=== PATIENT | male | born 1945 | race Caucasian/White ===

== ENCOUNTER 2016-09-26 15:41 | Emergency (ER) | payer MEDICARE, OTHER ==
[~2016-09-26] VITALS: Ht 175.3 cm; Wt 81.5 kg
[~2016-09-26 15:41] MED LIST: AMBI5TAB PO; AMIO200 PO; CINNAMON BARK 500MG PO; CITA-48 PO; CLON-352 PO; GLUC1000 PO; LEVO.125 PO; LISI-587 PO; OMEP20TA PO; PANT40IN3 PO; SERO400T PO; TAMS.4 PO
[2016-09-26 15:43] VITALS: BP 163/84; PULSE 99; RESP 20; TEMP 97.8; O2SAT 98
== END 2016-09-26 18:54 | disposition left against medical advice (07) ==
LOC: NED 15:41
DX: M79.643 Pain in unspecified hand (principal); Z53.21 Procedure and treatment not carried out due to patient leaving prior to being seen by health care provider
CPT/HCPCS: 99281

== ENCOUNTER 2016-09-27 20:51 | Emergency (ER) | payer MEDICARE, OTHER ==
[2016-09-27 20:54] VITALS: BP 142/78; PULSE 86; RESP 16; TEMP 98.1; O2SAT 99
== END 2016-09-27 22:20 | disposition left against medical advice (07) ==
LOC: NED 20:51
DX: Z04.9 Encounter for examination and observation for unspecified reason (principal)
CPT/HCPCS: 99281

== ENCOUNTER 2017-03-12 20:52 | Emergency (ER) | payer MEDICARE, OTHER ==
[~2017-03-12] VITALS: Ht 182.9 cm; Wt 75.0 kg
[2017-03-12 20:56] VITALS: BP 204/102; PULSE 91; RESP 16; O2SAT 96
[2017-03-12] MEDS ORDERED: ASCO500T PO ×2 (21:01→21:05)
[2017-03-12] MEDS ORDERED: FUROSEMIDE 20 MG/2 ML VIAL IV PUSH ONE (21:15)
[2017-03-12] MEDS ORDERED: FERR325T72 PO (21:16)
[2017-03-12] MEDS ORDERED: CLON0.1T PO (21:16)
[2017-03-12] MEDS ORDERED: OMEP20TA93 PO (21:16)
[2017-03-12] MEDS ORDERED: CITA40TA4 PO (21:16)
[2017-03-12] MEDS ORDERED: LISI-515 PO (21:16)
[2017-03-12] MEDS ORDERED: HYDR25TA5 PO (21:16)
[2017-03-12] MEDS ORDERED: ASPI81CH6 CHEW (21:16)
[2017-03-12] MEDS ORDERED: GABA600T PO (21:16)
[2017-03-12] MEDS ORDERED: GLIP10TA6 PO (21:16)
[2017-03-12] MEDS ORDERED: VITA100018 PO (21:16)
[2017-03-12 21:29] LABS: AUTOMATED NEUTROPHIL # 12.1 TH/MM3 (1.8-7.7); BASOPHIL % 0.3 % (0.0-2.0); HEMATOCRIT 39.6 % (39.0-51.0); HEMOGLOBIN 13.3 GM/DL (13.0-17.0); LYMPH % 4.7 % (9.0-44.0); LYMPHOCYTE # 0.7 TH/MM3 (1.0-4.8); MEAN CELL VOLUME 82.8 FL (80.0-100.0); MEAN CORPUSCULAR HEMOGLOBIN 27.9 PG (27.0-34.0); MEAN CORPUSCULAR HGB CONC 33.7 % (32.0-36.0); MEAN PLATELET VOLUME 8.7 FL (7.0-11.0); MONO % 9.4 % (0.0-8.0); MONOCYTE # 1.3 TH/MM3 (0-0.9); NEUT % 85.6 % (16.0-70.0); PLATELET COUNT 426 TH/MM3 (150-450); RED BLOOD COUNT 4.78 MIL/MM3 (4.50-5.90); RED CELL DISTRIBUTION WIDTH 14.2 % (11.6-17.2); WHITE BLOOD COUNT 14.1 TH/MM3 (4.0-11.0)
--- NOTE | 2017-03-12 21:34 | PD ---
HPI Chief Complaint: General Weakness Time Seen by Provider: 20:54 Travel History International Travel<30 days: No Contact w/Intl Traveler<30days: No Traveled to known affect area: No History of Present Illness HPI This 71-year-old man who presents to the emergency department brought in by EMS. Patient's unable to provide much meaningful history. I spoke to his brother, Shawn Coffey, [id number] 4, who states that he spoke to the patient he sounded progressively confused, he states that he was not taking his medications. Patient is legally blind apparently due to complications from diabetes and has not been able to see the medicines. He's been regularly missing appointments with his primary doctor at the [place]. His brother, Shawn Coffey, called the police and asked for a wellness check. When he went to go check on him, they found the patient confused and a little bit disheveled. Patient's unable to provide much additional history. States he is blind and can 't see his medicines. He has no specific complaints at this time. History Past Medical History Narrative Medical CAD, history of CABG Legally blind Diabetes Influenza Vaccination: No Social History Alcohol Use: No Tobacco Use: No (never) Allergies-Medications (Allergen,Severity, Reaction): Coded Allergies: No Known Allergies (Verified Adverse Reaction, Unknown, 03/12/17) Reported Meds & Prescriptions Reported Meds & Active Scripts Active Reported Lisinopril 20 Mg Tab 20 Mg PO DAILY Omeprazole 20 Mg Tab 20 Mg PO DAILY Hydrochlorothiazide 25 Mg Tab 25 Mg PO DAILY Glipizide 10 Mg Tab 10 Mg PO DAILY Take 30 minutes before a meal Gabapentin 600 Mg Tab 600 Mg PO TID Ferrous Gluconate 324 Mg (37.5 Mg Iron) Tab 325 Mg PO DAILY Clonidine (Clonidine HCl) 0.1 Mg Tab 0.1 Mg PO BID Citalopram (Citalopram Hydrobromide) 40 Mg Tab 40 Mg PO DAILY Vitamin D3 (Cholecalciferol) 1,000 Unit Tab 1,000 Units PO DAILY Aspirin Low Dose (Aspirin) 81 Mg Chew 81 Mg CHEW DAILY Ascorbic Acid 500 Mg Tab 500 Mg PO BID Ascorbic Acid 500 Mg Tab 500 Mg PO BID [Cinnamon Bark 500MG] 500 Mg PO DAILY Review of Systems Except as stated in HPI: all other systems reviewed are Neg Physical Exam Narrative GENERAL: 71 year-old woman, little bit disheveled, nontoxic, no acute distress. SKIN: Focused skin assessment warm/dry. HEAD: Atraumatic. Normocephalic. EYES: Pupils equal and round. No scleral icterus. No injection or drainage. ENT: No nasal bleeding or discharge. Mucous membranes pink and moist. NECK: Trachea midline. No JVD. CARDIOVASCULAR: Regular rate and rhythm. No murmur appreciated. RESPIRATORY: No accessory muscle use. Clear to auscultation. Breath sounds equal bilaterally. GASTROINTESTINAL: Abdomen soft, non-tender, nondistended. Hepatic and splenic margins not palpable. MUSCULOSKELETAL: No obvious deformities. Some edema bilateral lower extremities. NEUROLOGICAL: Awake and alert. No obvious cranial nerve deficits. Motor grossly within normal limits. Normal speech. Data Data Last Documented VS Vital Signs Date Time Temp Pulse Resp B/P (MAP) Pulse Ox O2 Delivery O2 Flow Rate FiO2 03/12/17 20:56 91 16 204/102 (136) 96 Orders Orders Complete Blood Count With Diff (03/12/17 21:11) Comprehensive Metabolic Panel (03/12/17 21:11) Iv Access Insert/Monitor (03/12/17 21:11) Chest, Single Ap (03/12/17 ) Furosemide Inj (Lasix Inj) (03/12/17 21:15) Urinalysis - C+S If Indicated (03/12/17 21:13) ^ Home Health (03/13/17 02:57) Labs Laboratory Tests Test 03/12/17 02:00 03/12/17 21:10 03/13/17 01:08 Urine Color YELLOW Urine Turbidity CLEAR Urine pH 6.5 Urine Specific [place] 1.039 Urine Protein GREATER THAN 600 mg/dL Urine Glucose (UA) 300 mg/dL Urine Ketones 10 mg/dL Urine Occult Blood MOD Urine Nitrite NEG Urine Bilirubin NEG Urine Urobilinogen LESS THAN 2.0 MG/DL Urine Leukocyte Esterase NEG Urine RBC 3 /hpf Urine WBC 1 /hpf Urine Hyaline Casts 9 /lpf Urine Granular Casts 6 /lpf Urine Mucus FEW /lpf Microscopic Urinalysis Comment CULT NOT INDICATED White Blood Count 14.1 TH/MM3 Red Blood Count 4.78 MIL/MM3 Hemoglobin 13.3 GM/DL Hematocrit 39.6 % Mean Corpuscular Volume 82.8 FL Mean Corpuscular Hemoglobin 27.9 PG Mean Corpuscular Hemoglobin Concent 33.7 % Red Cell Distribution Width 14.2 % Platelet Count 426 TH/MM3 Mean Platelet Volume 8.7 FL Neutrophils (%) (Auto) 85.6 % Lymphocytes (%) (Auto) 4.7 % Monocytes (%) (Auto) 9.4 % Eosinophils (%) (Auto) 0.0 % Basophils (%) (Auto) 0.3 % Neutrophils # (Auto) 12.1 TH/MM3 Lymphocytes # (Auto) 0.7 TH/MM3 Monocytes # (Auto) 1.3 TH/MM3 Eosinophils # (Auto) 0.0 TH/MM3 Basophils # (Auto) 0.0 TH/MM3 CBC Comment DIFF FINAL Differential Comment Blood Urea Nitrogen 34 MG/DL Creatinine 1.24 MG/DL Random Glucose 199 MG/DL Total Protein 7.5 GM/DL Albumin 3.2 GM/DL Calcium Level 9.3 MG/DL Alkaline Phosphatase 92 U/L Aspartate Amino Transf (AST/SGOT) 8 U/L Alanine Aminotransferase (ALT/SGPT) 11 U/L Total Bilirubin 0.3 MG/DL Sodium Level 133 MEQ/L Potassium Level 3.7 MEQ/L Chloride Level 97 MEQ/L Carbon Dioxide Level 30.3 MEQ/L Anion Gap 6 MEQ/L Estimat Glomerular Filtration Rate 57 ML/MIN [facility] Medical Decision Making Medical Screen Exam Complete: Yes Emergency Medical Condition: Yes Interpretation(s) My review of EKG: Normal sinus rhythm at a rate of 93, normal axis, normal intervals, inferior Q waves suggestive of old ischemia, compared to previous EKG , inferior TX as involved in ST elevations were placed with Q waves. LABS: CBC remarkable for mild leukocytosis. CMP overall unremarkable. BUN to bit elevated. UA: Severe proteinuria Chest x-ray: Mild left basilar atelectasis and/or scarring. Differential Diagnosis Weakness, confusion, dehydration, hyperglycemia, infection, other Narrative Course Medical decision-making 71-year-old man, complaining of weakness, difficulty functioning due to blindness and trouble seeing his medications, [facility] Patient appeared more confused today than normal. Seems subacute in onset. We'll check labs urine chest x-ray. Patient also some edema in his lower extremity is. Probably nutritional. Patient does not want to be in an [facility] or [facility] facility. He is agreeable to home health. This may benefit him. Sounds like he mostly eats at the [employer]. Unclear if he prepares food at home or not. We'll discuss with case management. FINAL: Patient is not really interested in living somewhere else like an [facility] for long-term care. Therefore, best alternative for him would be home health care. We'll set this up through case management. Diagnosis Primary Impression: DM2 (diabetes mellitus, type 2) Patient Instructions: General Instructions Additional Instructions: Follow-up with home health as discussed. Take medications as prescribed. Follow-up with your primary doctor as needed. Return to the emergency department for any new or worsening symptoms. Med/Other Pt SpecificInfo: No Change to Meds Disposition: 01 DISCHARGE HOME Condition: Stable Ramon Grant MD Mar 12, 2017 21:34
--- NOTE | 2017-03-12 21:47 | RADRPT ---
EXAM DATE/TIME: 03/12/2017 21:38 [facility] COMPARISON: No previous studies available for comparison. INDICATIONS : Short of breath. MEDICAL HISTORY : Hypertension. Chronic obstructive pulmonary disease. Diabetes mellitus type 2. SURGICAL HISTORY : CABG. ENCOUNTER: Initial ACUITY: 1 day PAIN SCORE: 0/10 LOCATION: Bilateral chest FINDINGS: Mild atelectasis and/or scarring left base. Lungs otherwise clear. No large effusion. No pneumothorax . Heart size stable, within normal limits. Implanted loop recorder present. Patient has had previous me ana sternotomy. CONCLUSION: Mild left base atelectasis and/or scarring. Ankit Jay MD on March 12, 2017 at 21:45 Board Certified Radiologist. This report was verified electronically.
[2017-03-13 00:34] LABS: BILIRUBIN, URINE NEG (NEG); BLOOD, URINE MOD (NEG); GLUCOSE,URINE 300 mg/dL (NEG); HYALINE CAST, URINE 9 /lpf (RARE); KETONE, URINE 10 mg/dL (NEG); MUCUS URINE FEW /lpf (OCC); NITRITE,URINE NEG (NEG); PH, URINE 6.5 (5.0-8.5); URINE COLOR YELLOW (YELLW/STRAW); URINE LEUKOCYTE ESTERASE NEG (NEG)
[2017-03-13 02:07] LABS: ALBUMIN 3.2 GM/DL (3.4-5.0); ALT (GPT) 11 U/L (12-78); AST (GOT) 8 U/L (15-37); BICARBONATE 30.3 MEQ/L (21.0-32.0); BLOOD UREA NITROGEN 34 MG/DL (7-18); CALCIUM 9.3 MG/DL (8.5-10.1); CHLORIDE 97 MEQ/L (98-107); CREATININE 1.24 MG/DL (0.60-1.30); GLOMERULAR FILTRATION RATE 57 ML/MIN (>89); GLUCOSE,RANDOM 199 MG/DL (74-106); SODIUM (NA) 133 MEQ/L (136-145)
[2017-03-13 02:09] LABS: ALKALINE PHOSPHATASE 92 U/L (45-117); TOTAL BILIRUBIN ADULT 0.3 MG/DL (0.2-1.0); TOTAL PROTEIN 7.5 GM/DL (6.4-8.2)
--- NOTE | 2017-03-13 03:01 | HHI.FF ---
Face to Face Verification Diagnosis: (1) DM2 (diabetes mellitus, type 2) (2) Insomnia (3) Delirium due to another medical condition (4) Blindness Home Health Nursing Order: Medical education Diabetic education Medication education-adverse effect Nursing assessment with vital signs Instructions: Needs help with arranging medications due to blindness. We'll need help with assessments and monitoring. Meeting/Event Planner Order: To Evaluate: Living conditions/environment, Support services Order: To Provide: Long range planning I have seen patient Bharathi Coffey on 03/13/17. My clinical findings support the need for the requested home health care services because: Ltd mobility - disease progression Deconditioned w/ increased weakness Med compliance is questionable Limited ability to care for self Need for psychosocial assistance High risk of falls I certify that my clinical findings support that this patient is homebound because: Unsteady gait/balance Unsafe to leave home unassisted Unable to use public transportation Ramon Grant MD Mar 13, 2017 03:01
[2017-03-13 10:00] VITALS: BP 167/64; PULSE 81; RESP 16; O2SAT 96
--- NOTE | 2017-03-13 14:49 | EKG ---
Date Performed: 03/12/2017 Time Performed: 20:57:39 PTAGE: 71 years EKG: Sinus rhythm POSSIBLE LEFT ATRIAL ENLARGEMENT INFERIOR MYOCARDIAL INFARCTION ABNORMAL ECG NO PREVIOUS TRACING DOCTOR: Ramon Azar Interpretating Date/Time 03/13/2017 14:47:36
== END 2017-03-13 14:53 | disposition home or self-care (01) ==
LOC: NEPE 20:52
DX: E11.69 Type 2 diabetes mellitus with other specified complication (principal); H54.8 Legal blindness, as defined in USA; I25.10 Atherosclerotic heart disease of native coronary artery without angina pectoris; Z79.84 Long term (current) use of oral hypoglycemic drugs; Z95.1 Presence of aortocoronary bypass graft
CPT/HCPCS: 71010; 80053; 81001; 85025; 93005; 99284

== ENCOUNTER 2017-08-14 23:28 | Emergency (ER) | payer MEDICARE, OTHER ==
[~2017-08-14] VITALS: Ht 175.3 cm; Wt 75.0 kg
[~2017-08-14 23:28] MED LIST changes: -AMBI5TAB PO; -AMIO200 PO; +ASCO500T PO; +ASPI81CH6 CHEW; -CITA-48 PO; +CITA40TA4 PO; -CLON-352 PO; +CLON0.1T PO; +FERR325T72 PO; +GABA600T PO; +GLIP10TA6 PO; -GLUC1000 PO; +HYDR25TA5 PO; -LEVO.125 PO; +LISI-515 PO; -LISI-587 PO; -OMEP20TA PO; +OMEP20TA93 PO; -PANT40IN3 PO; -SERO400T PO; -TAMS.4 PO; +VITA100018 PO
[2017-08-14 23:31] VITALS: BP 118/76; PULSE 77; RESP 18; O2SAT 95
[2017-08-14] MEDS ORDERED: SODIUM CHLOR 0.9% 1000 ML INJ 1,000 ML IV ONE (23:34)
[2017-08-14 23:36] VITALS: O2SAT 98
--- NOTE | 2017-08-14 23:38 | PD ---
HPI Chief Complaint: General Weakness Time Seen by Provider: 23:32 Travel History International Travel<30 days: No Contact w/Intl Traveler<30days: No Traveled to known affect area: No History of Present Illness HPI 71-year-old male brought in by ambulance after being found minimally responsive at a [facility]. When [facility] arrived at the scene, they noted that the patient's blood pressure was 80s over 40s and administered 300 cc of normal saline prior to arrival. His blood pressure normalized upon arrival to the emergency department. Patient had a few episodes of vomiting in route. He states that he took a full Seroquel today which she does not usually do. Upon arrival to the emergency department he is awake and alert and denies any physical complaints. No chest pain or dyspnea. No cough. No abdominal pain. BGL obtained by [facility] was in the 200s. PFSH Past Medical History Hx Anticoagulant Therapy: Yes Depression: Yes Cardiovascular Problems: Yes High Cholesterol: Yes Chemotherapy: No Cerebrovascular Accident: No Coronary Artery Disease: Yes Diabetes: Yes Diminished Hearing: No Hypertension: Yes Psychiatric: Yes (PTSD) Respiratory: No Immunizations Current: Yes Past Surgical History Coronary Artery Bypass Graft: Yes Social History Alcohol Use: No Tobacco Use: No (never) Substance Use: No Allergies-Medications (Allergen,Severity, Reaction): Coded Allergies: No Known Allergies (Verified Adverse Reaction, Unknown, 03/12/17) Reported Meds & Prescriptions Reported Meds & Active Scripts Active Reported Metformin (Metformin HCl) 500 Mg Tab 500 Mg PO BIDPC Lisinopril 20 Mg Tab 20 Mg PO DAILY Omeprazole 20 Mg Tab 20 Mg PO DAILY Hydrochlorothiazide 25 Mg Tab 25 Mg PO DAILY Glipizide 10 Mg Tab 10 Mg PO DAILY Take 30 minutes before a meal Gabapentin 600 Mg Tab 600 Mg PO TID Ferrous Gluconate 324 Mg (37.5 Mg Iron) Tab 325 Mg PO DAILY Clonidine (Clonidine HCl) 0.1 Mg Tab 0.1 Mg PO BID Citalopram (Citalopram Hydrobromide) 40 Mg Tab 40 Mg PO DAILY Vitamin D3 (Cholecalciferol) 1,000 Unit Tab 1,000 Units PO DAILY Aspirin Low Dose (Aspirin) 81 Mg Chew 81 Mg CHEW DAILY [Cinnamon Bark 500MG] 500 Mg PO DAILY Review of Systems Except as stated in HPI: all other systems reviewed are Neg Physical Exam Narrative GENERAL: Well-developed, well-nourished, awake, alert, no apparent distress. SKIN: Focused skin assessment warm/dry. No rash. Median sternotomy scar that is well-healed. HEAD: Atraumatic. Normocephalic. EYES: Pupils equal and round. No scleral icterus. No injection or drainage. ENT: No nasal bleeding or discharge. Mucous membranes pink and dry. NECK: Trachea midline. No JVD. No nuchal rigidity. CARDIOVASCULAR: Regular rate and rhythm. RESPIRATORY: No accessory muscle use. Clear to auscultation. Breath sounds equal bilaterally. GASTROINTESTINAL: Abdomen soft, non-tender, nondistended. Hepatic and splenic margins not palpable. MUSCULOSKELETAL: No obvious deformities. No clubbing. No cyanosis. No edema. NEUROLOGICAL: Awake and alert. No obvious cranial nerve deficits. Motor grossly within normal limits. Normal speech. No focal deficits. PSYCHIATRIC: Appropriate mood and affect; insight and judgment normal. Data Data Last Documented VS Vital Signs Date Time Temp Pulse Resp B/P (MAP) Pulse Ox O2 Delivery O2 Flow Rate FiO2 08/15/17 04:29 66 16 138/82 (100) 95 Room Air 08/15/17 00:05 98.8 Orders Orders Sepsis Workup Initiated (08/14/17 ) Electrocardiogram (08/14/17 23:34) Complete Blood Count With Diff (08/14/17 23:34) Comprehensive Metabolic Panel (08/14/17 23:34) Prothrombin Time / Inr (Pt) (08/14/17 23:34) Act Partial Throm Time (Ptt) (08/14/17 23:34) Lactic Acid Sepsis Protocol (08/14/17 23:34) Ckmb (Isoenzyme) Profile (08/14/17 23:34) Troponin I (08/14/17 23:34) Urinalysis - C+S If Indicated (08/14/17 23:34) Influenzae A/B Antigen (08/14/17 23:34) Blood Culture (08/14/17 23:34) Chest, Single Ap (08/14/17 23:34) Ecg Monitoring (08/14/17 23:34) Iv Access Insert/Monitor (08/14/17 23:34) Oximetry (08/14/17 23:34) Sodium Chlor 0.9% 1000 Ml Inj (Ns 1000 M (08/14/17 23:34) Ammonia (08/14/17 23:37) Cath For Specimen (08/15/17 02:20) Labs Laboratory Tests Test 08/14/17 23:40 08/15/17 02:26 White Blood Count 5.8 TH/MM3 Red Blood Count 4.07 MIL/MM3 Hemoglobin 11.6 GM/DL Hematocrit 34.4 % Mean Corpuscular Volume 84.6 FL Mean Corpuscular Hemoglobin 28.5 PG Mean Corpuscular Hemoglobin Concent 33.7 % Red Cell Distribution Width 17.0 % Platelet Count 227 TH/MM3 Mean Platelet Volume 9.4 FL Neutrophils (%) (Auto) 73.5 % Lymphocytes (%) (Auto) 13.0 % Monocytes (%) (Auto) 11.4 % Eosinophils (%) (Auto) 1.5 % Basophils (%) (Auto) 0.6 % Neutrophils # (Auto) 4.3 TH/MM3 Lymphocytes # (Auto) 0.8 TH/MM3 Monocytes # (Auto) 0.7 TH/MM3 Eosinophils # (Auto) 0.1 TH/MM3 Basophils # (Auto) 0.0 TH/MM3 CBC Comment DIFF FINAL Differential Comment Prothrombin Time 11.2 SEC Prothromb Time International Ratio 1.1 RATIO Activated Partial Thromboplast Time 24.3 SEC Blood Urea Nitrogen 19 MG/DL Creatinine 1.57 MG/DL Random Glucose 216 MG/DL Total Protein 6.1 GM/DL Albumin 2.8 GM/DL Calcium Level 8.2 MG/DL Alkaline Phosphatase 59 U/L Aspartate Amino Transf (AST/SGOT) 13 U/L Alanine Aminotransferase (ALT/SGPT) 10 U/L Total Bilirubin 0.2 MG/DL Sodium Level 141 MEQ/L Potassium Level 3.5 MEQ/L Chloride Level 106 MEQ/L Carbon Dioxide Level 22.9 MEQ/L Anion Gap 12 MEQ/L Estimat Glomerular Filtration Rate 44 ML/MIN Lactic Acid Level 1.8 mmol/L Ammonia 33 MCMOL/L Total Creatine Kinase 63 U/L Troponin I LESS THAN 0.02 NG/ML Urine Color YELLOW Urine Turbidity CLEAR Urine pH 6.5 Urine Specific [place] 1.021 Urine Protein GREATER THAN 600 mg/dL Urine Glucose (UA) NEG mg/dL Urine Ketones NEG mg/dL Urine Occult Blood NEG Urine Nitrite NEG Urine Bilirubin NEG Urine Urobilinogen 2.0 MG/DL Urine Leukocyte Esterase NEG Urine RBC 3 /hpf Urine WBC 4 /hpf Urine Squamous Epithelial Cells <1 /hpf Urine Hyaline Casts 18 /lpf Urine Mucus FEW /lpf Microscopic Urinalysis Comment CATH-CULT NOT IND MDM Medical Decision Making Medical Screen Exam Complete: Yes Emergency Medical Condition: Yes Interpretation(s) EKG: Sinus, rate 72, normal axis, normal intervals, Q waves in inferior leads/ septal leads/anterior leads, unchanged from prior, no acute ischemic abnormality. Differential Diagnosis Sepsis, pneumonia, UTI, medication side effect, metabolic encephalopathy Narrative Course Initial vital signs show heart rate 77, blood pressure 118/76, pulse ox 98% on room air, rectal temp of 98.8F. CBC: WBC 5.8, hemoglobin 11.6, hematocrit 34.4, platelets 227, neutrophils 73.5% . CMP is remarkable for BUN 19, creatinine 1.57, GFR 44 which is slightly worse than his baseline, random glucose 216. Ammonia level is 33. Lactic acid is 1.8. Cardiac enzymes are negative. UA is not suggestive of UTI. Shows greater than 600 protein which the patient has had in the past on previous ER visits. Patient was given a liter normal saline IV and has been normotensive while in the emergency department. On reassessment he states he feels well. He is sleeping comfortably and is easily arousable. He was hypotensive on scene according to EMS. The patient reports taking more than his usual dose of Seroquel this evening. I believe that this is likely the cause for the patient' s hypotensive/drowsiness. I will observe him in the emergency department until the morning and allow him to sleep off the effects of the medication and if on reassessment he is awake and alert, will be discharged back to his home. 6:25 AM: The patient was allowed to sleep in the emergency department and on reassessment he states he feels significantly improved. He was able to dress himself and states he would like to go home. I believe that the patient's presentation was likely secondary to side effect from taking too much Seroquel. He is stable for discharge home and a taxi will be called to take him home. PMD follow-up this week. He was advised on when to return to the emergency department. He verbalizes understanding and agreement with plan. Diagnosis Primary Impression: Medication side effect Referrals: Primary Care Physician 3 days Additional Instructions: Follow-up with your primary care physician this week. Return to the emergency department for worsening symptoms or any other concerns. Disposition: 01 DISCHARGE HOME Condition: Stable Denys Bolivar MD August 14, 2017 23:38
[2017-08-14] MEDS ORDERED: METF500T PO (23:41)
--- NOTE | 2017-08-15 00:04 | RADRPT ---
EXAM DATE: 08/14/2017 11:52 PM EDT AGE/SEX: 71 years / Male INDICATIONS: Syncopal episode. CLINICAL DATA: This is the patient's initial encounter. Patient reports that signs and symptoms have been present for 1 day and indicates a pain score of 0/10. MEDICAL/SURGICAL HISTORY: Hypertension. Diabetes mellitus type II. Chronic obstructive pulmon niall disease. CABG. COMPARISON: [facility] [place], CHEST SINGLE AP, 03/12/2017. . FINDINGS: The lungs are clear without infiltrate, nodule, or mass. There is no appreciable pleural effusion for technique. Heart and mediastinum are unremarkable. There is evidence for prior median sternotomy. Probable skinfold overlapping the lung apices bilaterally. CONCLUSION: No acute cardiopulmonary disease. Electronically signed by: Heaven Machado MD 08/15/2017 12:03 AM EDT
[2017-08-15 00:05] VITALS: BP 122/70; PULSE 72; RESP 18; TEMP 98.8; O2SAT 96
[2017-08-15 00:15] LABS: AUTOMATED NEUTROPHIL # 4.3 TH/MM3 (1.8-7.7); BASOPHIL % 0.6 % (0.0-2.0); EOSINOPHIL # 0.1 TH/MM3 (0-0.4); EOSINOPHIL % 1.5 % (0.0-4.0); HEMATOCRIT 34.4 % (39.0-51.0); HEMOGLOBIN 11.6 GM/DL (13.0-17.0); LYMPHOCYTE # 0.8 TH/MM3 (1.0-4.8); MEAN CELL VOLUME 84.6 FL (80.0-100.0); MEAN CORPUSCULAR HEMOGLOBIN 28.5 PG (27.0-34.0); MEAN CORPUSCULAR HGB CONC 33.7 % (32.0-36.0); MEAN PLATELET VOLUME 9.4 FL (7.0-11.0); MONO % 11.4 % (0.0-8.0); MONOCYTE # 0.7 TH/MM3 (0-0.9); NEUT % 73.5 % (16.0-70.0); PLATELET COUNT 227 TH/MM3 (150-450); RED BLOOD COUNT 4.07 MIL/MM3 (4.50-5.90); WHITE BLOOD COUNT 5.8 TH/MM3 (4.0-11.0)
[2017-08-15 00:24] LABS: INTERNATIONAL NORMALIZED RATIO 1.1 RATIO; PROTHROMBIN TIME - PATIENT 11.2 SEC (9.8-11.6)
[2017-08-15 00:31] LABS: ALBUMIN 2.8 GM/DL (3.4-5.0); ALT (GPT) 10 U/L (12-78); AST (GOT) 13 U/L (15-37); BICARBONATE 22.9 MEQ/L (21.0-32.0); BLOOD UREA NITROGEN 19 MG/DL (7-18); CALCIUM 8.2 MG/DL (8.5-10.1); CHLORIDE 106 MEQ/L (98-107); CREATININE 1.57 MG/DL (0.60-1.30); GLOMERULAR FILTRATION RATE 44 ML/MIN (>89); GLUCOSE,RANDOM 216 MG/DL (74-106); SODIUM (NA) 141 MEQ/L (136-145)
[2017-08-15 00:35] LABS: ALKALINE PHOSPHATASE 59 U/L (45-117); TOTAL BILIRUBIN ADULT 0.2 MG/DL (0.2-1.0); TOTAL PROTEIN 6.1 GM/DL (6.4-8.2); TROPONIN I LESS THAN 0.02 NG/ML (0.02-0.05)
[2017-08-15 02:32] VITALS: BP 120/72; PULSE 64; RESP 18; O2SAT 96
[2017-08-15 02:39] LABS: BILIRUBIN, URINE NEG (NEG); BLOOD, URINE NEG (NEG); GLUCOSE,URINE NEG (NEG); HYALINE CAST, URINE 18 /lpf (RARE); KETONE, URINE NEG (NEG); MUCUS URINE FEW /lpf (OCC); NITRITE,URINE NEG (NEG); PH, URINE 6.5 (5.0-8.5); SQUAMOUS EPITHELIAL CELL URINE <1 /hpf (0-5); URINE COLOR YELLOW (YELLW/STRAW); URINE LEUKOCYTE ESTERASE NEG (NEG)
[2017-08-15 04:29] VITALS: BP 138/82; PULSE 66; RESP 16; O2SAT 95
--- NOTE | 2017-08-16 08:37 | EKG ---
Date Performed: 08/15/2017 Time Performed: 00:09:47 PTAGE: 71 years EKG: Sinus rhythm WITH FIRST DEGREE AV BLOCK CONSIDER INFERIOR MYOCARDIAL INFARCTION, AGE INDETERMINATE CONSIDER ANTER OSEPTAL MYOCARDIAL INFARCTION, AGE INDETERMINATE ABNORMAL ECG PREVIOUS TRACING : 03/12/2017 20.57 DOCTOR: Meir Gao Interpretating Date/Time 08/16/2017 08:37:32
== END 2017-08-15 06:42 | disposition home or self-care (01) ==
LOC: NEPE 23:28
DX: I95.2 Hypotension due to drugs (principal); T43.595A Adverse effect of other antipsychotics and neuroleptics, initial encounter; R94.31 Abnormal electrocardiogram [ECG] [EKG]; E11.9 Type 2 diabetes mellitus without complications; Z79.84 Long term (current) use of oral hypoglycemic drugs
CPT/HCPCS: 71045; 80053; 81001; 82140; 82550; 83605; 84484; 85025; 85610; 85730; 87040; 87804; 93005; 96360; 96361; 99285; J7030; P9612

== ENCOUNTER 2017-11-29 18:41 | Inpatient (IN) ==
[2017-11-29] MEDS ORDERED: Sod Chloride 0.9% Inj 1,000 ML IV.SIG SCH ×2 (19:00→20:15)
[2017-11-29] MEDS ORDERED: Labetalol HCl Inj 100 MG/20 ML Vial IV.PUSH ONE ×2 (19:08→21:27)
--- NOTE | 2017-11-29 19:13 | ED ---
HPI General Chief complaint: Altered Mental Status Stated complaint: Altered mental Time Seen by Provider: 11/29/17 18:56 History of Present Illness HPI narrative: This is a 72-year-old male with history of diabetes, coronary artery disease, CVA, presents via EMS for evaluation of altered mental status. History is obtained from paramedics. They report that the patient lives alone in a house. A manager production comes by approximately every other day to do work around the house. he was last seen normal by the development chemist 2 days ago. Today when he went to check on them he found the patient sitting in his recliner chair altered, covered in stool and urine. Patient is currently GCS of 10. Paramedics note that his blood sugars in the 400s. His blood pressure is elevated to 200/100. Symptom duration unknown, no obvious aggravating or relieving factors. Related Data Home Medications Medication Instructions Recorded Confirmed C,E,zinc,copper [id number] 1 cap PO DAILY 11/29/17 11/29/17 [Ocuvite Adult 50 Plus] ascorbic acid (vitamin C) [Vitamin 1,000 mg PO DAILY 11/29/17 11/29/17 C] aspirin 81 mg PO DAILY 11/29/17 11/29/17 bilberry fruit extract 30 mg PO DAILY 11/29/17 11/29/17 cholecalciferol (vitamin D3) 1,000 unit PO DAILY 11/29/17 11/29/17 [Vitamin D3] citalopram 20 mg PO DAILY 11/29/17 11/29/17 clonidine HCl 0.1 mg PO Q8HR 11/29/17 11/29/17 cyanocobalamin (vitamin B-12) 1,000 mcg PO DAILY 11/29/17 11/29/17 [Vitamin B-12] docusate sodium [Colace] 100 mg PO BID PRN 11/29/17 11/29/17 ferrous gluconate 324 mg PO DAILY 11/29/17 11/29/17 folic acid 0.5 mg PO DAILY 11/29/17 11/29/17 gabapentin 600 mg PO TID 11/29/17 11/29/17 glipizide 10 mg PO BID 11/29/17 11/29/17 lisinopril-hydrochlorothiazide 1 tab PO DAILY 11/29/17 11/29/17 magnesium oxide 420 mg PO DAILY 11/29/17 11/29/17 metformin 1,000 mg PO BID 11/29/17 11/29/17 omeprazole 20 mg PO DAILY 11/29/17 11/29/17 quetiapine [Seroquel] 25 mg PO QAM 11/29/17 11/29/17 quetiapine [Seroquel] 200 mg PO HS 11/29/17 11/29/17 Allergies Allergy/AdvReac Type Severity Reaction Status Date / Time No Known Allergies Unknown Uncoded 03/12/17 20:56 Review of Systems ROS Unobtainable ROS Unobtainable: unobtainable due to mental status [facility] Medical History Medical History Diabetes (Acute) Social History Social History Substance History: Unable to Obtain Smoking Status: Unknown if ever smoked How Often Do You Have a Drink Containing Alcohol: Unable to Obtain Recent Travel in [facility] within the Last 8 Weeks: No Recent Out of Country Travel within the Last 8 Weeks: No Immunization History Tetanus Immunization: Unsure Hx Influenza Vaccine This Season: Unable to Assess Exam Narrative Exam Narrative: GENERAL: This is a disheveled male who is in no acute distress, GCS 10. Afebrile. SKIN: Warm and dry. HEAD: Atraumatic. Normocephalic. EYES: Pupils equal and round. No scleral icterus. No injection or drainage. ENT: No nasal bleeding or discharge. Mucous membranes pink and moist. NECK: Trachea midline. No JVD. CARDIOVASCULAR: Regular rate and rhythm. No murmur appreciated. RESPIRATORY: No accessory muscle use. Clear to auscultation. Breath sounds equal bilaterally. GASTROINTESTINAL: Abdomen soft, patient winces to palpation in lower quadrants. MUSCULOSKELETAL: No obvious deformities. No clubbing. No cyanosis. No edema. NEUROLOGICAL: Drowsy but responds to painful stimuli. No obvious cranial nerve deficits. Moves the arms and legs spontaneously but unable to fully assess motor strength. Course Initial Documented Vital Signs Pulse Rate 100 H 11/29/17 18:50 Respiratory Rate 20 11/29/17 18:50 Blood Pressure 200/122 H 11/29/17 18:50 Pulse Oximetry 92 L 11/29/17 18:50 Last Documented Vital Signs Temperature 99.3 F 11/29/17 18:56 Pulse Rate 77 11/29/17 19:53 Respiratory Rate 16 11/29/17 19:53 Blood Pressure 177/92 H 11/29/17 19:53 Pulse Oximetry 99 11/29/17 19:53 Medical Decision Making JAYMIE Attestation JAYMIE supervised visit: Yes Attestation: I, Dr. John, have reviewed the advance practice practitioner's documentation and am in agreement, met with the patient face to face, made the diagnosis, and the medical decision making was done by me. *My assessment and Findings: 72-year-old male presents to the emergency department altered mental status after being found with decreased level of consciousness by acquaintance disheveled with urinary and fecal incontinence. Patient with GCS of 10 unable to relay history superficial ecchymosis changes to upper back and tenderness to palpation of lower abdomen no guarding or rebound soft no other focality on exam. Patient with multiple medical problems. Prior admissions for electrolyte disturbance altered mentation and diabetic management. Concur with initiated workup for altered mentation with imaging CT brain CT cervical spine and CT abdomen/pelvis with IV access obtained administration of IV fluids patient on continuous cardiac monitoring with pulse oximetry's specimens collected and sent for resulting. Evaluation for altered mental status, ICH, uncontrolled hypertension, electrolyte disturbance, sepsis, arrhythmia, UT, uncontrolled diabetes, diverticulitis abscess ischemic bowel. Patient will require admission management. MDM Narrative Medical decision making narrative: The patient was placed on ECG monitoring pulse oximetry. A 12-lead EKG was obtained revealing sinus rhythm with a rate of 76, Q waves noted in inferior leads and V1 and V2.. Lab work, chest x-ray, urinalysis, CT abdomen and pelvis, CT brain been ordered. The patient was given normal saline, 20 mg labetalol. Lab work is been reviewed. WBC count of 17.2. Blood sugars 357. Lab work demonstrates acute kidney injury. Troponin is 0.13. Additional liter of normal saline has been ordered. Chest x-ray reveals left lower lobe consolidation. Lactic acid is 2.4. CT of the brain, cervical spine and abdomen and pelvis reveal no acute normalities. Azithromycin and Rocephin initiated for pneumonia. The patient will be admitted. Medical Screen Exam Complete: Yes Emergency Medical Condition: Yes Differential Diagnosis Differential Diagnosis: CVA, delirium, sepsis, electrolyte abnormality, dehydration, medication side effect Lab Data Result diagrams: 11/29/17 19:00 11/29/17 19:00 Lab Results 09/14/18 09/14/18 09/14/18 Range/Units 19:00 19:00 19:00 WBC 17.2 H (4.0-11.0) th/mm3 RBC 5.83 (4.50-5.90) mil/mm3 Hgb 17.4 H (13.0-17.0) gm/dL Hct 51.7 H (39.0-51.0) % MCV 88.6 (80.0-100.0) fL MCH 29.9 (27.0-34.0) pg MCHC 33.7 (32.0-36.0) % RDW 14.7 (11.6-17.2) % Plt Count 375 (150-450) th/mm3 MPV 9.1 (7.0-11.0) fL Neut % (Auto) 86.3 H (16.0-70.0) % Lymph % (Auto) 3.9 L (9.0-44.0) % Miller % (Auto) 9.7 H (0.0-8.0) % Eos % (Auto) 0.0 (0.0-4.0) % Baso % (Auto) 0.1 (0.0-2.0) % Neut # (Auto) 14.8 H (1.8-7.7) th/mm3 Lymph # (Auto) 0.7 L (1.0-4.8) th/mm3 Miller # (Auto) 1.7 H (0.0-0.9) th/mm3 Eos # (Auto) 0.0 (0.0-0.4) th/mm3 Baso # (Auto) 0.0 (0.0-0.2) th/mm3 WBC Differential . Differential Comment Auto diff final PT (9.8-11.6) sec INR Ratio APTT (24.3-30.1) sec Sodium 143 (136-145) meq/L Potassium 3.6 (3.5-5.1) meq/L Chloride 105 (98-107) meq/L Carbon Dioxide 27.4 (21.0-32.0) meq/L Anion Gap 11 (5-15) meq/L BUN 56 H (7-18) mg/dL Creatinine 2.29 H (0.60-1.30) mg/dL Estimated GFR 28 L (>89) mL/min Random Glucose 357 H (74-106) mg/dL Lactic Acid 2.4 H (0.4-2.0) mmol/L Calcium 9.6 (8.5-10.1) mg/dL Magnesium (1.5-2.5) mg/dL Total Bilirubin 0.5 (0.2-1.0) mg/dL AST 23 (15-37) U/L ALT 15 (12-78) U/L Alkaline Phosphatase 108 (45-117) U/L Ammonia (11-32) mcmol/L Total Creatine Kinase 399 H (39-308) U/L CK-MB (CK-2) 3.2 (0.5-3.6) ng/mL CK-MB (CK-2) % 0.8 (0.0-4.0) % Troponin I 0.13 H (0.02-0.05) ng/mL Total Protein 8.3 H (6.4-8.2) g/dL Albumin 3.6 (3.4-5.0) g/dL Beta-Hydroxybutyric Acd 0.63 H (0.00-0.39) mmol/L TSH 1.450 (0.358-3.740) uIU/mL Urine Color (Yellw/Straw) Urine Clarity (Clear) Urine pH (5.0-8.5) Ur Specific Jet (1.002-1.035) Urine Protein (Neg-Trace) mg/dL Urine Glucose (UA) (Negative) mg/dL Urine Ketones (Negative) mg/dL Urine Occult Blood (Negative) Urine Nitrate (Negative) Urine Bilirubin (Negative) Urine Urobilinogen (Less than 2) mg/dL Ur Leukocyte Esterase (Negative) Urine RBC (0-3) /hpf Urine WBC (0-5) /hpf Hyaline Casts (0-3) /lpf Micro UA Comment Ur Microscopic Review Urine Culture Comments Urine Opiates Screen (Neg) Ur Barbiturates Screen (Neg) Ur Amphetamines Screen (Neg) U Benzodiazepines Scrn (Neg) Urine Cocaine Screen (Neg) U Cannabinoids Screen (Neg) Serum Alcohol Less than 3 (0-5) mg/dL 11/29/17 11/29/17 11/29/17 Range/Units 19:00 19:00 19:10 WBC (4.0-11.0) th/mm3 RBC (4.50-5.90) mil/mm3 Hgb (13.0-17.0) gm/dL Hct (39.0-51.0) % MCV (80.0-100.0) fL MCH (27.0-34.0) pg MCHC (32.0-36.0) % RDW (11.6-17.2) % Plt Count (150-450) th/mm3 MPV (7.0-11.0) fL Neut % (Auto) (16.0-70.0) % Lymph % (Auto) (9.0-44.0) % Miller % (Auto) (0.0-8.0) % Eos % (Auto) (0.0-4.0) % Baso % (Auto) (0.0-2.0) % Neut # (Auto) (1.8-7.7) th/mm3 Lymph # (Auto) (1.0-4.8) th/mm3 Miller # (Auto) (0.0-0.9) th/mm3 Eos # (Auto) (0.0-0.4) th/mm3 Baso # (Auto) (0.0-0.2) th/mm3 WBC Differential Differential Comment PT (9.8-11.6) sec INR Ratio APTT (24.3-30.1) sec Sodium (136-145) meq/L Potassium (3.5-5.1) meq/L Chloride (98-107) meq/L Carbon Dioxide (21.0-32.0) meq/L Anion Gap (5-15) meq/L BUN (7-18) mg/dL Creatinine (0.60-1.30) mg/dL Estimated GFR (>89) mL/min Random Glucose (74-106) mg/dL Lactic Acid (0.4-2.0) mmol/L Calcium (8.5-10.1) mg/dL Magnesium 3.0 H (1.5-2.5) mg/dL Total Bilirubin (0.2-1.0) mg/dL AST (15-37) U/L ALT (12-78) U/L Alkaline Phosphatase (45-117) U/L Ammonia 20 (11-32) mcmol/L Total Creatine Kinase (39-308) U/L CK-MB (CK-2) (0.5-3.6) ng/mL CK-MB (CK-2) % (0.0-4.0) % Troponin I (0.02-0.05) ng/mL Total Protein (6.4-8.2) g/dL Albumin (3.4-5.0) g/dL Beta-Hydroxybutyric Acd (0.00-0.39) mmol/L TSH (0.358-3.740) uIU/mL Urine Color (Yellw/Straw) Urine Clarity (Clear) Urine pH (5.0-8.5) Ur Specific Jet (1.002-1.035) Urine Protein (Neg-Trace) mg/dL Urine Glucose (UA) (Negative) mg/dL Urine Ketones (Negative) mg/dL Urine Occult Blood (Negative) Urine Nitrate (Negative) Urine Bilirubin (Negative) Urine Urobilinogen (Less than 2) mg/dL Ur Leukocyte Esterase (Negative) Urine RBC (0-3) /hpf Urine WBC (0-5) /hpf Hyaline Casts (0-3) /lpf Micro UA Comment Ur Microscopic Review Urine Culture Comments Urine Opiates Screen Neg (Neg) Ur Barbiturates Screen Neg (Neg) Ur Amphetamines Screen Neg (Neg) U Benzodiazepines Scrn Neg (Neg) Urine Cocaine Screen Neg (Neg) U Cannabinoids Screen Neg (Neg) Serum Alcohol (0-5) mg/dL 11/29/17 11/29/17 Range/Units 19:10 19:50 WBC (4.0-11.0) th/mm3 RBC (4.50-5.90) mil/mm3 Hgb (13.0-17.0) gm/dL Hct (39.0-51.0) % MCV (80.0-100.0) fL MCH (27.0-34.0) pg MCHC (32.0-36.0) % RDW (11.6-17.2) % Plt Count (150-450) th/mm3 MPV (7.0-11.0) fL Neut % (Auto) (16.0-70.0) % Lymph % (Auto) (9.0-44.0) % Miller % (Auto) (0.0-8.0) % Eos % (Auto) (0.0-4.0) % Baso % (Auto) (0.0-2.0) % Neut # (Auto) (1.8-7.7) th/mm3 Lymph # (Auto) (1.0-4.8) th/mm3 Miller # (Auto) (0.0-0.9) th/mm3 Eos # (Auto) (0.0-0.4) th/mm3 Baso # (Auto) (0.0-0.2) th/mm3 WBC Differential Differential Comment PT 11.0 (9.8-11.6) sec INR 1.1 Ratio APTT 22.2 L (24.3-30.1) sec Sodium (136-145) meq/L Potassium (3.5-5.1) meq/L Chloride (98-107) meq/L Carbon Dioxide (21.0-32.0) meq/L Anion Gap (5-15) meq/L BUN (7-18) mg/dL Creatinine (0.60-1.30) mg/dL Estimated GFR (>89) mL/min Random Glucose (74-106) mg/dL Lactic Acid (0.4-2.0) mmol/L Calcium (8.5-10.1) mg/dL Magnesium (1.5-2.5) mg/dL Total Bilirubin (0.2-1.0) mg/dL AST (15-37) U/L ALT (12-78) U/L Alkaline Phosphatase (45-117) U/L Ammonia (11-32) mcmol/L Total Creatine Kinase (39-308) U/L CK-MB (CK-2) (0.5-3.6) ng/mL CK-MB (CK-2) % (0.0-4.0) % Troponin I (0.02-0.05) ng/mL Total Protein (6.4-8.2) g/dL Albumin (3.4-5.0) g/dL Beta-Hydroxybutyric Acd (0.00-0.39) mmol/L TSH (0.358-3.740) uIU/mL Urine Color Yellow (Yellw/Straw) Urine Clarity Hazy H (Clear) Urine pH 6.0 (5.0-8.5) Ur Specific Jet 1.040 H (1.002-1.035) Urine Protein 500 or greater (Neg-Trace) mg/dL Urine Glucose (UA) 500 or greater (Negative) mg/dL Urine Ketones Trace H (Negative) mg/dL Urine Occult Blood Moderate H (Negative) Urine Nitrate Negative (Negative) Urine Bilirubin Negative (Negative) Urine Urobilinogen Less than 2 (Less than 2) mg/dL Ur Leukocyte Esterase Negative (Negative) Urine RBC 6 H (0-3) /hpf Urine WBC 4 (0-5) /hpf Hyaline Casts 3 (0-3) /lpf Micro UA Comment Cath-culture not ind Ur Microscopic Review Not Reportable Urine Culture Comments Cath-cult not ind Urine Opiates Screen (Neg) Ur Barbiturates Screen (Neg) Ur Amphetamines Screen (Neg) U Benzodiazepines Scrn (Neg) Urine Cocaine Screen (Neg) U Cannabinoids Screen (Neg) Serum Alcohol (0-5) mg/dL Imaging Data Radiologist's impression: Abdomen/Pelvis CT 11/29/17 18:57 CONCLUSION: No acute findings. Chest X-Ray 11/29/17 18:57 CONCLUSION: Left base consolidation and very small bilateral pleural effusions. Head CT 11/29/17 18:57 CONCLUSION: No acute intracranial abnormality. . Cervical Spine CT 11/29/17 19:15 CONCLUSION: 1. Intact cervical spine. 2. Degenerative changes as above. ECG Data EKG Prior to Arrival: No Attestation: I personally reviewed and interpreted this ECG as follows: Prior ECG tracings: not available for review Interpretation: EKG: Normal sinus rhythm rate [address] elevation age- indeterminate septal QS V1 V2 and Q waves noted inferiorly and 2 3 aVF nonspecific flattening laterally Discharge Plan Discharge Disposition Patient Disposition: 30 Still Patient Discharge Condition Condition: Stable Discharge Details Diagnosis: Altered mental status, ROLAND (acute kidney injury), Elevated troponin, Pneumonia Physicians Team ED Provider: [place] John ED Midlevel Provider: Steve Wood Primary Care Provider: [facility] Attending Provider: Vesna King Status ED Status: Admitted Patient
[2017-11-29 19:19] LABS: Baso % (Auto) 0.1 % (0.0-2.0); Hematocrit 51.7 % (39.0-51.0); Hemoglobin 17.4 gm/dL (13.0-17.0); Lymph # (Auto) 0.7 th/mm3 (1.0-4.8); Lymph % (Auto) 3.9 % (9.0-44.0); Mean Corpuscular HGB Conc 33.7 % (32.0-36.0); Mean Corpuscular Hemoglobin 29.9 pg (27.0-34.0); Mean Corpuscular Volume 88.6 fL (80.0-100.0); Mean Platelet Volume 9.1 fL (7.0-11.0); Mono # (Auto) 1.7 th/mm3 (0.0-0.9); Mono % (Auto) 9.7 % (0.0-8.0); Neut # (Auto) 14.8 th/mm3 (1.8-7.7); Neut % (Auto) 86.3 % (16.0-70.0); Platelet Count 375 th/mm3 (150-450); Red Blood Count 5.83 mil/mm3 (4.50-5.90); Red Cell Distribution Width 14.7 % (11.6-17.2); White Blood Count 17.2 th/mm3 (4.0-11.0)
[2017-11-29 19:32] LABS: Bilirubin,Urine Negative (Negative); Clarity,Urine Hazy (Clear); Color,Urine Yellow (Yellw/Straw); Glucose,Urine (UA) 500 or Greater mg/dL (Negative); Hyaline Casts,Urine 3 /lpf (0-3); Leukocyte Esterase,Urine Negative (Negative); Nitrite,Urine Negative (Negative)
[2017-11-29 19:35] LABS: Amphetamine Screen,Urine Neg (Neg); Barbiturate Screen,Urine Neg (Neg); Cannabinoid Screen,Urine Neg (Neg); Cocaine Screen,Urine Neg (Neg)
[2017-11-29 19:42] LABS: Opiate Screen,Urine Neg (Neg)
[2017-11-29 19:51] LABS: Albumin 3.6 g/dL (3.4-5.0); Anion Gap 11 meq/L (5-15); Aspartate Aminotransferase 23 U/L (15-37); Blood Urea Nitrogen 56 mg/dL (7-18); Calcium 9.6 mg/dL (8.5-10.1); Carbon Dioxide 27.4 meq/L (21.0-32.0); Chloride 105 meq/L (98-107); Glomerular Filtration Rate 28 mL/min (>89); Glucose,Random 357 mg/dL (74-106); Potassium 3.6 meq/L (3.5-5.1); Sodium 143 meq/L (136-145)
[2017-11-29 20:00] LABS: Alanine Aminotransferase 15 U/L (12-78); Alkaline Phosphatase 108 U/L (45-117); Beta Hydroxybutyric Acid 0.63 mmol/L (0.00-0.39); Creatine Kinase 399 U/L (39-308); Total Protein 8.3 g/dL (6.4-8.2); Troponin I 0.13 ng/mL (0.02-0.05)
--- NOTE | 2017-11-29 20:00 | XR ---
EXAM DATE: 11/29/2017 7:41 PM EDT AGE/SEX: 72 years / Male INDICATIONS: Shortness of breath. CLINICAL DATA: This is the patient's initial encounter. Patient reports that signs and symptoms have been present for 1 day and indicates a pain score of Nonresponsive. MEDICAL/SURGICAL HISTORY: Non-responsive. Non-responsive. COMPARISON: 08/14/2017. FINDINGS: Tiny effusions are seen at both lung bases. There is parenchymal consolidation at the left base. No p neumothorax. Heart size stable, within normal limits. CONCLUSION: Left base consolidation and very small bilateral pleural effusions. Electronically signed by: Ankit Jay MD 11/29/2017 7:59 PM EDT
[2017-11-29 20:16] LABS: CKMB Percent 0.8 % (0.0-4.0); Creatine Kinase MB 3.2 ng/mL (0.5-3.6)
[2017-11-29 20:23] LABS: Activated Partial Thrombo Time 22.2 sec (24.3-30.1); INR 1.1 Ratio
--- NOTE | 2017-11-29 20:32 | CT ---
EXAM DATE: 11/29/2017 8:28 PM EDT AGE/SEX: 72 years / Male INDICATIONS: Altered mental status. CLINICAL DATA: This is the patient's initial encounter. Patient reports that signs and symptoms have been present for 1 day and indicates a pain score of Nonresponsive. MEDICAL/SURGICAL HISTORY: Non-responsive. Non-responsive. RADIATION DOSE: 34.87 CTDI (mGy) COMPARISON: 12/19/[address] TECHNIQUE: CT of the head without contrast. Using automated exposure control and adjustment of the mA and/or kV according to patient size, radiation dose was kept as low as reasonably achievable to ob tain optimal diagnostic quality images. DICOM format image data is available electronically for revi ew and comparison. FINDINGS: Cerebrum: The ventricles are normal for age. No evidence of midline shift, mass lesion, hemorrhage or acute infarction. No extraaxial fluid collections are seen. Posterior Fossa: The cerebellum and brainstem are intact. The 4th ventricle is midline. The cerebe llopontine angle is unremarkable. Extracranial: The visualized portion of the orbits is intact. Skull: The calvaria is intact. No evidence of skull fracture. CONCLUSION: No acute intracranial abnormality. . Electronically signed by: Ankit Jay MD 11/29/2017 8:30 PM EDT
--- NOTE | 2017-11-29 20:44 | CT ---
EXAM DATE: 11/29/2017 8:32 PM EDT AGE/SEX: 72 years / Male INDICATIONS: Trauma, possible fall. CLINICAL DATA: This is the patient's initial encounter. Patient reports that signs and symptoms have been present for 1 day and indicates a pain score of Nonresponsive. MEDICAL/SURGICAL HISTORY: Non-responsive. Non-responsive. RADIATION DOSE: 19.66 CTDI (mGy) COMPARISON: 03/31/2011. TECHNIQUE: Contiguous axial images were obtained using helical multirow detector technique. The vol umetric data was post-processed with multiplanar reconstruction in oblique axial, sagittal, and coron al planes. Using automated exposure control and adjustment of the mA and/or kV according to patient s ize, radiation dose was kept as low as reasonably achievable to obtain optimal diagnostic quality giovanni ges. DICOM format image data is available electronically for review and comparison. FINDINGS: Cervical spine alignment is normal. Vertebral bodies have normal height. No cortical break or trabecu lar disruption. Moderate to severe disc space narrowing with a small, broad disc osteophyte complex and mild to moder ate bilateral uncovertebral and facet osteoarthritis seen at C6/C7. Similar but milder findings are s een at C5/C6. These findings are slightly worse since 2011. There is mild bilateral foraminal stenosi s at C6/C7. Prevertebral soft tissues are within normal limits. CONCLUSION: 1. Intact cervical spine. 2. Degenerative changes as above. Electronically signed by: Ankit Jay MD 11/29/2017 8:43 PM EDT
[2017-11-29] MEDS ORDERED: Azithromycin Inj 500 MG in Sodium Chlor 0.9% Inj 250 ML IV.SIG ONE (20:49)
--- NOTE | 2017-11-29 20:49 | CT ---
EXAM DATE: 11/29/2017 8:39 PM EDT AGE/SEX: 72 years / Male INDICATIONS: Abdominal pain. CLINICAL DATA: This is the patient's initial encounter. Patient reports that signs and symptoms have been present for 1 day and indicates a pain score of 0/10. MEDICAL/SURGICAL HISTORY: Non-responsive. CABG. RADIATION DOSE: 14.63 CTDI (mGy) COMPARISON: CT of the abdomen and pelvis with contrast 10/26/2015. TECHNIQUE: Multiple contiguous axial images were obtained through the abdomen. Images were obtained using multiple row detector helical technique. Using automated exposure control and adjustment of the mA and/or kV according to patient size, radiation dose was kept as low as reasonably achievable to o btain optimal diagnostic quality images. DICOM format image data is available electronically for rev iew and comparison. FINDINGS: The noncontrast appearance of the liver, spleen, pancreas, adrenal glands and kidneys is within bev l limits. No obstruction or inflammatory changes are seen of the gastrointestinal tract. Considerable stool seen in the colon, mostly the rectum. Small to moderate hiatal hernia. Urinary bladder is decompressed with a Larios. Small stones are seen in the gallbladder. No wall thickening or inflammatory changes are demonstrated . No duct stone or ductal dilatation. Mild atelectasis of the lung bases. Fat-containing Bochdalek hernia again seen on the left. Cardiac e nlargement and coronary artery calcification noted. Patient appears of had previous median sternotomy . No acute bony abnormalities are demonstrated. CONCLUSION: No acute findings. Electronically signed by: Ankit Jay MD 11/29/2017 8:48 PM EDT
[2017-11-29] MEDS ORDERED: hydrALAZINE HCl Inj 20 MG/ML Vial IV.PUSH ONE (20:53)
[2017-11-29] MEDS ORDERED: Vancomycin Consult Pharmacy OTHER PRN (21:09)
[2017-11-29] MEDS ORDERED: Bisacodyl 10 MG Supp RECTAL PRN (21:10)
[2017-11-29] MEDS ORDERED: Dextrose 50% in Water 50 ML Vial IV.PUSH PRN (21:10)
[2017-11-29] MEDS ORDERED: Acetaminophen 325 MG Tablet PO PRN (21:10)
--- NOTE | 2017-11-29 21:13 | P.HPIM ---
History of Present Illness Primary Care Physician: Physician [facility] History of Present Illness: This is a 72-year-old male with a PMH of DM who was brought to the ER by EMS due to AMS. Pt unable to provide any history at this time, only repeats "yes" to questions. Per report, pt last seen normal 2 days ago, reportedly independent at baseline, found by Knockout Worker today to be slumped in recliner covered in urine and feces, not following commands or answering questions appropriately. On arrival, BP 200/122, HR 100, O2 sat 92% on RA, Temp 99.3. WBC 17.2. Hemoconcentrated with Hgb 17.4. INR 1.1. Creatinine 2.29, previously 1.57 on 08/14/2017. BS 357. Lactic Acid 2.4. CPK 399. Troponin 0.13. Ammonia 20. UA negative for UTI. Urine Drug Screen negative. Alcohol negative. CT Head with no acute findings. CXR with left base consolidation, small bilateral pleural effusions. CT Abdomen/Pelvis no acute findings. CT Cervical spine negative. S/p Rocephin/Zithro in ER. - Diagnosis (1) Encephalopathy (2) Sepsis (3) PNA (pneumonia) (4) HTN (hypertension) (5) ROLAND (acute kidney injury) (6) Rhabdomyolysis (7) Elevated troponin (8) DM (diabetes mellitus) Review of Systems PAST FAMILY HISTORY: Unable to obtain due to mental status unobtainable due to mental status PMFSH - History History Provided By: Dental Hygienist / EMT - Medical History Medical History: Medical History (Last Updated 11/29/17 @ 18:58 by Garett Cruz) Diabetes - Tobacco History Smoking Status: Unknown if ever smoked - Alcohol History How Often Do You Have a Drink Containing Alcohol: Unable to Obtain - Substance Use History Substance History: Unable to Obtain - Travel History Recent Travel in the [place] Within the Last 8 Weeks: No Recent Travel Out of the Country Within the Last 8 Weeks: No - Immunization History Tetanus Immunization: Unsure Hx Influenza Vaccine This Season: Unable to Assess Medications and Allergies Active Medications: Active Medications Sodium Chloride (Ns Inj) 1,000 mls @ 0 mls/hr IV.SIG BOLUS DEBBIE Last Infusion: 11/29/17 20:49 Dose: Infused Sodium Chloride (Ns Inj) 1,000 mls @ 0 mls/hr IV.SIG BOLUS DEBBIE Last Admin: 11/29/17 20:50 Dose: 1,000 mls/hr Ceftriaxone Sodium 2,000 mg/ (Sodium Chloride) 100 mls @ 200 mls/hr IV.SIG ONCE ONE Stop: 11/29/17 21:18 Azithromycin 500 mg/ Sodium (Chloride) 250 mls @ 250 mls/hr IV.SIG ONCE ONE Stop: 11/29/17 21:48 Sodium Chloride (Ns Flush) 2 ml IV.FLUSH PRN PRN PRN Reason: FLUSH AFTER USING IV ACCESS Allergies Allergy/AdvReac Type Severity Reaction Status Date / Time No Known Allergies Unknown Uncoded 03/12/17 20:56 Home Medications Medication Instructions Recorded Confirmed Type C,E,zinc,copper [id number] 1 cap PO DAILY 11/29/17 11/29/17 History [Ocuvite Adult 50 Plus] ascorbic acid (vitamin C) [Vitamin 1,000 mg PO DAILY 11/29/17 11/29/17 History C] aspirin 81 mg PO DAILY 11/29/17 11/29/17 History bilberry fruit extract 30 mg PO DAILY 11/29/17 11/29/17 History cholecalciferol (vitamin D3) 1,000 unit PO DAILY 11/29/17 11/29/17 History [Vitamin D3] citalopram 20 mg PO DAILY 11/29/17 11/29/17 History clonidine HCl 0.1 mg PO Q8HR 11/29/17 11/29/17 History cyanocobalamin (vitamin B-12) 1,000 mcg PO DAILY 11/29/17 11/29/17 History [Vitamin B-12] docusate sodium [Colace] 100 mg PO BID PRN 11/29/17 11/29/17 History ferrous gluconate 324 mg PO DAILY 11/29/17 11/29/17 History folic acid 0.5 mg PO DAILY 11/29/17 11/29/17 History gabapentin 600 mg PO TID 11/29/17 11/29/17 History glipizide 10 mg PO BID 11/29/17 11/29/17 History lisinopril-hydrochlorothiazide 1 tab PO DAILY 11/29/17 11/29/17 History magnesium oxide 420 mg PO DAILY 11/29/17 11/29/17 History metformin 1,000 mg PO BID 11/29/17 11/29/17 History omeprazole 20 mg PO DAILY 11/29/17 11/29/17 History quetiapine [Seroquel] 25 mg PO QAM 11/29/17 11/29/17 History quetiapine [Seroquel] 200 mg PO HS 11/29/17 11/29/17 History Exam Vital signs: Vital Signs 11/29/17 18:50 11/29/17 18:56 11/29/17 19:05 Temperature 99.3 F Pulse Rate 100 H Respiratory Rate 20 Blood Pressure 200/122 H Pulse Oximetry 92 L 95 11/29/17 19:44 11/29/17 19:53 Temperature Pulse Rate 94 H 77 Respiratory Rate 16 16 Blood Pressure 238/137 H 177/92 H Pulse Oximetry 100 99 Intake & Output 11/29/17 11/29/17 11/30/17 06:59 18:59 06:59 Intake Total 1000 / 1000 Balance 1000 / 1000 Weight 65.771 kg Intake: IV 1000 / 1000 NS Inj 1,000 ML @ Wide Open IV. 1000 / 1000 SIG BOLUS DEBBIE Rx#:[id number] Narrative: PE: GENERAL: Elderly white male in no acute distress. Appears confused, repeats "yes " to every question SKIN: Focused skin assessment warm and dry. HEENT: PERRLA, EOMI. No scleral icterus or conjunctival pallor. No lid lag or facial droop. CARDIOVASCULAR: Regular rate and rhythm. No obvious murmurs to auscultation. No chest tenderness to palpation. RESPIRATORY: No obvious rhonchi or wheezing. Clear to auscultation. Breath sounds equal bilaterally. GASTROINTESTINAL: Abdomen soft, non-tender, nondistended. BS normal. MUSCULOSKELETAL: Extremities without clubbing, cyanosis, or edema. No obvious deformities. NEUROLOGICAL: Awake, alert, confused, not answering questions appropriately. No focal neurologic deficits. Moving both upper and lower extremities spontaneously. PSYCHIATRIC: Appropriate mood and affect. Insight and judgment normal. Results - Labs CBC & Chem 7: 11/29/17 19:00 11/29/17 19:00 Labs: Short CBC 11/29/17 Range/Units 19:00 WBC 17.2 H (4.0-11.0) th/mm3 Hgb 17.4 H (13.0-17.0) gm/dL Hct 51.7 H (39.0-51.0) % Plt Count 375 (150-450) th/mm3 BMP 11/29/17 19:00 Sodium 143 Potassium 3.6 Chloride 105 Carbon Dioxide 27.4 BUN 56 H Creatinine 2.29 H Calcium 9.6 Cardiac Enzymes 11/29/17 Range/Units 19:00 Total Creatine Kinase 399 H (39-308) U/L CK-MB (CK-2) 3.2 (0.5-3.6) ng/mL Troponin I 0.13 H (0.02-0.05) ng/mL Liver Function 11/29/17 Range/Units 19:00 Total Bilirubin 0.5 (0.2-1.0) mg/dL AST 23 (15-37) U/L ALT 15 (12-78) U/L Alkaline Phosphatase 108 (45-117) U/L Albumin 3.6 (3.4-5.0) g/dL Urine 11/29/17 Range/Units 19:10 Urine Color Yellow (Yellw/Straw) Urine Clarity Hazy H (Clear) Urine pH 6.0 (5.0-8.5) Ur Specific Weir 1.040 H (1.002-1.035) Urine Protein 500 or greater (Neg-Trace) mg/dL Urine Glucose (UA) 500 or greater (Negative) mg/dL - Imaging Impressions Abdomen/Pelvis CT 11/29/17 18:57 CONCLUSION: No acute findings. Chest X-Ray 11/29/17 18:57 CONCLUSION: Left base consolidation and very small bilateral pleural effusions. Head CT 11/29/17 18:57 CONCLUSION: No acute intracranial abnormality. . Cervical Spine CT 11/29/17 19:15 CONCLUSION: 1. Intact cervical spine. 2. Degenerative changes as above. Caprini VTE Risk Assessment Caprini VTE Risk Assessment: No/Low Risk (score <= 1) Caprini Risk Assessment Model: Point Value = 1 Point Value = 2 Point Value = 3 Point Value = 5 Age 41-60 Minor surgery BMI > 25 kg/m2 Swollen legs Varicose veins or History of unexplained or recurrent spontaneous Oral contraceptives or hormone replacement Sepsis (< 1 month) Serious lung disease, including pneumonia (< 1 month) Abnormal pulmonary function Acute myocardial infarction Congestive heart failure (< 1 month) History of inflammatory bowel disease Medical patient at bed rest Age 61-74 Arthroscopic surgery Major open surgery (> 45 min) Laparoscopic surgery (> 45 min) Malignancy Confined to bed (> 72 hours) Immobilizing plaster cast Central venous access Age >= 75 History of VTE Family history of VTE Factor V Leiden Prothrombin [id number] Lupus anticoagulant Anticardiolipin antibodies Elevated serum homocysteine Heparin-induced thrombocytopenia Other congenital or acquired thrombophilia Stroke (< 1 month) Elective arthroplasty Hip, pelvis, or leg fracture Acute spinal cord injury (< 1 month) Prophylaxis Regimen: Total Risk Factor Score Risk Level Prophylaxis Regimen 0-1 Low Early ambulation 2 Moderate Order ONE of the following: *Sequential Compression Device (SCD) *Heparin 5000 units SQ BID 3-4 Higher Order ONE of the following medications: *Heparin 5000 units SQ TID *Enoxaparin/Lovenox 40 mg SQ daily (WT < 150 kg, CrCl > 30 mL/min) *Enoxaparin/Lovenox 30 mg SQ daily (WT < 150 kg, CrCl > 10-29 mL/min) *Enoxaparin/Lovenox 30 mg SQ BID (WT < 150 kg, CrCl > 30 mL/min) AND/OR *Sequential Compression Device (SCD) 5 or more Highest Order ONE of the following medications: *Heparin 5000 units SQ TID (Preferred with Epidurals) *Enoxaparin/Lovenox 40 mg SQ daily (WT < 150 kg, CrCl > 30 mL/min) *Enoxaparin/Lovenox 30 mg SQ daily (WT < 150 kg, CrCl > 10-29 mL/min) *Enoxaparin/Lovenox 30 mg SQ BID (WT < 150 kg, CrCl > 30 mL/min) AND *Sequential Compression Device (SCD) Assessment and Plan - Assessment (1) Encephalopathy Code(s): G93.40 - Encephalopathy, unspecified Status: Acute (2) Sepsis Code(s): A41.9 - Sepsis, unspecified organism Status: Acute (3) PNA (pneumonia) Code(s): J18.9 - Pneumonia, unspecified organism Status: Acute (4) HTN (hypertension) Code(s): I10 - Essential (primary) hypertension Status: Acute (5) ROLAND (acute kidney injury) Code(s): N17.9 - Acute kidney failure, unspecified Status: Acute (6) Rhabdomyolysis Code(s): M62.82 - Rhabdomyolysis Status: Acute (7) Elevated troponin Code(s): R74.8 - Abnormal levels of other serum enzymes Status: Acute (8) DM (diabetes mellitus) Code(s): E11.9 - Type 2 diabetes mellitus without complications Status: Acute - Plan A/P: 1. Encephalopathy: unclear etiology, possibly due to Sepsis/PNA and cardiac ischemia, CT Head/C-Spine w/ no acute findings, images reviewed. Neuro Checks. Consult Neurology as needed if no improvement for further eval w/ MRI/MRA. Ammonia 20. 2. Sepsis: Temp 99.3, HR 100, WBC 17, Lactic Acid 2.4, Source-PNA. S/p Rocephin/Zithro in ER, will continue w/ broad spectrum antibiotics, Vanc/ Cefepime, IVF for hydration, follow up cultures. 3. PNA: CXR w/ left base consolidation, continue w/ IV Abx as above, DuoNeb prn if needed. 4. HTN: Uncontrolled. BP 200's on arrival, s/p Labetalol/Hydralazine in ER w / some improvement, will continue w/ antihypertensives as needed for BP >180. 5. Elevated Trop: Trop 0.13, unclear if secondary to sepsis/demand ischemia vs true cardiac ischemia, EKG w/ no acute ischemia, check serial cardiac enzymes , Consult Cardiology as needed. 6. ROLAND: Creatinine 2.29, previously 1.57 on 08/14/17, U/a negative for UTI, IVF for hydration, monitor I/O, repeat labs in am. 7. Rhabdomyolysis: CPK 399, IVF for hydration, repeat CPK for trend 8. DM: Sliding scale w/ Accu-Cheks 9. DVT Prophylaxis: SCD/Teds 10. Social work for d/c planning as needed 11. Case discussed w/ ER physician at length, labs/records/imaging reviewed by me.
[2017-11-29] MEDS ORDERED: Vancomycin Inj 1,000 MG in Sodium Chlor 0.9% Inj 250 ML IV.SIG ONE (22:00)
[2017-11-29] MEDS ORDERED: Metoprolol Inj 5 MG/5 ML Vial IV.PUSH ONE (22:47)
[2017-11-29] MEDS: Sod Chloride 0.9% Inj 1,000 ML IV.CONT SCH (23:55)
[2017-11-30] MEDS ORDERED: hydrALAZINE HCl Inj 20 MG/ML Vial IV.PUSH ONE (00:55)
[2017-11-30] MEDS ORDERED: Labetalol HCl Inj 100 MG/20 ML Vial IV.PUSH ONE ×2 (03:04→04:08)
[2017-11-30 03:25] LABS: Troponin I 0.12 ng/mL (0.02-0.05)
[2017-11-30 03:37] LABS: Creatine Kinase MB 5.9 ng/mL (0.5-3.6)
[2017-11-30 04:33] LABS: Baso % (Auto) 0.1 % (0.0-2.0); Eos % (Auto) 0.1 % (0.0-4.0); Hematocrit 45.7 % (39.0-51.0); Hemoglobin 15.2 gm/dL (13.0-17.0); Lymph # (Auto) 0.9 th/mm3 (1.0-4.8); Lymph % (Auto) 4.5 % (9.0-44.0); Mean Corpuscular HGB Conc 33.2 % (32.0-36.0); Mean Corpuscular Hemoglobin 29.6 pg (27.0-34.0); Mean Corpuscular Volume 89.4 fL (80.0-100.0); Mean Platelet Volume 8.8 fL (7.0-11.0); Mono # (Auto) 1.9 th/mm3 (0.0-0.9); Mono % (Auto) 10.1 % (0.0-8.0); Neut # (Auto) 16.2 th/mm3 (1.8-7.7); Neut % (Auto) 85.2 % (16.0-70.0); Platelet Count 299 th/mm3 (150-450); Red Blood Count 5.12 mil/mm3 (4.50-5.90); Red Cell Distribution Width 14.7 % (11.6-17.2)
[2017-11-30 04:51] LABS: Troponin I 0.13 ng/mL (0.02-0.05)
[2017-11-30 04:57] LABS: Alanine Aminotransferase 12 U/L (12-78); Albumin 2.8 g/dL (3.4-5.0); Alkaline Phosphatase 89 U/L (45-117); Anion Gap 10 meq/L (5-15); Aspartate Aminotransferase 28 U/L (15-37); Blood Urea Nitrogen 49 mg/dL (7-18); Calcium 8.4 mg/dL (8.5-10.1); Carbon Dioxide 26.6 meq/L (21.0-32.0); Chloride 113 meq/L (98-107); Glomerular Filtration Rate 41 mL/min (>89); Glucose,Random 304 mg/dL (74-106); Potassium 3.1 meq/L (3.5-5.1); Sodium 150 meq/L (136-145); Total Protein 6.7 g/dL (6.4-8.2)
--- NOTE | 2017-11-30 08:10 | P.PN ---
Subjective Interval history: Pt seen and examined. Oriented only to self. States he is in the hospital but cannot tell me location or name. Does not respond when I ask him the year. Answers questions with yes or no response. Denies CP, SOB, cough, pain. D/W RNs at the bedside. Physical Exam Vital signs: Vital Signs 11/29/17 18:50 11/29/17 18:56 11/29/17 19:05 Temperature 99.3 F Pulse Rate 100 H Respiratory Rate 20 Blood Pressure 200/122 H Pulse Oximetry 92 L 95 11/29/17 19:44 11/29/17 19:53 11/29/17 20:00 Temperature Pulse Rate 94 H 77 77 Respiratory Rate 16 16 16 Blood Pressure 238/137 H 177/92 H 176/111 H Pulse Oximetry 100 99 11/29/17 21:30 11/29/17 22:12 11/29/17 22:51 Temperature Pulse Rate 78 78 70 Respiratory Rate 16 Blood Pressure 225/128 H 187/100 H 237/113 H Pulse Oximetry 11/29/17 23:19 11/30/17 00:04 11/30/17 00:18 Temperature 97.6 F Pulse Rate 66 67 63 Respiratory Rate 18 Blood Pressure 199/106 H 221/122 H Pulse Oximetry 97 11/30/17 01:00 11/30/17 01:24 11/30/17 02:00 Temperature Pulse Rate 76 76 Respiratory Rate 16 Blood Pressure Pulse Oximetry 96 11/30/17 03:00 11/30/17 04:00 11/30/17 05:00 Temperature 97.8 F Pulse Rate 76 65 65 Respiratory Rate 18 Blood Pressure 189/99 H Pulse Oximetry 98 11/30/17 06:00 11/30/17 07:00 Temperature Pulse Rate 74 70 Respiratory Rate Blood Pressure Pulse Oximetry Intake & Output 11/29/17 11/30/17 11/30/17 18:59 06:59 18:59 Intake Total 2600 / 2600 Output Total 1999 Balance 600 / 600 Weight 65.771 kg 69 kg Intake: IV 2600 / 2600 Azithromycin Inj 500 MG In NS 250 / 250 Inj 250 ML @ 250 mls/hr IV.SIG ONCE ONE Rx#:[id number] NS Inj 1,000 ML @ Wide Open IV. 1999 SIG BOLUS DEBBIE Rx#:[id number] Vancomycin Inj 1,000 MG In NS 250 / 250 Inj 250 ML @ 250 mls/hr IV.SIG ONCE ONE Rx#:[id number] Rocephin Inj 2,000 MG In NS Inj 100 / 100 100 ML @ 200 mls/hr IV.SIG ONCE ONE Rx#:[id number] Output: Urine 1200 / 1200 Urine Amount (Catheter) 800 / 800 Indwelling Urethral Catheter 800 / 800 Narrative: GENERAL: WN, WD male resting in bed in NAD. Only oriented to self. SKIN: Warm and dry. HEENT: AT/NC. Pupils equal and round. MMM. HEART: RRR no m/r/g. LUNGS: Diminished in the L base otherwise clear without wheezing or crackles. ABDOMEN: +BS, soft, NT, ND. EXTREMITIES: No LE edema. NEURO: Awake and alert. - Urinary Catheter Management Indwelling Urethral Catheter Cath placed during this visit: yes Reason for continuing: Acute urinary retention Insertion date: 11/29/17 Insertion time: 19:44 Results - Labs CBC & Chem 7: 11/30/17 04:08 11/30/17 04:08 Laboratory Results - last 24 hr 11/29/17 11/29/17 11/29/17 19:00 19:00 19:00 WBC 17.2 H RBC 5.83 Hgb 17.4 H Hct 51.7 H MCV 88.6 MCH 29.9 MCHC 33.7 RDW 14.7 Plt Count 375 MPV 9.1 Neut % (Auto) 86.3 H Lymph % (Auto) 3.9 L [place] % (Auto) 9.7 H Eos % (Auto) 0.0 Baso % (Auto) 0.1 Neut # (Auto) 14.8 H Lymph # (Auto) 0.7 L [place] # (Auto) 1.7 H Eos # (Auto) 0.0 Baso # (Auto) 0.0 WBC Differential . Differential Comment Auto diff final PT INR APTT Sodium 143 Potassium 3.6 Chloride 105 Carbon Dioxide 27.4 Anion Gap 11 BUN 56 H Creatinine 2.29 H Estimated GFR 28 L Random Glucose 357 H Lactic Acid 2.4 H Calcium 9.6 Magnesium Total Bilirubin 0.5 AST 23 ALT 15 Alkaline Phosphatase 108 Ammonia Total Creatine Kinase 399 H CK-MB (CK-2) 3.2 CK-MB (CK-2) % 0.8 Troponin I 0.13 H Total Protein 8.3 H Albumin 3.6 Beta-Hydroxybutyric Acd 0.63 H TSH 1.450 Urine Color Urine Clarity Urine pH Ur Specific [place] Urine Protein Urine Glucose (UA) Urine Ketones Urine Occult Blood Urine Nitrate Urine Bilirubin Urine Urobilinogen Ur Leukocyte Esterase Urine RBC Urine WBC Hyaline Casts Micro UA Comment Ur Microscopic Review Urine Culture Comments Urine Opiates Screen Ur Barbiturates Screen Ur Amphetamines Screen U Benzodiazepines Scrn Urine Cocaine Screen U Cannabinoids Screen Serum Alcohol Less than 3 11/29/17 11/29/17 11/29/17 19:00 19:00 19:10 WBC RBC Hgb Hct MCV MCH MCHC RDW Plt Count MPV Neut % (Auto) Lymph % (Auto) [place] % (Auto) Eos % (Auto) Baso % (Auto) Neut # (Auto) Lymph # (Auto) [place] # (Auto) Eos # (Auto) Baso # (Auto) WBC Differential Differential Comment PT INR APTT Sodium Potassium Chloride Carbon Dioxide Anion Gap BUN Creatinine Estimated GFR Random Glucose Lactic Acid Calcium Magnesium 3.0 H Total Bilirubin AST ALT Alkaline Phosphatase Ammonia 20 Total Creatine Kinase CK-MB (CK-2) CK-MB (CK-2) % Troponin I Total Protein Albumin Beta-Hydroxybutyric Acd TSH Urine Color Urine Clarity Urine pH Ur Specific [place] Urine Protein Urine Glucose (UA) Urine Ketones Urine Occult Blood Urine Nitrate Urine Bilirubin Urine Urobilinogen Ur Leukocyte Esterase Urine RBC Urine WBC Hyaline Casts Micro UA Comment Ur Microscopic Review Urine Culture Comments Urine Opiates Screen Neg Ur Barbiturates Screen Neg Ur Amphetamines Screen Neg U Benzodiazepines Scrn Neg Urine Cocaine Screen Neg U Cannabinoids Screen Neg Serum Alcohol 11/29/17 11/29/17 11/29/17 19:10 19:50 21:35 WBC RBC Hgb Hct MCV MCH MCHC RDW Plt Count MPV Neut % (Auto) Lymph % (Auto) [place] % (Auto) Eos % (Auto) Baso % (Auto) Neut # (Auto) Lymph # (Auto) [place] # (Auto) Eos # (Auto) Baso # (Auto) WBC Differential Differential Comment PT 11.0 INR 1.1 APTT 22.2 L Sodium Potassium Chloride Carbon Dioxide Anion Gap BUN Creatinine Estimated GFR Random Glucose Lactic Acid 3.4 H Calcium Magnesium Total Bilirubin AST ALT Alkaline Phosphatase Ammonia Total Creatine Kinase CK-MB (CK-2) CK-MB (CK-2) % Troponin I Total Protein Albumin Beta-Hydroxybutyric Acd TSH Urine Color Yellow Urine Clarity Hazy H Urine pH 6.0 Ur Specific [place] 1.040 H Urine Protein 500 or greater Urine Glucose (UA) 500 or greater Urine Ketones Trace H Urine Occult Blood Moderate H Urine Nitrate Negative Urine Bilirubin Negative Urine Urobilinogen Less than 2 Ur Leukocyte Esterase Negative Urine RBC 6 H Urine WBC 4 Hyaline Casts 3 Micro UA Comment Cath-culture not ind Ur Microscopic Review Not Reportable Urine Culture Comments Cath-cult not ind Urine Opiates Screen Ur Barbiturates Screen Ur Amphetamines Screen U Benzodiazepines Scrn Urine Cocaine Screen U Cannabinoids Screen Serum Alcohol 11/30/17 11/30/17 11/30/17 02:52 04:08 04:08 WBC 19.0 H RBC 5.12 Hgb 15.2 D Hct 45.7 MCV 89.4 MCH 29.6 MCHC 33.2 RDW 14.7 Plt Count 299 MPV 8.8 Neut % (Auto) 85.2 H Lymph % (Auto) 4.5 L [place] % (Auto) 10.1 H Eos % (Auto) 0.1 Baso % (Auto) 0.1 Neut # (Auto) 16.2 H Lymph # (Auto) 0.9 L [place] # (Auto) 1.9 H Eos # (Auto) 0.0 Baso # (Auto) 0.0 WBC Differential . Differential Comment Auto diff final PT INR APTT Sodium 150 H Potassium 3.1 L Chloride 113 H D Carbon Dioxide 26.6 Anion Gap 10 BUN 49 H Creatinine 1.67 H Estimated GFR 41 L Random Glucose 304 H Lactic Acid Calcium 8.4 L D Magnesium Total Bilirubin 0.4 AST 28 ALT 12 Alkaline Phosphatase 89 Ammonia Total Creatine Kinase 616 H CK-MB (CK-2) 5.9 H CK-MB (CK-2) % 1.0 Troponin I 0.12 H Total Protein 6.7 D Albumin 2.8 L D Beta-Hydroxybutyric Acd TSH Urine Color Urine Clarity Urine pH Ur Specific [place] Urine Protein Urine Glucose (UA) Urine Ketones Urine Occult Blood Urine Nitrate Urine Bilirubin Urine Urobilinogen Ur Leukocyte Esterase Urine RBC Urine WBC Hyaline Casts Micro UA Comment Ur Microscopic Review Urine Culture Comments Urine Opiates Screen Ur Barbiturates Screen Ur Amphetamines Screen U Benzodiazepines Scrn Urine Cocaine Screen U Cannabinoids Screen Serum Alcohol 11/30/17 04:08 WBC RBC Hgb Hct MCV MCH MCHC RDW Plt Count MPV Neut % (Auto) Lymph % (Auto) [place] % (Auto) Eos % (Auto) Baso % (Auto) Neut # (Auto) Lymph # (Auto) [place] # (Auto) Eos # (Auto) Baso # (Auto) WBC Differential Differential Comment PT INR APTT Sodium Potassium Chloride Carbon Dioxide Anion Gap BUN Creatinine Estimated GFR Random Glucose Lactic Acid Calcium Magnesium Total Bilirubin AST ALT Alkaline Phosphatase Ammonia Total Creatine Kinase 594 H CK-MB (CK-2) CK-MB (CK-2) % Troponin I 0.13 H Total Protein Albumin Beta-Hydroxybutyric Acd TSH Urine Color Urine Clarity Urine pH Ur Specific [place] Urine Protein Urine Glucose (UA) Urine Ketones Urine Occult Blood Urine Nitrate Urine Bilirubin Urine Urobilinogen Ur Leukocyte Esterase Urine RBC Urine WBC Hyaline Casts Micro UA Comment Ur Microscopic Review Urine Culture Comments Urine Opiates Screen Ur Barbiturates Screen Ur Amphetamines Screen U Benzodiazepines Scrn Urine Cocaine Screen U Cannabinoids Screen Serum Alcohol - Imaging Impressions Abdomen/Pelvis CT 11/29/17 18:57 CONCLUSION: No acute findings. Chest X-Ray 11/29/17 18:57 CONCLUSION: Left base consolidation and very small bilateral pleural effusions. Head CT 11/29/17 18:57 CONCLUSION: No acute intracranial abnormality. . Cervical Spine CT 11/29/17 19:15 CONCLUSION: 1. Intact cervical spine. 2. Degenerative changes as above. Assessment and Plan - Assessment (1) Encephalopathy Code(s): G93.40 - Encephalopathy, unspecified Status: Acute (2) Sepsis Code(s): A41.9 - Sepsis, unspecified organism Status: Acute (3) PNA (pneumonia) Code(s): J18.9 - Pneumonia, unspecified organism Status: Acute (4) ROLAND (acute kidney injury) Code(s): N17.9 - Acute kidney failure, unspecified Status: Acute (5) Rhabdomyolysis Code(s): M62.82 - Rhabdomyolysis Status: Acute (6) HTN (hypertension) Code(s): I10 - Essential (primary) hypertension Status: Chronic (7) Elevated troponin Code(s): R74.8 - Abnormal levels of other serum enzymes Status: Acute (8) DM (diabetes mellitus) Code(s): E11.9 - Type 2 diabetes mellitus without complications Status: Chronic - Plan 72 year old male with DM, HTN, CKD, CAD s/p CABG presenting with AMS yesterday evening. On initial evaluation, found to be significantly hypertensive with labs remarkable for leukocytosis, ROLAND, lactic acidosis, mildly elevated troponin , and hyperglycemia. CXR revealed a left basilar consolidation with small bilateral pleural effusions. 1. Encephalopathy - CT head/C-spine negative - CT A/P negative - UDS negative - Ammonia and TSH WNL - TSH WNL - Troponins mildly elevated at 0.13, 0.12, 0.13, likely secondary to ROLAND - Total CK mildly elevated up to 616, likely from being down - Unclear etiology though possibly due to infection/sepsis/PNA - Continue neurochecks - Check EEG - PT to eval and treat - ST for speech and cognitive eval - Will treat for underlying infection at this time and continue to monitor closely - If no improvement or epileptic activity on EEG will consider neuro consult 2. Sepsis - Met criteria based on leukocytosis, tachycardia, and elevated lactic acid - Source: PNA - U/A negative for UTI - Blood cultures pending - S/P Rocephin and Azithromycin in the ED and vancomycin overnight - Continue vancomycin, add cefepime for broad coverage - Continue Azithromycin since evidence of PNA - Lactic acid went from 2.4 to 3.4 overnight, stat repeat this AM down to 2.5 - Will continue to follow closely on antibiotics and if no improvement or blood cultures are positive will consult ID 3. PNA - CXR with left basilar consolidation - Continue vanco, cefepime, and azithromycin given sepsis with worsening lactic acid and leukocytosis - Check urine legionella and pneumococcal - Sputum cultures - Supplemental O2 PRN - DuoNeb PRN 4. Hypertensive urgency - BPs remain elevated with systolic in the 200s despite multiple IV and PO PRNs including labetalol, metoprolol, and Cardene - Transfer to CVICU and place on Cardene drip - Start Carvedilol 6.25 mg PO BID - Start amlodipine 10 mg daily - Resume home clonidine TID - Holding home TAMIR-I and HCTZ in light of ROLAND 5. ROLAND - Creatinine 2.29 on admission, previously 1.57 on 08/14 - Improving, down to 1.67 today - Holding home TAMIR and thiazide - Stop home metformin - U/A negative for UTI - IV fluids - I/Os - Continue to monitor - Avoid nephrotoxic agents, caution with vanco 6. Hypernatremia - Sodium up to 150 this AM from 143 after NS has been running throughout the night - D/C normal saline - Change IVF to 03/21 NS-KCl 20 at 100 ml/hr - Patient continues to need fluids given elevated lactic acid and NPO status - Hesitant to give D5W given hyperglycemia - Monitor closely, recheck BMP in 2 hours 7. Elevated magnesium - Stop home magnesium supplements - Monitor 8. Hypokalemia - Potassium 3.1 this AM - Add KCl to fluids - Continue to monitor 9. DM with hyperglycemia - Blood sugar elevated to the 300s - Beta-hydroxybutyric just mildly elevated - Trace ketones in the urine - Normal anion gap - SSI, given 7 units this AM - NPO since altered - Continue monitoring Accuchecks - Check A1c - Hold home metformin and glipizide 10. Elevated troponins - Troponins mildly elevated at 0.13, 0.12, 0.13 - Likely secondary to ROLAND - Troponin was negative several months ago but went as high as 23 back in 2015 when he had an NSTEMI - He is not complaining of chest pain - EKG with NSR. Q-waves in III and AVF otherwise not acute ST-T wave changes when compared to prior EKG - Given his acute sepsis and infection will hold off on cardiology consult as the patient is too unstable at this time to undergo any cardiac intervention anyway 11. CAD - S/P CABG x 19 October 2015 - Troponins mildly elevated, more likely from renal insufficiency - Start carvedilol 6.25 mg PO BID - Holding home Lisinopril given ROLAND Condition remains critical. Will continue to monitor closely and if any decompensation will consult the mechanical spreader operator. DVT prophylaxis: Heparin Code Status: Full Discussed Condition With: RN (8) DM (diabetes mellitus) Qualifiers: Diabetes mellitus type: type 2 Diabetes mellitus retirement insulin use: without intermodal dispatcher use
[2017-11-30] MEDS: Insulin NovoLOG Aspart Correctional Sugar Inj SQ SCH ×5 (08:11→22:13)
[2017-11-30] MEDS ORDERED: Potassium Chloride Inj 10 MEQ, Sodium Chloride 23.4% Inj 38.5 MEQ in Water for Inj, Ste... IV.CONT SCH (09:00)
[2017-11-30] MEDS: Senna/Docusate Sodium 8.6/50 MG Tablet PO SCH ×2 (09:52→21:16)
[2017-11-30 10:52] LABS: Calcium 8.7 mg/dL (8.5-10.1); Carbon Dioxide 26.2 meq/L (21.0-32.0)
[2017-11-30] MEDS: Potassium Chloride Inj 20 MEQ, Sodium Chloride 23.4% Inj 38.5 MEQ in Water for Inj, Ste... IV.CONT SCH ×2 (10:58→21:16)
[2017-11-30 11:00] LABS: Potassium 2.9 meq/L (3.5-5.1)
[2017-11-30] MEDS: Heparin - SQ 10,000 UNITS/ML Vial SQ SCH ×2 (11:01→21:19)
[2017-11-30] MEDS: amLODIPine 10 MG Tablet PO SCH (11:02)
[2017-11-30] MEDS ORDERED: Potassium Chlor 20 mEq Premix 20 MEQ/100 ML PIGGYBACK IV.SIG SCH (12:56)
[2017-11-30] MEDS: Sod Chloride 0.9% Inj 1,000 ML IV.CONT SCH (13:02)
[2017-11-30] MEDS: Potassium Chlor 10 mEq Premix 10 MEQ/100 ML PIGGYBACK IV.SIG SCH ×4 (13:15→17:42)
[2017-11-30] MEDS ORDERED: cloNIDine Susp (NICU) 20 MCG/ML 30 ML Bottle PO SCH (14:00)
[2017-11-30 15:57] LABS: Calcium 8.4 mg/dL (8.5-10.1); Carbon Dioxide 23.2 meq/L (21.0-32.0); Potassium 3.6 meq/L (3.5-5.1)
[2017-11-30] MEDS ORDERED: Morphine Sulfate Inj 2 MG/ML Vial IV.PUSH PRN (17:25)
[2017-11-30] MEDS: niCARdipine Inj 25 MG in Sodium Chlor 0.9% Inj 240 ML IV.CONT PRN (18:18)
[2017-11-30] MEDS: Azithromycin Inj 500 MG in Sodium Chlor 0.9% Inj 250 ML IV.SIG SCH (21:16)
[2017-11-30] MEDS: Carvedilol 6.25 MG Tablet PO SCH (21:16)
[2017-11-30] MEDS ORDERED: Vancomycin Inj 1,000 MG in Sodium Chlor 0.9% Inj 250 ML IV.SIG SCH (22:00)
--- NOTE | 2017-11-30 22:10 | ECG ---
Date Performed: 11/29/2017 Time Performed: 19:48:59 PTAGE: 72 years EKG: Sinus rhythm POSSIBLE LEFT ATRIAL ENLARGEMENT SEPTAL MYOCARDIAL INFARCTION PROBABLE INFERIOR MYOCARDIAL INFARCTIO N ABNORMAL ECG NO PREVIOUS TRACING DOCTOR: Félix Mendoza Interpretating Date/Time 11/30/2017 22:08:14
[2017-12-01 04:29] LABS: Baso % (Auto) 0.2 % (0.0-2.0); Eos % (Auto) 0.1 % (0.0-4.0); Hematocrit 46.4 % (39.0-51.0); Hemoglobin 15.6 gm/dL (13.0-17.0); Lymph % (Auto) 6.7 % (9.0-44.0); Mean Corpuscular HGB Conc 33.7 % (32.0-36.0); Mean Corpuscular Hemoglobin 29.9 pg (27.0-34.0); Mean Corpuscular Volume 88.5 fL (80.0-100.0); Mean Platelet Volume 8.9 fL (7.0-11.0); Mono # (Auto) 1.2 th/mm3 (0.0-0.9); Mono % (Auto) 8.1 % (0.0-8.0); Neut # (Auto) 13.1 th/mm3 (1.8-7.7); Neut % (Auto) 84.9 % (16.0-70.0); Platelet Count 269 th/mm3 (150-450); Red Blood Count 5.24 mil/mm3 (4.50-5.90); Red Cell Distribution Width 14.3 % (11.6-17.2); White Blood Count 15.4 th/mm3 (4.0-11.0)
[2017-12-01 04:51] LABS: Albumin 2.6 g/dL (3.4-5.0); Anion Gap 12 meq/L (5-15); Aspartate Aminotransferase 30 U/L (15-37); Blood Urea Nitrogen 41 mg/dL (7-18); Carbon Dioxide 22.4 meq/L (21.0-32.0); Chloride 108 meq/L (98-107); Glomerular Filtration Rate 51 mL/min (>89); Glucose,Random 171 mg/dL (74-106); Magnesium 2.2 mg/dL (1.5-2.5); Potassium 3.3 meq/L (3.5-5.1); Sodium 142 meq/L (136-145)
[2017-12-01 04:54] LABS: Alanine Aminotransferase 17 U/L (12-78); Alkaline Phosphatase 80 U/L (45-117); Total Protein 6.5 g/dL (6.4-8.2); Vancomycin,Random 18.7 Comment
[2017-12-01] MEDS: niCARdipine Inj 25 MG in Sodium Chlor 0.9% Inj 240 ML IV.CONT PRN (05:23)
[2017-12-01] MEDS ORDERED: Potassium Chloride 10 MEQ ER Capsule PO ONE (06:28)
--- NOTE | 2017-12-01 07:41 | P.PNIM ---
Subjective Interval history: Pt seen and examined. RNs at the bedside. Was off Cardene drip for several hours yesterday but per RN SBP went back up to 160s and the patient was restarted. His BP has come down since restarting home meds. Pt alert to person and knows he is in the hospital. Cannot tell me city, year, or why he is here. He denies CP, SOB, cough, abdominal pain, N/V. He has been mostly in UE restraints as he was pulling out his IV yesterday evening. He is tolerating PO and his appetite has been good. He is drinking a lot of fluids. RN made me aware of bag full of prescriptions that EMS found on patient's table. There are at least 30 OTC and prescribed pill bottles. Most of the prescriptions are duplicated of metformin, gabapentin, Lisinopril/HCTZ, and Seroquel, some still full from 2017. Physical Exam Vital signs: Vital Signs 11/30/17 08:00 11/30/17 08:48 11/30/17 09:00 Temperature 98.0 F Pulse Rate 70 81 Respiratory Rate 18 Blood Pressure 212/117 H Pulse Oximetry 95 96 11/30/17 11:00 11/30/17 15:00 11/30/17 19:00 Temperature 98.3 F 97.8 F 98.5 F Pulse Rate 86 73 76 Respiratory Rate 16 16 16 Blood Pressure 138/81 148/85 H 143/86 H Pulse Oximetry 99 95 11/30/17 22:25 11/30/17 23:00 12/01/17 00:00 Temperature 98.5 F Pulse Rate 71 Respiratory Rate 14 16 Blood Pressure 112/68 Pulse Oximetry 94 L 95 12/01/17 03:00 12/01/17 04:00 12/01/17 07:00 Temperature 98.2 F 97.9 F Pulse Rate 71 73 Respiratory Rate 16 16 16 Blood Pressure 146/82 H 127/76 Pulse Oximetry 97 95 Intake & Output 11/30/17 12/01/17 12/01/17 18:59 06:59 18:59 Intake Total 2740 / 2740 2229.625 / 2229.625 Output Total 950 / 950 400 / 400 Balance 1790 / 1790 1829.625 / 1829.625 Weight 72 kg Intake: IV 1300 / 1300 1869.625 / 186.625 KCl Inj 20 MEQ Sodium Chloride 1019.625 / 1019.625 23.4% Inj 38.5 MEQ In Sterile Water for Inj 1,000 ML @ 75 mls /hr IV.CONT .[id number] [facility] Rx#: [id number] NS Inj 1,000 ML @ 100 mls/hr IV 900 / 900 .CONT .Q10H [facility] Rx#:[id number] Cardene Inj 25 MG In NS Inj 240 250 / 250 ML @ 5 MG/HR 50 mls/hr IV.CONT TITRATE PRN Rx#:[id number] Azithromycin Inj 500 MG In NS 250 / 250 Inj 250 ML @ 250 mls/hr IV.SIG Q24H [facility] Rx#:[id number] Maxipime Inj 1,000 MG In NS Inj 100 / 100 100 / 100 100 ML @ 200 mls/hr IV.SIG Q12H [facility] Rx#:[id number] KCl 10 mEq Premix Inj 10 meq In 300 / 300 100 ml @ 100 mls/hr IV.SIG Q1H [facility] Rx#:[id number] Vancomycin Inj 1,000 MG In NS 250 / 250 Inj 250 ML @ 250 mls/hr IV.SIG Q24H [facility] Rx#:[id number] Oral 1440 / 1440 360 / 360 Output: Urine 400 / 400 Urine Amount (Catheter) 950 / 950 Indwelling Urethral Catheter 950 / 950 Narrative: GENERAL: WN, WD male resting in bed in [facility]. Oriented to self. Knows he 's in the hospital. SKIN: Warm and dry. HEENT: AT/NC. PERRLA. EOMI. No nystagmus. MMM. HEART: RRR no m/r/g. LUNGS: Diminished at the bases otherwise clear without wheezing or crackles. ABDOMEN: +BS, soft, NT, ND. EXTREMITIES: No LE edema. NEURO: Awake and alert. Follows commands but attention limited. No lateralizing symptoms. Sensation intact. - Urinary Catheter Management Indwelling Urethral Catheter Cath placed during this visit: yes Reason for continuing: Acute urinary retention Insertion date: 11/29/17 Insertion time: 19:44 Results - Labs CBC & Chem 7: 12/01/17 04:10 12/01/17 04:10 Laboratory Results - last 24 hr 11/30/17 11/30/17 11/30/17 04:08 09:38 10:28 WBC RBC Hgb Hct MCV MCH MCHC RDW Plt Count MPV Neut % (Auto) Lymph % (Auto) [place] % (Auto) Eos % (Auto) Baso % (Auto) Neut # (Auto) Lymph # (Auto) [place] # (Auto) Eos # (Auto) Baso # (Auto) WBC Differential Differential Comment Sodium 149 H Potassium 2.9 L* Chloride 113 H Carbon Dioxide 26.2 Anion Gap 10 BUN 44 H Creatinine 1.62 H Estimated GFR 42 L POC Glucose Random Glucose 244 H Hemoglobin A1c 7.0 H Lactic Acid 2.5 H Calcium 8.7 Magnesium Total Bilirubin AST ALT Alkaline Phosphatase Total Protein Albumin Random Vancomycin 11/30/17 11/30/17 11/30/17 12:40 14:47 16:17 WBC RBC Hgb Hct MCV MCH MCHC RDW Plt Count MPV Neut % (Auto) Lymph % (Auto) [place] % (Auto) Eos % (Auto) Baso % (Auto) Neut # (Auto) Lymph # (Auto) [place] # (Auto) Eos # (Auto) Baso # (Auto) WBC Differential Differential Comment Sodium 145 Potassium 3.6 Chloride 112 H Carbon Dioxide 23.2 Anion Gap 10 BUN 33 H Creatinine 1.49 H Estimated GFR 46 L POC Glucose 197 H 194 H Random Glucose 201 H Hemoglobin A1c Lactic Acid Calcium 8.4 L Magnesium Total Bilirubin AST ALT Alkaline Phosphatase Total Protein Albumin Random Vancomycin 11/30/17 11/30/17 12/01/17 18:35 19:52 04:10 WBC RBC Hgb Hct MCV MCH MCHC RDW Plt Count MPV Neut % (Auto) Lymph % (Auto) [place] % (Auto) Eos % (Auto) Baso % (Auto) Neut # (Auto) Lymph # (Auto) [place] # (Auto) Eos # (Auto) Baso # (Auto) WBC Differential Differential Comment Sodium 142 Potassium 3.6 3.3 L Chloride 108 H Carbon Dioxide 22.4 Anion Gap 12 BUN 41 H Creatinine 1.37 H Estimated GFR 51 L POC Glucose 210 H Random Glucose 171 H Hemoglobin A1c Lactic Acid Calcium 8.0 L Magnesium 2.2 D Total Bilirubin 0.6 AST 30 ALT 17 Alkaline Phosphatase 80 Total Protein 6.5 Albumin 2.6 L Random Vancomycin 18.7 12/01/17 12/01/17 04:10 04:10 WBC 15.4 H RBC 5.24 Hgb 15.6 Hct 46.4 MCV 88.5 MCH 29.9 MCHC 33.7 RDW 14.3 Plt Count 269 MPV 8.9 Neut % (Auto) 84.9 H Lymph % (Auto) 6.7 L [place] % (Auto) 8.1 H Eos % (Auto) 0.1 Baso % (Auto) 0.2 Neut # (Auto) 13.1 H Lymph # (Auto) 1.0 [place] # (Auto) 1.2 H Eos # (Auto) 0.0 Baso # (Auto) 0.0 WBC Differential . Differential Comment Auto diff final Sodium Potassium Chloride Carbon Dioxide Anion Gap BUN Creatinine Estimated GFR POC Glucose Random Glucose Hemoglobin A1c Lactic Acid 2.3 H Calcium Magnesium Total Bilirubin AST ALT Alkaline Phosphatase Total Protein Albumin Random Vancomycin Microbiology 11/29/17 19:00 Blood - Peripheral Aerobic Blood Culture - Preliminary No growth in 1 day 11/29/17 19:00 Blood - Peripheral Anaerobic Blood Culture - Preliminary No growth in 1 day 11/29/17 19:05 Blood - Peripheral Aerobic Blood Culture - Preliminary No growth in 1 day 11/29/17 19:05 Blood - Peripheral Anaerobic Blood Culture - Preliminary No growth in 1 day Assessment and Plan - Assessment (1) Encephalopathy Code(s): G93.40 - Encephalopathy, unspecified Status: Acute (2) Sepsis Code(s): A41.9 - Sepsis, unspecified organism Status: Acute (3) PNA (pneumonia) Code(s): J18.9 - Pneumonia, unspecified organism Status: Acute (4) ROLAND (acute kidney injury) Code(s): N17.9 - Acute kidney failure, unspecified Status: Acute (5) Rhabdomyolysis Code(s): M62.82 - Rhabdomyolysis Status: Acute (6) HTN (hypertension) Code(s): I10 - Essential (primary) hypertension Status: Chronic (7) Elevated troponin Code(s): R74.8 - Abnormal levels of other serum enzymes Status: Acute (8) DM (diabetes mellitus) Code(s): E11.9 - Type 2 diabetes mellitus without complications Status: Chronic - Plan 72 year old male with DM, HTN, CKD, CAD s/p CABG presenting with AMS yesterday evening. On initial evaluation, found to be significantly hypertensive with labs remarkable for leukocytosis, ROLAND, lactic acidosis, mildly elevated troponin , and hyperglycemia. CXR revealed a left basilar consolidation with small bilateral pleural effusions. 12/01: Patient more awake today though still encephalopathic. EEG pending. Check MRI and additional labs as described below. His BP has stabilized, discontinue Cardene. Continue treatment for PNA/sepsis. 03/21 blood culture growing pleomorphic GP rods, ?skin contaminant. He remains afebrile and WBC and lactic acid trending down. Will continue current antibiotics and follow final culture. Starting Levemir for hyperglycemia. 1. Encephalopathy - CT head/C-spine negative - CT A/P negative - UDS negative - Ammonia and TSH WNL - Troponins mildly elevated at 0.13, 0.12, 0.13, likely secondary to ROLAND - Total CK mildly elevated up to 616, likely from being down - Unclear etiology though possibly due to infection/sepsis/PNA vs. polypharmacy given bag full of different medications - Continue neuro checks - EEG done yesterday, read pending - Check MRI - Check RPR, B12, thiamin - PT to eval and treat - ST for speech and cognitive eval --> recommending mechanical soft - Will treat for underlying infection at this time and continue to monitor closely - If no improvement or epileptic activity on EEG will consider neuro consult 2. Sepsis - Met criteria based on leukocytosis, tachycardia, and elevated lactic acid - Source: PNA - U/A negative for UTI - Blood cultures with 1 out of four tubes growing pleomorphic gram positive rods , ?skin contaminant. Will await final result - White count and lactic acid trending down - Continue cefepime and Azithro for tx of PNA - Will continue to follow closely on antibiotics and watch the final blood culture 3. PNA - CXR with left basilar consolidation - Continue cefepime and azithromycin - Check urine legionella and pneumococcal (ordered 11/30) - Sputum cultures (ordered 11/30) - Supplemental O2 PRN - currently on room air - DuoNeb PRN 4. Lactic acidosis - Lactic acid continues to be elevated at 2.3 though trending down from 3.4 - Patient has been well-perfused since admission - Anion gap normal - Possibly secondary to metformin use and ROLAND? - Continue monitor - Continue IV fluids 5. Hypertensive urgency - resolved - D/C Cardene drip - Continue Carvedilol 6.25 mg PO BID - Continue amlodipine 10 mg daily - Continue home clonidine TID - Holding home TAMIR-I and HCTZ in light of ROLAND - Labetalol and hydralazine PRN 6. ROLAND on CKD - Creatinine 2.29 on admission, previously 1.57 on 08/14 - Improving, down to 1.37 today which is likely around his baseline though BUN remains 41 - Holding home TAMIR and thiazide - Stop home metformin - U/A with elevated specific gravity and some blood from catheterization otherwise negative for proteinuria or infection - Continue IV fluids - I/Os - Continue to monitor - Avoid nephrotoxic agents 7. Hypernatremia - resolved - Sodium up to 150 yesterday AM from 143 on admission (normal saline had been running throughout the night) - Yesterday IVF was changed to 1/4 NS-KCl 20 and monitored BMP closely as the sodium trended down with rate adjustments throughout the day - Sodium down to 142 this AM - Change fluids to 1/2 NS-KCl 20 at 84 ml/hr - Recheck BMP this afternoon to ensure sodium remains normal - If sodium continues to be normal will D/C IV fluids since patient eating and drinking 8. Hypermagnesemia - resolved - Stop home magnesium supplements - Monitor 9. Hypokalemia - Potassium 3.3 this AM - Continue KCl with fluids - Add KCl 20 meq PO daily - Continue to monitor 10. DM with hyperglycemia - Blood sugars improved though continues to be elevated around 200 - Beta-hydroxybutyric just mildly elevated on admission with trace ketones and normal AG, not in DKA - Continue SSI with Accu-Cheks - Start Levemir 5 units BID - A1c 7.0 - Holding home metformin and glipizide 11. Elevated troponins - Troponins mildly elevated at 0.13, 0.12, 0.13 - Likely secondary to ROLAND - Troponin was negative several months ago but went as high as 23 back in 2016 when he had an NSTEMI - He is not complaining of chest pain - EKG with NSR. Q-waves in III and AVF otherwise not acute ST-T wave changes when compared to prior EKG - Given his acute sepsis and infection will hold off on cardiology consult as the patient is too unstable at this time to undergo any cardiac intervention anyway 12. CAD - S/P CABG x 19 October 2015 - Troponins mildly elevated, more likely from renal insufficiency - Started carvedilol 6.25 mg PO BID - Holding home Lisinopril given ROLAND DVT prophylaxis: Heparin Code Status: Full Discussed Condition With: RNs (8) DM (diabetes mellitus) Qualifiers: Diabetes mellitus type: type 2 Diabetes mellitus halfway insulin use: without intermediate accountant use
[2017-12-01] MEDS: KCL 20 mEq/NACL 0.45% Inj 1,000 ML IV.CONT SCH ×2 (08:25→19:57)
[2017-12-01] MEDS: amLODIPine 10 MG Tablet PO SCH (08:25)
[2017-12-01] MEDS: Folic Acid 1 MG Tablet PO SCH (08:25)
[2017-12-01] MEDS: Insulin NovoLOG Aspart Correctional Sugar Inj SQ SCH ×4 (08:26→20:05)
[2017-12-01] MEDS: Citalopram 20 MG Tablet PO SCH (08:26)
[2017-12-01] MEDS: Heparin - SQ 10,000 UNITS/ML Vial SQ SCH ×2 (08:26→20:05)
[2017-12-01] MEDS: Carvedilol 6.25 MG Tablet PO SCH ×2 (08:26→20:05)
[2017-12-01] MEDS: Insulin Detemir Inj 1,000 UNIT/10 ML Vial SQ SCH ×2 (08:27→20:05)
[2017-12-01] MEDS: Senna/Docusate Sodium 8.6/50 MG Tablet PO SCH ×2 (09:00→20:05)
[2017-12-01] MEDS ORDERED: hydrALAZINE HCl Inj 20 MG/ML Vial IV.PUSH PRN (09:08)
[2017-12-01] MEDS ORDERED: Labetalol HCl Inj 100 MG/20 ML Vial IV.PUSH PRN (09:08)
[2017-12-01 13:32] LABS: Calcium 7.8 mg/dL (8.5-10.1); Carbon Dioxide 23.4 meq/L (21.0-32.0); Potassium 3.7 meq/L (3.5-5.1)
[2017-12-01] MEDS: Azithromycin Inj 500 MG in Sodium Chlor 0.9% Inj 250 ML IV.SIG SCH (19:56)
[2017-12-02 04:23] LABS: Baso % (Auto) 0.3 % (0.0-2.0); Eos # (Auto) 0.1 th/mm3 (0.0-0.4); Eos % (Auto) 0.8 % (0.0-4.0); Hematocrit 41.7 % (39.0-51.0); Hemoglobin 14.2 gm/dL (13.0-17.0); Lymph # (Auto) 1.1 th/mm3 (1.0-4.8); Lymph % (Auto) 8.9 % (9.0-44.0); Mean Corpuscular HGB Conc 34.1 % (32.0-36.0); Mean Corpuscular Hemoglobin 29.9 pg (27.0-34.0); Mean Corpuscular Volume 87.7 fL (80.0-100.0); Mean Platelet Volume 8.8 fL (7.0-11.0); Mono # (Auto) 1.1 th/mm3 (0.0-0.9); Mono % (Auto) 8.9 % (0.0-8.0); Neut # (Auto) 9.8 th/mm3 (1.8-7.7); Neut % (Auto) 81.1 % (16.0-70.0); Platelet Count 245 th/mm3 (150-450); Red Blood Count 4.75 mil/mm3 (4.50-5.90); Red Cell Distribution Width 14.1 % (11.6-17.2); White Blood Count 12.1 th/mm3 (4.0-11.0)
[2017-12-02 04:50] LABS: Calcium 8.1 mg/dL (8.5-10.1); Potassium 3.5 meq/L (3.5-5.1)
--- NOTE | 2017-12-02 07:49 | P.PNIM ---
Subjective Interval history: Pt seen and examined. Much more awake and alert today but still with some slowing and slurring of his speech. He is oriented x 3. He knows he is in [facility] for being confused and altered. He denies any cough, fever, chest pain, dizziness, or palpitations leading up to his admission. D/w RN; patient had an episode of chest pain this morning that was relieved with [place]. He hasn't had it since. He has difficulty describing the pain but points to the center of his chest. Denies heavy sensation or pressure. An EKG was done at the time which was negative for any acute ST-T wave changes and looked fairly similar to the prior EKG. He denies cough, SOB, abdominal pain, N/V. He is eating and drinking well. ST has him on a mechanical soft diet but he states at home he had no issues eating anything he wanted. He admits that he is not the most compliant with his medications. He denies EtOH or substance use. Per RN, MRI hasn't been done yet because the patient was oriented enough yesterday to complete pre-MRI questionnaire. Physical Exam Vital signs: Vital Signs 12/01/17 08:00 12/01/17 11:00 12/01/17 12:00 Temperature 98.2 F Pulse Rate 62 Respiratory Rate 16 16 Blood Pressure 137/92 H Pulse Oximetry 96 12/01/17 15:00 12/01/17 16:00 12/01/17 19:00 Temperature 98.4 F 98.8 F Pulse Rate 65 71 Respiratory Rate 16 16 16 Blood Pressure 112/68 158/99 H Pulse Oximetry 97 12/01/17 20:00 12/01/17 21:21 12/01/17 23:00 Temperature 98.1 F Pulse Rate 67 Respiratory Rate 16 14 Blood Pressure 151/90 H Pulse Oximetry 97 94 L 97 12/02/17 00:00 12/02/17 03:00 12/02/17 04:00 Temperature 98.5 F Pulse Rate 66 Respiratory Rate 16 16 16 Blood Pressure 164/94 H Pulse Oximetry 97 12/02/17 06:20 Temperature Pulse Rate Respiratory Rate 16 Blood Pressure Pulse Oximetry Intake & Output 12/01/17 12/02/17 12/02/17 18:59 06:59 18:59 Intake Total 5.625 / 2079.625 1590 / 1590 Output Total 800 / 800 950 / 950 Balance 1279.625 / 1279.625 640 / 640 Weight 71 kg Intake: IV 1119.625 / 3480.188 4877 / 1350 Potassium Chlor 20 mEq/NACL 0. 1000 / 1000 45% Inj 1,000 ML @ 84 mls/hr IV .CONT .[id number] [facility] Rx#:[id number] KCl Inj 20 MEQ Sodium Chloride 1019.625 / 1019.625 23.4% Inj 38.5 MEQ In Sterile Water for Inj 1,000 ML @ 75 mls /hr IV.CONT .[id number] [facility] Rx#: [id number] Cardene Inj 25 MG In NS Inj 240 0 / 0 ML @ 5 MG/HR 50 mls/hr IV.CONT TITRATE PRN Rx#:[id number] Azithromycin Inj 500 MG In NS 250 / 250 Inj 250 ML @ 250 mls/hr IV.SIG Q24H [facility] Rx#:[id number] Maxipime Inj 1,000 MG In NS Inj 100 / 100 100 / 100 100 ML @ 200 mls/hr IV.SIG Q12H [facility] Rx#:[id number] Oral 960 / 960 240 / 240 Output: Urine 950 / 950 Urine Amount (Catheter) 800 / 800 Indwelling Urethral Catheter 800 / 800 Other: Date of Last Bowel Movement 12/02/17 # Bowel Movements 1 Narrative: GENERAL: WN, WD male resting in bed in [facility]. SKIN: Warm and dry. HEENT: AT/NC. PERRLA. EOMI. No nystagmus. MMM. HEART: RRR no m/r/g. LUNGS: CTAB without wheezing or crackles. ABDOMEN: +BS, soft, NT, ND. EXTREMITIES: No LE edema. NEURO: Awake and alert. Oriented x 3. Follows commands. Falls asleep several times during encounter. No lateralizing symptoms. Sensation intact. - Urinary Catheter Management Indwelling Urethral Catheter Cath placed during this visit: yes Reason for continuing: Acute urinary retention Insertion date: 11/29/17 Insertion time: 19:44 Results - Labs CBC & Chem 7: 12/02/17 04:13 12/02/17 04:13 Laboratory Results - last 24 hr 11/29/17 12/01/17 12/01/17 19:50 08:04 11:14 WBC RBC Hgb Hct MCV MCH MCHC RDW Plt Count MPV Neut % (Auto) Lymph % (Auto) [place] % (Auto) Eos % (Auto) Baso % (Auto) Neut # (Auto) Lymph # (Auto) [place] # (Auto) Eos # (Auto) Baso # (Auto) WBC Differential Differential Comment PT 11.0 INR 1.1 APTT 22.2 L Sodium Potassium Chloride Carbon Dioxide Anion Gap BUN Creatinine Estimated GFR POC Glucose 217 H 181 H Random Glucose Lactic Acid Calcium Vitamin B12 12/01/17 12/01/17 12/01/17 12:49 16:14 19:07 WBC RBC Hgb Hct MCV MCH MCHC RDW Plt Count MPV Neut % (Auto) Lymph % (Auto) [place] % (Auto) Eos % (Auto) Baso % (Auto) Neut # (Auto) Lymph # (Auto) [place] # (Auto) Eos # (Auto) Baso # (Auto) WBC Differential Differential Comment PT INR APTT Sodium 142 Potassium 3.7 Chloride 108 H Carbon Dioxide 23.4 Anion Gap 11 BUN 42 H Creatinine 1.25 Estimated GFR 57 L POC Glucose 141 H 189 H Random Glucose 187 H Lactic Acid Calcium 7.8 L Vitamin B12 427 12/02/17 12/02/17 12/02/17 04:13 04:13 04:13 WBC 12.1 H RBC 4.75 Hgb 14.2 Hct 41.7 MCV 87.7 MCH 29.9 MCHC 34.1 RDW 14.1 Plt Count 245 MPV 8.8 Neut % (Auto) 81.1 H Lymph % (Auto) 8.9 L [place] % (Auto) 8.9 H Eos % (Auto) 0.8 Baso % (Auto) 0.3 Neut # (Auto) 9.8 H Lymph # (Auto) 1.1 [place] # (Auto) 1.1 H Eos # (Auto) 0.1 Baso # (Auto) 0.0 WBC Differential . Differential Comment Auto diff final PT INR APTT Sodium 141 Potassium 3.5 Chloride 109 H Carbon Dioxide 24.0 Anion Gap 8 BUN 33 H Creatinine 1.10 Estimated GFR 66 L POC Glucose Random Glucose 89 Lactic Acid 0.9 Calcium 8.1 L Vitamin B12 Microbiology 11/29/17 19:00 Blood - Peripheral Aerobic Blood Culture - Preliminary pleomorphic gram positive rods 11/29/17 19:00 Blood - Peripheral Anaerobic Blood Culture - Preliminary No growth in 2 days 11/29/17 19:05 Blood - Peripheral Aerobic Blood Culture - Preliminary No growth in 2 days 11/29/17 19:05 Blood - Peripheral Anaerobic Blood Culture - Preliminary No growth in 2 days Assessment and Plan - Assessment (1) Encephalopathy Code(s): G93.40 - Encephalopathy, unspecified Status: Acute (2) Sepsis Code(s): A41.9 - Sepsis, unspecified organism Status: Resolved (3) PNA (pneumonia) Code(s): J18.9 - Pneumonia, unspecified organism Status: Acute (4) ROLAND (acute kidney injury) Code(s): N17.9 - Acute kidney failure, unspecified Status: Resolved (5) HTN (hypertension) Code(s): I10 - Essential (primary) hypertension Status: Chronic (6) Elevated troponin Code(s): R74.8 - Abnormal levels of other serum enzymes Status: Acute (7) DM (diabetes mellitus) Code(s): E11.9 - Type 2 diabetes mellitus without complications Status: Chronic - Plan 72 year old male with DM, HTN, CKD, CAD s/p CABG presenting with AMS yesterday evening. On initial evaluation, found to be significantly hypertensive with labs remarkable for leukocytosis, ROLAND, lactic acidosis, mildly elevated troponin , and hyperglycemia. CXR revealed a left basilar consolidation with small bilateral pleural effusions. 12/02: MRI ordered yesterday, hopefully can be done today now that patient is oriented enough. Still awaiting EEG results. Labs are normalizing, WBC continues to trend down. Hypernatremia and hypokalemia resolved. Will D/C fluids. Continue PO KCl. Repeated blood cultures yesterday with 1/4 growing pleomorphic GP rods, ?skin contaminant. He remains afebrile. Will continue current antibiotics. Hyperglycemia improving after starting Levemir. BP still elevated but improved from prior. Off of Cardene drip. Increase Carvedilol, start hydralazine. Wean from clonidine given rebound HTN and patient compliance questionable. Transfer to floor. 1. Encephalopathy - CT head/C-spine negative - CT A/P negative - UDS negative - Ammonia and TSH WNL - Troponins mildly elevated at 0.13, 0.12, 0.13, likely secondary to ROLAND - Total CK mildly elevated up to 616, likely from being down - Unclear etiology though possibly due to infection/sepsis/PNA vs. polypharmacy given bag full of different medications - Continue neuro checks - Still waiting for EEG to result and MRI to be done - Check RPR and thiamine pending - PT following - ST following --> recommending mechanical soft an thin liquids. Recommend ST on d/c - Will treat for underlying infection at this time and continue to monitor closely - If no improvement or epileptic activity on EEG will consider neuro consult 2. Sepsis - resolved - Met criteria based on leukocytosis, tachycardia, and elevated lactic acid - Source: PNA - U/A negative for UTI - Blood cultures with 1 out of four tubes growing pleomorphic gram positive rods , ?skin contaminant. Will await final result and repeat in the meantime - White count trending down - Lactic acid normalized - Continue cefepime and Azithro for tx of PNA - Will continue to follow closely on antibiotics and watch the final blood culture 3. PNA - CXR with left basilar consolidation - Continue cefepime and azithromycin - Check urine legionella and pneumococcal (ordered 11/30) - Sputum cultures (ordered 11/30) - Supplemental O2 PRN - currently maintaining sats on room air - DuoNeb PRN 4. Lactic acidosis - resolved - Down to 0.9 this AM - Patient has been well-perfused since admission - Anion gap normal - Likely from sepsis/PNA but also metformin use and ROLAND could have contributed 5. Hypertensive urgency - resolved but BP still above goal - Cardene gtt discontinued yesterday - Increase Carvedilol t0 12.5 mg PO BID - Continue amlodipine 10 mg daily - I am going to start weaning him from clonidine after seeing that he is likely not compliant with his medications and discontinuing the clonidine or missing doses can cause rebound HTN therefore I do not think he is a good candidate for this antihypertensive. Will start hydralazine 25 mg PO BID to replace and reduce clonidine to 0.1 BID from TID - Holding home TAMIR-I and HCTZ in light of ROLAND - Labetalol and hydralazine PRN 6. ROLAND on CKD - resolved - Creatinine 2.29 on admission, previously 1.57 on 08/14 - Improving, down to 1.10 and BUN down to 33 from 42 - We are likely at his baseline - Continue holding home TAMIR and thiazide - Stop home metformin - U/A with elevated specific gravity and some blood from catheterization otherwise negative for proteinuria or infection - Encourage PO fluids - I/Os - Continue to monitor - Avoid nephrotoxic agents 7. Hypernatremia - resolved - Sodium up to 150 from 143 after receiving normal saline - IV fluid adjusted from NS to 1/4 NS-KCl 20 and then to 1/2 NS-KCl 20 as the BMP was closely monitored - He remained normonatremic and IV fluids will be discontinued since he is tolerating PO 8. Hypermagnesemia - resolved - Stop home magnesium supplements - Monitor 9. Hypokalemia - resolved - Potassium 3.5 this AM - Continue KCl 20 meq PO daily - Continue to monitor 10. DM with hyperglycemia - Blood sugars improved - Beta-hydroxybutyric just mildly elevated on admission with trace ketones and normal AG, not in DKA - Continue SSI with Accu-Cheks - Continue Levemir 5 units BID - A1c 7.0 - Holding home metformin and glipizide 11. Elevated troponins - Troponins mildly elevated at 0.13, 0.12, 0.13 - Likely secondary to ROLAND and sepsis - Troponin was negative several months ago but went as high as 23 back in 2016 when he had an NSTEMI - Repeat EKG this AM with no acute ST-T wave changes, unchanged from prior 12. 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 Awaiting MRI and EEG results. Will likely be medically stable for D/C in next 1-2 days. Possible need for rehab but PT to re-evaluate. Case management consulted for D/C needs. (7) DM (diabetes mellitus) Qualifiers: Diabetes mellitus type: type 2 Diabetes mellitus terminal operations manager insulin use: without senior care use
[2017-12-02] MEDS ORDERED: Carvedilol 12.5 MG Tablet PO SCH (09:00)
[2017-12-02] MEDS: KCL 20 mEq/NACL 0.45% Inj 1,000 ML IV.CONT SCH (09:36)
[2017-12-02] MEDS: Senna/Docusate Sodium 8.6/50 MG Tablet PO SCH ×2 (09:37→21:24)
[2017-12-02] MEDS: Heparin - SQ 10,000 UNITS/ML Vial SQ SCH ×2 (09:38→21:23)
[2017-12-02] MEDS: Folic Acid 1 MG Tablet PO SCH (09:38)
[2017-12-02] MEDS: Citalopram 20 MG Tablet PO SCH (09:38)
[2017-12-02] MEDS: Insulin Detemir Inj 1,000 UNIT/10 ML Vial SQ SCH ×2 (09:39→21:24)
[2017-12-02] MEDS: amLODIPine 10 MG Tablet PO SCH (09:39)
[2017-12-02] MEDS: hydrALAZINE 25 MG Tablet PO SCH ×2 (09:42→21:22)
[2017-12-02] MEDS: Insulin NovoLOG Aspart Correctional Sugar Inj SQ SCH ×3 (09:46→21:21)
[2017-12-02] MEDS ORDERED: Atropine Inj 1 MG/10 ML Syringe ONE (10:27)
[2017-12-02] MEDS ORDERED: Gadobutrol PF 7.5 MMOL/7.5 ML Vial (for RAD) IV.SIG ONE (11:51)
[2017-12-02] MEDS ORDERED: Gadobutrol PF 2 MMOL/2 ML Vial (for RAD) IV.SIG ONE (11:52)
[2017-12-02] MEDS: Carvedilol 6.25 MG Tablet PO SCH ×2 (13:37→21:23)
--- NOTE | 2017-12-02 17:29 | MR ---
EXAM DATE: 12/02/2017 11:24 AM EDT AGE/SEX: 72 years / Male INDICATIONS: Altered mental status. CLINICAL DATA: This is the patient's initial encounter. Patient reports that signs and symptoms have been present for 3 days and indicates a pain score of 0/10. MEDICAL/SURGICAL HISTORY: None. UNKNOWN. . UNKNOWN. COMPARISON: [facility], CT HEAD W/O CONTRAST, 11/29/2017. [facility], MRI BRAIN W/O CONTRAST, 11/08/2015. . TECHNIQUE: Multiplanar, multisequence examination of the brain was performed without and with 7 ml Ga davist (gadobutrol) contrast as a single exam dose. FINDINGS: Cerebrum: The ventricles, sulci, and cisterns are prominent, characteristic of moderate severity hamzah tral and cortical atrophy. There is encephalomalacia in the paramedian high parietal region which ext ends across the mid body of the corpus callosum. White Matter: Scattered areas of T2 prolongation, partially confluent, in the periventricular white matter extending into the high convexity periventricular region adjacent to the corpus callosum. Posterior Fossa: The cerebellum and brainstem are intact. The 4th ventricle is midline. The cerebel lopontine angle is unremarkable. The cerebellar tonsils are normal in position. Diffusion Imaging: No focal areas of restricted diffusion are seen. No evidence of acute infarction . Extracranial: The visualized portions of the orbits and paranasal sinuses are unremarkable. Post Contrast: No abnormal areas of parenchymal or dural enhancement. No evidence of blood-brain ba rrier breakdown. CONCLUSION: 1. No acute findings in the brain. 2. Stable diffuse ischemic white matter change including encephalomalacia which extends across the c orpus callosum, unchanged in appearance from prior MR in 2016. Electronically signed by: Adrash Ortega MD 12/02/2017 5:27 PM EDT
--- NOTE | 2017-12-02 18:11 | MG ---
cc: Aaron Davalos MD ELECTROENCEPHALOGRAM RECORD NUMBER: [id number] DESCRIPTION: A 2-4 Hz posterior frequency, 20-50 microvolts at times occurring in a generalized fashion. There is a sharp transient occasionally. Bisynchrony that is post rhythm formation of 5-7 Hz occurring intermittently. Sharp wave occurring in the posterior region, epoch 53. Good EEG variability and reactivity. Another sharp transient in the right posterior region, epoch 105. Limited driving with photic stimulation. Single-lead EKG showing sinus rhythm. INTERPRETATION: Mild to moderate encephalopathy. Clinical correlation. MD LUKAS Irizarry/eliana , 05:09 PM , 05:13 PM
--- NOTE | 2017-12-02 19:27 | ECG ---
Date Performed: 12/02/2017 Time Performed: 06:30:50 PTAGE: 72 years EKG: Possible ectopic atrial rhythm Inferior infarct - age undetermined Possible anteroseptal in farct - age undetermined Lateral T wave changes are nonspecific Abnormal ECG PREVIOUS TRACING : 11/29/2017 19.48 Since the previous tracing, no significant change noted DOCTOR: Mary Bass Interpretating Date/Time 12/02/2017 19:25:44
[2017-12-02] MEDS: Azithromycin Inj 500 MG in Sodium Chlor 0.9% Inj 250 ML IV.SIG SCH (21:22)
[2017-12-03 04:47] LABS: Hematocrit 43.8 % (39.0-51.0); Hemoglobin 14.9 gm/dL (13.0-17.0); Mean Corpuscular HGB Conc 33.9 % (32.0-36.0); Mean Corpuscular Volume 88.4 fL (80.0-100.0); Mean Platelet Volume 9.6 fL (7.0-11.0); Platelet Count 279 th/mm3 (150-450); Red Blood Count 4.96 mil/mm3 (4.50-5.90); Red Cell Distribution Width 14.4 % (11.6-17.2)
[2017-12-03 05:10] LABS: Calcium 8.2 mg/dL (8.5-10.1); Carbon Dioxide 23.3 meq/L (21.0-32.0); Potassium 3.5 meq/L (3.5-5.1)
--- NOTE | 2017-12-03 07:45 | P.PNIM ---
Subjective Interval history: Pt seen and examined. Getting better every day and today he states he is feeling at his baseline. Denies further episodes of chest pain since yesterday morning. Denies cough, SOB, wheezing, abdominal pain, N/V. Tolerating a PO. Able to urinate since Larios removed yesterday. Wants to get up and move around more. Anxious to return home but also aware that PT is recommending rehab and he is agreeable. We discussed how his medications have been changed around a little and he needs to pay close attention to his discharge instructions and med rec when he is released. Physical Exam Vital signs: Vital Signs 12/02/17 08:00 12/02/17 09:18 12/02/17 11:00 Temperature 97.0 F L Pulse Rate 61 Respiratory Rate 16 Blood Pressure 144/83 H Pulse Oximetry 98 97 97 12/02/17 14:28 12/02/17 15:00 12/02/17 16:49 Temperature 97.4 F L Pulse Rate 56 L 59 L Respiratory Rate 16 16 Blood Pressure 105/68 144/92 H Pulse Oximetry 96 12/02/17 20:00 12/02/17 23:00 12/03/17 00:00 Temperature 97.7 F 97.8 F Pulse Rate 60 63 63 Respiratory Rate 18 18 Blood Pressure 114/74 151/89 H Pulse Oximetry 98 97 12/03/17 04:00 Temperature 98.0 F Pulse Rate 66 Respiratory Rate 18 Blood Pressure 160/98 H Pulse Oximetry 97 Intake & Output 12/02/17 12/03/17 12/03/17 18:59 06:59 18:59 Intake Total 1580 / 1580 240 / 240 Output Total 300 / 300 400 / 400 Balance 1280 / 1280 -160 / -160 Weight 73 kg Intake: IV 1100 / 1100 Maxipime Inj 1,000 MG In NS Inj 100 / 100 100 ML @ 200 mls/hr IV.SIG Q12H DEBBIE Rx#:[id number] Oral 480 / 480 240 / 240 Output: Urine 0 / 0 Urine Amount (Catheter) 300 / 300 400 / 400 Indwelling Urethral Catheter 300 / 300 Straight 400 / 400 Other: Date of Last Bowel Movement 12/02/17 # Bowel Movements 1 0 Narrative: GENERAL: WN, WD male sitting up in bed in NAD. SKIN: Warm and dry. HEENT: AT/NC. PERRLA. EOMI. No nystagmus. MMM. HEART: RRR no m/r/g. LUNGS: CTAB without wheezing or crackles. ABDOMEN: +BS, soft, NT, ND. EXTREMITIES: No LE edema. NEURO: Awake and alert. Oriented x 3. Follows commands. Speech slurred a little but otherwise fluent, likely his baseline. - Urinary Catheter Management Indwelling Urethral Catheter Cath placed during this visit: yes, but has since been removed by the nurse Reason for continuing: Not indwelling catheter Insertion date: 11/29/17 Insertion time: 19:44 Removal date: 12/02/17 Removal time: 12:00 Straight Cath placed during this visit: yes, but has since been removed by the nurse Reason for continuing: Not indwelling catheter Insertion date: 12/03/17 Insertion time: 00:30 Removal date: 12/03/17 Removal time: 01:00 Results - Labs CBC & Chem 7: 12/03/17 03:57 12/03/17 03:57 Laboratory Results - last 24 hr 12/01/17 12/02/17 12/02/17 12:49 08:17 11:57 WBC RBC Hgb Hct MCV MCH MCHC RDW Plt Count MPV Sodium Potassium Chloride Carbon Dioxide Anion Gap BUN Creatinine Estimated GFR POC Glucose 82 169 H Random Glucose Calcium RPR Nonreactive 12/02/17 12/02/17 12/03/17 17:44 21:02 03:57 WBC 9.0 RBC 4.96 Hgb 14.9 Hct 43.8 MCV 88.4 MCH 30.0 MCHC 33.9 RDW 14.4 Plt Count 279 MPV 9.6 Sodium Potassium Chloride Carbon Dioxide Anion Gap BUN Creatinine Estimated GFR POC Glucose 153 H 157 H Random Glucose Calcium RPR 12/03/17 03:57 WBC RBC Hgb Hct MCV MCH MCHC RDW Plt Count MPV Sodium 139 Potassium 3.5 Chloride 106 Carbon Dioxide 23.3 Anion Gap 10 BUN 27 H Creatinine 1.06 Estimated GFR 68 L POC Glucose Random Glucose 74 Calcium 8.2 L RPR Microbiology 11/29/17 19:00 Blood - Peripheral Aerobic Blood Culture - Final Corynebacterium not JK 11/29/17 19:00 Blood - Peripheral Anaerobic Blood Culture - Preliminary No growth in 3 days 12/01/17 15:41 Blood - Peripheral Aerobic Blood Culture - Preliminary No growth in 1 day 12/01/17 15:41 Blood - Peripheral Anaerobic Blood Culture - Preliminary No growth in 1 day 11/29/17 19:05 Blood - Peripheral Aerobic Blood Culture - Preliminary No growth in 3 days 11/29/17 19:05 Blood - Peripheral Anaerobic Blood Culture - Preliminary No growth in 3 days - Imaging Impressions Head MRI 12/02/17 07:03 CONCLUSION: 1. No acute findings in the brain. 2. Stable diffuse ischemic white matter change including encephalomalacia which extends across the corpus callosum, unchanged in appearance from prior MR in 2016. Assessment and Plan - Assessment (1) Encephalopathy Code(s): G93.40 - Encephalopathy, unspecified Status: Resolved (2) Sepsis Code(s): A41.9 - Sepsis, unspecified organism Status: Resolved (3) PNA (pneumonia) Code(s): J18.9 - Pneumonia, unspecified organism Status: Resolved (4) ROLAND (acute kidney injury) Code(s): N17.9 - Acute kidney failure, unspecified Status: Resolved (5) HTN (hypertension) Code(s): I10 - Essential (primary) hypertension Status: Chronic (6) Elevated troponin Code(s): R74.8 - Abnormal levels of other serum enzymes Status: Acute (7) DM (diabetes mellitus) Code(s): E11.9 - Type 2 diabetes mellitus without complications Status: Chronic - Plan 72 year old male with DM, HTN, CKD, CAD s/p CABG presenting with AMS yesterday evening. On initial evaluation, found to be significantly hypertensive with labs remarkable for leukocytosis, ROLAND, lactic acidosis, mildly elevated troponin , and hyperglycemia. CXR revealed a left basilar consolidation with small bilateral pleural effusions. 12/04: Patient continues to improve. Transition to PO antibiotics with Amoxicillin 500 mg TID. MRI showed chronic encephalomalacia otherwise no new findings. EEG with mild to moderate encephalopathy. Labs have all completely normalized and patient remains afebrile. Repeat blood cultures negative. BPs improved yesterday though still elevated. Increase hydralazine. Continue to taper clonidine to avoid abrupt withdrawal. Patient appears to be at baseline and is medically stable. Case management consulted to assist with SNF placement. 1. Encephalopathy - improved - Likely multifactorial from acute infection/sepsis, polypharmacy - CT head/C-spine negative - CT A/P negative - MRI head with no acute findings. There is stable diffuse ischemic white matter change including encephalomalacia, unchanged from 2016 - EEG with mild to moderate encephalopathy - UDS negative - Ammonia, TSH, B12 WNL. RPR nonreactive - Troponins mildly elevated at 0.13, 0.12, 0.13, likely secondary to ROLAND - Total CK mildly elevated up to 616, likely from being down - PT following --> recommending rehab - ST following --> recommending mechanical soft an thin liquids. Recommend ST on d/c 2. Sepsis - resolved - Met criteria based on leukocytosis, tachycardia, and elevated lactic acid - Source: PNA - U/A negative for UTI - 1 out of 4 tubes growing Corynebacterium, likely contaminant. Repeat blood cultures from 12/01 negative - White count and lactic acid normalized - See plans for PNA treatment below 3. PNA - CXR with left basilar consolidation - Cefepime and azithromycin discontinued today. Transition to PO and start Amoxicillin 500 mg TID to total 7 days of antibiotic treatment. Will not continue Azithro PO as patient has already received >1.5 g - Supplemental O2 PRN - currently maintaining sats on room air - DuoNeb PRN 4. Hypertensive urgency - resolved but BP still above goal - Was briefly on a Cardene gtt to stabilize - Continue Carvedilol 6.25 mg BID, hesitant to increase given borderline mercedes - Continue amlodipine 10 mg daily - Continue weaning him from clonidine; after seeing that he is likely not compliant with his medications clonidine is not an ideal agent for this patient given abrupt discontinuation can cause rebound HTN. Will wean over the next day , decreased from TID to BID and tomorrow can give just one dose before stopping - Increase hydralazine to 25 mg TID - Restart Lisinopril since ROLAND resolved but at a lower dose, more so for renal protection with his diabetes - Labetalol and hydralazine PRN 6. ROLAND on CKD - resolved - Creatinine 2.29 on admission, previously 1.57 on 08/14 - Improving, down to 1.06 and BUN down to 27. Now he is better than his baseline - eGFR up to 68 from 28 on admission - Restart Lisinopril at a lower dose, 5 mg - Holding home thiazide and metformin - U/A with elevated specific gravity and some blood from catheterization otherwise negative for proteinuria or infection - Encourage PO fluids - I/Os - Continue to monitor 7. Hypernatremia - resolved - Remains normonatremic - Monitor periodically 8. Hypermagnesemia - resolved - Stopped home magnesium supplements 9. Hypokalemia - resolved - Potassium 3.5 this AM - Continue KCl 20 meq PO daily - Continue to monitor 10. DM with hyperglycemia - Blood sugars improving - Beta-hydroxybutyric just mildly elevated on admission with trace ketones and normal AG, not in DKA - Continue SSI with Accu-Cheks - Continue Levemir 5 units BID - A1c 7.0 which is appropriate in a patient this age as too aggressive treatment can lead to adverse hypoglycemia - Held home metformin and glipizide 11. Elevated troponins - Troponins mildly elevated at 0.13, 0.12, 0.13 - Likely secondary to ROLAND and sepsis - Troponin was negative several months ago but went as high as 23 back in 2015 when he had an NSTEMI - Repeat EKG yesterday with no acute ST-T wave changes, unchanged from prior 12. CAD - S/P CABG x 19 October 2015 - Troponins mildly elevated, more likely from renal insufficiency and sepsis - Continue carvedilol - Restart Lisinopril but at a lower dose - Continue ASA DVT prophylaxis: Heparin Discharge Planning: Patient likely at his baseline and medically stable. Review of prior visits in the EMR, patient has had multiple admissions and ER visits for AMS, medication misuse, inability to care for himself, etc. He is not safe to return home to live independently. Case management assisting with placement. 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
[2017-12-03] MEDS: Folic Acid 1 MG Tablet PO SCH (09:05)
[2017-12-03] MEDS: Lisinopril 5 MG Tablet PO SCH (09:05)
[2017-12-03] MEDS: Senna/Docusate Sodium 8.6/50 MG Tablet PO SCH ×2 (09:06→20:58)
[2017-12-03] MEDS: Insulin NovoLOG Aspart Correctional Sugar Inj SQ SCH ×4 (09:06→20:58)
[2017-12-03] MEDS: amLODIPine 10 MG Tablet PO SCH (09:06)
[2017-12-03] MEDS: Citalopram 20 MG Tablet PO SCH (09:06)
[2017-12-03] MEDS: Carvedilol 6.25 MG Tablet PO SCH ×2 (09:06→20:57)
[2017-12-03] MEDS: Heparin - SQ 10,000 UNITS/ML Vial SQ SCH ×2 (09:07→20:56)
[2017-12-03] MEDS: Insulin Detemir Inj 1,000 UNIT/10 ML Vial SQ SCH ×2 (09:07→20:58)
[2017-12-03] MEDS: hydrALAZINE 25 MG Tablet PO SCH ×3 (09:11→17:27)
[2017-12-03] MEDS ORDERED: Melatonin 5 MG Tablet PO ONE (22:19)
[2017-12-04] MEDS: Insulin NovoLOG Aspart Correctional Sugar Inj SQ SCH ×4 (10:09→21:09)
[2017-12-04] MEDS: Heparin - SQ 10,000 UNITS/ML Vial SQ SCH ×2 (10:10→21:07)
[2017-12-04] MEDS: hydrALAZINE 25 MG Tablet PO SCH ×3 (10:10→17:39)
[2017-12-04] MEDS: Lisinopril 5 MG Tablet PO SCH (10:11)
[2017-12-04] MEDS: Citalopram 20 MG Tablet PO SCH (10:11)
[2017-12-04] MEDS: Carvedilol 6.25 MG Tablet PO SCH ×2 (10:11→21:07)
[2017-12-04] MEDS: Senna/Docusate Sodium 8.6/50 MG Tablet PO SCH ×2 (10:12→22:25)
[2017-12-04] MEDS: Folic Acid 1 MG Tablet PO SCH (10:12)
[2017-12-04] MEDS: amLODIPine 10 MG Tablet PO SCH (10:12)
[2017-12-04] MEDS: Insulin Detemir Inj 1,000 UNIT/10 ML Vial SQ SCH ×2 (12:03→21:10)
--- NOTE | 2017-12-04 12:55 | P.PN ---
Subjective Interval history: Follow up for encephalopathy, pneumonia, hypertensive urgency. Patient is currently doing well. He is resting in bed on room air and pleasant. He remains alert and oriented 3. He would like to go home eventually. However he is not opposed to the idea of going to a rehab especially inpatient rehab. Patient lives alone. Physical Exam Vital signs: Vital Signs 12/03/17 15:00 12/03/17 19:00 12/03/17 20:00 Temperature 97.5 F L 97.3 F L Pulse Rate 65 73 Respiratory Rate 16 16 Blood Pressure 146/85 H 156/98 H Pulse Oximetry 97 97 97 12/03/17 23:00 12/04/17 03:00 12/04/17 04:00 Temperature 97.6 F 97.0 F L Pulse Rate 69 61 Respiratory Rate 16 16 16 Blood Pressure 129/81 154/88 H Pulse Oximetry 95 95 12/04/17 07:00 12/04/17 08:00 12/04/17 10:14 Temperature 98.6 F Pulse Rate 60 Respiratory Rate 18 Blood Pressure 155/94 H 171/104 H Pulse Oximetry 95 95 12/04/17 11:00 Temperature 97.4 F L Pulse Rate 72 Respiratory Rate 20 Blood Pressure 119/81 Pulse Oximetry 98 Intake & Output 12/03/17 12/04/17 12/04/17 18:59 06:59 18:59 Intake Total 1367 / 1367 480 / 480 Output Total 3170 / 3170 1000 / 1000 Balance -1803 / -1803 -520 / -520 Weight 73.8 kg Intake: IV 348 / 348 Azithromycin Inj 500 MG In NS 248 / 248 Inj 250 ML @ 250 mls/hr IV.SIG Q24H DEBBIE Rx#:[id number] Maxipime Inj 1,000 MG In NS Inj 100 / 100 100 ML @ 200 mls/hr IV.SIG Q12H DEBBIE Rx#:[id number] Oral 1019 / 1019 480 / 480 Output: Urine 3170 / 3170 400 / 400 Urine Amount (Catheter) 600 / 600 Straight 600 / 600 Other: Date of Last Bowel Movement 12/03/17 12/03/17 12/03/17 # Incontinent Bowel Movements 1 Narrative: GENERAL: Alert, oriented 3, NAD. SKIN: Warm and dry. HEAD: Normocephalic. EYES: No scleral icterus. No injection or drainage. NECK: Supple, trachea midline. No JVD or lymphadenopathy. CARDIOVASCULAR: Regular rate and rhythm without murmurs, gallops, or rubs. RESPIRATORY: Breath sounds equal bilaterally. No accessory muscle use. GASTROINTESTINAL: Abdomen soft, non-tender, nondistended. MUSCULOSKELETAL: No cyanosis, or edema. BACK: Nontender without obvious deformity. No CVA tenderness. - Urinary Catheter Management Indwelling Urethral Catheter Cath placed during this visit: yes, but has since been removed by the nurse Reason for continuing: Not indwelling catheter Insertion date: 11/29/17 Insertion time: 19:44 Removal date: 12/02/17 Removal time: 12:00 Straight Cath placed during this visit: yes, but has since been removed by the nurse Reason for continuing: Decision to DC catheter Insertion date: 12/04/17 Insertion time: 00:00 Removal date: 12/04/17 Removal time: 00:10 Results - Labs CBC & Chem 7: 12/03/17 03:57 12/03/17 03:57 Laboratory Results - last 24 hr 12/01/17 12/03/17 12/03/17 12:44 17:20 20:55 POC Glucose 132 H 132 H Thiamine 150 12/04/17 12/04/17 07:27 11:21 POC Glucose 82 202 H Thiamine Microbiology 12/01/17 15:41 Blood - Peripheral Aerobic Blood Culture - Preliminary No growth in 3 days 12/01/17 15:41 Blood - Peripheral Anaerobic Blood Culture - Preliminary No growth in 3 days 11/29/17 19:00 Blood - Peripheral Aerobic Blood Culture - Final Corynebacterium not JK 11/29/17 19:00 Blood - Peripheral Anaerobic Blood Culture - Final No growth in 5 days 11/29/17 19:05 Blood - Peripheral Aerobic Blood Culture - Final No growth in 5 days 11/29/17 19:05 Blood - Peripheral Anaerobic Blood Culture - Final No growth in 5 days Assessment and Plan - Assessment (1) Encephalopathy Code(s): G93.40 - Encephalopathy, unspecified Status: Resolved (2) Sepsis Code(s): A41.9 - Sepsis, unspecified organism Status: Resolved (3) PNA (pneumonia) Code(s): J18.9 - Pneumonia, unspecified organism Status: Resolved (4) ROLAND (acute kidney injury) Code(s): N17.9 - Acute kidney failure, unspecified Status: Resolved (5) HTN (hypertension) Code(s): I10 - Essential (primary) hypertension Status: Chronic (6) Elevated troponin Code(s): R74.8 - Abnormal levels of other serum enzymes Status: Acute (7) DM (diabetes mellitus) Code(s): E11.9 - Type 2 diabetes mellitus without complications Status: Chronic - Plan 72 year old male with DM, HTN, CKD, CAD s/p CABG presenting with AMS yesterday evening. On initial evaluation, found to be significantly hypertensive with labs remarkable for leukocytosis, ROLAND, lactic acidosis, mildly elevated troponin , and hyperglycemia. CXR revealed a left basilar consolidation with small bilateral pleural effusions. 12/04/2017: Patient is doing well. He is alert, oriented x 3, coherent and pleasant. He wants to go home. However, we feel that he would benefit from a short term rehab, especially in-patient rehab ([facility]). Patient agrees with short term rehab. Encephalopathy - improved - Likely multifactorial from acute infection/sepsis, polypharmacy - CT head/C-spine negative - CT A/P negative - MRI head with no acute findings. There is stable diffuse ischemic white matter change including encephalomalacia, unchanged from 2016 - EEG with mild to moderate encephalopathy - UDS negative - Ammonia, TSH, B12 WNL. RPR nonreactive - Troponins mildly elevated at 0.13, 0.12, 0.13, likely secondary to ROLAND - Total CK mildly elevated up to 616, likely from being down - PT following --> recommending rehab - ST following --> recommending mechanical soft an thin liquids. Recommend ST on d/c - Overall encephalopathy resolved (12/04/2017). Sepsis - resolved - Met criteria based on leukocytosis, tachycardia, and elevated lactic acid - Source: PNA - U/A negative for UTI - 1 out of 4 tubes growing Corynebacterium, likely contaminant. Repeat blood cultures from 12/01 negative - White count and lactic acid normalized PNA - CXR with left basilar consolidation - Cefepime and azithromycin discontinued on 12/03/2017. Patient is currently on Amoxicillin 500 mg TID to total 7 days of antibiotic treatment. Will not continue Azithro PO as patient has already received >1.5 g - DuoNeb PRN Hypertension -Continue amlodipine 10 mg, hydralazine 25 mg TID, lisinopril 5 mg daily. ROLAND on CKD - resolved - Creatinine 2.29 on admission, previously 1.57 on 08/14 - Improving, down to 1.06 and BUN down to 27. Now he is better than his baseline - eGFR up to 68 from 28 on admission Diabetes mellitus -Currently on Levemir 5 units BID. Will switch to Levemir 7 units QHS. -Continue sliding scale insulin. Elevated troponins - Troponins mildly elevated at 0.13, 0.12, 0.13 - Likely secondary to ROLAND and sepsis CAD - S/P CABG x 19 October 2015 - Troponins mildly elevated, more likely from renal insufficiency and sepsis - Continue carvedilol - Lisinopril but at a lower dose - Continue ASA DVT prophylaxis: Heparin (7) DM (diabetes mellitus) Qualifiers: Diabetes mellitus type: type 2 Diabetes mellitus half-way insulin use: without intermediate teacher use
[2017-12-05] MEDS: Citalopram 20 MG Tablet PO SCH (09:06)
[2017-12-05] MEDS: hydrALAZINE 25 MG Tablet PO SCH ×3 (09:06→18:22)
[2017-12-05] MEDS: Folic Acid 1 MG Tablet PO SCH (09:07)
[2017-12-05] MEDS: Senna/Docusate Sodium 8.6/50 MG Tablet PO SCH ×2 (09:08→21:30)
[2017-12-05] MEDS: Carvedilol 6.25 MG Tablet PO SCH ×2 (09:08→21:28)
[2017-12-05] MEDS: amLODIPine 10 MG Tablet PO SCH (09:09)
[2017-12-05] MEDS: Heparin - SQ 10,000 UNITS/ML Vial SQ SCH ×2 (09:10→21:28)
[2017-12-05] MEDS: Lisinopril 5 MG Tablet PO SCH (09:10)
[2017-12-05] MEDS ORDERED: Aluminum/Magnesium/Simethacone Susp 30 ML UDC PO ONE (10:09)
--- NOTE | 2017-12-05 10:09 | P.PN ---
Subjective Interval history: Follow up for encephalopathy, pneumonia, hypertensive urgency. Patient is currently doing well. However, he complains of some indigestion. No fever, chills. Physical Exam Vital signs: Vital Signs 12/04/17 10:14 12/04/17 11:00 12/04/17 15:00 Temperature 97.4 F L 97.9 F Pulse Rate 72 78 Respiratory Rate 20 18 Blood Pressure 171/104 H 119/81 122/77 Pulse Oximetry 98 97 12/04/17 18:01 12/04/17 19:00 12/04/17 20:00 Temperature 98.3 F Pulse Rate 73 Respiratory Rate 16 Blood Pressure 144/86 H Pulse Oximetry 97 96 96 12/04/17 23:00 12/05/17 03:00 12/05/17 07:00 Temperature 97.1 F L 97.7 F Pulse Rate 66 69 72 Respiratory Rate 16 16 Blood Pressure 146/91 H 144/88 H Pulse Oximetry 95 96 12/05/17 08:20 Temperature Pulse Rate Respiratory Rate Blood Pressure Pulse Oximetry 96 Intake & Output 12/04/17 12/05/17 12/05/17 18:59 06:59 18:59 Intake Total 900 / 900 480 / 480 Output Total 300 / 300 250 / 250 Balance 600 / 600 230 / 230 Weight 170 kg Intake: Oral 900 / 900 480 / 480 Output: Urine 250 / 250 Urine Amount (Catheter) 300 / 300 Straight 300 / 300 Other: Date of Last Bowel Movement 12/03/17 12/03/17 Narrative: GENERAL: Alert, oriented 3, NAD. SKIN: Warm and dry. HEAD: Normocephalic. EYES: No scleral icterus. No injection or drainage. NECK: Supple, trachea midline. No JVD or lymphadenopathy. CARDIOVASCULAR: Regular rate and rhythm without murmurs, gallops, or rubs. RESPIRATORY: Breath sounds equal bilaterally. No accessory muscle use. GASTROINTESTINAL: Abdomen soft, non-tender, nondistended. MUSCULOSKELETAL: No cyanosis, or edema. BACK: Nontender without obvious deformity. No CVA tenderness. - Urinary Catheter Management Indwelling Urethral Catheter Cath placed during this visit: yes, but has since been removed by the nurse Reason for continuing: Not indwelling catheter Insertion date: 11/29/17 Insertion time: 19:44 Removal date: 12/02/17 Removal time: 12:00 Straight Cath placed during this visit: yes, but has since been removed by the nurse Reason for continuing: Not indwelling catheter Insertion date: 12/04/17 Insertion time: 15:00 Removal date: 12/04/17 Removal time: 00:10 Results - Labs CBC & Chem 7: 12/03/17 03:57 12/03/17 03:57 Laboratory Results - last 24 hr 12/01/17 12/04/17 12/04/17 12:44 11:21 16:43 POC Glucose 202 H 137 H Thiamine 150 12/04/17 12/05/17 19:46 08:16 POC Glucose 182 H 105 Thiamine Microbiology 12/01/17 15:41 Blood - Peripheral Aerobic Blood Culture - Preliminary No growth in 3 days 12/01/17 15:41 Blood - Peripheral Anaerobic Blood Culture - Preliminary No growth in 3 days 11/29/17 19:00 Blood - Peripheral Aerobic Blood Culture - Final Corynebacterium not JK 11/29/17 19:00 Blood - Peripheral Anaerobic Blood Culture - Final No growth in 5 days 11/29/17 19:05 Blood - Peripheral Aerobic Blood Culture - Final No growth in 5 days 11/29/17 19:05 Blood - Peripheral Anaerobic Blood Culture - Final No growth in 5 days Assessment and Plan - Assessment (1) Encephalopathy Code(s): G93.40 - Encephalopathy, unspecified Status: Resolved (2) Sepsis Code(s): A41.9 - Sepsis, unspecified organism Status: Resolved (3) PNA (pneumonia) Code(s): J18.9 - Pneumonia, unspecified organism Status: Resolved (4) ROLAND (acute kidney injury) Code(s): N17.9 - Acute kidney failure, unspecified Status: Resolved (5) HTN (hypertension) Code(s): I10 - Essential (primary) hypertension Status: Chronic (6) Elevated troponin Code(s): R74.8 - Abnormal levels of other serum enzymes Status: Acute (7) DM (diabetes mellitus) Code(s): E11.9 - Type 2 diabetes mellitus without complications Status: Chronic - Plan 72 year old male with DM, HTN, CKD, CAD s/p CABG presenting with AMS yesterday evening. On initial evaluation, found to be significantly hypertensive with labs remarkable for leukocytosis, ROLAND, lactic acidosis, mildly elevated troponin , and hyperglycemia. CXR revealed a left basilar consolidation with small bilateral pleural effusions. 12/05/2017: Patient is doing well. He is alert, oriented x 3, coherent and pleasant. We discussed about [facility] vs. [facility]. Patient agrees to go to rehab. Indigestion/GERD - will give Maalox and Protonix. Encephalopathy - improved - Likely multifactorial from acute infection/sepsis, polypharmacy - CT head/C-spine negative - CT A/P negative - MRI head with no acute findings. There is stable diffuse ischemic white matter change including encephalomalacia, unchanged from 2016 - EEG with mild to moderate encephalopathy - UDS negative - Ammonia, TSH, B12 WNL. RPR nonreactive - Troponins mildly elevated at 0.13, 0.12, 0.13, likely secondary to ROLAND - Total CK mildly elevated up to 616, likely from being down - PT following --> recommending rehab - ST following --> recommending mechanical soft an thin liquids. Recommend ST on d/c - Overall encephalopathy resolved (12/04/2017). Sepsis - resolved - Met criteria based on leukocytosis, tachycardia, and elevated lactic acid - Source: PNA - U/A negative for UTI - 1 out of 4 tubes growing Corynebacterium, likely contaminant. Repeat blood cultures from 12/01 negative - White count and lactic acid normalized PNA - CXR with left basilar consolidation - Cefepime and azithromycin discontinued on 12/03/2017. Patient is currently on Amoxicillin 500 mg TID to total 7 days of antibiotic treatment. Will not continue Azithro PO as patient has already received >1.5 g - DuoNeb PRN Hypertension -Continue amlodipine 10 mg, hydralazine 25 mg TID, lisinopril 5 mg daily. ROLAND on CKD - resolved - Creatinine 2.29 on admission, previously 1.57 on 08/14 - Improving, down to 1.06 and BUN down to 27. Now he is better than his baseline - eGFR up to 68 from 28 on admission Diabetes mellitus -Currently on Levemir 5 units BID. Will switch to Levemir 7 units QHS. -Continue sliding scale insulin. Elevated troponins - Troponins mildly elevated at 0.13, 0.12, 0.13 - Likely secondary to ROLAND and sepsis CAD - S/P CABG x 19 October 2015 - Troponins mildly elevated, more likely from renal insufficiency and sepsis - Continue carvedilol - Lisinopril but at a lower dose - Continue ASA DVT prophylaxis: Heparin (7) DM (diabetes mellitus) Qualifiers: Diabetes mellitus type: type 2 Diabetes mellitus retirement insulin use: without meterman use
[2017-12-05] MEDS: Insulin NovoLOG Aspart Correctional Sugar Inj SQ SCH ×4 (11:01→21:29)
--- NOTE | 2017-12-05 14:30 | P.DCO ---
- Physical Therapy Order: Evaluate and treat, Improve ambulation, Strength and gait training - Home Health Nursing Order: Medical education, Signs/symptoms of disease process, Medication education-adverse effect, Nursing assessment with vital signs - Case Management Consult No - Certification I have seen patient Bharathi Coffey on 12/05/17. My clinical findings support the need for the requested home health care services because: Limited mobility due to disease progression, Patient has SOB, Deconditioned with increased weakness, Limited ability to care for self, Need for psychosocial assistance, Impaired cognition/judgement, High risk of falls, Infection with risk of complications I certify that my clinical findings support that this patient is homebound because: Unsteady gait/balance, Unsafe to leave home unassisted, Need for psychosocial assistance, Non-ambulatory: confined to bed or chair, Unable to use public transportation
[2017-12-05] MEDS: Insulin Detemir Inj 1,000 UNIT/10 ML Vial SQ SCH (21:29)
[2017-12-06] MEDS: Insulin NovoLOG Aspart Correctional Sugar Inj SQ SCH ×2 (08:22→12:54)
[2017-12-06] MEDS: Folic Acid 1 MG Tablet PO SCH (08:25)
[2017-12-06] MEDS: Carvedilol 6.25 MG Tablet PO SCH (08:25)
[2017-12-06] MEDS: Lisinopril 5 MG Tablet PO SCH (08:26)
[2017-12-06] MEDS: amLODIPine 10 MG Tablet PO SCH (08:26)
[2017-12-06] MEDS: Citalopram 20 MG Tablet PO SCH (08:27)
[2017-12-06] MEDS: hydrALAZINE 25 MG Tablet PO SCH ×2 (08:27→12:53)
[2017-12-06] MEDS: Heparin - SQ 10,000 UNITS/ML Vial SQ SCH (08:30)
[2017-12-06] MEDS: Senna/Docusate Sodium 8.6/50 MG Tablet PO SCH (08:31)
[2017-12-06 14:22] VITALS: RESP 20
[2017-12-06 14:33] VITALS: BP 118/62; PULSE 63; TEMP 97.9; O2SAT 96
--- NOTE | 2017-12-06 16:26 | P.DS ---
Date of admission: 11/29/17 21:09 Primary care physician: Physician 's [facility] Brief History from admission: This is a 72-year-old male with a PMH of DM who was brought to the ER by EMS due to AMS. Pt unable to provide any history at this time, only repeats "yes" to questions. Per report, pt last seen normal 2 days ago, reportedly independent at baseline, found by Senior Landscape Architect today to be slumped in recliner covered in urine and feces, not following commands or answering questions appropriately. On arrival, BP 200/122, HR 100, O2 sat 92% on RA, Temp 99.3. WBC 17.2. Hemoconcentrated with Hgb 17.4. INR 1.1. Creatinine 2.29, previously 1.57 on 08/14/2017. BS 357. Lactic Acid 2.4. CPK 399. Troponin 0.13. Ammonia 20. UA negative for UTI. Urine Drug Screen negative. Alcohol negative. CT Head with no acute findings. CXR with left base consolidation, small bilateral pleural effusions. CT Abdomen/Pelvis no acute findings. CT Cervical spine negative. S/p Rocephin/Zithro in ER. Patient update on day of discharge: Patient is currently doing well. Alert, NAD. Pleasant. No acute concerns. No fever, chills. Wants to go to rehab. DS: Diagnosis - Discharge Diagnosis (1) Encephalopathy Status: Resolved (2) Sepsis Status: Resolved (3) PNA (pneumonia) Status: Resolved (4) ROLAND (acute kidney injury) Status: Resolved (5) HTN (hypertension) Status: Chronic (6) Elevated troponin Status: Acute (7) DM (diabetes mellitus) Status: Chronic DS: Medications - Discharge Medications Prescriptions: amlodipine [Norvasc] 10 mg PO DAILY #30 tab carvedilol [Coreg] 6.25 mg PO BID #60 tab clonidine HCl [Catapres] 0.1 mg PO Q12HR #60 tab glimepiride [Amaryl] 2 mg PO QAM #30 tab hydralazine 25 mg PO TID #90 tab lisinopril 5 mg PO DAILY #30 tab tamsulosin 0.4 mg PO DAILY #30 cap DS: Summary Hospital Course: 72 year old male with DM, HTN, CKD, CAD s/p CABG presenting with AMS yesterday evening. On initial evaluation, found to be significantly hypertensive with labs remarkable for leukocytosis, ROLAND, lactic acidosis, mildly elevated troponin , and hyperglycemia. CXR revealed a left basilar consolidation with small bilateral pleural effusions. 12/05/2017: Patient is doing well. He is alert, oriented x 3, coherent and pleasant. We discussed about [facility] vs. SNF. Patient agrees to go to rehab. Indigestion/GERD - will give Maalox and Protonix. Encephalopathy - improved - Likely multifactorial from acute infection/sepsis, polypharmacy - CT head/C-spine negative - CT A/P negative - MRI head with no acute findings. There is stable diffuse ischemic white matter change including encephalomalacia, unchanged from 2016 - EEG with mild to moderate encephalopathy - UDS negative - Ammonia, TSH, B12 WNL. RPR nonreactive - Troponins mildly elevated at 0.13, 0.12, 0.13, likely secondary to ROLAND - Total CK mildly elevated up to 616, likely from being down - PT following --> recommending rehab - ST following --> recommending mechanical soft an thin liquids. Recommend ST on d/c - Overall encephalopathy resolved (12/04/2017). Sepsis - resolved - Met criteria based on leukocytosis, tachycardia, and elevated lactic acid - Source: PNA - U/A negative for UTI - 1 out of 4 tubes growing Corynebacterium, likely contaminant. Repeat blood cultures from 12/01 negative - White count and lactic acid normalized PNA - CXR with left basilar consolidation - Cefepime and azithromycin discontinued on 12/03/2017. Patient is currently on Amoxicillin 500 mg TID to total 7 days of antibiotic treatment. Will not continue Azithro PO as patient has already received >1.5 g - DuoNeb PRN Hypertension -Continue amlodipine 10 mg, hydralazine 25 mg TID, lisinopril 5 mg daily. ROLAND on CKD - resolved - Creatinine 2.29 on admission, previously 1.57 on 08/14 - Improving, down to 1.06 and BUN down to 27. Now he is better than his baseline - eGFR up to 68 from 28 on admission Diabetes mellitus -Currently on Levemir 5 units BID. Will switch to Levemir 7 units QHS. -Continue sliding scale insulin. Elevated troponins - Troponins mildly elevated at 0.13, 0.12, 0.13 - Likely secondary to ROLAND and sepsis CAD - S/P CABG x 19 October 2015 - Troponins mildly elevated, more likely from renal insufficiency and sepsis - Continue carvedilol - Lisinopril but at a lower dose - Continue ASA DVT prophylaxis: Heparin Patient agrees to go to rehab. We will discharge him this afternoon. - Time Spent with Patient Total time spent providing and/or coordinating discharge services: Greater than 30 minutes Exam Vital signs: Vital Signs 12/05/17 19:00 12/05/17 20:00 12/05/17 23:00 Temperature 98.8 F 98.2 F Pulse Rate 69 62 Respiratory Rate 16 16 Blood Pressure 129/75 110/65 Pulse Oximetry 96 96 95 12/06/17 03:00 12/06/17 07:00 12/06/17 08:00 Temperature 98.3 F 97.5 F L Pulse Rate 62 67 Respiratory Rate 16 20 Blood Pressure 111/59 L 147/78 H Pulse Oximetry 97 97 97 12/06/17 11:00 Temperature 97.9 F Pulse Rate 63 Respiratory Rate 20 Blood Pressure 118/62 Pulse Oximetry 96 Intake & Output 12/05/17 12/06/17 12/06/17 18:59 06:59 18:59 Intake Total 720 / 720 240 / 240 Output Total 400 / 400 550 / 550 Balance 320 / 320 -310 / -310 Weight 75.2 kg Intake: Oral 720 / 720 240 / 240 Output: Urine 400 / 400 550 / 550 Other: Date of Last Bowel Movement 12/03/17 12/03/17 12/03/17 Narrative: GENERAL: Alert, NAD. SKIN: Warm and dry. HEAD: Normocephalic. EYES: No scleral icterus. No injection or drainage. NECK: Supple, trachea midline. No JVD or lymphadenopathy. CARDIOVASCULAR: Regular rate and rhythm without murmurs, gallops, or rubs. RESPIRATORY: Breath sounds equal bilaterally. No accessory muscle use. GASTROINTESTINAL: Abdomen soft, non-tender, nondistended. MUSCULOSKELETAL: No cyanosis, or edema. BACK: Nontender without obvious deformity. No CVA tenderness. Results Procedures completed during hospitalization: None. Labs on day of discharge: Labs from last 24 hours 12/06/17 12/05/17 12/05/17 11:48 19:54 17:21 POC Glucose 212 H 178 H 155 H - Impressions ITS Impressions Abdomen/Pelvis CT 11/29/17 18:57 CONCLUSION: No acute findings. Chest X-Ray 11/29/17 18:57 CONCLUSION: Left base consolidation and very small bilateral pleural effusions. Head CT 11/29/17 18:57 CONCLUSION: No acute intracranial abnormality. . Cervical Spine CT 11/29/17 19:15 CONCLUSION: 1. Intact cervical spine. 2. Degenerative changes as above. Head MRI 12/02/17 07:03 CONCLUSION: 1. No acute findings in the brain. 2. Stable diffuse ischemic white matter change including encephalomalacia which extends across the corpus callosum, unchanged in appearance from prior MR in 2016. Discharge Plan - Discharge Disposition Patient Disposition: Discharge to SNF - Discharge Condition Condition: Stable - Discharge Order Discharge Orders: Discharge Order (Routine); Ordered 12/05/17 Ordered By: Luis Barney - Discharge Details Anticipated Discharge Date: 12/06/17 - Physicians Team Primary Care Provider: [facility],Physician 's Attending Provider: Luis Barney Other Providers: Gabriela Tavares,Agency
== END 2017-12-06 15:38 ==
LOC: NEPC 18:41 → NEDA 21:09 → HCPC 23:34 → HCVI 11-30 08:30 → HCIS 12-03 10:30
PROVIDERS: ADMIT Hospitalist; ATTEND Hospitalist

== ENCOUNTER 2017-12-22 19:39 | Observation (INO) ==
--- NOTE | 2017-12-22 19:59 | ED ---
HPI General Chief complaint: Abdominal Pain Stated complaint: abd pain/evac Time Seen by Provider: 12/22/17 19:49 Source: patient Mode of arrival: EMS Limitations: no limitations History of Present Illness HPI narrative: The patient is a 72 year old male who presents to the [facility] emergency department with a history of abdominal pain that he reports began a few days ago. The patient reports that the pain is in the midepigastric area. The patient is unable to describe the character of the pain. He reports that it is severe. He attributes it to not eating over the last couple of days. He reports that he was not able to get to the bank to get money. The patient additionally reports that he has generalized weakness and has mainly been in bed for the last few days. He reports that he has not been taking any of his usual medications. The patient has a history of diabetes, hypertension, and a prior history of myocardial infarction. The patient arrives by ambulance. Ambulance services report that there was a strong odor of stale urine in his home. The patient has been incontinent of urine. The patient's blood sugar prior to arrival was 368. The patient was given normal saline at 500 mL bolus in route to this facility. On review of systems otherwise, the patient denies having any chest pain, chest pressure, or shortness of breath. He denies having any dysuria, urinary urgency, however he does report having urinary frequency. He denies having any known recent fevers , cough, congestion, neck pain, vomiting, diarrhea, or forcal neurologic symptoms. Related Data Home Medications Medication Instructions Recorded Confirmed ascorbic acid (vitamin C) [Vitamin 1,000 mg PO DAILY 11/29/17 12/22/17 C] aspirin 81 mg PO DAILY 11/29/17 12/22/17 cholecalciferol (vitamin D3) 1,000 unit PO DAILY 11/29/17 12/22/17 [Vitamin D3] citalopram 20 mg PO DAILY 11/29/17 12/22/17 cyanocobalamin (vitamin B-12) 1,000 mcg PO DAILY 11/29/17 12/22/17 [Vitamin B-12] docusate sodium [Colace] 100 mg PO BID PRN 11/29/17 12/22/17 ferrous gluconate 324 mg PO DAILY 11/29/17 12/22/17 folic acid 0.5 mg PO DAILY 11/29/17 12/22/17 gabapentin 600 mg PO TID 11/29/17 12/22/17 metformin 1,000 mg PO BID 11/29/17 12/22/17 omeprazole 20 mg PO DAILY 11/29/17 12/22/17 Previous Rx's Medication Instructions Recorded amlodipine [Norvasc] 10 mg PO DAILY #30 tab 12/05/17 carvedilol [Coreg] 6.25 mg PO BID #60 tab 12/05/17 clonidine HCl [Catapres] 0.1 mg PO Q12HR #60 tab 12/05/17 glimepiride [Amaryl] 2 mg PO QAM #30 tab 12/05/17 hydralazine 25 mg PO TID #90 tab 12/05/17 lisinopril 5 mg PO DAILY #30 tab 12/05/17 tamsulosin 0.4 mg PO DAILY #30 cap 12/05/17 Allergies Allergy/AdvReac Type Severity Reaction Status Date / Time No Known Allergies Allergy Verified 12/22/17 22:28 Review of Systems ROS: all other systems reviewed are negative [facility] Medical History Medical History [place] (myocardial infarction) (Acute) Diabetes (Acute) Hypertension (Acute) Surgical History Surgical History H/O heart bypass surgery (Acute) Social History Social History Substance History: No History of Abuse Second Hand Smoke Exposure: No Smoking Status: Never smoker How Often Do You Have a Drink Containing Alcohol: Never Recent Travel in [facility] within the Last 8 Weeks: No Recent Out of Country Travel within the Last 8 Weeks: No Immunization History Tetanus Immunization: Unsure Exam Const General: cooperative, no acute distress and well developed Nutritional Appearance: well nourished Orientation: alert, awake and oriented x3 HENMT Head: normocephalic and atraumatic Nose: no nasal discharge and no epistaxis Mouth: moist mucous membranes Throat: posterior oropharynx normal and uvula midline Eyes Sclera: normal sclerae Pupils: PERRL EOM: EOM intact bilaterally Neck Neck: no meningeal signs, trachea midline and no JVD Resp Effort & Inspection: no use of accessory muscles Auscultation: clear to auscultation bilaterally Cardio Rate: regular rate Rhythm: regular rhythm Heart Sounds: no murmurs GI Inspection: non-distended Palpation: soft, no hepatosplenomegaly, no guarding, not rigid and tender in the epigastrum and periumbilically (Just above the umbilicus in the midline.); not in the LLQ, not in the RLQ, not in the LUQ, not in the RUQ, not at McBurney' s point, not suprapubicly, Duvall's sign negative and with no rebound tenderness Auscultation: normal bowel sounds Rectal Exam: visual inspection normal, abnormal stool black, heme positive stool , No mass and No tenderness Back/Spine/Pelvis Back: no CVA tenderness Skin General: dry skin (warm) Neuro General: alert, awake, oriented x3 and CN's II-XI intact bilaterally Speech: speech normal Motor: strength not 5/5 throughout (Patient has generalized weakness with 4/5 strength in all 4 extremities.) and no movement abnormalities noted Sensory Exam: no sensory deficits noted Extrem General: normal to inspection (2+ pulses in all 4 extremities.), no calf tenderness, no clubbing, no cyanosis and no edema Psych Mood: congruent mood Affect: normal affect Judgment: judgment good Course Consultations Consultation #1: The patient's case including history, pertinent physical examination findings, and laboratory studies were discussed with Dr. King. It was agreed that the patient would be admitted to the hospitalist service. Initial Documented Vital Signs Temperature 98.4 F 12/22/17 19:44 Pulse Rate 88 12/22/17 19:44 Respiratory Rate 17 12/22/17 19:44 Blood Pressure 200/104 H 12/22/17 19:44 Pulse Oximetry 99 12/22/17 19:44 Last Documented Vital Signs Temperature 96.3 F L 12/25/17 04:00 Pulse Rate 62 12/25/17 04:00 Respiratory Rate 18 12/25/17 04:00 Blood Pressure 129/71 12/25/17 04:00 Pulse Oximetry 97 12/25/17 04:00 Medical Decision Making MDM Narrative Medical decision making narrative: During the course of the patient's emergency department visit, the patient's history, examination, and differential diagnosis were reviewed with the patient. The patient was placed on a personnel monitor with oximetry and frequent blood pressure monitoring. The patient had IV access obtained and blood work sent for analysis. Diagnostic evaluation was started regarding the patient's abdominal pain and generalized weakness. Due to medication noncompliance and a history of diabetes, VBG was ordered to rule out acidosis and DKA, VBG reveals a normal pH of 7.4, PCO2 41.4, bicarb 25.1. The patient was initially provided normal saline IV fluids, morphine for pain, Zofran for nausea. Diagnostic studies are remarkable for a chest x-ray that shows persistent but decreasing infiltrates in the medial left lower lung a white count of 7, hemoglobin 9.8 which is decreased from 14.9 previously, platelets 355, neutrophils 77.2, PT 12, PTT 19.7, chemistries remarkable for a sodium of 133, potassium 3.0, BUN 26, GFR 59, glucose 268, lactic acid within normal limits at 7.1.6, calcium 7.8, AST 12, CPK 29, troponin I is 0.08, total protein is 6.1, albumin 2.1, lipase is elevated at 1091, beta hydroxybutyrate is 0.40. Rectal examination was done due to the drop in the patient's hemoglobin since last month. The patient has black stool that is Hemoccult positive. The patient was typed and screened in case blood administration is necessary. The patient will be started on Protonix as a bolus and a drip. The patient will be admitted to the hospital for a GI bleed. The patient's results were discussed with the patient, including the plan of care. I explained that further testing and/ or monitoring is indicated based on the patient's history, examination, and/ or laboratory findings. Therefore, I recommended admission for additional evaluation. The patient expressed understanding and was agreeable with this plan. The patient was admitted to the hospital in guarded condition and sent to a bed under the care of the [facility] service. Medical Screen Exam Complete: Yes Emergency Medical Condition: Yes Differential Diagnosis Differential Diagnosis: Pancreatitis, versus gastritis, versus peptic ulcer disease, versus perforated bowel, versus acute cholecystitis Lab Data Result diagrams: 12/25/17 05:40 12/25/17 05:40 Lab Results 12/22/17 12/22/17 12/22/17 Range/Units 19:55 19:55 19:55 CBC w Diff WBC 7.0 (4.0-11.0) th/mm3 RBC 3.26 L (4.50-5.90) mil/mm3 Hgb 9.8 L (13.0-17.0) gm/dL Hct 29.0 L (39.0-51.0) % MCV 88.8 (80.0-100.0) fL MCH 30.2 (27.0-34.0) pg MCHC 34.0 (32.0-36.0) % RDW 13.6 (11.6-17.2) % Plt Count 355 (150-450) th/mm3 MPV 9.2 (7.0-11.0) fL Neut % (Auto) 77.2 H (16.0-70.0) % Lymph % (Auto) 11.7 (9.0-44.0) % [place] % (Auto) 10.2 H (0.0-8.0) % Eos % (Auto) 0.7 (0.0-4.0) % Baso % (Auto) 0.2 (0.0-2.0) % Neut # (Auto) 5.4 (1.8-7.7) th/mm3 Lymph # (Auto) 0.8 L (1.0-4.8) th/mm3 [place] # (Auto) 0.7 (0.0-0.9) th/mm3 Eos # (Auto) 0.0 (0.0-0.4) th/mm3 Baso # (Auto) 0.0 (0.0-0.2) th/mm3 WBC Differential . Differential Comment Auto diff final PT 12.0 H (9.8-11.6) sec INR 1.2 Ratio APTT 19.7 L (24.3-30.1) sec Puncture Site Patient Temperature VBG pH (7.360-7.400) VBG pCO2 (44-48) mmHG VBG pO2 (35-40) mmHG VBG HCO3 (22-26) mmol/L VBG O2 Saturation (70-76) % VBG O2 Content (9.0-17.0) Vol % VBG Base Excess (-2-2) mmol/L VBG Carboxyhemoglobin (0-4) % VBG Methemoglobin (0-2) % Hemoglobin (12.0-16.0) G/DL Inspired O2 % Critical Value Sodium 133 L (136-145) meq/L Potassium 3.0 L (3.5-5.1) meq/L Chloride 99 (98-107) meq/L Carbon Dioxide 23.5 (21.0-32.0) meq/L Anion Gap 11 (5-15) meq/L BUN 26 H (7-18) mg/dL Creatinine 1.20 (0.60-1.30) mg/dL Estimated GFR 59 L (>89) mL/min POC Glucose (68-110) mg/dl Random Glucose 268 H (74-106) mg/dL Lactic Acid (0.4-2.0) mmol/L Calcium 7.8 L (8.5-10.1) mg/dL Total Bilirubin 0.2 (0.2-1.0) mg/dL AST 12 L (15-37) U/L ALT 12 (12-78) U/L Alkaline Phosphatase 72 (45-117) U/L Total Creatine Kinase 29 L (39-308) U/L Troponin I 0.08 H (0.02-0.05) ng/mL Total Protein 6.1 L (6.4-8.2) g/dL Albumin 2.1 L (3.4-5.0) g/dL Lipase 1091 H (73-393) U/L Beta-Hydroxybutyric Acd 0.40 H (0.00-0.39) mmol/L Urine Color (Yellw/Straw) Urine Clarity (Clear) Urine pH (5.0-8.5) Ur Specific [place] (1.002-1.035) Urine Protein (Neg-Trace) mg/dL Urine Glucose (UA) (Negative) mg/dL Urine Ketones (Negative) mg/dL Urine Occult Blood (Negative) Urine Nitrate (Negative) Urine Bilirubin (Negative) Urine Urobilinogen (Less than 2) mg/dL Ur Leukocyte Esterase (Negative) Urine RBC (0-3) /hpf Urine WBC (0-5) /hpf Urine Bacteria (None) /hpf Hyaline Casts (0-3) /lpf Urine Mucus (Occasional) /lpf Micro UA Comment Ur Microscopic Review Urine Culture Comments Blood Type Blood Type Recheck Antibody Screen 12/22/17 12/22/17 12/22/17 Range/Units 19:55 20:01 20:55 CBC w Diff WBC (4.0-11.0) th/mm3 RBC (4.50-5.90) mil/mm3 Hgb (13.0-17.0) gm/dL Hct (39.0-51.0) % MCV (80.0-100.0) fL MCH (27.0-34.0) pg MCHC (32.0-36.0) % RDW (11.6-17.2) % Plt Count (150-450) th/mm3 MPV (7.0-11.0) fL Neut % (Auto) (16.0-70.0) % Lymph % (Auto) (9.0-44.0) % [place] % (Auto) (0.0-8.0) % Eos % (Auto) (0.0-4.0) % Baso % (Auto) (0.0-2.0) % Neut # (Auto) (1.8-7.7) th/mm3 Lymph # (Auto) (1.0-4.8) th/mm3 [place] # (Auto) (0.0-0.9) th/mm3 Eos # (Auto) (0.0-0.4) th/mm3 Baso # (Auto) (0.0-0.2) th/mm3 WBC Differential Differential Comment PT (9.8-11.6) sec INR Ratio APTT (24.3-30.1) sec Puncture Site Iv Patient Temperature 98.6 VBG pH 7.40 (7.360-7.400) VBG pCO2 41 L (44-48) mmHG VBG pO2 20 L* (35-40) mmHG VBG HCO3 25 (22-26) mmol/L VBG O2 Saturation 25 L (70-76) % VBG O2 Content 3.4 L (9.0-17.0) Vol % VBG Base Excess 0.8 (-2-2) mmol/L VBG Carboxyhemoglobin 0.9 (0-4) % VBG Methemoglobin 0.7 (0-2) % Hemoglobin 9.8 L (12.0-16.0) G/DL Inspired O2 21 % Critical Value Yes Sodium (136-145) meq/L Potassium (3.5-5.1) meq/L Chloride (98-107) meq/L Carbon Dioxide (21.0-32.0) meq/L Anion Gap (5-15) meq/L BUN (7-18) mg/dL Creatinine (0.60-1.30) mg/dL Estimated GFR (>89) mL/min POC Glucose (68-110) mg/dl Random Glucose (74-106) mg/dL Lactic Acid 1.6 (0.4-2.0) mmol/L Calcium (8.5-10.1) mg/dL Total Bilirubin (0.2-1.0) mg/dL AST (15-37) U/L ALT (12-78) U/L Alkaline Phosphatase (45-117) U/L Total Creatine Kinase (39-308) U/L Troponin I (0.02-0.05) ng/mL Total Protein (6.4-8.2) g/dL Albumin (3.4-5.0) g/dL Lipase (73-393) U/L Beta-Hydroxybutyric Acd (0.00-0.39) mmol/L Urine Color (Yellw/Straw) Urine Clarity (Clear) Urine pH (5.0-8.5) Ur Specific [place] (1.002-1.035) Urine Protein (Neg-Trace) mg/dL Urine Glucose (UA) (Negative) mg/dL Urine Ketones (Negative) mg/dL Urine Occult Blood (Negative) Urine Nitrate (Negative) Urine Bilirubin (Negative) Urine Urobilinogen (Less than 2) mg/dL Ur Leukocyte Esterase (Negative) Urine RBC (0-3) /hpf Urine WBC (0-5) /hpf Urine Bacteria (None) /hpf Hyaline Casts (0-3) /lpf Urine Mucus (Occasional) /lpf Micro UA Comment Ur Microscopic Review Urine Culture Comments Blood Type B Positive Blood Type Recheck Not needed Antibody Screen Negative 12/23/17 12/23/17 12/23/17 Range/Units 03:13 03:39 03:39 CBC w Diff WBC 7.2 (4.0-11.0) th/mm3 RBC 3.31 L (4.50-5.90) mil/mm3 Hgb 10.0 L (13.0-17.0) gm/dL Hct 29.7 L (39.0-51.0) % MCV 89.7 (80.0-100.0) fL MCH 30.2 (27.0-34.0) pg MCHC 33.7 (32.0-36.0) % RDW 13.6 (11.6-17.2) % Plt Count 355 (150-450) th/mm3 MPV 8.9 (7.0-11.0) fL Neut % (Auto) 73.3 H (16.0-70.0) % Lymph % (Auto) 12.6 (9.0-44.0) % [place] % (Auto) 13.0 H (0.0-8.0) % Eos % (Auto) 0.8 (0.0-4.0) % Baso % (Auto) 0.3 (0.0-2.0) % Neut # (Auto) 5.3 (1.8-7.7) th/mm3 Lymph # (Auto) 0.9 L (1.0-4.8) th/mm3 [place] # (Auto) 0.9 (0.0-0.9) th/mm3 Eos # (Auto) 0.1 (0.0-0.4) th/mm3 Baso # (Auto) 0.0 (0.0-0.2) th/mm3 WBC Differential . Differential Comment Auto diff final PT (9.8-11.6) sec INR Ratio APTT (24.3-30.1) sec Puncture Site Patient Temperature VBG pH (7.360-7.400) VBG pCO2 (44-48) mmHG VBG pO2 (35-40) mmHG VBG HCO3 (22-26) mmol/L VBG O2 Saturation (70-76) % VBG O2 Content (9.0-17.0) Vol % VBG Base Excess (-2-2) mmol/L VBG Carboxyhemoglobin (0-4) % VBG Methemoglobin (0-2) % Hemoglobin (12.0-16.0) G/DL Inspired O2 % Critical Value Sodium (136-145) meq/L Potassium (3.5-5.1) meq/L Chloride (98-107) meq/L Carbon Dioxide (21.0-32.0) meq/L Anion Gap (5-15) meq/L BUN (7-18) mg/dL Creatinine (0.60-1.30) mg/dL Estimated GFR (>89) mL/min POC Glucose (68-110) mg/dl Random Glucose (74-106) mg/dL Lactic Acid (0.4-2.0) mmol/L Calcium (8.5-10.1) mg/dL Total Bilirubin (0.2-1.0) mg/dL AST (15-37) U/L ALT (12-78) U/L Alkaline Phosphatase (45-117) U/L Total Creatine Kinase (39-308) U/L Troponin I 0.08 H (0.02-0.05) ng/mL Total Protein (6.4-8.2) g/dL Albumin (3.4-5.0) g/dL Lipase (73-393) U/L Beta-Hydroxybutyric Acd (0.00-0.39) mmol/L Urine Color Yellow (Yellw/Straw) Urine Clarity Clear (Clear) Urine pH 6.0 (5.0-8.5) Ur Specific [place] 1.022 (1.002-1.035) Urine Protein 500 or greater (Neg-Trace) mg/dL Urine Glucose (UA) 500 or greater (Negative) mg/dL Urine Ketones Trace H (Negative) mg/dL Urine Occult Blood Negative (Negative) Urine Nitrate Negative (Negative) Urine Bilirubin Negative (Negative) Urine Urobilinogen Less than 2 (Less than 2) mg/dL Ur Leukocyte Esterase Negative (Negative) Urine RBC 2 (0-3) /hpf Urine WBC 2 (0-5) /hpf Urine Bacteria Rare H (None) /hpf Hyaline Casts 4 (0-3) /lpf Urine Mucus Few H (Occasional) /lpf Micro UA Comment Culture not ind Ur Microscopic Review Not Reportable Urine Culture Comments Culture not ind Blood Type Blood Type Recheck Antibody Screen 12/23/17 12/23/17 12/23/17 Range/Units 09:57 10:40 12:32 CBC w Diff WBC (4.0-11.0) th/mm3 RBC (4.50-5.90) mil/mm3 Hgb (13.0-17.0) gm/dL Hct (39.0-51.0) % MCV (80.0-100.0) fL MCH (27.0-34.0) pg MCHC (32.0-36.0) % RDW (11.6-17.2) % Plt Count (150-450) th/mm3 MPV (7.0-11.0) fL Neut % (Auto) (16.0-70.0) % Lymph % (Auto) (9.0-44.0) % [place] % (Auto) (0.0-8.0) % Eos % (Auto) (0.0-4.0) % Baso % (Auto) (0.0-2.0) % Neut # (Auto) (1.8-7.7) th/mm3 Lymph # (Auto) (1.0-4.8) th/mm3 [place] # (Auto) (0.0-0.9) th/mm3 Eos # (Auto) (0.0-0.4) th/mm3 Baso # (Auto) (0.0-0.2) th/mm3 WBC Differential Differential Comment PT (9.8-11.6) sec INR Ratio APTT (24.3-30.1) sec Puncture Site Patient Temperature VBG pH (7.360-7.400) VBG pCO2 (44-48) mmHG VBG pO2 (35-40) mmHG VBG HCO3 (22-26) mmol/L VBG O2 Saturation (70-76) % VBG O2 Content (9.0-17.0) Vol % VBG Base Excess (-2-2) mmol/L VBG Carboxyhemoglobin (0-4) % VBG Methemoglobin (0-2) % Hemoglobin (12.0-16.0) G/DL Inspired O2 % Critical Value Sodium 137 (136-145) meq/L Potassium 3.6 (3.5-5.1) meq/L Chloride 104 (98-107) meq/L Carbon Dioxide 23.5 (21.0-32.0) meq/L Anion Gap 10 (5-15) meq/L BUN 18 (7-18) mg/dL Creatinine 1.09 (0.60-1.30) mg/dL Estimated GFR 66 L (>89) mL/min POC Glucose 230 H 251 H (68-110) mg/dl Random Glucose 203 H (74-106) mg/dL Lactic Acid (0.4-2.0) mmol/L Calcium 7.8 L (8.5-10.1) mg/dL Total Bilirubin 0.2 (0.2-1.0) mg/dL AST 9 L (15-37) U/L ALT 9 L (12-78) U/L Alkaline Phosphatase 68 (45-117) U/L Total Creatine Kinase (39-308) U/L Troponin I 0.06 H (0.02-0.05) ng/mL Total Protein 5.5 L D (6.4-8.2) g/dL Albumin 1.9 L (3.4-5.0) g/dL Lipase (73-393) U/L Beta-Hydroxybutyric Acd (0.00-0.39) mmol/L Urine Color (Yellw/Straw) Urine Clarity (Clear) Urine pH (5.0-8.5) Ur Specific [place] (1.002-1.035) Urine Protein (Neg-Trace) mg/dL Urine Glucose (UA) (Negative) mg/dL Urine Ketones (Negative) mg/dL Urine Occult Blood (Negative) Urine Nitrate (Negative) Urine Bilirubin (Negative) Urine Urobilinogen (Less than 2) mg/dL Ur Leukocyte Esterase (Negative) Urine RBC (0-3) /hpf Urine WBC (0-5) /hpf Urine Bacteria (None) /hpf Hyaline Casts (0-3) /lpf Urine Mucus (Occasional) /lpf Micro UA Comment Ur Microscopic Review Urine Culture Comments Blood Type Blood Type Recheck Antibody Screen 12/23/17 12/23/17 12/24/17 Range/Units 17:12 22:34 07:50 CBC w Diff Auto diff final WBC 4.6 (4.0-11.0) th/mm3 RBC 2.59 L (4.50-5.90) mil/mm3 Hgb 7.9 L D (13.0-17.0) gm/dL Hct 23.1 L (39.0-51.0) % MCV 89.3 (80.0-100.0) fL MCH 30.6 (27.0-34.0) pg MCHC 34.2 (32.0-36.0) % RDW 13.0 (11.6-17.2) % Plt Count 384 (150-450) th/mm3 MPV 9.2 (7.0-11.0) fL Neut % (Auto) 62.9 (16.0-70.0) % Lymph % (Auto) 15.8 (9.0-44.0) % [place] % (Auto) 15.2 H (0.0-8.0) % Eos % (Auto) 5.7 H (0.0-4.0) % Baso % (Auto) 0.4 (0.0-2.0) % Neut # (Auto) 2.9 (1.8-7.7) th/mm3 Lymph # (Auto) 0.7 L (1.0-4.8) th/mm3 [place] # (Auto) 0.7 (0.0-0.9) th/mm3 Eos # (Auto) 0.3 (0.0-0.4) th/mm3 Baso # (Auto) 0.0 (0.0-0.2) th/mm3 WBC Differential . Differential Comment . PT (9.8-11.6) sec INR Ratio APTT (24.3-30.1) sec Puncture Site Patient Temperature VBG pH (7.360-7.400) VBG pCO2 (44-48) mmHG VBG pO2 (35-40) mmHG VBG HCO3 (22-26) mmol/L VBG O2 Saturation (70-76) % VBG O2 Content (9.0-17.0) Vol % VBG Base Excess (-2-2) mmol/L VBG Carboxyhemoglobin (0-4) % VBG Methemoglobin (0-2) % Hemoglobin (12.0-16.0) G/DL Inspired O2 % Critical Value Sodium (136-145) meq/L Potassium (3.5-5.1) meq/L Chloride (98-107) meq/L Carbon Dioxide (21.0-32.0) meq/L Anion Gap (5-15) meq/L BUN (7-18) mg/dL Creatinine (0.60-1.30) mg/dL Estimated GFR (>89) mL/min POC Glucose 182 H 95 (68-110) mg/dl Random Glucose (74-106) mg/dL Lactic Acid (0.4-2.0) mmol/L Calcium (8.5-10.1) mg/dL Total Bilirubin (0.2-1.0) mg/dL AST (15-37) U/L ALT (12-78) U/L Alkaline Phosphatase (45-117) U/L Total Creatine Kinase (39-308) U/L Troponin I (0.02-0.05) ng/mL Total Protein (6.4-8.2) g/dL Albumin (3.4-5.0) g/dL Lipase (73-393) U/L Beta-Hydroxybutyric Acd (0.00-0.39) mmol/L Urine Color (Yellw/Straw) Urine Clarity (Clear) Urine pH (5.0-8.5) Ur Specific [place] (1.002-1.035) Urine Protein (Neg-Trace) mg/dL Urine Glucose (UA) (Negative) mg/dL Urine Ketones (Negative) mg/dL Urine Occult Blood (Negative) Urine Nitrate (Negative) Urine Bilirubin (Negative) Urine Urobilinogen (Less than 2) mg/dL Ur Leukocyte Esterase (Negative) Urine RBC (0-3) /hpf Urine WBC (0-5) /hpf Urine Bacteria (None) /hpf Hyaline Casts (0-3) /lpf Urine Mucus (Occasional) /lpf Micro UA Comment Ur Microscopic Review Urine Culture Comments Blood Type Blood Type Recheck Antibody Screen 12/24/17 12/24/17 12/24/17 Range/Units 07:50 08:13 11:23 CBC w Diff WBC (4.0-11.0) th/mm3 RBC (4.50-5.90) mil/mm3 Hgb (13.0-17.0) gm/dL Hct (39.0-51.0) % MCV (80.0-100.0) fL MCH (27.0-34.0) pg MCHC (32.0-36.0) % RDW (11.6-17.2) % Plt Count (150-450) th/mm3 MPV (7.0-11.0) fL Neut % (Auto) (16.0-70.0) % Lymph % (Auto) (9.0-44.0) % [place] % (Auto) (0.0-8.0) % Eos % (Auto) (0.0-4.0) % Baso % (Auto) (0.0-2.0) % Neut # (Auto) (1.8-7.7) th/mm3 Lymph # (Auto) (1.0-4.8) th/mm3 [place] # (Auto) (0.0-0.9) th/mm3 Eos # (Auto) (0.0-0.4) th/mm3 Baso # (Auto) (0.0-0.2) th/mm3 WBC Differential Differential Comment PT (9.8-11.6) sec INR Ratio APTT (24.3-30.1) sec Puncture Site Patient Temperature VBG pH (7.360-7.400) VBG pCO2 (44-48) mmHG VBG pO2 (35-40) mmHG VBG HCO3 (22-26) mmol/L VBG O2 Saturation (70-76) % VBG O2 Content (9.0-17.0) Vol % VBG Base Excess (-2-2) mmol/L VBG Carboxyhemoglobin (0-4) % VBG Methemoglobin (0-2) % Hemoglobin (12.0-16.0) G/DL Inspired O2 % Critical Value Sodium 138 (136-145) meq/L Potassium 3.3 L (3.5-5.1) meq/L Chloride 106 (98-107) meq/L Carbon Dioxide 20.1 L (21.0-32.0) meq/L Anion Gap 12 (5-15) meq/L BUN 19 H (7-18) mg/dL Creatinine 1.00 (0.60-1.30) mg/dL Estimated GFR 73 L (>89) mL/min POC Glucose 135 H 125 H (68-110) mg/dl Random Glucose 109 H (74-106) mg/dL Lactic Acid (0.4-2.0) mmol/L Calcium 7.8 L (8.5-10.1) mg/dL Total Bilirubin (0.2-1.0) mg/dL AST (15-37) U/L ALT (12-78) U/L Alkaline Phosphatase (45-117) U/L Total Creatine Kinase (39-308) U/L Troponin I (0.02-0.05) ng/mL Total Protein (6.4-8.2) g/dL Albumin (3.4-5.0) g/dL Lipase 464 H (73-393) U/L Beta-Hydroxybutyric Acd (0.00-0.39) mmol/L Urine Color (Yellw/Straw) Urine Clarity (Clear) Urine pH (5.0-8.5) Ur Specific [place] (1.002-1.035) Urine Protein (Neg-Trace) mg/dL Urine Glucose (UA) (Negative) mg/dL Urine Ketones (Negative) mg/dL Urine Occult Blood (Negative) Urine Nitrate (Negative) Urine Bilirubin (Negative) Urine Urobilinogen (Less than 2) mg/dL Ur Leukocyte Esterase (Negative) Urine RBC (0-3) /hpf Urine WBC (0-5) /hpf Urine Bacteria (None) /hpf Hyaline Casts (0-3) /lpf Urine Mucus (Occasional) /lpf Micro UA Comment Ur Microscopic Review Urine Culture Comments Blood Type Blood Type Recheck Antibody Screen 12/24/17 12/24/17 12/24/17 Range/Units 13:27 16:39 20:45 CBC w Diff WBC (4.0-11.0) th/mm3 RBC (4.50-5.90) mil/mm3 Hgb (13.0-17.0) gm/dL Hct (39.0-51.0) % MCV (80.0-100.0) fL MCH (27.0-34.0) pg MCHC (32.0-36.0) % RDW (11.6-17.2) % Plt Count (150-450) th/mm3 MPV (7.0-11.0) fL Neut % (Auto) (16.0-70.0) % Lymph % (Auto) (9.0-44.0) % [place] % (Auto) (0.0-8.0) % Eos % (Auto) (0.0-4.0) % Baso % (Auto) (0.0-2.0) % Neut # (Auto) (1.8-7.7) th/mm3 Lymph # (Auto) (1.0-4.8) th/mm3 [place] # (Auto) (0.0-0.9) th/mm3 Eos # (Auto) (0.0-0.4) th/mm3 Baso # (Auto) (0.0-0.2) th/mm3 WBC Differential Differential Comment PT (9.8-11.6) sec INR Ratio APTT (24.3-30.1) sec Puncture Site Patient Temperature VBG pH (7.360-7.400) VBG pCO2 (44-48) mmHG VBG pO2 (35-40) mmHG VBG HCO3 (22-26) mmol/L VBG O2 Saturation (70-76) % VBG O2 Content (9.0-17.0) Vol % VBG Base Excess (-2-2) mmol/L VBG Carboxyhemoglobin (0-4) % VBG Methemoglobin (0-2) % Hemoglobin (12.0-16.0) G/DL Inspired O2 % Critical Value Sodium (136-145) meq/L Potassium (3.5-5.1) meq/L Chloride (98-107) meq/L Carbon Dioxide (21.0-32.0) meq/L Anion Gap (5-15) meq/L BUN (7-18) mg/dL Creatinine (0.60-1.30) mg/dL Estimated GFR (>89) mL/min POC Glucose 120 H 141 H 237 H (68-110) mg/dl Random Glucose (74-106) mg/dL Lactic Acid (0.4-2.0) mmol/L Calcium (8.5-10.1) mg/dL Total Bilirubin (0.2-1.0) mg/dL AST (15-37) U/L ALT (12-78) U/L Alkaline Phosphatase (45-117) U/L Total Creatine Kinase (39-308) U/L Troponin I (0.02-0.05) ng/mL Total Protein (6.4-8.2) g/dL Albumin (3.4-5.0) g/dL Lipase (73-393) U/L Beta-Hydroxybutyric Acd (0.00-0.39) mmol/L Urine Color (Yellw/Straw) Urine Clarity (Clear) Urine pH (5.0-8.5) Ur Specific [place] (1.002-1.035) Urine Protein (Neg-Trace) mg/dL Urine Glucose (UA) (Negative) mg/dL Urine Ketones (Negative) mg/dL Urine Occult Blood (Negative) Urine Nitrate (Negative) Urine Bilirubin (Negative) Urine Urobilinogen (Less than 2) mg/dL Ur Leukocyte Esterase (Negative) Urine RBC (0-3) /hpf Urine WBC (0-5) /hpf Urine Bacteria (None) /hpf Hyaline Casts (0-3) /lpf Urine Mucus (Occasional) /lpf Micro UA Comment Ur Microscopic Review Urine Culture Comments Blood Type Blood Type Recheck Antibody Screen 12/25/17 12/25/17 Range/Units 05:40 05:40 CBC w Diff Auto diff final WBC 3.9 L (4.0-11.0) th/mm3 RBC 2.78 L (4.50-5.90) mil/mm3 Hgb 8.4 L (13.0-17.0) gm/dL Hct 25.1 L (39.0-51.0) % MCV 90.4 (80.0-100.0) fL MCH 30.0 (27.0-34.0) pg MCHC 33.3 (32.0-36.0) % RDW 13.1 (11.6-17.2) % Plt Count 385 (150-450) th/mm3 MPV 9.3 (7.0-11.0) fL Neut % (Auto) 52.6 (16.0-70.0) % Lymph % (Auto) 22.0 (9.0-44.0) % [place] % (Auto) 17.0 H (0.0-8.0) % Eos % (Auto) 7.2 H (0.0-4.0) % Baso % (Auto) 1.2 (0.0-2.0) % Neut # (Auto) 2.0 (1.8-7.7) th/mm3 Lymph # (Auto) 0.9 L (1.0-4.8) th/mm3 [place] # (Auto) 0.7 (0.0-0.9) th/mm3 Eos # (Auto) 0.3 (0.0-0.4) th/mm3 Baso # (Auto) 0.0 (0.0-0.2) th/mm3 WBC Differential . Differential Comment . PT (9.8-11.6) sec INR Ratio APTT (24.3-30.1) sec Puncture Site Patient Temperature VBG pH (7.360-7.400) VBG pCO2 (44-48) mmHG VBG pO2 (35-40) mmHG VBG HCO3 (22-26) mmol/L VBG O2 Saturation (70-76) % VBG O2 Content (9.0-17.0) Vol % VBG Base Excess (-2-2) mmol/L VBG Carboxyhemoglobin (0-4) % VBG Methemoglobin (0-2) % Hemoglobin (12.0-16.0) G/DL Inspired O2 % Critical Value Sodium 139 (136-145) meq/L Potassium 4.2 D (3.5-5.1) meq/L Chloride 108 H (98-107) meq/L Carbon Dioxide 20.3 L (21.0-32.0) meq/L Anion Gap 11 (5-15) meq/L BUN 19 H (7-18) mg/dL Creatinine 1.10 (0.60-1.30) mg/dL Estimated GFR 66 L (>89) mL/min POC Glucose (68-110) mg/dl Random Glucose 145 H (74-106) mg/dL Lactic Acid (0.4-2.0) mmol/L Calcium 8.1 L (8.5-10.1) mg/dL Total Bilirubin 0.2 (0.2-1.0) mg/dL AST 10 L (15-37) U/L ALT 8 L (12-78) U/L Alkaline Phosphatase 56 (45-117) U/L Total Creatine Kinase (39-308) U/L Troponin I (0.02-0.05) ng/mL Total Protein 5.3 L (6.4-8.2) g/dL Albumin 1.8 L (3.4-5.0) g/dL Lipase 413 H (73-393) U/L Beta-Hydroxybutyric Acd (0.00-0.39) mmol/L Urine Color (Yellw/Straw) Urine Clarity (Clear) Urine pH (5.0-8.5) Ur Specific [place] (1.002-1.035) Urine Protein (Neg-Trace) mg/dL Urine Glucose (UA) (Negative) mg/dL Urine Ketones (Negative) mg/dL Urine Occult Blood (Negative) Urine Nitrate (Negative) Urine Bilirubin (Negative) Urine Urobilinogen (Less than 2) mg/dL Ur Leukocyte Esterase (Negative) Urine RBC (0-3) /hpf Urine WBC (0-5) /hpf Urine Bacteria (None) /hpf Hyaline Casts (0-3) /lpf Urine Mucus (Occasional) /lpf Micro UA Comment Ur Microscopic Review Urine Culture Comments Blood Type Blood Type Recheck Antibody Screen Imaging Data Radiologist's impression: Chest X-Ray 12/22/17 19:52 CONCLUSION: Persistent but decreasing infiltrates in the medial left lower lung. Abdomen/Pelvis CT 12/22/17 19:59 CONCLUSION: 1. No acute findings. 2. Stable hiatus hernia. Interval resolution of bilateral pleural effusions. ECG Data Attestation: I personally reviewed and interpreted this ECG as follows: Prior ECG tracings: available for review Interpretation: The patient had a EKG done on arrival. The patient's EKG reveals a heart rate of 87, QRS duration is 95 ms, QTC 430 ms. The patient is noted to have Q waves in leads III, no acute ST segment elevation is noted. This is compared to a prior EKG done at this facility, last done on November and no acute changes are noted in comparison. Discharge Plan Discharge Disposition Patient Disposition: 30 Still Patient Discharge Details Diagnosis: GI bleed Physicians Team ED Provider: Bianka Schultz Primary Care Provider: [facility] Attending Provider: Genaro Lawson Other Providers: Nargis Shipley ; Meir Gao Discharge Interventions Interventions: ED Discharge Assessment Last Done: 12/22/17 23:28 Status ED Status: Left Department Discharge Information Discharge Date/Time: 12/22/17 23:28
[2017-12-22] MEDS ORDERED: Sod Chloride 0.9% Inj 1,000 ML IV.CONT SCH (20:00)
--- NOTE | 2017-12-22 20:10 | XR ---
EXAM DATE: 12/22/2017 7:52 PM EDT AGE/SEX: 72 years / Male INDICATIONS: Shortness of breath. CLINICAL DATA: This is the patient's initial encounter. Patient reports that signs and symptoms have been present for 1 day and indicates a pain score of Nonresponsive. MEDICAL/SURGICAL HISTORY: Non-responsive. Non-responsive. COMPARISON: C, CHEST 1V SINGLE AP, 11/29/2017. . FINDINGS: Decrease in the size of infiltrate seen at the left lung base with some residual infiltrate and air b ronchograms medially in the left lower lung causing loss of delineation of a portion of the medial le ft hemidiaphragm. The remainder of the lungs are clear. The heart is normal in size. Prior median riana rnotomy. Loop recorder device in place. Hemoclips in the low left neck. CONCLUSION: Persistent but decreasing infiltrates in the medial left lower lung. Electronically signed by: Adarsh Ortega MD 12/22/2017 8:09 PM EDT
[2017-12-22 20:11] LABS: Baso % (Auto) 0.2 % (0.0-2.0); Eos % (Auto) 0.7 % (0.0-4.0); Hemoglobin 9.8 gm/dL (13.0-17.0); Lymph # (Auto) 0.8 th/mm3 (1.0-4.8); Lymph % (Auto) 11.7 % (9.0-44.0); Mean Corpuscular Hemoglobin 30.2 pg (27.0-34.0); Mean Corpuscular Volume 88.8 fL (80.0-100.0); Mean Platelet Volume 9.2 fL (7.0-11.0); Mono # (Auto) 0.7 th/mm3 (0.0-0.9); Mono % (Auto) 10.2 % (0.0-8.0); Neut # (Auto) 5.4 th/mm3 (1.8-7.7); Neut % (Auto) 77.2 % (16.0-70.0); Platelet Count 355 th/mm3 (150-450); Red Blood Count 3.26 mil/mm3 (4.50-5.90); Red Cell Distribution Width 13.6 % (11.6-17.2)
[2017-12-22] MEDS ORDERED: Morphine Inj 4 MG/ML Vial IV.PUSH ONE (20:23)
[2017-12-22 20:26] LABS: Albumin 2.1 g/dL (3.4-5.0); Anion Gap 11 meq/L (5-15); Aspartate Aminotransferase 12 U/L (15-37); Blood Urea Nitrogen 26 mg/dL (7-18); Calcium 7.8 mg/dL (8.5-10.1); Carbon Dioxide 23.5 meq/L (21.0-32.0); Chloride 99 meq/L (98-107); Glomerular Filtration Rate 59 mL/min (>89); Glucose,Random 268 mg/dL (74-106); Lipase 1091 U/L (73-393); Sodium 133 meq/L (136-145)
[2017-12-22 20:27] LABS: Alanine Aminotransferase 12 U/L (12-78)
[2017-12-22 20:30] LABS: INR 1.2 Ratio
[2017-12-22 20:31] LABS: Alkaline Phosphatase 72 U/L (45-117); Total Protein 6.1 g/dL (6.4-8.2); Troponin I 0.08 ng/mL (0.02-0.05)
[2017-12-22 20:32] LABS: Activated Partial Thrombo Time 19.7 sec (24.3-30.1)
[2017-12-22 20:35] LABS: Creatine Kinase 29 U/L (39-308)
[2017-12-22] MEDS ORDERED: Pantoprazole Inj 80 MG in Sodium Chlor 0.9% Inj 35 ML IV.SIG ONE (20:51)
[2017-12-22 21:56] LABS: VBG Base Excess 0.8 mmol/L (-2-2); VBG Blood Gas Oxygen Content 3.4 Vol % (9.0-17.0); VBG PCO2 41 mmHG (44-48); VBG PO2 20 mmHG (35-40)
--- NOTE | 2017-12-22 21:57 | CT ---
EXAM DATE: 12/22/2017 8:43 PM EDT AGE/SEX: 72 years / Male INDICATIONS: Abdomen pain past few days. CLINICAL DATA: This is the patient's initial encounter. Patient reports that signs and symptoms have been present for 3 days and indicates a pain score of 5/10. MEDICAL/SURGICAL HISTORY: Cardiovascular disease. Hypertension. Diabetes mellitus type II. CA BG. ORAL CONTRAST: No oral contrast ingested. RADIATION DOSE: 8.52 CTDI (mGy) COMPARISON: [facility] – [place], CT ABDOMEN & PELVIS W CONTRAST, 10/26/2015. [facility] [place], CT ABDOMEN & PELVIS W/O CONTRA ST, 11/29/2017. . TECHNIQUE: Multiple contiguous axial images were obtained through the abdomen and pelvis following b olus infusion of 95 ml Omnipaque 350 (iohexol) nonionic water-soluble contrast as a single exam dos e. No oral contrast ingested. Using automated exposure control and adjustment of the mA and/or kV ac cording to patient size, radiation dose was kept as low as reasonably achievable to obtain optimal di agnostic quality images. DICOM format image data is available electronically for review and comparis on. FINDINGS: Lower Lungs: The visualized lower lungs are clear. Stable appearance to hiatus hernia. Interval resol ution of bilateral pleural effusions. Stable left Bochdalek hernia. Liver: The liver has a homogeneous density without space-occupying lesion. There is no dilation of th e biliary tree. Spleen: Homogeneous density without enlargement. Pancreas: Unremarkable without mass or calcification. Kidneys: Normal in size and shape. No evidence of mass or hydronephrosis. Adrenal Glands: Unremarkable. Aorta: The aorta and proximal iliac vessels are grossly unremarkable without aneurysmal dilation. Bowel/Mesentery: No dilated loops of small or large bowel. Abdominal Wall: Intact. Retroperitoneum: No evidence of adenopathy in the retrocrural, para-aortic, or deep pelvic regions. Bladder: Contours are smooth. Reproductive Organs: No abnormal masses or calcifications seen. Inguinal: The inguinal region is unremarkable without evidence of adenopathy. Bony Structures: Unremarkable. CONCLUSION: 1. No acute findings. 2. Stable hiatus hernia. Interval resolution of bilateral pleural effusions. Electronically signed by: Adarsh Ortega MD 12/22/2017 9:56 PM EDT
[2017-12-22] MEDS ORDERED: Dextrose 50% in Water 50 ML Vial IV.PUSH PRN (22:20)
[2017-12-22] MEDS ORDERED: Acetaminophen 325 MG Tablet PO PRN (22:20)
[2017-12-22] MEDS ORDERED: Bisacodyl 10 MG Supp RECTAL PRN (22:20)
--- NOTE | 2017-12-22 22:23 | P.HPIM ---
History of Present Illness Primary Care Physician: [facility] History of Present Illness: This is a 72-year-old male with a PMH of HTN, DM and CAD who was brought to the ER by EMS for c/o abdominal pain. Pt is poor historian, but states he's had abdominal pain for several days. Pain is severe, 10/10, constant, non- radiating. Reports he's had decreased PO intake for 2 days because he was unable to get to the bank to get money for food. Denies fever, chills, nausea, vomiting or diarrhea. Recent admit 11/29-12/06/17 for AMS/Sepsis/PNA. On arrival , BP 181/84, HR 88, O2 sat 99% on RA, Afebrile. Hemoglobin 9.8, previous E 14.9. INR 1.2. Chemistry essentially unremarkable except for K+ 3.0. Troponin 0.08. Lipase 1091. CT Abdomen/Pelvis stable hiatal hernia, resolution of bilateral pleural effusions. Hemoccult + on exam, currently on Protonix gtt. - Diagnosis (1) GI bleed (2) Anemia (3) Elevated troponin (4) Pancreatitis Review of Systems PAST FAMILY HISTORY: Reviewed. No h/o DM or CAD All other systems reviewed negative except as stated in HPI PMFSH - History History Provided By: Patient - Medical History Medical History: Medical History (Last Updated 12/22/17 @ 19:56 by Bianka Schultz MD) VT (myocardial infarction) Diabetes Hypertension - Surgical History Surgical History: Surgical History (Last Updated 12/22/17 @ 19:48 by Karolina Strickland) H/O heart bypass surgery - Tobacco History Second Hand Smoke Exposure: No Smoking Status: Never smoker - Alcohol History How Often Do You Have a Drink Containing Alcohol: Never - Substance Use History Substance History: No History of Abuse - Travel History Recent Travel in the [place] Within the Last 8 Weeks: No Recent Travel Out of the Country Within the Last 8 Weeks: No - Immunization History Tetanus Immunization: Unsure Medications and Allergies Active Medications: Active Medications Sodium Chloride (Ns Inj) 1,000 mls @ 125 mls/hr IV.CONT .Q8H DEBBIE Stop: 12/23/17 03:59 Last Admin: 12/22/17 20:31 Dose: 125 mls/hr Pantoprazole Sodium 80 mg/ (Sodium Chloride) 100 mls @ 10 mls/hr IV.CONT CONT DEBBIE Sodium Chloride (Ns Flush) 2 ml IV.FLUSH PRN PRN PRN Reason: FLUSH AFTER USING IV ACCESS Allergies Allergy/AdvReac Type Severity Reaction Status Date / Time No Known Allergies Allergy Verified 12/22/17 22:28 Home Medications Medication Instructions Recorded Confirmed Type ascorbic acid (vitamin C) [Vitamin 1,000 mg PO DAILY 11/29/17 12/22/17 History C] aspirin 81 mg PO DAILY 11/29/17 12/22/17 History cholecalciferol (vitamin D3) 1,000 unit PO DAILY 11/29/17 12/22/17 History [Vitamin D3] citalopram 20 mg PO DAILY 11/29/17 12/22/17 History cyanocobalamin (vitamin B-12) 1,000 mcg PO DAILY 11/29/17 12/22/17 History [Vitamin B-12] docusate sodium [Colace] 100 mg PO BID PRN 11/29/17 12/22/17 History ferrous gluconate 324 mg PO DAILY 11/29/17 12/22/17 History folic acid 0.5 mg PO DAILY 11/29/17 12/22/17 History gabapentin 600 mg PO TID 11/29/17 12/22/17 History metformin 1,000 mg PO BID 11/29/17 12/22/17 History omeprazole 20 mg PO DAILY 11/29/17 12/22/17 History Exam Vital signs: Vital Signs 12/22/17 19:44 12/22/17 20:05 12/22/17 20:06 Temperature 98.4 F Pulse Rate 88 87 88 Respiratory Rate 17 17 Blood Pressure 200/104 H 181/84 H Pulse Oximetry 99 99 Intake & Output 12/22/17 12/22/17 12/23/17 06:59 18:59 06:59 Intake Total 35 / 35 Balance 35 / 35 Weight 68.039 kg Intake: IV 35 / 35 Protonix Inj 80 MG In NS Inj 35 35 / 35 ML @ 420 mls/hr IV.SIG BOLUS ONE Rx#:[id number] Narrative: PE: GENERAL: Pleasant elderly white male in no acute distress. SKIN: Focused skin assessment warm and dry. HEENT: PERRLA, EOMI. No scleral icterus or conjunctival pallor. No lid lag or facial droop. CARDIOVASCULAR: Regular rate and rhythm. No obvious murmurs to auscultation. No chest tenderness to palpation. RESPIRATORY: No obvious rhonchi or wheezing. Clear to auscultation. Breath sounds equal bilaterally. GASTROINTESTINAL: Abdomen soft, mild epigastric tenderness to palpation, nondistended. BS normal. MUSCULOSKELETAL: Extremities without clubbing, cyanosis, or edema. No obvious deformities. NEUROLOGICAL: Awake, alert and oriented x4. No focal neurologic deficits. Moving both upper and lower extremities spontaneously. PSYCHIATRIC: Appropriate mood and affect. Insight and judgment normal. Results - Labs CBC & Chem 7: 12/22/17 19:55 12/22/17 19:55 Labs: Short CBC 12/22/17 Range/Units 19:55 WBC 7.0 (4.0-11.0) th/mm3 Hgb 9.8 L (13.0-17.0) gm/dL Hct 29.0 L (39.0-51.0) % Plt Count 355 (150-450) th/mm3 BMP 12/22/17 19:55 Sodium 133 L Potassium 3.0 L Chloride 99 Carbon Dioxide 23.5 BUN 26 H Creatinine 1.20 Calcium 7.8 L Cardiac Enzymes 12/22/17 Range/Units 19:55 Total Creatine Kinase 29 L (39-308) U/L Troponin I 0.08 H (0.02-0.05) ng/mL Liver Function 12/22/17 Range/Units 19:55 Total Bilirubin 0.2 (0.2-1.0) mg/dL AST 12 L (15-37) U/L ALT 12 (12-78) U/L Alkaline Phosphatase 72 (45-117) U/L Albumin 2.1 L (3.4-5.0) g/dL - Imaging Impressions Chest X-Ray 12/22/17 19:52 CONCLUSION: Persistent but decreasing infiltrates in the medial left lower lung. Abdomen/Pelvis CT 12/22/17 19:59 CONCLUSION: 1. No acute findings. 2. Stable hiatus hernia. Interval resolution of bilateral pleural effusions. Caprini VTE Risk Assessment Caprini VTE Risk Assessment: No/Low Risk (score <= 1) VTE Pharmacological Exception Reason: Active bleeding Caprini Risk Assessment Model: Point Value = 1 Point Value = 2 Point Value = 3 Point Value = 5 Age 41-60 Minor surgery BMI > 25 kg/m2 Swollen legs Varicose veins or History of unexplained or recurrent spontaneous Oral contraceptives or hormone replacement Sepsis (< 1 month) Serious lung disease, including pneumonia (< 1 month) Abnormal pulmonary function Acute myocardial infarction Congestive heart failure (< 1 month) History of inflammatory bowel disease Medical patient at bed rest Age 61-74 Arthroscopic surgery Major open surgery (> 45 min) Laparoscopic surgery (> 45 min) Malignancy Confined to bed (> 72 hours) Immobilizing plaster cast Central venous access Age >= 75 History of VTE Family history of VTE Factor V Leiden Prothrombin [id number] Lupus anticoagulant Anticardiolipin antibodies Elevated serum homocysteine Heparin-induced thrombocytopenia Other congenital or acquired thrombophilia Stroke (< 1 month) Elective arthroplasty Hip, pelvis, or leg fracture Acute spinal cord injury (< 1 month) Prophylaxis Regimen: Total Risk Factor Score Risk Level Prophylaxis Regimen 0-1 Low Early ambulation 2 Moderate Order ONE of the following: *Sequential Compression Device (SCD) *Heparin 5000 units SQ BID 3-4 Higher Order ONE of the following medications: *Heparin 5000 units SQ TID *Enoxaparin/Lovenox 40 mg SQ daily (WT < 150 kg, CrCl > 30 mL/min) *Enoxaparin/Lovenox 30 mg SQ daily (WT < 150 kg, CrCl > 10-29 mL/min) *Enoxaparin/Lovenox 30 mg SQ BID (WT < 150 kg, CrCl > 30 mL/min) AND/OR *Sequential Compression Device (SCD) 5 or more Highest Order ONE of the following medications: *Heparin 5000 units SQ TID (Preferred with Epidurals) *Enoxaparin/Lovenox 40 mg SQ daily (WT < 150 kg, CrCl > 30 mL/min) *Enoxaparin/Lovenox 30 mg SQ daily (WT < 150 kg, CrCl > 10-29 mL/min) *Enoxaparin/Lovenox 30 mg SQ BID (WT < 150 kg, CrCl > 30 mL/min) AND *Sequential Compression Device (SCD) Assessment and Plan - Assessment (1) GI bleed Code(s): K92.2 - Gastrointestinal hemorrhage, unspecified Status: Acute (2) Anemia Code(s): D64.9 - Anemia, unspecified Status: Acute (3) Elevated troponin Code(s): R74.8 - Abnormal levels of other serum enzymes Status: Acute (4) Pancreatitis Code(s): K85.90 - Acute pancreatitis without necrosis or infection, unspecified Status: Acute - Plan A/P: 1. GI Bleed: c/o abdominal pain, Hemoccult + on exam, on ASA per review of medications, will hold for now. Continue Protonix gtt, Consult GI for further eval/intervention. Monitor Hgb/Hct. 2. Anemia: secondary to above, Hgb 9.8, previously 14.9 on 12/03/17, Type & Screen, repeat Hgb/Hct, transfuse as needed. 3. Elevated Trop: Trop 0.08, no c/o chest pain, no acute changes on EKG, hold ASA in light of acute GI bleed w/ anemia, check serial cardiac enzymes for trend. Consult Cardiology as needed. 4. Pancreatitis: Lipase 1009, continue Protonix, NPO, IVF, repeat labs in am. 5. DVT Prophylaxis: Pharmacologic contraindication due to acute GI bleed 6. Social work for d/c planning as needed 7. Case discussed w/ ER physician at length, labs/records/imaging reviewed by me.
[2017-12-22] MEDS: Pantoprazole Inj 80 MG in Sodium Chlor 0.9% Inj 100 ML IV.CONT SCH (22:27)
[2017-12-23] MEDS ORDERED: Labetalol HCl Inj 100 MG/20 ML Vial IV.PUSH ONE (00:05)
[2017-12-23] MEDS ORDERED: Potassium Chlor 10 mEq Premix 10 MEQ/100 ML PIGGYBACK IV.SIG SCH (00:15)
[2017-12-23] MEDS ORDERED: Potassium Chlor 20 mEq Premix 20 MEQ/100 ML PIGGYBACK IV.SIG ONE (00:30)
[2017-12-23] MEDS: Sod Chloride 0.9% Inj 1,000 ML IV.CONT SCH ×3 (00:46→19:40)
[2017-12-23] MEDS: Morphine Sulfate Inj 2 MG/ML Vial IV.PUSH PRN ×2 (01:03→04:54)
[2017-12-23] MEDS ORDERED: hydrALAZINE HCl Inj 20 MG/ML Vial IV.PUSH ONE (02:07)
[2017-12-23] MEDS: Potassium Chlor 10 mEq Premix 10 MEQ/100 ML PIGGYBACK IV.SIG SCH ×3 (02:50→04:52)
[2017-12-23 03:32] LABS: Bacteria,Urine Rare /hpf; Bilirubin,Urine Negative (Negative); Clarity,Urine Clear (Clear); Color,Urine Yellow (Yellw/Straw); Glucose,Urine (UA) 500 or Greater mg/dL (Negative); Hyaline Casts,Urine 4 /lpf (0-3); Leukocyte Esterase,Urine Negative (Negative); Mucus,Urine Few /lpf (Occasional); Nitrite,Urine Negative (Negative); Specific Gravity,Urine 1.022 (1.002-1.035)
[2017-12-23 03:53] LABS: Baso % (Auto) 0.3 % (0.0-2.0); Eos # (Auto) 0.1 th/mm3 (0.0-0.4); Eos % (Auto) 0.8 % (0.0-4.0); Hematocrit 29.7 % (39.0-51.0); Lymph # (Auto) 0.9 th/mm3 (1.0-4.8); Lymph % (Auto) 12.6 % (9.0-44.0); Mean Corpuscular HGB Conc 33.7 % (32.0-36.0); Mean Corpuscular Hemoglobin 30.2 pg (27.0-34.0); Mean Corpuscular Volume 89.7 fL (80.0-100.0); Mean Platelet Volume 8.9 fL (7.0-11.0); Mono # (Auto) 0.9 th/mm3 (0.0-0.9); Neut # (Auto) 5.3 th/mm3 (1.8-7.7); Neut % (Auto) 73.3 % (16.0-70.0); Platelet Count 355 th/mm3 (150-450); Red Blood Count 3.31 mil/mm3 (4.50-5.90); Red Cell Distribution Width 13.6 % (11.6-17.2); White Blood Count 7.2 th/mm3 (4.0-11.0)
--- NOTE | 2017-12-23 09:46 | P.PNIM ---
Subjective Interval history: f/u; GI bleed in no acute distress. has some periumbilical abdominal pain. no emesis. afebrile. denies chest pain or sob. Physical Exam Vital signs: Vital Signs 12/22/17 19:44 12/22/17 20:05 12/22/17 20:06 Temperature 98.4 F Pulse Rate 88 87 88 Respiratory Rate 17 17 Blood Pressure 200/104 H 181/84 H Pulse Oximetry 99 99 12/22/17 22:45 12/22/17 23:37 12/23/17 00:30 Temperature 97.4 F L Pulse Rate 76 77 75 Respiratory Rate 17 16 16 Blood Pressure 188/88 H 200/98 H 184/92 H Pulse Oximetry 98 99 97 12/23/17 00:36 12/23/17 00:59 12/23/17 01:16 Temperature Pulse Rate 62 67 67 Respiratory Rate 16 16 16 Blood Pressure 139/75 157/82 H 184/99 H Pulse Oximetry 97 97 97 12/23/17 01:51 12/23/17 02:52 12/23/17 03:15 Temperature Pulse Rate 70 75 79 Respiratory Rate 16 16 18 Blood Pressure 183/90 H 175/92 H 126/56 L Pulse Oximetry 98 98 97 12/23/17 03:56 12/23/17 08:41 Temperature 98.3 F 98.1 F Pulse Rate 81 78 Respiratory Rate 18 18 Blood Pressure 114/55 L 125/67 Pulse Oximetry 97 97 Intake & Output 12/22/17 12/23/17 12/23/17 18:59 06:59 18:59 Intake Total 435 / 435 Output Total 1100 / 1100 Balance -665 / -665 Weight 64.4 kg Intake: IV 435 / 435 Protonix Inj 80 MG In NS Inj 35 35 / 35 ML @ 420 mls/hr IV.SIG BOLUS ONE Rx#:[id number] KCl 10 mEq Premix Inj 10 meq In 300 / 300 100 ml @ 100 mls/hr IV.SIG Q1H DEBBIE Rx#:[id number] KCl 20 mEq Premix Inj 20 meq In 100 / 100 100 ml @ 50 mls/hr IV.SIG ONCE ONE Rx#:[id number] Output: Urine Amount (Catheter) 1100 / 1100 Straight 1100 / 1100 Other: Weight On Admission 64.4 kg - Constitutional no acute distress - Routine Respiratory Exam Present: CTA bilaterally - Routine Cardiovascular Exam Present: RRR - Routine Abdominal Exam Present: soft, tenderness (periumbilical tenderness.) - Routine Extremities Exam Comments: no pedal edema. - Routine Neurological Exam Present: alert, oriented X3 - Urinary Catheter Management Straight Cath placed during this visit: yes, but has since been removed by the nurse Reason for continuing: Not indwelling catheter Insertion date: 12/23/17 Insertion time: 03:10 Removal date: 12/23/17 Removal time: 03:22 Results - Labs CBC & Chem 7: 12/23/17 03:39 12/22/17 19:55 Laboratory Results - last 24 hr 12/22/17 12/22/17 12/22/17 19:55 19:55 19:55 WBC 7.0 RBC 3.26 L Hgb 9.8 L Hct 29.0 L MCV 88.8 MCH 30.2 MCHC 34.0 RDW 13.6 Plt Count 355 MPV 9.2 Neut % (Auto) 77.2 H Lymph % (Auto) 11.7 [place] % (Auto) 10.2 H Eos % (Auto) 0.7 Baso % (Auto) 0.2 Neut # (Auto) 5.4 Lymph # (Auto) 0.8 L [place] # (Auto) 0.7 Eos # (Auto) 0.0 Baso # (Auto) 0.0 WBC Differential . Differential Comment Auto diff final PT 12.0 H INR 1.2 APTT 19.7 L Puncture Site Patient Temperature VBG pH VBG pCO2 VBG pO2 VBG HCO3 VBG O2 Saturation VBG O2 Content VBG Base Excess VBG Carboxyhemoglobin VBG Methemoglobin Hemoglobin Inspired O2 Critical Value Sodium 133 L Potassium 3.0 L Chloride 99 Carbon Dioxide 23.5 Anion Gap 11 BUN 26 H Creatinine 1.20 Estimated GFR 59 L Random Glucose 268 H Lactic Acid Calcium 7.8 L Total Bilirubin 0.2 AST 12 L ALT 12 Alkaline Phosphatase 72 Total Creatine Kinase 29 L Troponin I 0.08 H Total Protein 6.1 L Albumin 2.1 L Lipase 1091 H Beta-Hydroxybutyric Acd 0.40 H Urine Color Urine Clarity Urine pH Ur Specific [place] Urine Protein Urine Glucose (UA) Urine Ketones Urine Occult Blood Urine Nitrate Urine Bilirubin Urine Urobilinogen Ur Leukocyte Esterase Urine RBC Urine WBC Urine Bacteria Hyaline Casts Urine Mucus Micro UA Comment Ur Microscopic Review Urine Culture Comments Blood Type Blood Type Recheck Antibody Screen 12/22/17 12/22/17 12/22/17 19:55 20:01 20:55 WBC RBC Hgb Hct MCV MCH MCHC RDW Plt Count MPV Neut % (Auto) Lymph % (Auto) [place] % (Auto) Eos % (Auto) Baso % (Auto) Neut # (Auto) Lymph # (Auto) [place] # (Auto) Eos # (Auto) Baso # (Auto) WBC Differential Differential Comment PT INR APTT Puncture Site Iv Patient Temperature 98.6 VBG pH 7.40 VBG pCO2 41 L VBG pO2 20 L* VBG HCO3 25 VBG O2 Saturation 25 L VBG O2 Content 3.4 L VBG Base Excess 0.8 VBG Carboxyhemoglobin 0.9 VBG Methemoglobin 0.7 Hemoglobin 9.8 L Inspired O2 21 Critical Value Yes Sodium Potassium Chloride Carbon Dioxide Anion Gap BUN Creatinine Estimated GFR Random Glucose Lactic Acid 1.6 Calcium Total Bilirubin AST ALT Alkaline Phosphatase Total Creatine Kinase Troponin I Total Protein Albumin Lipase Beta-Hydroxybutyric Acd Urine Color Urine Clarity Urine pH Ur Specific [place] Urine Protein Urine Glucose (UA) Urine Ketones Urine Occult Blood Urine Nitrate Urine Bilirubin Urine Urobilinogen Ur Leukocyte Esterase Urine RBC Urine WBC Urine Bacteria Hyaline Casts Urine Mucus Micro UA Comment Ur Microscopic Review Urine Culture Comments Blood Type B Positive Blood Type Recheck Not needed Antibody Screen Negative 12/23/17 12/23/17 12/23/17 03:13 03:39 03:39 WBC 7.2 RBC 3.31 L Hgb 10.0 L Hct 29.7 L MCV 89.7 MCH 30.2 MCHC 33.7 RDW 13.6 Plt Count 355 MPV 8.9 Neut % (Auto) 73.3 H Lymph % (Auto) 12.6 [place] % (Auto) 13.0 H Eos % (Auto) 0.8 Baso % (Auto) 0.3 Neut # (Auto) 5.3 Lymph # (Auto) 0.9 L [place] # (Auto) 0.9 Eos # (Auto) 0.1 Baso # (Auto) 0.0 WBC Differential . Differential Comment Auto diff final PT INR APTT Puncture Site Patient Temperature VBG pH VBG pCO2 VBG pO2 VBG HCO3 VBG O2 Saturation VBG O2 Content VBG Base Excess VBG Carboxyhemoglobin VBG Methemoglobin Hemoglobin Inspired O2 Critical Value Sodium Potassium Chloride Carbon Dioxide Anion Gap BUN Creatinine Estimated GFR Random Glucose Lactic Acid Calcium Total Bilirubin AST ALT Alkaline Phosphatase Total Creatine Kinase Troponin I 0.08 H Total Protein Albumin Lipase Beta-Hydroxybutyric Acd Urine Color Yellow Urine Clarity Clear Urine pH 6.0 Ur Specific [place] 1.022 Urine Protein 500 or greater Urine Glucose (UA) 500 or greater Urine Ketones Trace H Urine Occult Blood Negative Urine Nitrate Negative Urine Bilirubin Negative Urine Urobilinogen Less than 2 Ur Leukocyte Esterase Negative Urine RBC 2 Urine WBC 2 Urine Bacteria Rare H Hyaline Casts 4 Urine Mucus Few H Micro UA Comment Culture not ind Ur Microscopic Review Not Reportable Urine Culture Comments Culture not ind Blood Type Blood Type Recheck Antibody Screen - Imaging Impressions Chest X-Ray 12/22/17 19:52 CONCLUSION: Persistent but decreasing infiltrates in the medial left lower lung. Abdomen/Pelvis CT 12/22/17 19:59 CONCLUSION: 1. No acute findings. 2. Stable hiatus hernia. Interval resolution of bilateral pleural effusions. Assessment and Plan - Assessment (1) GI bleed Code(s): K92.2 - Gastrointestinal hemorrhage, unspecified Status: Acute (2) Anemia Code(s): D64.9 - Anemia, unspecified Status: Acute (3) Elevated troponin Code(s): R74.8 - Abnormal levels of other serum enzymes Status: Acute (4) Pancreatitis Code(s): K85.90 - Acute pancreatitis without necrosis or infection, unspecified Status: Acute - Plan 1. GI Bleed: c/o abdominal pain, Hemoccult + on exam, on ASA per review of medications, will hold for now. Continue Protonix gtt, Consulted GI for further eval/intervention. Monitor Hgb/Hct. 2. Anemia: secondary to above, Hgb 9.8, previously 14.9 on 12/03/17, Type & Screen, repeat Hgb/Hct, transfuse as needed. 3. Elevated Trop: Trop 0.08, no c/o chest pain, no acute changes on EKG, hold ASA in light of acute GI bleed w/ anemia. 4. Pancreatitis: Lipase 1009, continue Protonix, NPO, IVF, repeat labs in am. 5. DVT Prophylaxis: Pharmacologic contraindication due to acute GI bleed
--- NOTE | 2017-12-23 09:52 | P.CONGI ---
History of Present Illness Consult date: 12/23/17 Consult reason: GI bleed with heme positive stools Chief complaint: GI Bleed History of Present Illness: Mr. Coffey is a 72-year-old male with past medical history of hypertension, diabetes mellitus, and coronary artery disease. This patient presented to the emergency room at [facility] for complaint of abdominal pain which he states began 2 weeks ago. Patient reports on consultation that this pain was in his left lower quadrant of his abdomen he describes it as sharp and intermittent with no alleviating or aggravating factors. He states his appetite has been poor and has had some weight loss but unable to determine how much and over what time span. Patient states that he has had an EGD and colonoscopy in the past but he is unable to recall the date or the findings. He does state that he remembers being told he had a "stomach ulcer". He is currently on no medications for ulcers. He does endorse taking aspirin 81 mg p.o. daily and denies the use of NSAIDs. He denies any known family history for gastrointestinal disorders/ diseases. Patient denies any use of EtOH or tobacco. Patient is presently n.p.o. and states that he has "not eaten for days". Patient endorses normally bowel movements are hard and that he suffers from constipation and has a bowel movement about every 4 days. Patient denies any obvious bleeding in his stool. Patient does endorse having heartburn intermittently for which he uses Mylanta with good effect. Patient denies nausea vomiting and denies any difficulty or painful swallowing. CT abdomen and pelvis done on admission reveals stable hiatal hernia, resolution of bilateral pleural effusions. Stool Hemoccult positive, patient currently on Protonix drip. This service has been consulted to evaluate finding of heme positive stool. Troponin 0 0.08 hemoglobin 10.0 hematocrit 29.7 platelet 355 total bilirubin 0.2 AST 12 ALT 12 alk phos 72 lipase elevated 1091. Patient denies chest pain but does have significant cardiac history and will require cardiac clearance in order to proceed with endoscopy procedure. <Michelle Nagel - Last Filed: 12/23/17 09:57> Review of Systems All other systems reviewed negative except as stated in HPI <Michelle Nagel - Last Filed: 12/23/17 09:57> PMFSH - History History Provided By: Patient - Medical History Medical History: Medical History (Last Updated 12/22/17 @ 19:56 by Bianka Schultz MD) [place] (myocardial infarction) Diabetes Hypertension - Surgical History Surgical History: Surgical History (Last Updated 12/22/17 @ 19:48 by Karolina Strickland) H/O heart bypass surgery - Tobacco History Second Hand Smoke Exposure: No Smoking Status: Never smoker - Alcohol History How Often Do You Have a Drink Containing Alcohol: Never - Substance Use History Substance History: No History of Abuse - Travel History Recent Travel in the [place] Within the Last 8 Weeks: No Recent Travel Out of the Country Within the Last 8 Weeks: No - Immunization History Tetanus Immunization: Unsure <Michelle Nagel - Last Filed: 12/23/17 09:57> - Medical History Medical History: Medical History (Last Updated 12/22/17 @ 19:56 by Bianka Schultz MD) [place] (myocardial infarction) Diabetes Hypertension - Surgical History Surgical History: Surgical History (Last Updated 12/22/17 @ 19:48 by Karolina Strickland) H/O heart bypass surgery <Nargis Shipley - Last Filed: 12/23/17 15:01> Medications and Allergies Active Medications: Active Medications Acetaminophen (Tylenol) 650 mg PO Q4H PRN PRN Reason: Temp > 100.4 Al Hydroxide/Mg Hydroxide (Milk Of Ajay Liameya) 30 ml PO Q12H PRN PRN Reason: Mild Constipation Bisacodyl (Dulcolax Supp) 10 mg RECTAL DAILY PRN PRN Reason: SEVERE CONSITIPATION Carvedilol (Coreg) 6.25 mg PO BID [facility] Citalopram Hydrobromide (Celexa) 20 mg PO DAILY [facility] Dextrose (D50w Vial) 50 ml IV.PUSH UNSCH PRN PRN Reason: PER HYPOGLYCEMIA PROTOCOL Folic Acid (Folic Acid) 0.5 mg PO DAILY [facility] Gabapentin (Neurontin) 600 mg PO TID [facility] Glucagon (Glucagon Inj) 1 mg OTHER PRN PRN PRN Reason: for Hypoglycemia Protocol Pantoprazole Sodium 80 mg/ (Sodium Chloride) 100 mls @ 10 mls/hr IV.CONT CONT DEBBIE Last Admin: 12/22/17 22:27 Dose: 10 mls/hr Sodium Chloride (Ns Inj) 1,000 mls @ 100 mls/hr IV.CONT .Q10H DEBBIE Last Admin: 12/23/17 00:46 Dose: 100 mls/hr Insulin Aspart (Novolog Insulin Correctional Sugar Inj) 0 unit SQ ACHS [facility]; Protocol Lactulose (Lactulose Liq) 30 ml PO DAILY PRN PRN Reason: SEVERE CONSITIPATION Morphine Sulfate (Morphine Inj) 2 mg IV.PUSH Q4H PRN PRN Reason: PAIN 6-10 Last Admin: 12/23/17 04:54 Dose: 2 mg Ondansetron HCl (Zofran Inj) 4 mg IV.PUSH Q6H PRN PRN Reason: NAUSEA OR VOMITING Senna/Docusate Sodium (Naila-Colace) 1 tab PO BID [facility] Sennosides (Senokot) 17.2 mg PO Q12H PRN PRN Reason: Moderate Constipation Sodium Chloride (Ns Flush) 2 ml IV.FLUSH PRN PRN PRN Reason: FLUSH AFTER USING IV ACCESS Tamsulosin HCl (Flomax) 0.4 mg PO DAILY [facility] <Michelle Nagel - Last Filed: 12/23/17 09:57> Active Medications: Active Medications Acetaminophen (Tylenol) 650 mg PO Q4H PRN PRN Reason: Temp > 100.4 Al Hydroxide/Mg Hydroxide (Milk Of Magnesia Liq) 30 ml PO Q12H PRN PRN Reason: Mild Constipation Bisacodyl (Dulcolax Supp) 10 mg RECTAL DAILY PRN PRN Reason: SEVERE CONSITIPATION Carvedilol (Coreg) 6.25 mg PO BID [facility] Last Admin: 12/23/17 10:58 Dose: 6.25 mg Citalopram Hydrobromide (Celexa) 20 mg PO DAILY [facility] Last Admin: 12/23/17 10:57 Dose: 20 mg Dextrose (D50w Vial) 50 ml IV.PUSH UNSCH PRN PRN Reason: PER HYPOGLYCEMIA PROTOCOL Folic Acid (Folic Acid) 0.5 mg PO DAILY [facility] Last Admin: 12/23/17 10:57 Dose: 0.5 mg Gabapentin (Neurontin) 600 mg PO TID [facility] Last Admin: 12/23/17 14:22 Dose: 600 mg Glucagon (Glucagon Inj) 1 mg OTHER PRN PRN PRN Reason: for Hypoglycemia Protocol Pantoprazole Sodium 80 mg/ (Sodium Chloride) 100 mls @ 10 mls/hr IV.CONT CONT [facility] Last Admin: 10/08/18 12:26 Dose: 10 mls/hr Sodium Chloride (Ns Inj) 1,000 mls @ 100 mls/hr IV.CONT .Q10H [facility] Last Admin: 12/23/17 10:56 Dose: Not Given Insulin Aspart (Novolog Insulin Correctional Sugar Inj) 0 unit SQ ACHS [facility]; Protocol Last Admin: 12/23/17 14:21 Dose: 5 unit Lactulose (Lactulose Liq) 30 ml PO DAILY PRN PRN Reason: SEVERE CONSITIPATION Morphine Sulfate (Morphine Inj) 2 mg IV.PUSH Q4H PRN PRN Reason: PAIN 6-10 Last Admin: 12/23/17 04:54 Dose: 2 mg Ondansetron HCl (Zofran Inj) 4 mg IV.PUSH Q6H PRN PRN Reason: NAUSEA OR VOMITING Senna/Docusate Sodium (Naila-Colace) 1 tab PO BID [facility] Last Admin: 12/23/17 10:57 Dose: 1 tab Sennosides (Senokot) 17.2 mg PO Q12H PRN PRN Reason: Moderate Constipation Sodium Chloride (Ns Flush) 2 ml IV.FLUSH PRN PRN PRN Reason: FLUSH AFTER USING IV ACCESS Tamsulosin HCl (Flomax) 0.4 mg PO DAILY [facility] Last Admin: 12/23/17 10:57 Dose: 0.4 mg <Nargis Shipley - Last Filed: 12/23/17 15:01> Allergies Allergy/AdvReac Type Severity Reaction Status Date / Time No Known Allergies Allergy Verified 12/22/17 22:28 Home Medications Medication Instructions Recorded Confirmed Type ascorbic acid (vitamin C) [Vitamin 1,000 mg PO DAILY 11/29/17 12/22/17 History C] aspirin 81 mg PO DAILY 11/29/17 12/22/17 History cholecalciferol (vitamin D3) 1,000 unit PO DAILY 11/29/17 12/22/17 History [Vitamin D3] citalopram 20 mg PO DAILY 11/29/17 12/22/17 History cyanocobalamin (vitamin B-12) 1,000 mcg PO DAILY 11/29/17 12/22/17 History [Vitamin B-12] docusate sodium [Colace] 100 mg PO BID PRN 11/29/17 12/22/17 History ferrous gluconate 324 mg PO DAILY 11/29/17 12/22/17 History folic acid 0.5 mg PO DAILY 11/29/17 12/22/17 History gabapentin 600 mg PO TID 11/29/17 12/22/17 History metformin 1,000 mg PO BID 11/29/17 12/22/17 History omeprazole 20 mg PO DAILY 11/29/17 12/22/17 History Exam Vital signs: Vital Signs 12/22/17 19:44 12/22/17 20:05 12/22/17 20:06 Temperature 98.4 F Pulse Rate 88 87 88 Respiratory Rate 17 17 Blood Pressure 200/104 H 181/84 H Pulse Oximetry 99 99 12/22/17 22:45 12/22/17 23:37 12/23/17 00:30 Temperature 97.4 F L Pulse Rate 76 77 75 Respiratory Rate 17 16 16 Blood Pressure 188/88 H 200/98 H 184/92 H Pulse Oximetry 98 99 97 12/23/17 00:36 12/23/17 00:59 12/23/17 01:16 Temperature Pulse Rate 62 67 67 Respiratory Rate 16 16 16 Blood Pressure 139/75 157/82 H 184/99 H Pulse Oximetry 97 97 97 12/23/17 01:51 12/23/17 02:52 12/23/17 03:15 Temperature Pulse Rate 70 75 79 Respiratory Rate 16 16 18 Blood Pressure 183/90 H 175/92 H 126/56 L Pulse Oximetry 98 98 97 12/23/17 03:56 12/23/17 08:41 Temperature 98.3 F 98.1 F Pulse Rate 81 78 Respiratory Rate 18 18 Blood Pressure 114/55 L 125/67 Pulse Oximetry 97 97 Intake & Output 12/22/17 12/23/17 12/23/17 18:59 06:59 18:59 Intake Total 435 / 435 Output Total 1100 / 1100 Balance -665 / -665 Weight 64.4 kg Intake: IV 435 / 435 Protonix Inj 80 MG In NS Inj 35 35 / 35 ML @ 420 mls/hr IV.SIG BOLUS ONE Rx#:[id number] KCl 10 mEq Premix Inj 10 meq In 300 / 300 100 ml @ 100 mls/hr IV.SIG Q1H [facility] Rx#:[id number] KCl 20 mEq Premix Inj 20 meq In 100 / 100 100 ml @ 50 mls/hr IV.SIG ONCE ONE Rx#:[id number] Output: Urine Amount (Catheter) 1100 / 1100 Straight 1100 / 1100 Other: Weight On Admission 64.4 kg - Constitutional no acute distress, mild distress - Routine HEENT Exam Head: Present: normocephalic Eye: Absent: conjunctival icterus - Routine Neck Exam Present: supple, full ROM - Routine Chest/Breast/Axilla Exam Chest wall: Absent: tenderness - Routine Respiratory Exam Present: CTA bilaterally. Absent: accessory muscle use - Routine Cardiovascular Exam Present: RRR - Routine Abdominal Exam Present: soft, normoactive bowel sounds, tenderness Comments: llq tenderness on exam - Routine Extremities Exam Present: full ROM, pulses intact. Absent: edema - Routine Skin Exam Present: dry, warm. Absent: jaundice - Routine Neurological Exam Present: alert, oriented X3 <Nagel,Michelle - Last Filed: 12/23/17 09:57> Vital signs: Vital Signs 12/22/17 19:44 12/22/17 20:05 12/22/17 20:06 Temperature 98.4 F Pulse Rate 88 87 88 Respiratory Rate 17 17 Blood Pressure 200/104 H 181/84 H Pulse Oximetry 99 99 12/22/17 22:45 12/22/17 23:37 12/23/17 00:30 Temperature 97.4 F L Pulse Rate 76 77 75 Respiratory Rate 17 16 16 Blood Pressure 188/88 H 200/98 H 184/92 H Pulse Oximetry 98 99 97 12/23/17 00:36 12/23/17 00:59 12/23/17 01:16 Temperature Pulse Rate 62 67 67 Respiratory Rate 16 16 16 Blood Pressure 139/75 157/82 H 184/99 H Pulse Oximetry 97 97 97 12/23/17 01:51 12/23/17 02:52 12/23/17 03:15 Temperature Pulse Rate 70 75 79 Respiratory Rate 16 16 18 Blood Pressure 183/90 H 175/92 H 126/56 L Pulse Oximetry 98 98 97 12/23/17 03:56 12/23/17 08:41 12/23/17 12:39 Temperature 98.3 F 98.1 F 98.1 F Pulse Rate 81 78 75 Respiratory Rate 18 18 16 Blood Pressure 114/55 L 125/67 115/55 L Pulse Oximetry 97 97 97 Intake & Output 12/22/17 12/23/17 12/23/17 18:59 06:59 18:59 Intake Total 435 / 435 1100 / 1100 Output Total 1099 / 1100 Balance -665 / -665 1100 / 1100 Weight 64.4 kg Intake: IV 435 / 435 1100 / 1100 Protonix Inj 80 MG In NS Inj 100 / 100 100 ML @ 10 mls/hr IV.CONT CONT [facility] Rx#:[id number] Protonix Inj 80 MG In NS Inj 35 35 / 35 ML @ 420 mls/hr IV.SIG BOLUS ONE Rx#:[id number] KCl 10 mEq Premix Inj 10 meq In 300 / 300 100 ml @ 100 mls/hr IV.SIG Q1H [facility] Rx#:[id number] KCl 20 mEq Premix Inj 20 meq In 100 / 100 100 ml @ 50 mls/hr IV.SIG ONCE ONE Rx#:[id number] Output: Urine Amount (Catheter) 1099 / 1100 Straight 1099 Other: Weight On Admission 64.4 kg <Nargis Shipley - Last Filed: 12/23/17 15:01> Results - Labs CBC & Chem 7: 12/23/17 03:39 12/22/17 19:55 Labs: Laboratory Results - last 24 hr 12/22/17 12/22/17 12/22/17 19:55 19:55 19:55 WBC 7.0 RBC 3.26 L Hgb 9.8 L Hct 29.0 L MCV 88.8 MCH 30.2 MCHC 34.0 RDW 13.6 Plt Count 355 MPV 9.2 Neut % (Auto) 77.2 H Lymph % (Auto) 11.7 [place] % (Auto) 10.2 H Eos % (Auto) 0.7 Baso % (Auto) 0.2 Neut # (Auto) 5.4 Lymph # (Auto) 0.8 L [place] # (Auto) 0.7 Eos # (Auto) 0.0 Baso # (Auto) 0.0 WBC Differential . Differential Comment Auto diff final PT 12.0 H INR 1.2 APTT 19.7 L Puncture Site Patient Temperature VBG pH VBG pCO2 VBG pO2 VBG HCO3 VBG O2 Saturation VBG O2 Content VBG Base Excess VBG Carboxyhemoglobin VBG Methemoglobin Hemoglobin Inspired O2 Critical Value Sodium 133 L Potassium 3.0 L Chloride 99 Carbon Dioxide 23.5 Anion Gap 11 BUN 26 H Creatinine 1.20 Estimated GFR 59 L Random Glucose 268 H Lactic Acid Calcium 7.8 L Total Bilirubin 0.2 AST 12 L ALT 12 Alkaline Phosphatase 72 Total Creatine Kinase 29 L Troponin I 0.08 H Total Protein 6.1 L Albumin 2.1 L Lipase 1091 H Beta-Hydroxybutyric Acd 0.40 H Urine Color Urine Clarity Urine pH Ur Specific [place] Urine Protein Urine Glucose (UA) Urine Ketones Urine Occult Blood Urine Nitrate Urine Bilirubin Urine Urobilinogen Ur Leukocyte Esterase Urine RBC Urine WBC Urine Bacteria Hyaline Casts Urine Mucus Micro UA Comment Ur Microscopic Review Urine Culture Comments Blood Type Blood Type Recheck Antibody Screen 12/22/17 12/22/17 12/22/17 19:55 20:01 20:55 WBC RBC Hgb Hct MCV MCH MCHC RDW Plt Count MPV Neut % (Auto) Lymph % (Auto) [place] % (Auto) Eos % (Auto) Baso % (Auto) Neut # (Auto) Lymph # (Auto) [place] # (Auto) Eos # (Auto) Baso # (Auto) WBC Differential Differential Comment PT INR APTT Puncture Site Iv Patient Temperature 98.6 VBG pH 7.40 VBG pCO2 41 L VBG pO2 20 L* VBG HCO3 25 VBG O2 Saturation 25 L VBG O2 Content 3.4 L VBG Base Excess 0.8 VBG Carboxyhemoglobin 0.9 VBG Methemoglobin 0.7 Hemoglobin 9.8 L Inspired O2 21 Critical Value Yes Sodium Potassium Chloride Carbon Dioxide Anion Gap BUN Creatinine Estimated GFR Random Glucose Lactic Acid 1.6 Calcium Total Bilirubin AST ALT Alkaline Phosphatase Total Creatine Kinase Troponin I Total Protein Albumin Lipase Beta-Hydroxybutyric Acd Urine Color Urine Clarity Urine pH Ur Specific [place] Urine Protein Urine Glucose (UA) Urine Ketones Urine Occult Blood Urine Nitrate Urine Bilirubin Urine Urobilinogen Ur Leukocyte Esterase Urine RBC Urine WBC Urine Bacteria Hyaline Casts Urine Mucus Micro UA Comment Ur Microscopic Review Urine Culture Comments Blood Type B Positive Blood Type Recheck Not needed Antibody Screen Negative 12/23/17 12/23/17 12/23/17 03:13 03:39 03:39 WBC 7.2 RBC 3.31 L Hgb 10.0 L Hct 29.7 L MCV 89.7 MCH 30.2 MCHC 33.7 RDW 13.6 Plt Count 355 MPV 8.9 Neut % (Auto) 73.3 H Lymph % (Auto) 12.6 [place] % (Auto) 13.0 H Eos % (Auto) 0.8 Baso % (Auto) 0.3 Neut # (Auto) 5.3 Lymph # (Auto) 0.9 L [place] # (Auto) 0.9 Eos # (Auto) 0.1 Baso # (Auto) 0.0 WBC Differential . Differential Comment Auto diff final PT INR APTT Puncture Site Patient Temperature VBG pH VBG pCO2 VBG pO2 VBG HCO3 VBG O2 Saturation VBG O2 Content VBG Base Excess VBG Carboxyhemoglobin VBG Methemoglobin Hemoglobin Inspired O2 Critical Value Sodium Potassium Chloride Carbon Dioxide Anion Gap BUN Creatinine Estimated GFR Random Glucose Lactic Acid Calcium Total Bilirubin AST ALT Alkaline Phosphatase Total Creatine Kinase Troponin I 0.08 H Total Protein Albumin Lipase Beta-Hydroxybutyric Acd Urine Color Yellow Urine Clarity Clear Urine pH 6.0 Ur Specific [place] 1.022 Urine Protein 500 or greater Urine Glucose (UA) 500 or greater Urine Ketones Trace H Urine Occult Blood Negative Urine Nitrate Negative Urine Bilirubin Negative Urine Urobilinogen Less than 2 Ur Leukocyte Esterase Negative Urine RBC 2 Urine WBC 2 Urine Bacteria Rare H Hyaline Casts 4 Urine Mucus Few H Micro UA Comment Culture not ind Ur Microscopic Review Not Reportable Urine Culture Comments Culture not ind Blood Type Blood Type Recheck Antibody Screen - Imaging Impressions Chest X-Ray 12/22/17 19:52 CONCLUSION: Persistent but decreasing infiltrates in the medial left lower lung. Abdomen/Pelvis CT 12/22/17 19:59 CONCLUSION: 1. No acute findings. 2. Stable hiatus hernia. Interval resolution of bilateral pleural effusions. <Michelle Nagel - Last Filed: 12/23/17 09:57> - Labs CBC & Chem 7: 12/23/17 03:39 12/23/17 10:40 Labs: Laboratory Results - last 24 hr 12/22/17 12/22/17 12/22/17 19:55 19:55 19:55 WBC 7.0 RBC 3.26 L Hgb 9.8 L Hct 29.0 L MCV 88.8 MCH 30.2 MCHC 34.0 RDW 13.6 Plt Count 355 MPV 9.2 Neut % (Auto) 77.2 H Lymph % (Auto) 11.7 [place] % (Auto) 10.2 H Eos % (Auto) 0.7 Baso % (Auto) 0.2 Neut # (Auto) 5.4 Lymph # (Auto) 0.8 L [place] # (Auto) 0.7 Eos # (Auto) 0.0 Baso # (Auto) 0.0 WBC Differential . Differential Comment Auto diff final PT 12.0 H INR 1.2 APTT 19.7 L Puncture Site Patient Temperature VBG pH VBG pCO2 VBG pO2 VBG HCO3 VBG O2 Saturation VBG O2 Content VBG Base Excess VBG Carboxyhemoglobin VBG Methemoglobin Hemoglobin Inspired O2 Critical Value Sodium 133 L Potassium 3.0 L Chloride 99 Carbon Dioxide 23.5 Anion Gap 11 BUN 26 H Creatinine 1.20 Estimated GFR 59 L POC Glucose Random Glucose 268 H Lactic Acid Calcium 7.8 L Total Bilirubin 0.2 AST 12 L ALT 12 Alkaline Phosphatase 72 Total Creatine Kinase 29 L Troponin I 0.08 H Total Protein 6.1 L Albumin 2.1 L Lipase 1091 H Beta-Hydroxybutyric Acd 0.40 H Urine Color Urine Clarity Urine pH Ur Specific [place] Urine Protein Urine Glucose (UA) Urine Ketones Urine Occult Blood Urine Nitrate Urine Bilirubin Urine Urobilinogen Ur Leukocyte Esterase Urine RBC Urine WBC Urine Bacteria Hyaline Casts Urine Mucus Micro UA Comment Ur Microscopic Review Urine Culture Comments Blood Type Blood Type Recheck Antibody Screen 12/22/17 12/22/17 12/22/17 19:55 20:01 20:55 WBC RBC Hgb Hct MCV MCH MCHC RDW Plt Count MPV Neut % (Auto) Lymph % (Auto) [place] % (Auto) Eos % (Auto) Baso % (Auto) Neut # (Auto) Lymph # (Auto) [place] # (Auto) Eos # (Auto) Baso # (Auto) WBC Differential Differential Comment PT INR APTT Puncture Site Iv Patient Temperature 98.6 VBG pH 7.40 VBG pCO2 41 L VBG pO2 20 L* VBG HCO3 25 VBG O2 Saturation 25 L VBG O2 Content 3.4 L VBG Base Excess 0.8 VBG Carboxyhemoglobin 0.9 VBG Methemoglobin 0.7 Hemoglobin 9.8 L Inspired O2 21 Critical Value Yes Sodium Potassium Chloride Carbon Dioxide Anion Gap BUN Creatinine Estimated GFR POC Glucose Random Glucose Lactic Acid 1.6 Calcium Total Bilirubin AST ALT Alkaline Phosphatase Total Creatine Kinase Troponin I Total Protein Albumin Lipase Beta-Hydroxybutyric Acd Urine Color Urine Clarity Urine pH Ur Specific [place] Urine Protein Urine Glucose (UA) Urine Ketones Urine Occult Blood Urine Nitrate Urine Bilirubin Urine Urobilinogen Ur Leukocyte Esterase Urine RBC Urine WBC Urine Bacteria Hyaline Casts Urine Mucus Micro UA Comment Ur Microscopic Review Urine Culture Comments Blood Type B Positive Blood Type Recheck Not needed Antibody Screen Negative 12/23/17 12/23/17 12/23/17 03:13 03:39 03:39 WBC 7.2 RBC 3.31 L Hgb 10.0 L Hct 29.7 L MCV 89.7 MCH 30.2 MCHC 33.7 RDW 13.6 Plt Count 355 MPV 8.9 Neut % (Auto) 73.3 H Lymph % (Auto) 12.6 [place] % (Auto) 13.0 H Eos % (Auto) 0.8 Baso % (Auto) 0.3 Neut # (Auto) 5.3 Lymph # (Auto) 0.9 L [place] # (Auto) 0.9 Eos # (Auto) 0.1 Baso # (Auto) 0.0 WBC Differential . Differential Comment Auto diff final PT INR APTT Puncture Site Patient Temperature VBG pH VBG pCO2 VBG pO2 VBG HCO3 VBG O2 Saturation VBG O2 Content VBG Base Excess VBG Carboxyhemoglobin VBG Methemoglobin Hemoglobin Inspired O2 Critical Value Sodium Potassium Chloride Carbon Dioxide Anion Gap BUN Creatinine Estimated GFR POC Glucose Random Glucose Lactic Acid Calcium Total Bilirubin AST ALT Alkaline Phosphatase Total Creatine Kinase Troponin I 0.08 H Total Protein Albumin Lipase Beta-Hydroxybutyric Acd Urine Color Yellow Urine Clarity Clear Urine pH 6.0 Ur Specific [place] 1.022 Urine Protein 500 or greater Urine Glucose (UA) 500 or greater Urine Ketones Trace H Urine Occult Blood Negative Urine Nitrate Negative Urine Bilirubin Negative Urine Urobilinogen Less than 2 Ur Leukocyte Esterase Negative Urine RBC 2 Urine WBC 2 Urine Bacteria Rare H Hyaline Casts 4 Urine Mucus Few H Micro UA Comment Culture not ind Ur Microscopic Review Not Reportable Urine Culture Comments Culture not ind Blood Type Blood Type Recheck Antibody Screen 12/23/17 12/23/17 12/23/17 09:57 10:40 12:32 WBC RBC Hgb Hct MCV MCH MCHC RDW Plt Count MPV Neut % (Auto) Lymph % (Auto) [place] % (Auto) Eos % (Auto) Baso % (Auto) Neut # (Auto) Lymph # (Auto) [place] # (Auto) Eos # (Auto) Baso # (Auto) WBC Differential Differential Comment PT INR APTT Puncture Site Patient Temperature VBG pH VBG pCO2 VBG pO2 VBG HCO3 VBG O2 Saturation VBG O2 Content VBG Base Excess VBG Carboxyhemoglobin VBG Methemoglobin Hemoglobin Inspired O2 Critical Value Sodium 137 Potassium 3.6 Chloride 104 Carbon Dioxide 23.5 Anion Gap 10 BUN 18 Creatinine 1.09 Estimated GFR 66 L POC Glucose 230 H 251 H Random Glucose 203 H Lactic Acid Calcium 7.8 L Total Bilirubin 0.2 AST 9 L ALT 9 L Alkaline Phosphatase 68 Total Creatine Kinase Troponin I 0.06 H Total Protein 5.5 L D Albumin 1.9 L Lipase Beta-Hydroxybutyric Acd Urine Color Urine Clarity Urine pH Ur Specific [place] Urine Protein Urine Glucose (UA) Urine Ketones Urine Occult Blood Urine Nitrate Urine Bilirubin Urine Urobilinogen Ur Leukocyte Esterase Urine RBC Urine WBC Urine Bacteria Hyaline Casts Urine Mucus Micro UA Comment Ur Microscopic Review Urine Culture Comments Blood Type Blood Type Recheck Antibody Screen - Imaging Impressions Chest X-Ray 12/22/17 19:52 CONCLUSION: Persistent but decreasing infiltrates in the medial left lower lung. Abdomen/Pelvis CT 12/22/17 19:59 CONCLUSION: 1. No acute findings. 2. Stable hiatus hernia. Interval resolution of bilateral pleural effusions. <Nargis Shipley - Last Filed: 12/23/17 15:01> Assessment and Plan (1) GI bleed Status: Acute Code(s): K92.2 - Gastrointestinal hemorrhage, unspecified (2) Pancreatitis Status: Acute Code(s): K85.90 - Acute pancreatitis without necrosis or infection, unspecified - Plan Mr. Coffey is a 72-year-old male with past medical history of hypertension, diabetes mellitus, and coronary artery disease. This patient presented to the emergency room at [facility] for complaint of abdominal pain which he states began 2 weeks ago. Patient reports on consultation that this pain was in his left lower quadrant of his abdomen he describes it as sharp and intermittent with no alleviating or aggravating factors. He states his appetite has been poor and has had some weight loss but unable to determine how much and over what time span. Patient states that he has had an EGD and colonoscopy in the past but he is unable to recall the date or the findings. He does state that he remembers being told he had a "stomach ulcer". He is currently on no medications for ulcers. He does endorse taking aspirin 81 mg p.o. daily and denies the use of NSAIDs. He denies any known family history for gastrointestinal disorders/ diseases. Patient denies any use of EtOH or tobacco. Patient is presently n.p.o. and states that he has "not eaten for days". Patient endorses normally bowel movements are hard and that he suffers from constipation and has a bowel movement about every 4 days. Patient denies any obvious bleeding in his stool. Patient does endorse having heartburn intermittently for which he uses Mylanta with good effect. Patient denies nausea vomiting and denies any difficulty or painful swallowing. CT abdomen and pelvis done on admission reveals stable hiatal hernia, resolution of bilateral pleural effusions. Stool Hemoccult positive, patient currently on Protonix drip. This service has been consulted to evaluate finding of heme positive stool. Troponin 0 0.08 hemoglobin 10.0 hematocrit 29.7 platelet 355 total bilirubin 0.2 AST 12 ALT 12 alk phos 72 lipase elevated 1091. Patient denies chest pain but does have significant cardiac history and will require cardiac clearance in order to proceed with endoscopy procedure. Plan: -Npo -Continue to monitor labs -Monitor for bleeding -Protonix gtt -Avoidance of Nsaids or ASA -Possible EGD tomorrow--Needs cardiac clearance -Repeat Lipase level -Supportive care -Further recommendations to follow based on findings This patient has been seen by myself and Dr. Shipley and this note is written on his behalf. <Michelle Nagel - Last Filed: 12/23/17 09:57> (1) GI bleed Status: Acute Code(s): K92.2 - Gastrointestinal hemorrhage, unspecified (2) Pancreatitis Status: Acute Code(s): K85.90 - Acute pancreatitis without necrosis or infection, unspecified - Plan Seen and examined with VEHICLE OPERATOR TECHNICIAN, elevated lipase of unclear etiology. Denies etoh use. CT reviewed. Repeat lipase levels. EGD planned. The exam, history, and the medical decision-making described in the above note were completed with the assistance of the mid-level provider. I reviewed and agree with the findings presented. I attest that I had a [id number] encounter with the patient on the same day, and personally performed and documented my assessment and findings in the medical record. <Nargis Shipley - Last Filed: 12/23/17 15:01>
--- NOTE | 2017-12-23 10:21 | ECG ---
Date Performed: 12/22/2017 Time Performed: 19:52:42 PTAGE: 72 years EKG: Sinus rhythm WITH FIRST DEGREE AV BLOCK INFERIOR MYOCARDIAL INFARCTION ABNORMAL ECG Since the PREVIOUS TRACING , no significant change noted PREVIOUS TRACIN12/02/2017 06.30 DOCTOR: Tania Pearson Interpretating Date/Time 12/23/2017 10:20:29
[2017-12-23] MEDS: Insulin NovoLOG Aspart Correctional Sugar Inj SQ SCH ×4 (10:55→22:34)
[2017-12-23] MEDS: Gabapentin 300 MG Capsule PO SCH ×3 (10:56→19:22)
[2017-12-23] MEDS: Folic Acid 1 MG Tablet PO SCH (10:57)
[2017-12-23] MEDS: Citalopram 20 MG Tablet PO SCH (10:57)
[2017-12-23] MEDS: Senna/Docusate Sodium 8.6/50 MG Tablet PO SCH ×2 (10:57→22:29)
[2017-12-23] MEDS: Carvedilol 6.25 MG Tablet PO SCH ×2 (10:58→22:30)
[2017-12-23 11:24] LABS: Alanine Aminotransferase 9 U/L (12-78); Albumin 1.9 g/dL (3.4-5.0); Anion Gap 10 meq/L (5-15); Aspartate Aminotransferase 9 U/L (15-37); Blood Urea Nitrogen 18 mg/dL (7-18); Calcium 7.8 mg/dL (8.5-10.1); Carbon Dioxide 23.5 meq/L (21.0-32.0); Chloride 104 meq/L (98-107); Glomerular Filtration Rate 66 mL/min (>89); Glucose,Random 203 mg/dL (74-106); Potassium 3.6 meq/L (3.5-5.1); Sodium 137 meq/L (136-145)
[2017-12-23 11:28] LABS: Alkaline Phosphatase 68 U/L (45-117); Total Protein 5.5 g/dL (6.4-8.2); Troponin I 0.06 ng/mL (0.02-0.05)
[2017-12-23] MEDS: Pantoprazole Inj 80 MG in Sodium Chlor 0.9% Inj 100 ML IV.CONT SCH (12:26)
[2017-12-23] MEDS: Melatonin 5 MG Tablet PO PRN (22:30)
[2017-12-24] MEDS: Morphine Sulfate Inj 2 MG/ML Vial IV.PUSH PRN ×3 (02:40→21:11)
[2017-12-24] MEDS: Sod Chloride 0.9% Inj 1,000 ML IV.CONT SCH (06:27)
[2017-12-24] MEDS: Gabapentin 300 MG Capsule PO SCH ×3 (08:34→17:51)
[2017-12-24] MEDS: Citalopram 20 MG Tablet PO SCH (08:34)
[2017-12-24] MEDS: Carvedilol 6.25 MG Tablet PO SCH ×2 (08:34→21:10)
[2017-12-24] MEDS: Folic Acid 1 MG Tablet PO SCH (08:36)
[2017-12-24] MEDS: Insulin NovoLOG Aspart Correctional Sugar Inj SQ SCH ×4 (08:37→21:20)
[2017-12-24] MEDS: Senna/Docusate Sodium 8.6/50 MG Tablet PO SCH ×2 (08:38→21:10)
[2017-12-24 08:40] LABS: Baso % (Auto) 0.4 % (0.0-2.0); Eos # (Auto) 0.3 th/mm3 (0.0-0.4); Eos % (Auto) 5.7 % (0.0-4.0); Hematocrit 23.1 % (39.0-51.0); Hemoglobin 7.9 gm/dL (13.0-17.0); Lymph # (Auto) 0.7 th/mm3 (1.0-4.8); Lymph % (Auto) 15.8 % (9.0-44.0); Mean Corpuscular HGB Conc 34.2 % (32.0-36.0); Mean Corpuscular Hemoglobin 30.6 pg (27.0-34.0); Mean Corpuscular Volume 89.3 fL (80.0-100.0); Mean Platelet Volume 9.2 fL (7.0-11.0); Mono # (Auto) 0.7 th/mm3 (0.0-0.9); Mono % (Auto) 15.2 % (0.0-8.0); Neut # (Auto) 2.9 th/mm3 (1.8-7.7); Neut % (Auto) 62.9 % (16.0-70.0); Platelet Count 384 th/mm3 (150-450); Red Blood Count 2.59 mil/mm3 (4.50-5.90); White Blood Count 4.6 th/mm3 (4.0-11.0)
[2017-12-24 08:44] LABS: Potassium 3.3 meq/L (3.5-5.1)
[2017-12-24 08:47] LABS: Calcium 7.8 mg/dL (8.5-10.1); Carbon Dioxide 20.1 meq/L (21.0-32.0)
[2017-12-24] MEDS ORDERED: Potassium Chlor 20 mEq Premix 20 MEQ/100 ML PIGGYBACK IV.SIG ONE (10:04)
--- NOTE | 2017-12-24 10:34 | P.PN ---
Subjective Interval history: 72-year-old male who is seen and examined today for upon GI bleed. Patient indicates that he still experiencing some abdominal pain. Patient is not ate anything because he is n.p.o. for procedure. Vital signs are stable. Patient remains afebrile. Physical Exam Vital signs: Vital Signs 12/23/17 12:39 12/23/17 15:58 12/23/17 21:40 Temperature 98.1 F 97.4 F L Pulse Rate 75 68 69 Respiratory Rate 16 20 18 Blood Pressure 115/55 L 101/61 154/74 H Pulse Oximetry 97 98 98 12/24/17 00:00 12/24/17 02:00 12/24/17 04:00 Temperature 98.1 F 96.2 F L 97 F L Pulse Rate 67 65 62 Respiratory Rate 16 18 20 Blood Pressure 121/67 121/69 128/68 Pulse Oximetry 97 97 99 12/24/17 08:00 Temperature 96.2 F L Pulse Rate 66 Respiratory Rate 16 Blood Pressure 120/73 Pulse Oximetry 96 Intake & Output 12/23/17 12/24/17 12/24/17 18:59 06:59 18:59 Intake Total 1100 / 1100 100 / 100 Output Total 200 / 200 150 / 150 Balance 900 / 900 -50 / -50 Weight 67 kg Intake: IV 1100 / 1100 100 / 100 Protonix Inj 80 MG In NS Inj 100 / 100 100 / 100 100 ML @ 10 mls/hr IV.CONT CONT [facility] Rx#:[id number] Oral 0 / 0 Output: Urine 150 / 150 Urine Amount (Catheter) 200 / 200 Straight 200 / 200 Other: # Voids 1 Narrative: GENERAL: Well-developed, well-nourished, in no acute distress. alert and orientated HEENT: Head is normocephalic without any lesions or masses noted. Facial features are symmetric. Eyes: Extraocular muscles are intact. Conjunctivae were clear. NECK: Supple without any masses. Trachea midline no deviation. No JVD, CARDIAC: Regular rhythm, regular rate. S1/S2 are heard. No murmurs gallops or rubs. LUNGS: Clear to auscultation bilaterally. No wheeze, rhonchi or rales. No use of accessory muscles on inspiration or expiration. ABDOMEN: Soft, nontender. Nondistended. Bowel sounds heard in all 4 quadrants. No organomegaly or masses. Negative rebound, negative guarding EXTREMITIES: No edema, pulses are equal bilaterally. No cyanosis or clubbing NEUROLOGY: Mood and affect appear appropriate. Cranial nerves II through XII grossly intact. Moving all extremities, speech is clear - Urinary Catheter Management Straight Cath placed during this visit: yes, but has since been removed by the nurse Reason for continuing: Not indwelling catheter Insertion date: 12/23/17 Insertion time: 15:40 Removal date: 12/23/17 Removal time: 15:57 Results - Labs CBC & Chem 7: 12/24/17 07:50 12/24/17 07:50 Laboratory Results - last 24 hr 12/23/17 12/23/17 12/23/17 10:40 12:32 17:12 CBC w Diff WBC RBC Hgb Hct MCV MCH MCHC RDW Plt Count MPV Neut % (Auto) Lymph % (Auto) [place] % (Auto) Eos % (Auto) Baso % (Auto) Neut # (Auto) Lymph # (Auto) [place] # (Auto) Eos # (Auto) Baso # (Auto) WBC Differential Differential Comment Sodium 137 Potassium 3.6 Chloride 104 Carbon Dioxide 23.5 Anion Gap 10 BUN 18 Creatinine 1.09 Estimated GFR 66 L POC Glucose 251 H 182 H Random Glucose 203 H Calcium 7.8 L Total Bilirubin 0.2 AST 9 L ALT 9 L Alkaline Phosphatase 68 Troponin I 0.06 H Total Protein 5.5 L D Albumin 1.9 L Lipase 12/23/17 12/24/17 12/24/17 22:34 07:50 07:50 CBC w Diff Auto diff final WBC 4.6 RBC 2.59 L Hgb 7.9 L D Hct 23.1 L MCV 89.3 MCH 30.6 MCHC 34.2 RDW 13.0 Plt Count 384 MPV 9.2 Neut % (Auto) 62.9 Lymph % (Auto) 15.8 [place] % (Auto) 15.2 H Eos % (Auto) 5.7 H Baso % (Auto) 0.4 Neut # (Auto) 2.9 Lymph # (Auto) 0.7 L [place] # (Auto) 0.7 Eos # (Auto) 0.3 Baso # (Auto) 0.0 WBC Differential . Differential Comment . Sodium 138 Potassium 3.3 L Chloride 106 Carbon Dioxide 20.1 L Anion Gap 12 BUN 19 H Creatinine 1.00 Estimated GFR 73 L POC Glucose 95 Random Glucose 109 H Calcium 7.8 L Total Bilirubin AST ALT Alkaline Phosphatase Troponin I Total Protein Albumin Lipase 464 H 12/24/17 08:13 CBC w Diff WBC RBC Hgb Hct MCV MCH MCHC RDW Plt Count MPV Neut % (Auto) Lymph % (Auto) [place] % (Auto) Eos % (Auto) Baso % (Auto) Neut # (Auto) Lymph # (Auto) [place] # (Auto) Eos # (Auto) Baso # (Auto) WBC Differential Differential Comment Sodium Potassium Chloride Carbon Dioxide Anion Gap BUN Creatinine Estimated GFR POC Glucose 135 H Random Glucose Calcium Total Bilirubin AST ALT Alkaline Phosphatase Troponin I Total Protein Albumin Lipase Assessment and Plan - Assessment (1) GI bleed Code(s): K92.2 - Gastrointestinal hemorrhage, unspecified Status: Acute (2) Anemia Code(s): D64.9 - Anemia, unspecified Status: Acute (3) Elevated troponin Code(s): R74.8 - Abnormal levels of other serum enzymes Status: Acute (4) Pancreatitis Code(s): K85.90 - Acute pancreatitis without necrosis or infection, unspecified Status: Acute - Plan GI bleed -Patient presented with abdominal pain, heme positive stool -Continue Protonix IV -GI consulted for further evaluation, they recommending panendoscopy, after cardiac clearance -Patient was on aspirin, on hold at this time Pancreatitis - patient presented with abdominal pain and lipase level 1009, lipase level has improved down to 464 -Continue maintain n.p.o. status -Continue IV fluids Acute blood loss anemia -Continue monitor hemoglobin hematocrit, hemoglobin has dropped to 7.9 -Records indicate the patient does not want any blood products transfused. Elevated troponin, unknown significance -Troponins remain flat and equivocal -EKG indicating first-degree AV block and inferior myocardial infarction -Cardiology consulted for further recommendations and cardiac clearance Prevention -Sequential compression devices, avoid chemical prophylaxis secondary to GI bleed.
[2017-12-24] MEDS ORDERED: Metoprolol Tartrate 25 MG Tablet PO ONE (13:46)
[2017-12-24] MEDS ORDERED: Chlorhexidine Gluconate 2% 1 Pack (2 Cloths) TOPICAL ONE (13:46)
[2017-12-24] MEDS ORDERED: Sodium Chlor 0.9% Inj 500 ML IV.SIG SCH (14:00)
--- NOTE | 2017-12-24 15:55 | ECG ---
Date Performed: 12/24/2017 Time Performed: 11:17:17 PTAGE: 72 years EKG: Sinus rhythm WITH FIRST DEGREE AV BLOCK INFERIOR MYOCARDIAL INFARCTION ABNORMAL ECG PREVIOUS TRACING : 12/22/2017 19.52 Since the previous tracing, no significant change noted DOCTOR: Meir Gao Interpretating Date/Time 12/24/2017 15:53:35
--- NOTE | 2017-12-24 17:47 | M5 ---
cc: Meir Gao MD DATE OF CONSULT: 12/24/2017 HISTORY OF PRESENT ILLNESS: Bharathi is a very pleasant 72-year-old gentleman. Patient was originally called to Dr. 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 The patient does not remember me. He had a CABG remotely, he is not sure when. He notes dark stools, but no overt bleeding. Consult is obtained for preop clearance for EGD. The patient denies chest pain, shortness of breath. He states he is able to climb up 2 flights of stairs without getting dyspnea. Further review of systems is negative for any fever, chills, cough, bleeding, PND, orthopnea, syncope. In the ER was noted to have mid epigastric pain. PAST MEDICAL HISTORY: Includes diabetes, hypertension, history of myocardial infarction. ALLERGIES: NONE. SOCIAL HISTORY: Denies tobacco or alcohol use. MEDICATIONS: In the hospital: 1. Folic acid 0.5 mg daily. 2. Gabapentin. 3. Insulin. 4. Lopressor 25 p.o. "demolition specialist." 5. Pantoprazole 80 mg IV drip. 6. Potassium supplementation. 7. Flomax 0.4 mg daily. PHYSICAL EXAMINATION: VITAL SIGNS: Temperature 96.9, pulse 61, respiratory rate 17, blood pressure 116/76. GENERAL: He is alert and oriented x3, in no acute distress. NECK: Supple. No JVD. No bruit. CARDIOVASCULAR: S1, S2. No murmurs, rubs or gallops; clear to auscultation bilaterally. ABDOMEN: Soft, nontender, nondistended, positive bowel sounds. EXTREMITIES: No extremity edema. IMAGING/DIAGNOSTIC DATA: 1. Chest x-ray: Was not able to access from the computer file. 2. EKG: Normal sinus rhythm at 87 beats per minutes, inferior MA age indeterminate, nonspecific ST-T wave changes. 3. CT of the abdomen: No acute findings, stable hiatal hernia, interval resolution of bilateral pleural effusions. 4. Repeat EKG: Normal sinus rhythm at 61 beats per minute, nonspecific ST-T wave changes, inferior MA probably old. 5. Chest x-ray: Persistent, but decreasing infiltrates in the medial left lower lung. LABORATORY DATA: White count 7.0, hemoglobin 9.8, hematocrit 29.0, platelet count 355. INR is 1.2. Chemistry: Sodium 138, potassium 3.3, chloride 106, bicarbonate 20.1, BUN 19, creatinine 1.0. Lipase is 464, troponin is 0.06, CK 29, ammonia is 20. DIAGNOSES: 1. Ivj-VB-ohriidjhe myocardial infarction. 2. Coronary artery disease. 3. Anemia. 4. Preop for noncardiac procedure. 5. Diabetes mellitus. The patient is at least moderate to high risk for noncardiac procedure due to the elevated troponin and bilateral infiltrates on chest x-ray. He is asymptomatic. He is able to achieve 5 METS per his history. Obviously, if the procedure is deemed to be emergent and his condition is life threatening, we will need to defer this to Dr. Candelaria's judgment. We will continue to follow marshall-procedurally. Case discussed in detail with Dr. Candelaria and endoscopy staff. MD TRISTEN [place]/shameka , 02:01 PM , 02:11 PM
--- NOTE | 2017-12-24 18:54 | P.PNGI ---
Subjective Interval history: Patient laying in bed, seems to be comfortable, no chest pain at this time Physical Exam Vital signs: Vital Signs 12/23/17 21:40 12/24/17 00:00 12/24/17 02:00 Temperature 98.1 F 96.2 F L Pulse Rate 69 67 65 Respiratory Rate 18 16 18 Blood Pressure 154/74 H 121/67 121/69 Pulse Oximetry 98 97 97 12/24/17 04:00 12/24/17 08:00 12/24/17 08:31 Temperature 97 F L 96.2 F L Pulse Rate 62 66 Respiratory Rate 20 16 18 Blood Pressure 128/68 120/73 Pulse Oximetry 99 96 12/24/17 11:51 12/24/17 14:20 12/24/17 14:30 Temperature 96.9 F L 97.6 F Pulse Rate 61 62 62 Respiratory Rate 17 14 16 Blood Pressure 116/76 98/50 L 117/50 L Pulse Oximetry 95 100 100 12/24/17 14:45 12/24/17 15:00 12/24/17 15:50 Temperature 97.6 F 98.5 F Pulse Rate 62 60 67 Respiratory Rate 16 16 16 Blood Pressure 125/66 143/78 H 123/65 Pulse Oximetry 100 100 98 12/24/17 16:46 Temperature 99.0 F Pulse Rate 66 Respiratory Rate 16 Blood Pressure 120/66 Pulse Oximetry 98 Intake & Output 12/23/17 12/24/17 12/24/17 18:59 06:59 18:59 Intake Total 1100 / 1100 100 / 100 840 / 840 Output Total 200 / 200 150 / 150 450 / 450 Balance 900 / 900 -50 / -50 390 / 390 Weight 67 kg Intake: IV 1100 / 1100 100 / 100 Protonix Inj 80 MG In NS Inj 100 / 100 100 / 100 100 ML @ 10 mls/hr IV.CONT CONT [facility] Rx#:[id number] Oral 0 / 0 840 / 840 Output: Urine 150 / 150 450 / 450 Urine Amount (Catheter) 200 / 200 Straight 200 / 200 Other: # Voids 1 - Constitutional no acute distress - Routine HEENT Exam Head: Present: normocephalic, atraumatic Eye: Present: EOMI, PERRL ENT: Present: mucous membranes moist - Routine Neck Exam Present: supple, full ROM - Routine Respiratory Exam Present: decreased breath sounds - Routine Cardiovascular Exam Present: RRR, S1 - Routine Abdominal Exam Present: soft, normoactive bowel sounds - Routine Extremities Exam Present: normal capillary refill - Urinary Catheter Management Straight Cath placed during this visit: yes, but has since been removed by the nurse Reason for continuing: Not indwelling catheter Insertion date: 12/23/17 Insertion time: 15:40 Removal date: 12/23/17 Removal time: 15:57 Results - Labs CBC & Chem 7: 12/24/17 07:50 12/24/17 07:50 Laboratory Results - last 24 hr 12/23/17 12/24/17 12/24/17 22:34 07:50 07:50 CBC w Diff Auto diff final WBC 4.6 RBC 2.59 L Hgb 7.9 L D Hct 23.1 L MCV 89.3 MCH 30.6 MCHC 34.2 RDW 13.0 Plt Count 384 MPV 9.2 Neut % (Auto) 62.9 Lymph % (Auto) 15.8 [place] % (Auto) 15.2 H Eos % (Auto) 5.7 H Baso % (Auto) 0.4 Neut # (Auto) 2.9 Lymph # (Auto) 0.7 L [place] # (Auto) 0.7 Eos # (Auto) 0.3 Baso # (Auto) 0.0 WBC Differential . Differential Comment . Sodium 138 Potassium 3.3 L Chloride 106 Carbon Dioxide 20.1 L Anion Gap 12 BUN 19 H Creatinine 1.00 Estimated GFR 73 L POC Glucose 95 Random Glucose 109 H Calcium 7.8 L Lipase 464 H 12/24/17 12/24/17 12/24/17 08:13 11:23 13:27 CBC w Diff WBC RBC Hgb Hct MCV MCH MCHC RDW Plt Count MPV Neut % (Auto) Lymph % (Auto) [place] % (Auto) Eos % (Auto) Baso % (Auto) Neut # (Auto) Lymph # (Auto) [place] # (Auto) Eos # (Auto) Baso # (Auto) WBC Differential Differential Comment Sodium Potassium Chloride Carbon Dioxide Anion Gap BUN Creatinine Estimated GFR POC Glucose 135 H 125 H 120 H Random Glucose Calcium Lipase 12/24/17 16:39 CBC w Diff WBC RBC Hgb Hct MCV MCH MCHC RDW Plt Count MPV Neut % (Auto) Lymph % (Auto) [place] % (Auto) Eos % (Auto) Baso % (Auto) Neut # (Auto) Lymph # (Auto) [place] # (Auto) Eos # (Auto) Baso # (Auto) WBC Differential Differential Comment Sodium Potassium Chloride Carbon Dioxide Anion Gap BUN Creatinine Estimated GFR POC Glucose 141 H Random Glucose Calcium Lipase Assessment and Plan (1) GI bleed Status: Acute Code(s): K92.2 - Gastrointestinal hemorrhage, unspecified (2) Pancreatitis Status: Acute Code(s): K85.90 - Acute pancreatitis without necrosis or infection, unspecified - Plan Seen and examined with MANAGER CAR, elevated lipase of unclear etiology. Denies etoh use. CT reviewed. Repeat lipase levels. EGD planned. The exam, history, and the medical decision-making described in the above note were completed with the assistance of the mid-level provider. I reviewed and agree with the findings presented. I attest that I had a [id number] encounter with the patient on the same day, and personally performed and documented my assessment and findings in the medical record. 12/24/2017 patient is doing better today, had upper endoscopy Findings; Esophagus: Severe grade D esophagitis covering the whole esophagus with deep ulcers biopsy was done Stomach significant gastritis mostly in the antrum biopsy was done to rule out H. pylori Duodenum duodenal bulb ulcer no active bleeding Recommendations; 1- Supportive care 2- ok to transfer to recovery area then discharge per protocol 3-followed by 4-clear liquid diet 5- EGD in 2 months 6-no NSAIDs, no alcohol 7-Protonix 40 mg daily 8-colonoscopy as an outpatient 9-monitor hemoglobin with packed RBC if needed
--- NOTE | 2017-12-24 18:55 | P.PCN ---
Date of procedure: 12/24/17 Procedure: THANK YOU FOR THE REFERRAL Indication; anemia, abdominal pain Procedure Performed; upper endoscopy with biopsy After informing the patient about procedure and possible complications consent was signed. history and physical were updated. Patient was taken to the procedure room and placed in position. Time out was completed. Adequate sedation was performed by anesthesia provider. Upper Endoscopy, the scope was placed in the mouth advanced under video guide to the second portion of the duodenum, then the scope was withdrawal to the stomach and retro-flexion was performed, the scope was withdrawal to the esophagus then out of the mouth without any immediate complication Findings; Esophagus: Severe grade D esophagitis covering the whole esophagus with deep ulcers biopsy was done Stomach significant gastritis mostly in the antrum biopsy was done to rule out H. pylori Duodenum duodenal bulb ulcer no active bleeding Recommendations; 1- Supportive care 2- ok to transfer to recovery area then discharge per protocol 3-followed by 4-clear liquid diet 5- EGD in 2 months 6-no NSAIDs, no alcohol 7-Protonix 40 mg daily 8-colonoscopy as an outpatient 9-monitor hemoglobin with packed RBC if needed
[2017-12-25] MEDS: Morphine Sulfate Inj 2 MG/ML Vial IV.PUSH PRN ×2 (02:22→06:24)
[2017-12-25 06:38] LABS: Baso % (Auto) 1.2 % (0.0-2.0); Eos # (Auto) 0.3 th/mm3 (0.0-0.4); Eos % (Auto) 7.2 % (0.0-4.0); Hematocrit 25.1 % (39.0-51.0); Hemoglobin 8.4 gm/dL (13.0-17.0); Lymph # (Auto) 0.9 th/mm3 (1.0-4.8); Mean Corpuscular HGB Conc 33.3 % (32.0-36.0); Mean Corpuscular Volume 90.4 fL (80.0-100.0); Mean Platelet Volume 9.3 fL (7.0-11.0); Mono # (Auto) 0.7 th/mm3 (0.0-0.9); Neut % (Auto) 52.6 % (16.0-70.0); Platelet Count 385 th/mm3 (150-450); Red Blood Count 2.78 mil/mm3 (4.50-5.90); Red Cell Distribution Width 13.1 % (11.6-17.2); White Blood Count 3.9 th/mm3 (4.0-11.0)
[2017-12-25 07:12] LABS: Alanine Aminotransferase 8 U/L (12-78); Albumin 1.8 g/dL (3.4-5.0); Alkaline Phosphatase 56 U/L (45-117); Anion Gap 11 meq/L (5-15); Aspartate Aminotransferase 10 U/L (15-37); Blood Urea Nitrogen 19 mg/dL (7-18); Calcium 8.1 mg/dL (8.5-10.1); Carbon Dioxide 20.3 meq/L (21.0-32.0); Chloride 108 meq/L (98-107); Glomerular Filtration Rate 66 mL/min (>89); Glucose,Random 145 mg/dL (74-106); Lipase 413 U/L (73-393); Potassium 4.2 meq/L (3.5-5.1); Sodium 139 meq/L (136-145); Total Protein 5.3 g/dL (6.4-8.2)
--- NOTE | 2017-12-25 08:04 | P.PNGI ---
Subjective Interval history: Patient laying in bed comfortably, no complain, no sign of GI bleed, no abdominal pain or chest pain Physical Exam Vital signs: Vital Signs 12/24/17 08:31 12/24/17 11:51 12/24/17 14:20 Temperature 96.9 F L 97.6 F Pulse Rate 61 62 Respiratory Rate 18 17 14 Blood Pressure 116/76 98/50 L Pulse Oximetry 95 100 12/24/17 14:30 12/24/17 14:45 12/24/17 15:00 Temperature 97.6 F Pulse Rate 62 62 60 Respiratory Rate 16 16 16 Blood Pressure 117/50 L 125/66 143/78 H Pulse Oximetry 100 100 100 12/24/17 15:50 12/24/17 16:46 12/24/17 20:00 Temperature 98.5 F 99.0 F 98.4 F Pulse Rate 67 66 67 Respiratory Rate 16 16 18 Blood Pressure 123/65 120/66 143/65 H Pulse Oximetry 98 98 94 L 12/24/17 22:20 12/25/17 00:00 12/25/17 02:43 Temperature 97.0 F L Pulse Rate 65 65 Respiratory Rate 18 18 Blood Pressure 122/66 Pulse Oximetry 99 12/25/17 04:00 Temperature 96.3 F L Pulse Rate 62 Respiratory Rate 18 Blood Pressure 129/71 Pulse Oximetry 97 Intake & Output 12/24/17 12/25/17 12/25/17 18:59 06:59 18:59 Intake Total 1140 / 1140 1840 / 1840 Output Total 750 / 750 300 / 300 Balance 390 / 390 1540 / 1540 Weight 67 kg Intake: IV 1600 / 1600 NS + KCl 20 mEq Inj 1,000 ML @ 1000 / 1000 84 mls/hr IV.CONT .[id number] [facility] Rx#:[id number] Oral 1140 / 1140 240 / 240 Output: Urine 750 / 750 300 / 300 Other: # Voids 1 - Constitutional no acute distress - Routine HEENT Exam Head: Present: normocephalic, atraumatic Eye: Present: EOMI, PERRL - Routine Neck Exam Present: supple - Routine Respiratory Exam Present: CTA bilaterally - Routine Cardiovascular Exam Present: RRR, S1, S2 - Routine Abdominal Exam Present: soft, normoactive bowel sounds - Urinary Catheter Management Straight Cath placed during this visit: yes, but has since been removed by the nurse Reason for continuing: Not indwelling catheter Insertion date: 12/23/17 Insertion time: 15:40 Removal date: 12/23/17 Removal time: 15:57 Results - Labs CBC & Chem 7: 12/25/17 05:40 12/25/17 05:40 Laboratory Results - last 24 hr 12/24/17 12/24/17 12/24/17 07:50 07:50 08:13 CBC w Diff Auto diff final WBC 4.6 RBC 2.59 L Hgb 7.9 L D Hct 23.1 L MCV 89.3 MCH 30.6 MCHC 34.2 RDW 13.0 Plt Count 384 MPV 9.2 Neut % (Auto) 62.9 Lymph % (Auto) 15.8 [place] % (Auto) 15.2 H Eos % (Auto) 5.7 H Baso % (Auto) 0.4 Neut # (Auto) 2.9 Lymph # (Auto) 0.7 L [place] # (Auto) 0.7 Eos # (Auto) 0.3 Baso # (Auto) 0.0 WBC Differential . Differential Comment . Sodium 138 Potassium 3.3 L Chloride 106 Carbon Dioxide 20.1 L Anion Gap 12 BUN 19 H Creatinine 1.00 Estimated GFR 73 L POC Glucose 135 H Random Glucose 109 H Calcium 7.8 L Total Bilirubin AST ALT Alkaline Phosphatase Total Protein Albumin Lipase 464 H 12/24/17 12/24/17 12/24/17 11:23 13:27 16:39 CBC w Diff WBC RBC Hgb Hct MCV MCH MCHC RDW Plt Count MPV Neut % (Auto) Lymph % (Auto) [place] % (Auto) Eos % (Auto) Baso % (Auto) Neut # (Auto) Lymph # (Auto) [place] # (Auto) Eos # (Auto) Baso # (Auto) WBC Differential Differential Comment Sodium Potassium Chloride Carbon Dioxide Anion Gap BUN Creatinine Estimated GFR POC Glucose 125 H 120 H 141 H Random Glucose Calcium Total Bilirubin AST ALT Alkaline Phosphatase Total Protein Albumin Lipase 12/24/17 12/25/17 12/25/17 20:45 05:40 05:40 CBC w Diff Auto diff final WBC 3.9 L RBC 2.78 L Hgb 8.4 L Hct 25.1 L MCV 90.4 MCH 30.0 MCHC 33.3 RDW 13.1 Plt Count 385 MPV 9.3 Neut % (Auto) 52.6 Lymph % (Auto) 22.0 [place] % (Auto) 17.0 H Eos % (Auto) 7.2 H Baso % (Auto) 1.2 Neut # (Auto) 2.0 Lymph # (Auto) 0.9 L [place] # (Auto) 0.7 Eos # (Auto) 0.3 Baso # (Auto) 0.0 WBC Differential . Differential Comment . Sodium 139 Potassium 4.2 D Chloride 108 H Carbon Dioxide 20.3 L Anion Gap 11 BUN 19 H Creatinine 1.10 Estimated GFR 66 L POC Glucose 237 H Random Glucose 145 H Calcium 8.1 L Total Bilirubin 0.2 AST 10 L ALT 8 L Alkaline Phosphatase 56 Total Protein 5.3 L Albumin 1.8 L Lipase 413 H Assessment and Plan (1) GI bleed Status: Acute Code(s): K92.2 - Gastrointestinal hemorrhage, unspecified (2) Pancreatitis Status: Acute Code(s): K85.90 - Acute pancreatitis without necrosis or infection, unspecified - Plan Seen and examined with LABOURERS, elevated lipase of unclear etiology. Denies etoh use. CT reviewed. Repeat lipase levels. EGD planned. The exam, history, and the medical decision-making described in the above note were completed with the assistance of the mid-level provider. I reviewed and agree with the findings presented. I attest that I had a [id number] encounter with the patient on the same day, and personally performed and documented my assessment and findings in the medical record. 12/24/2017 patient is doing better today, had upper endoscopy Findings; Esophagus: Severe grade D esophagitis covering the whole esophagus with deep ulcers biopsy was done Stomach significant gastritis mostly in the antrum biopsy was done to rule out H. pylori Duodenum duodenal bulb ulcer no active bleeding Recommendations; 1- Supportive care 2- ok to transfer to recovery area then discharge per protocol 3-followed by 4-clear liquid diet 5- EGD in 2 months 6-no NSAIDs, no alcohol 7-Protonix 40 mg daily 8-colonoscopy as an outpatient 9-monitor hemoglobin with packed RBC if needed 12/25/2017 patient without any complaint at this time, no bleeding, hemoglobin stabilizing, continue PPI, no NSAIDs, may use Carafate for short-term, if tolerated diet can be discharged if okay with cardiology Discussed with primary team We will follow-up as needed
[2017-12-25] MEDS: Insulin NovoLOG Aspart Correctional Sugar Inj SQ SCH ×4 (08:51→20:34)
[2017-12-25] MEDS: Gabapentin 300 MG Capsule PO SCH ×3 (08:51→17:35)
[2017-12-25] MEDS: Carvedilol 6.25 MG Tablet PO SCH ×2 (08:52→20:13)
[2017-12-25] MEDS: Citalopram 20 MG Tablet PO SCH (08:52)
[2017-12-25] MEDS: Folic Acid 1 MG Tablet PO SCH (08:52)
[2017-12-25] MEDS: Senna/Docusate Sodium 8.6/50 MG Tablet PO SCH ×2 (08:52→20:13)
--- NOTE | 2017-12-25 13:01 | P.DS ---
Date of admission: 12/22/17 22:19 Primary care physician: [facility] Attending physician on discharge: Genaro Lawson Anticipated date of discharge: 12/25/17 Brief History from admission: This is a 72-year-old male with a PMH of HTN, DM and CAD who was brought to the ER by EMS for c/o abdominal pain. Pt is poor historian, but states he's had abdominal pain for several days. Pain is severe, 10/10, constant, non- radiating. Reports he's had decreased PO intake for 2 days because he was unable to get to the bank to get money for food. Denies fever, chills, nausea, vomiting or diarrhea. Recent admit 11/29-12/06/17 for AMS/Sepsis/PNA. On arrival , BP 181/84, HR 88, O2 sat 99% on RA, Afebrile. Hemoglobin 9.8, previous E 14.9. INR 1.2. Chemistry essentially unremarkable except for K+ 3.0. Troponin 0.08. Lipase 1091. CT Abdomen/Pelvis stable hiatal hernia, resolution of bilateral pleural effusions. Hemoccult + on exam, currently on Protonix gtt. DS: Diagnosis - Discharge Diagnosis (1) GI bleed Status: Acute (2) Anemia Status: Acute (3) Elevated troponin Status: Acute (4) Pancreatitis Status: Acute DS: Medications - Discharge Medications Prescriptions: pantoprazole 40 mg PO BID #60 tab DS: Summary Hospital Course: 72-year-old male who originally presented the hospital because of abdominal pain for several days prior to presentation. Patient was found to have multiple abnormalities with anemia with heme positive stool, elevated troponin, electrolyte abnormalities, elevated lipase level. Patient was admitted to the hospital on Protonix IV, hemoglobin was monitored and patient did not require any transfusion during his stay in the hospital. Patient did undergo endoscopy by GI which indicated severe grade D esophagitis throughout the entire esophagus with ulcerations. Is recommended that the patient continue on proton pump inhibitor. Patient did have abdominal discomfort with elevated lipase level. Patient was started on IV fluids, n.p.o., pain control with daily improvement of lipase level. CT the abdomen was performed which did not indicate any acute abnormality. Patient did have equivocal troponin elevation and is requested by GI for cardiac clearance. Cardiology evaluated the patient and indicated that is high risk for patient undergo procedure. Case was discussed with welder railcar mechanic extensively and it was recommended that the patient follow-up with cardiology tomorrow at 9 AM in his office. Patient is doing well at this time. Nursing staff indicates that the patient appeared to be a little wobbly on his feet when he went to stand up. Physical therapy was consulted and indicated that the patient is walking 130 feet and will need home health care, physical therapy. Case management consulted for home health care, physical therapy, DME equipment for rolling walker. Once the arrangements have been made patient can be discharged home with home health care. - Time Spent with Patient Total time spent providing and/or coordinating discharge services: Greater than 30 minutes - Quality: VTE Deep Vein Thrombosis/Pulmonary Embolism Present on Admission: No Exam Vital signs: Vital Signs 12/24/17 14:20 12/24/17 14:30 12/24/17 14:45 Temperature 97.6 F Pulse Rate 62 62 62 Respiratory Rate 14 16 16 Blood Pressure 98/50 L 117/50 L 125/66 Pulse Oximetry 100 100 100 12/24/17 15:00 12/24/17 15:50 12/24/17 16:46 Temperature 97.6 F 98.5 F 99.0 F Pulse Rate 60 67 66 Respiratory Rate 16 16 16 Blood Pressure 143/78 H 123/65 120/66 Pulse Oximetry 100 98 98 12/24/17 20:00 12/24/17 22:20 12/25/17 00:00 Temperature 98.4 F 97.0 F L Pulse Rate 67 65 65 Respiratory Rate 18 18 Blood Pressure 143/65 H 122/66 Pulse Oximetry 94 L 99 12/25/17 02:43 12/25/17 04:00 12/25/17 08:00 Temperature 96.3 F L 96 F L Pulse Rate 62 66 Respiratory Rate 18 18 20 Blood Pressure 129/71 140/74 Pulse Oximetry 97 100 Intake & Output 12/24/17 12/25/17 12/25/17 18:59 06:59 18:59 Intake Total 1140 / 1140 1840 / 1840 Output Total 750 / 750 300 / 300 Balance 390 / 390 1540 / 1540 Weight 67 kg Intake: IV 1600 / 1600 NS + KCl 20 mEq Inj 1,000 ML @ 1000 / 1000 84 mls/hr IV.CONT .[id number] [facility] Rx#:[id number] Oral 1140 / 1140 240 / 240 Output: Urine 750 / 750 300 / 300 Other: # Voids 1 Narrative: GENERAL: Well-developed, well-nourished, in no acute distress. alert and orientated HEENT: Head is normocephalic without any lesions or masses noted. Facial features are symmetric. Eyes: Extraocular muscles are intact. Conjunctivae were clear. NECK: Supple without any masses. Trachea midline no deviation. No JVD, CARDIAC: Regular rhythm, regular rate. S1/S2 are heard. No murmurs gallops or rubs. LUNGS: Clear to auscultation bilaterally. No wheeze, rhonchi or rales. No use of accessory muscles on inspiration or expiration. ABDOMEN: Soft, nontender. Nondistended. Bowel sounds heard in all 4 quadrants. No organomegaly or masses. Negative rebound, negative guarding EXTREMITIES: No edema, pulses are equal bilaterally. No cyanosis or clubbing NEUROLOGY: Mood and affect appear appropriate. Cranial nerves II through XII grossly intact. Moving all extremities, speech is clear Results Procedures completed during hospitalization: Upper Endoscopy, the scope was placed in the mouth advanced under video guide to the second portion of the duodenum, then the scope was withdrawal to the stomach and retro-flexion was performed, the scope was withdrawal to the esophagus then out of the mouth without any immediate complication Findings; Esophagus: Severe grade D esophagitis covering the whole esophagus with deep ulcers biopsy was done Stomach significant gastritis mostly in the antrum biopsy was done to rule out H. pylori Duodenum duodenal bulb ulcer no active bleeding Labs on day of discharge: Labs from last 24 hours 12/25/17 12/25/17 12/25/17 11:58 08:09 05:40 CBC w Diff WBC RBC Hgb Hct MCV MCH MCHC RDW Plt Count MPV Neut % (Auto) Lymph % (Auto) Phelps % (Auto) Eos % (Auto) Baso % (Auto) Neut # (Auto) Lymph # (Auto) Phelps # (Auto) Eos # (Auto) Baso # (Auto) WBC Differential Differential Comment Sodium 139 Potassium 4.2 D Chloride 108 H Carbon Dioxide 20.3 L Anion Gap 11 BUN 19 H Creatinine 1.10 Estimated GFR 66 L POC Glucose 190 H 187 H Random Glucose 145 H Calcium 8.1 L Total Bilirubin 0.2 AST 10 L ALT 8 L Alkaline Phosphatase 56 Total Protein 5.3 L Albumin 1.8 L Lipase 413 H 12/25/17 12/24/17 12/24/17 05:40 20:45 16:39 CBC w Diff Auto diff final WBC 3.9 L RBC 2.78 L Hgb 8.4 L Hct 25.1 L MCV 90.4 MCH 30.0 MCHC 33.3 RDW 13.1 Plt Count 385 MPV 9.3 Neut % (Auto) 52.6 Lymph % (Auto) 22.0 Phelps % (Auto) 17.0 H Eos % (Auto) 7.2 H Baso % (Auto) 1.2 Neut # (Auto) 2.0 Lymph # (Auto) 0.9 L Phelps # (Auto) 0.7 Eos # (Auto) 0.3 Baso # (Auto) 0.0 WBC Differential . Differential Comment . Sodium Potassium Chloride Carbon Dioxide Anion Gap BUN Creatinine Estimated GFR POC Glucose 237 H 141 H Random Glucose Calcium Total Bilirubin AST ALT Alkaline Phosphatase Total Protein Albumin Lipase 12/24/17 13:27 CBC w Diff WBC RBC Hgb Hct MCV MCH MCHC RDW Plt Count MPV Neut % (Auto) Lymph % (Auto) Phelps % (Auto) Eos % (Auto) Baso % (Auto) Neut # (Auto) Lymph # (Auto) Phelps # (Auto) Eos # (Auto) Baso # (Auto) WBC Differential Differential Comment Sodium Potassium Chloride Carbon Dioxide Anion Gap BUN Creatinine Estimated GFR POC Glucose 120 H Random Glucose Calcium Total Bilirubin AST ALT Alkaline Phosphatase Total Protein Albumin Lipase - Impressions ITS Impressions Chest X-Ray 12/22/17 19:52 CONCLUSION: Persistent but decreasing infiltrates in the medial left lower lung. Abdomen/Pelvis CT 12/22/17 19:59 CONCLUSION: 1. No acute findings. 2. Stable hiatus hernia. Interval resolution of bilateral pleural effusions. Discharge Plan - Discharge Disposition Patient Disposition: Discharge Home - Discharge Condition Condition: Stable - Discharge Order Discharge Orders: Discharge Order (Routine); Ordered 12/25/17 Ordered By: Kwasi Garcia - Discharge Details Anticipated Discharge Date: 12/25/17 Discharge Comment: Discharge once arrangements made by case management - Physicians Team Primary Care Provider: [facility] Attending Provider: Genaro Lawson Other Providers: Nargis Shipley MD ; Meir Gao MD
--- NOTE | 2017-12-25 15:59 | P.DCO ---
- Diagnosis (1) Physical deconditioning Status: Acute (2) GI bleed Status: Acute (3) Pancreatitis Status: Acute - Physical Therapy Order: Evaluate and treat, Improve ambulation, Strength and gait training - Home Health Nursing Order: Medical education, Signs/symptoms of disease process, Nursing assessment with vital signs - Case Management Consult No - Certification I have seen patient Bharathi Coffey on 12/25/17. My clinical findings support the need for the requested home health care services because: Deconditioned with increased weakness I certify that my clinical findings support that this patient is homebound because: Unsteady gait/balance, Unsafe to leave home unassisted (2) GI bleed Qualifiers: GI bleed type/associated pathology: unspecified gastrointestinal hemorrhage type Qualified Code(s): K92.2 - Gastrointestinal hemorrhage, unspecified
[2017-12-25] MEDS: Melatonin 5 MG Tablet PO PRN (20:13)
[2017-12-26] MEDS: Carvedilol 6.25 MG Tablet PO SCH (08:46)
[2017-12-26] MEDS: Folic Acid 1 MG Tablet PO SCH (08:47)
[2017-12-26] MEDS: Senna/Docusate Sodium 8.6/50 MG Tablet PO SCH (08:48)
[2017-12-26] MEDS: Citalopram 20 MG Tablet PO SCH (08:48)
[2017-12-26] MEDS: Gabapentin 300 MG Capsule PO SCH (08:49)
[2017-12-26] MEDS: Insulin NovoLOG Aspart Correctional Sugar Inj SQ SCH (08:50)
--- NOTE | 2017-12-26 10:11 | P.PN ---
Subjective Interval history: 72-year-old male who was seen and examined today for follow-up on GI bleed. Patient was discharged yesterday once home health care was arranged. Patient clinically stable this time awaiting arrangements are being made. Vital signs are stable. Patient remains afebrile. Physical Exam Vital signs: Vital Signs 12/25/17 12:00 12/25/17 16:00 12/25/17 22:00 Temperature 96.7 F L 97.4 F L 97.0 F L Pulse Rate 59 L 62 70 Respiratory Rate 20 20 20 Blood Pressure 119/65 122/69 150/77 H Pulse Oximetry 98 100 94 L 12/26/17 00:00 12/26/17 04:00 12/26/17 08:00 Temperature 97.6 F 96.4 F L Pulse Rate 60 65 60 Respiratory Rate 18 20 Blood Pressure 104/65 126/71 151/72 H Pulse Oximetry 98 98 Intake & Output 12/25/17 12/26/17 12/26/17 18:59 06:59 18:59 Intake Total 2560 / 2560 120 / 120 Output Total 650 / 650 300 / 300 Balance 1910 / 1910 -180 / -180 Weight 71.4 kg Intake: IV 1000 / 1000 NS + KCl 20 mEq Inj 1,000 ML @ 1000 / 1000 84 mls/hr IV.CONT .[id number] [facility] Rx#:[id number] Oral 1560 / 1560 120 / 120 Output: Urine 650 / 650 300 / 300 Narrative: GENERAL: Well-developed, well-nourished, in no acute distress. alert and orientated HEENT: Head is normocephalic without any lesions or masses noted. Facial features are symmetric. Eyes: Extraocular muscles are intact. Conjunctivae were clear. NECK: Supple without any masses. Trachea midline no deviation. No JVD, CARDIAC: Regular rhythm, regular rate. S1/S2 are heard. No murmurs gallops or rubs. LUNGS: Clear to auscultation bilaterally. No wheeze, rhonchi or rales. No use of accessory muscles on inspiration or expiration. ABDOMEN: Soft, nontender. Nondistended. Bowel sounds heard in all 4 quadrants. No organomegaly or masses. Negative rebound, negative guarding EXTREMITIES: No edema, pulses are equal bilaterally. No cyanosis or clubbing NEUROLOGY: Mood and affect appear appropriate. Cranial nerves II through XII grossly intact. Moving all extremities, speech is clear - Urinary Catheter Management Straight Cath placed during this visit: yes, but has since been removed by the nurse Reason for continuing: Not indwelling catheter Insertion date: 12/23/17 Insertion time: 15:40 Removal date: 12/23/17 Removal time: 15:57 Results - Labs CBC & Chem 7: 12/25/17 05:40 12/25/17 05:40 Laboratory Results - last 24 hr 12/25/17 12/25/17 12/25/17 11:58 17:08 20:11 POC Glucose 190 H 137 H 235 H 12/26/17 07:55 POC Glucose 156 H - Procedures Upper Endoscopy, the scope was placed in the mouth advanced under video guide to the second portion of the duodenum, then the scope was withdrawal to the stomach and retro-flexion was performed, the scope was withdrawal to the esophagus then out of the mouth without any immediate complication Findings; Esophagus: Severe grade D esophagitis covering the whole esophagus with deep ulcers biopsy was done Stomach significant gastritis mostly in the antrum biopsy was done to rule out H. pylori Duodenum duodenal bulb ulcer no active bleeding Assessment and Plan - Assessment (1) GI bleed Code(s): K92.2 - Gastrointestinal hemorrhage, unspecified Status: Acute (2) Anemia Code(s): D64.9 - Anemia, unspecified Status: Acute (3) Elevated troponin Code(s): R74.8 - Abnormal levels of other serum enzymes Status: Acute (4) Pancreatitis Code(s): K85.90 - Acute pancreatitis without necrosis or infection, unspecified Status: Acute - Plan GI bleed -Patient presented with abdominal pain, heme positive stool -Continue Protonix IV -GI consulted for further evaluation, they recommending panendoscopy, after cardiac clearance -Patient underwent upper endoscopy and found to have severe grade D esophagitis with esophageal ulcers. -Discussed with GI who recommended the patient stay on Protonix. Follow-up outpatient setting. Clinically stable for discharge Pancreatitis - patient presented with abdominal pain and lipase level 1009, lipase level has improved down to 413 -Diet has been advanced -Continue IV fluids Acute blood loss anemia -Continue monitor hemoglobin hematocrit, -Records indicate the patient does not want any blood products transfused. Elevated troponin, unknown significance -Troponins remain flat and equivocal -EKG indicating first-degree AV block and inferior myocardial infarction -Cardiology consulted for further recommendations and cardiac clearance -Cardiology evaluated the patient indicated patient is high risk for any procedure -Discussed with campaign manager who indicated that the patient can be discharged with outpatient follow-up. He may need appointment for him today at 9 AM. However since patient was not discharged in time. Patient will need to call the campaign manager office to reschedule the appointment. Prevention -Sequential compression devices, avoid chemical prophylaxis secondary to GI bleed. Discharge Planning: Awaiting case management to arrange home health care and DME equipment. (1) GI bleed Qualifiers: GI bleed type/associated pathology: unspecified gastrointestinal hemorrhage type Qualified Code(s): K92.2 - Gastrointestinal hemorrhage, unspecified
== END 2017-12-26 11:20 | disposition home or self-care (01) ==
LOC: NEPE 19:39 → INTOOBSV 22:19 → NEDA 22:19 → NEPFCDU 23:13 → PH3 12-24 01:40
PROVIDERS: ADMIT Hospitalist; ATTEND Hospitalist
DX: K20.8 Other esophagitis; K29.50 Unspecified chronic gastritis without bleeding; E11.9 Type 2 diabetes mellitus without complications; Z79.899 Other long term (current) drug therapy; Z79.84 Long term (current) use of oral hypoglycemic drugs; R32 Unspecified urinary incontinence; I25.2 Old myocardial infarction; I10 Essential (primary) hypertension; Z79.82 Long term (current) use of aspirin; K44.9 Diaphragmatic hernia without obstruction or gangrene; R53.1 Weakness; K22.10 Ulcer of esophagus without bleeding; R35.0 Frequency of micturition; D64.9 Anemia, unspecified

== ENCOUNTER 2017-12-26 14:26 | Inpatient (IN) ==
--- NOTE | 2017-12-26 15:30 | ED ---
HPI General Chief complaint: Weakness Stated complaint: Weakness Complaint Time Seen by Provider: 12/26/17 14:54 Source: patient Mode of arrival: EMS Limitations: no limitations History of Present Illness HPI narrative: 72-year-old male who was recently admitted to the hospital, discharged today, found to have pancreatitis and severe esophagitis with duodenal ulcer during this stay with a drop in hemoglobin, discharged home with Protonix, GI follow-up as well as cardiology follow-up for NSTEMI during this stay and was deemed high risk for PCI, returns this evening by ambulance for evaluation of generalized weakness. The patient was at a diner that he frequently visits and requested that they call 911 to have him return to the hospital because he felt generalized weakness. They reportedly told EMS that he also appeared somewhat altered than his baseline. He tells me that he is having on and off mid abdominal pain, currently pain-free, no chest pain or dyspnea. He just reports generalized weakness. No fevers or cough. No dysuria or increased frequency. He denies melena or hematochezia. Related Data Home Medications Medication Instructions Recorded Confirmed ascorbic acid (vitamin C) [Vitamin 1,000 mg PO DAILY 11/29/17 12/26/17 C] aspirin 81 mg PO DAILY 11/29/17 12/26/17 cholecalciferol (vitamin D3) 1,000 unit PO DAILY 11/29/17 12/26/17 [Vitamin D3] citalopram 20 mg PO DAILY 11/29/17 12/26/17 cyanocobalamin (vitamin B-12) 1,000 mcg PO DAILY 11/29/17 12/26/17 [Vitamin B-12] docusate sodium [Colace] 100 mg PO BID PRN 11/29/17 12/26/17 ferrous gluconate 324 mg PO DAILY 11/29/17 12/26/17 folic acid 0.5 mg PO DAILY 11/29/17 12/26/17 gabapentin 600 mg PO TID 11/29/17 12/26/17 metformin 1,000 mg PO BID 11/29/17 12/26/17 Previous Rx's Medication Instructions Recorded amlodipine [Norvasc] 10 mg PO DAILY #30 tab 12/05/17 carvedilol [Coreg] 6.25 mg PO BID #60 tab 12/05/17 clonidine HCl [Catapres] 0.1 mg PO Q12HR #60 tab 12/05/17 glimepiride [Amaryl] 2 mg PO QAM #30 tab 12/05/17 lisinopril 5 mg PO DAILY #30 tab 12/05/17 tamsulosin 0.4 mg PO DAILY #30 cap 12/05/17 pantoprazole 40 mg PO BID #60 tab 12/25/17 Allergies Allergy/AdvReac Type Severity Reaction Status Date / Time No Known Allergies Allergy Verified 12/22/17 22:28 Review of Systems ROS: all other systems reviewed are negative [facility] Social History Social History Substance History: No History of Abuse Second Hand Smoke Exposure: No Smoking Status: Never smoker How Often Do You Have a Drink Containing Alcohol: Never Recent Travel in [facility] within the Last 8 Weeks: No Recent Out of Country Travel within the Last 8 Weeks: No Immunization History Tetanus Immunization: >5 Years Exam Narrative Exam Narrative: GENERAL: Well-developed, well-nourished, awake, alert, comfortable, no apparent distress. SKIN: Focused skin assessment warm/dry. HEAD: Atraumatic. Normocephalic. EYES: Pupils equal and round. No scleral icterus. Conjunctival pallor. No injection or drainage. ENT: No nasal bleeding or discharge. Mucous membranes pink and moist. NECK: Trachea midline. No JVD. CARDIOVASCULAR: Regular rate and rhythm. RESPIRATORY: No accessory muscle use. Clear to auscultation. Breath sounds equal bilaterally. GASTROINTESTINAL: Abdomen soft, non-tender, nondistended. MUSCULOSKELETAL: No obvious deformities. No clubbing. No cyanosis. No edema. NEUROLOGICAL: Awake and alert. No obvious cranial nerve deficits. Motor grossly within normal limits. Normal speech. No focal deficits. PSYCHIATRIC: Appropriate mood and affect; insight and judgment normal. Course Initial Documented Vital Signs Temperature 98.2 F 12/26/17 14:42 Pulse Rate 64 12/26/17 14:42 Respiratory Rate 17 12/26/17 14:42 Blood Pressure 131/60 12/26/17 14:42 Pulse Oximetry 98 12/26/17 14:42 Last Documented Vital Signs Temperature 98.2 F 12/26/17 14:42 Pulse Rate 64 12/26/17 14:42 Respiratory Rate 17 12/26/17 14:42 Blood Pressure 131/60 12/26/17 14:42 Pulse Oximetry 98 12/26/17 14:42 Medical Decision Making MDM Narrative Medical decision making narrative: Labs, vitals, and imaging studies were reviewed. CBC is remarkable for hemoglobin of 8. It was 8.4 two days ago. Lipase is slightly elevated at 457. Stool is heme positive and brown. On reassessment the patient complains of epigastric pain. On his recent admission he had an endoscopy that showed esophagitis as well as a duodenal ulcer. He will be given a GI cocktail and 40 mg of Protonix. Patient tells me he feels generalized weakness. Discharge summary from today shows that the patient was discharged home with home health care. The patient feels that he is unable to care for himself at home. I agree with this. He will be admitted for generalized weakness, anemia, GI bleed, [facility] [place] [facility]. Case discussed with hospitalist Dr. Barney who will admit the patient to his service. Medical Screen Exam Complete: Yes Emergency Medical Condition: Yes Differential Diagnosis Differential Diagnosis: Anemia, GI bleed, UTI, metabolic abnormality, pancreatitis, NSTEMI Lab Data Result diagrams: 12/26/17 15:57 12/26/17 15:57 Lab Results 12/26/17 12/26/17 12/26/17 Range/Units 15:57 15:57 15:57 WBC 4.2 (4.0-11.0) th/mm3 RBC 2.62 L (4.50-5.90) mil/mm3 Hgb 8.0 L (13.0-17.0) gm/dL Hct 23.7 L (39.0-51.0) % MCV 90.4 (80.0-100.0) fL MCH 30.4 (27.0-34.0) pg MCHC 33.7 (32.0-36.0) % RDW 13.4 (11.6-17.2) % Plt Count 409 (150-450) th/mm3 MPV 9.2 (7.0-11.0) fL Prelim Diff (Auto) Slide review pending Neut % (Auto) 59.4 (16.0-70.0) % Lymph % (Auto) 16.9 (9.0-44.0) % [place] % (Auto) 16.5 H (0.0-8.0) % Eos % (Auto) 6.3 H (0.0-4.0) % Baso % (Auto) 0.9 (0.0-2.0) % Neut # (Auto) 2.5 (1.8-7.7) th/mm3 Lymph # (Auto) 0.7 L (1.0-4.8) th/mm3 [place] # (Auto) 0.7 (0.0-0.9) th/mm3 Eos # (Auto) 0.3 (0.0-0.4) th/mm3 Baso # (Auto) 0.0 (0.0-0.2) th/mm3 WBC Differential . Diff Scan Auto diff confirmed Differential Comment . PT 11.6 (9.8-11.6) sec INR 1.1 Ratio Sodium 138 (136-145) meq/L Potassium 4.3 (3.5-5.1) meq/L Chloride 107 (98-107) meq/L Carbon Dioxide 20.9 L (21.0-32.0) meq/L Anion Gap 10 (5-15) meq/L BUN 14 (7-18) mg/dL Creatinine 1.21 (0.60-1.30) mg/dL Estimated GFR 59 L (>89) mL/min Random Glucose 158 H (74-106) mg/dL Calcium 7.3 L* D (8.5-10.1) mg/dL Prot Corrected Calcium 8.3 L (8.5-10.1) mg/dL Total Bilirubin 0.1 L (0.2-1.0) mg/dL AST 9 L (15-37) U/L ALT 8 L (12-78) U/L Alkaline Phosphatase 56 (45-117) U/L Total Creatine Kinase 37 L (39-308) U/L Troponin I Less than 0.02 L (0.02-0.05) ng/mL Total Protein 5.3 L (6.4-8.2) g/dL Albumin 1.8 L (3.4-5.0) g/dL Lipase 587 H (73-393) U/L Blood Type Antibody Screen 12/26/17 Range/Units 15:57 WBC (4.0-11.0) th/mm3 RBC (4.50-5.90) mil/mm3 Hgb (13.0-17.0) gm/dL Hct (39.0-51.0) % MCV (80.0-100.0) fL MCH (27.0-34.0) pg MCHC (32.0-36.0) % RDW (11.6-17.2) % Plt Count (150-450) th/mm3 MPV (7.0-11.0) fL Prelim Diff (Auto) Neut % (Auto) (16.0-70.0) % Lymph % (Auto) (9.0-44.0) % [place] % (Auto) (0.0-8.0) % Eos % (Auto) (0.0-4.0) % Baso % (Auto) (0.0-2.0) % Neut # (Auto) (1.8-7.7) th/mm3 Lymph # (Auto) (1.0-4.8) th/mm3 [place] # (Auto) (0.0-0.9) th/mm3 Eos # (Auto) (0.0-0.4) th/mm3 Baso # (Auto) (0.0-0.2) th/mm3 WBC Differential Diff Scan Differential Comment PT (9.8-11.6) sec INR Ratio Sodium (136-145) meq/L Potassium (3.5-5.1) meq/L Chloride (98-107) meq/L Carbon Dioxide (21.0-32.0) meq/L Anion Gap (5-15) meq/L BUN (7-18) mg/dL Creatinine (0.60-1.30) mg/dL Estimated GFR (>89) mL/min Random Glucose (74-106) mg/dL Calcium (8.5-10.1) mg/dL Prot Corrected Calcium (8.5-10.1) mg/dL Total Bilirubin (0.2-1.0) mg/dL AST (15-37) U/L ALT (12-78) U/L Alkaline Phosphatase (45-117) U/L Total Creatine Kinase (39-308) U/L Troponin I (0.02-0.05) ng/mL Total Protein (6.4-8.2) g/dL Albumin (3.4-5.0) g/dL Lipase (73-393) U/L Blood Type B Positive Antibody Screen Negative Imaging Data Radiologist's impression: Chest X-Ray 12/26/17 15:06 CONCLUSION: Bibasilar airspace disease likely atelectasis although infiltrate cannot be excluded. ECG Data Attestation: I personally reviewed and interpreted this ECG as follows: (Sinus, rate 63, normal axis, normal intervals, nonspecific T wave abnormality, no ST segment abnormalities.) Discharge Plan Discharge Disposition Patient Disposition: 30 Still Patient Discharge Condition Condition: Stable Discharge Details Diagnosis: Anemia, GI bleed, Self-care deficit in patient living alone Physicians Team ED Provider: Denys Bolivar Primary Care Provider: [facility] [place] /Orders / Referrals /Forms Prescriptions: No Action gabapentin 600 mg Tablet 600 mg PO TID RF: 0 citalopram 40 mg Tablet 20 mg PO DAILY RF: 0 cyanocobalamin (vitamin B-12) [Vitamin B-12] 1,000 mcg Tablet 1,000 mcg PO DAILY RF: 0 aspirin 81 mg Tablet,Delayed Release (Dr/Ec) 81 mg PO DAILY RF: 0 ascorbic acid (vitamin C) [Vitamin C] 500 mg Tablet 1,000 mg PO DAILY RF: 0 metformin 1,000 mg Tablet 1,000 mg PO BID RF: 0 docusate sodium [Colace] 100 mg Capsule 100 mg PO BID PRN (Reason: Constipation) RF: 0 folic acid 1 mg Tablet 0.5 mg PO DAILY RF: 0 cholecalciferol (vitamin D3) [Vitamin D3] 1,000 unit Tablet 1,000 unit PO DAILY RF: 0 ferrous gluconate 324 mg (38 mg iron) Tablet 324 mg PO DAILY RF: 0 clonidine HCl [Catapres] 0.1 mg Tablet 0.1 mg PO Q12HR Qty: 60 RF: 1 carvedilol [Coreg] 6.25 mg Tablet 6.25 mg PO BID Qty: 60 RF: 2 tamsulosin 0.4 mg Capsule,Extended Release 24hr 0.4 mg PO DAILY Qty: 30 RF: 5 amlodipine [Norvasc] 10 mg Tablet 10 mg PO DAILY Qty: 30 RF: 2 lisinopril 5 mg Tablet 5 mg PO DAILY Qty: 30 RF: 2 glimepiride [Amaryl] 2 mg Tablet 2 mg PO QAM Qty: 30 RF: 2 pantoprazole 40 mg Tablet,Delayed Release (Dr/Ec) 40 mg PO BID Qty: 60 RF: 0 Discharge Interventions Interventions: Vital Signs Last Done: 12/26/17 14:42 Status ED Status: With Doctor
--- NOTE | 2017-12-26 15:54 | XR ---
EXAM DATE: 12/26/2017 3:06 PM EDT AGE/SEX: 72 years / Male INDICATIONS: Short of breath. CLINICAL DATA: This is the patient's initial encounter. Patient reports that signs and symptoms have been present for 1 day and indicates a pain score of 0/10. MEDICAL/SURGICAL HISTORY: . Cardiovascular disease. Hypertension. Diabetes mellitus type II. . CABG. COMPAR[place]: [facility] [place] 1V SINGLE AP, 12/22/2017. . FINDINGS: A single AP view of the chest demonstrates diminished lung volumes and bibasilar airspace disease. St atus post CABG. Loop recorder device along the left chest. The cardiomediastinal contours are unrema rkable. Osseous structures are intact. CONCLUSION: Bibasilar airspace disease likely atelectasis although infiltrate cannot be excluded. Electronically signed by: Genaro Lopez MD 12/26/2017 3:53 PM EDT
[2017-12-26 16:12] LABS: Baso % (Auto) 0.9 % (0.0-2.0); Eos # (Auto) 0.3 th/mm3 (0.0-0.4); Eos % (Auto) 6.3 % (0.0-4.0); Hematocrit 23.7 % (39.0-51.0); Lymph # (Auto) 0.7 th/mm3 (1.0-4.8); Lymph % (Auto) 16.9 % (9.0-44.0); Mean Corpuscular HGB Conc 33.7 % (32.0-36.0); Mean Corpuscular Hemoglobin 30.4 pg (27.0-34.0); Mean Corpuscular Volume 90.4 fL (80.0-100.0); Mean Platelet Volume 9.2 fL (7.0-11.0); Mono # (Auto) 0.7 th/mm3 (0.0-0.9); Mono % (Auto) 16.5 % (0.0-8.0); Neut # (Auto) 2.5 th/mm3 (1.8-7.7); Neut % (Auto) 59.4 % (16.0-70.0); Platelet Count 409 th/mm3 (150-450); Red Blood Count 2.62 mil/mm3 (4.50-5.90); Red Cell Distribution Width 13.4 % (11.6-17.2); White Blood Count 4.2 th/mm3 (4.0-11.0)
[2017-12-26 16:27] LABS: INR 1.1 Ratio; Prothrombin Time 11.6 sec (9.8-11.6)
[2017-12-26 16:40] LABS: Alanine Aminotransferase 8 U/L (12-78); Albumin 1.8 g/dL (3.4-5.0); Alkaline Phosphatase 56 U/L (45-117); Anion Gap 10 meq/L (5-15); Aspartate Aminotransferase 9 U/L (15-37); Blood Urea Nitrogen 14 mg/dL (7-18); Calcium 7.3 mg/dL (8.5-10.1); Carbon Dioxide 20.9 meq/L (21.0-32.0); Chloride 107 meq/L (98-107); Glomerular Filtration Rate 59 mL/min (>89); Glucose,Random 158 mg/dL (74-106); Lipase 587 U/L (73-393); Potassium 4.3 meq/L (3.5-5.1); Sodium 138 meq/L (136-145); Total Protein 5.3 g/dL (6.4-8.2)
[2017-12-26 16:45] LABS: Creatine Kinase 37 U/L (39-308)
[2017-12-26] MEDS ORDERED: Aluminum/Magnesium/Simethacone Susp 30 ML UDC PO ONE (17:17)
[2017-12-26] MEDS ORDERED: Pantoprazole Inj 40 MG Vial IV.PUSH ONE (17:17)
[2017-12-26 17:30] LABS: Bilirubin,Urine Negative (Negative); Clarity,Urine Hazy (Clear); Color,Urine Yellow (Yellw/Straw); Glucose,Urine (UA) 50 mg/dL (Negative); Hyaline Casts,Urine 7 /lpf (0-3); Leukocyte Esterase,Urine Negative (Negative); Mucus,Urine Few /lpf (Occasional); Nitrite,Urine Negative (Negative); Specific Gravity,Urine 1.023 (1.002-1.035)
[2017-12-26] MEDS ORDERED: Bisacodyl 10 MG Supp RECTAL PRN (17:32)
--- NOTE | 2017-12-26 17:52 | P.HP ---
History of Present Illness Primary Care Physician: Physician [facility] Chief Complaint: Weakness. History of Present Illness: Mr. Coffey is a pleasant 72 year old male with a history of CAD, DM who presents to the ED due to weakness. He went to a diner today and felt extremely weak and subsequently requested 911 to be called. Over the last month or so, he has had worsening of his weakness. He describes himself as a strong person. He denies any chest pain, shortness of breath, fever, chills. No night sweats. However, he does report over 10 lb weight loss in the last month or two. He denies any nausea, vomiting. Denies any hematochezia or melena. However, Hemoccult was positive in the ED. Hgb 8.0 on admission today. On 12/03/2017 and prior, his hemoglobin was consistently above 13.0. PMH: CAD s/p CABG, DM, HTN PSH: CABG Social history: denies using tobacco, illicit drugs or alcohol. Family history: No family history of Alzheimer's or Parkinson's. Review of Systems All other systems reviewed negative except as stated [facility] - History History Provided By: Patient - Medical History Medical History: Medical History (Last Reviewed 12/26/17 @ 14:41 by Yasmin Atkinson RN) Diabetes Hypertension [place] (myocardial infarction) - Surgical History Surgical History: Surgical History (Last Reviewed 12/26/17 @ 14:41 by Yasmin Atkinson RN) H/O heart bypass surgery - Tobacco History Second Hand Smoke Exposure: No Smoking Status: Never smoker - Alcohol History How Often Do You Have a Drink Containing Alcohol: Never - Substance Use History Substance History: No History of Abuse - Travel History Recent Travel in the [facility] Within the Last 8 Weeks: No Recent Travel Out of the Country Within the Last 8 Weeks: No - Immunization History Tetanus Immunization: >5 Years Medications and Allergies Active Medications: Active Medications Acetaminophen (Tylenol) 650 mg PO Q4H PRN PRN Reason: Headache, fever, pain 1-4 Al Hydroxide/Mg Hydroxide (Milk Of Magnesia Liq) 30 ml PO Q12H PRN PRN Reason: Mild Constipation Bisacodyl (Dulcolax Supp) 10 mg RECTAL DAILY PRN PRN Reason: SEVERE CONSITIPATION Sodium Chloride (Ns Inj) 1,000 mls @ 100 mls/hr IV.CONT .Q10H DEBBIE Lactulose (Lactulose Liq) 30 ml PO DAILY PRN PRN Reason: SEVERE CONSITIPATION Ondansetron HCl (Zofran Inj) 4 mg IV.PUSH Q6H PRN PRN Reason: NAUSEA OR VOMITING Sennosides (Senokot) 17.2 mg PO Q12H PRN PRN Reason: Moderate Constipation Sodium Chloride (Ns Flush) 2 ml IV.FLUSH PRN PRN PRN Reason: FLUSH AFTER USING IV ACCESS Allergies Allergy/AdvReac Type Severity Reaction Status Date / Time No Known Allergies Allergy Verified 12/22/17 22:28 Home Medications Medication Instructions Recorded Confirmed Type ascorbic acid (vitamin C) [Vitamin 1,000 mg PO DAILY 11/29/17 12/26/17 History C] aspirin 81 mg PO DAILY 11/29/17 12/26/17 History cholecalciferol (vitamin D3) 1,000 unit PO DAILY 11/29/17 12/26/17 History [Vitamin D3] citalopram 20 mg PO DAILY 11/29/17 12/26/17 History cyanocobalamin (vitamin B-12) 1,000 mcg PO DAILY 11/29/17 12/26/17 History [Vitamin B-12] docusate sodium [Colace] 100 mg PO BID PRN 11/29/17 12/26/17 History ferrous gluconate 324 mg PO DAILY 11/29/17 12/26/17 History folic acid 0.5 mg PO DAILY 11/29/17 12/26/17 History gabapentin 600 mg PO TID 11/29/17 12/26/17 History metformin 1,000 mg PO BID 11/29/17 12/26/17 History Exam Vital signs: Vital Signs 12/26/17 14:42 Temperature 98.2 F Pulse Rate 64 Respiratory Rate 17 Blood Pressure 131/60 Pulse Oximetry 98 Intake & Output 12/25/17 12/26/17 12/26/17 18:59 06:59 18:59 Weight 61.235 kg Narrative: GENERAL: This is a well-nourished, well-developed patient, in no apparent distress. SKIN: No rashes, ecchymoses or lesions. Warm and dry. HEAD: Atraumatic. Normocephalic. No temporal or scalp tenderness. EYES: Pupils equal round and reactive. No injection or drainage. ENT: Nose without bleeding, purulent drainage or septal hematoma. Airway patent. NECK: Trachea midline. No lymphadenopathy. Supple, nontender, no meningeal signs. CARDIOVASCULAR: Regular rate and rhythm without murmurs, gallops, or rubs. No JVD. RESPIRATORY: Clear to auscultation. Breath sounds equal bilaterally. No wheezes , rales, or rhonchi. GASTROINTESTINAL: Abdomen soft, non-tender, nondistended. No guarding. MUSCULOSKELETAL: Extremities without clubbing, cyanosis, or edema. NEUROLOGICAL: Awake and alert. Cranial nerves II through XII intact. No focal neurological deficits. Normal speech. Results - Labs CBC & Chem 7: 12/26/17 15:57 12/26/17 15:57 Labs: Laboratory Results - last 24 hr 12/26/17 12/26/17 12/26/17 15:57 15:57 15:57 WBC 4.2 RBC 2.62 L Hgb 8.0 L Hct 23.7 L MCV 90.4 MCH 30.4 MCHC 33.7 RDW 13.4 Plt Count 409 MPV 9.2 Prelim Diff (Auto) Slide review pending Neut % (Auto) 59.4 Lymph % (Auto) 16.9 [place] % (Auto) 16.5 H Eos % (Auto) 6.3 H Baso % (Auto) 0.9 Neut # (Auto) 2.5 Lymph # (Auto) 0.7 L [place] # (Auto) 0.7 Eos # (Auto) 0.3 Baso # (Auto) 0.0 WBC Differential . Diff Scan Auto diff confirmed Differential Comment . PT 11.6 INR 1.1 Sodium 138 Potassium 4.3 Chloride 107 Carbon Dioxide 20.9 L Anion Gap 10 BUN 14 Creatinine 1.21 Estimated GFR 59 L Random Glucose 158 H Calcium 7.3 L* D Prot Corrected Calcium 8.3 L Total Bilirubin 0.1 L AST 9 L ALT 8 L Alkaline Phosphatase 56 Total Creatine Kinase 37 L Troponin I Less than 0.02 L Total Protein 5.3 L Albumin 1.8 L Lipase 587 H Urine Color Urine Clarity Urine pH Ur Specific [place] Urine Protein Urine Glucose (UA) Urine Ketones Urine Occult Blood Urine Nitrate Urine Bilirubin Urine Urobilinogen Ur Leukocyte Esterase Urine RBC Urine WBC Hyaline Casts Urine Mucus Micro UA Comment Ur Microscopic Review Urine Culture Comments Blood Type Antibody Screen 12/26/17 12/26/17 15:57 16:41 WBC RBC Hgb Hct MCV MCH MCHC RDW Plt Count MPV Prelim Diff (Auto) Neut % (Auto) Lymph % (Auto) [place] % (Auto) Eos % (Auto) Baso % (Auto) Neut # (Auto) Lymph # (Auto) [place] # (Auto) Eos # (Auto) Baso # (Auto) WBC Differential Diff Scan Differential Comment PT INR Sodium Potassium Chloride Carbon Dioxide Anion Gap BUN Creatinine Estimated GFR Random Glucose Calcium Prot Corrected Calcium Total Bilirubin AST ALT Alkaline Phosphatase Total Creatine Kinase Troponin I Total Protein Albumin Lipase Urine Color Yellow Urine Clarity Hazy H Urine pH 5.0 Ur Specific [place] 1.023 Urine Protein 500 or greater Urine Glucose (UA) 50 Urine Ketones Trace H Urine Occult Blood Negative Urine Nitrate Negative Urine Bilirubin Negative Urine Urobilinogen Less than 2 Ur Leukocyte Esterase Negative Urine RBC 1 Urine WBC 4 Hyaline Casts 7 Urine Mucus Few H Micro UA Comment Culture not ind Ur Microscopic Review Not Reportable Urine Culture Comments Culture not ind Blood Type B Positive Antibody Screen Negative - Imaging Impressions Chest X-Ray 12/26/17 15:06 CONCLUSION: Bibasilar airspace disease likely atelectasis although infiltrate cannot be excluded. Caprini VTE Risk Assessment Caprini VTE Risk Assessment: No/Low Risk (score <= 1) Caprini Risk Assessment Model: Point Value = 1 Point Value = 2 Point Value = 3 Point Value = 5 Age 41-60 Minor surgery BMI > 25 kg/m2 Swollen legs Varicose veins or History of unexplained or recurrent spontaneous Oral contraceptives or hormone replacement Sepsis (< 1 month) Serious lung disease, including pneumonia (< 1 month) Abnormal pulmonary function Acute myocardial infarction Congestive heart failure (< 1 month) History of inflammatory bowel disease Medical patient at bed rest Age 61-74 Arthroscopic surgery Major open surgery (> 45 min) Laparoscopic surgery (> 45 min) Malignancy Confined to bed (> 72 hours) Immobilizing plaster cast Central venous access Age >= 75 History of VTE Family history of VTE Factor V Leiden Prothrombin [id number] Lupus anticoagulant Anticardiolipin antibodies Elevated serum homocysteine Heparin-induced thrombocytopenia Other congenital or acquired thrombophilia Stroke (< 1 month) Elective arthroplasty Hip, pelvis, or leg fracture Acute spinal cord injury (< 1 month) Prophylaxis Regimen: Total Risk Factor Score Risk Level Prophylaxis Regimen 0-1 Low Early ambulation 2 Moderate Order ONE of the following: *Sequential Compression Device (SCD) *Heparin 5000 units SQ BID 3-4 Higher Order ONE of the following medications: *Heparin 5000 units SQ TID *Enoxaparin/Lovenox 40 mg SQ daily (WT < 150 kg, CrCl > 30 mL/min) *Enoxaparin/Lovenox 30 mg SQ daily (WT < 150 kg, CrCl > 10-29 mL/min) *Enoxaparin/Lovenox 30 mg SQ BID (WT < 150 kg, CrCl > 30 mL/min) AND/OR *Sequential Compression Device (SCD) 5 or more Highest Order ONE of the following medications: *Heparin 5000 units SQ TID (Preferred with Epidurals) *Enoxaparin/Lovenox 40 mg SQ daily (WT < 150 kg, CrCl > 30 mL/min) *Enoxaparin/Lovenox 30 mg SQ daily (WT < 150 kg, CrCl > 10-29 mL/min) *Enoxaparin/Lovenox 30 mg SQ BID (WT < 150 kg, CrCl > 30 mL/min) AND *Sequential Compression Device (SCD) Assessment and Plan - Plan Mr. Coffey is a pleasant 72 year old male with a history of CAD s/p CABG, DM who presents to the ED today due to generalized weakness he experienced at a diner today. He reports weakness that has been going on for a month or so. He underwent EGD recently. His Hgb was over 13 before 12/03/2017 and on arrival, his Hgb is 8.0. Acute symptomatic anemia likely due to GI blood loss -Hgb >13.0 to 8.0 in less than a month. -EGD on 12/24/2017 shows diffuse esophagitis with deep ulcers. -Will obtain a GI consult for repeat EGD and possible colonoscopy as well -May need outpatient capsule endoscopy -Will obtain Ferritin, Iron panel, LDH, Haptoglobin, retic count. -IF GI work up is negative, patient could benefit from an outpatient hematology evaluation. Patient does have monocytosis. Diabetes mellitus Diabetic neuropathy -Will start sliding scale insulin. Goal BG 140-180. -If needed, will initiate Levemir -Continue Gabapentin (reduced dose). Chronic kidney disease Stage 3A -Avoid nephrotoxins. CAD s/p CABG Hypertension -Will continue Coreg 6.25mg BID, Amlodipine 10mg, Lisinopril 5mg -Will hold Aspirin for now. BPH - Tamsulosin 0.4mg Qday. Full code. SCDs.
[2017-12-26] MEDS ORDERED: Dextrose 50% in Water 50 ML Vial IV.PUSH PRN (22:04)
[2017-12-26 22:18] LABS: % Iron Saturation 9.3 % (20-50)
[2017-12-26 23:13] LABS: Hematocrit 26.5 % (39.0-51.0); Hemoglobin 8.9 gm/dL (13.0-17.0); Reticulocyte Percent 2.9 % (0.4-3.0)
[2017-12-26] MEDS: Sod Chloride 0.9% Inj 1,000 ML IV.CONT SCH (23:14)
[2017-12-27] MEDS: Melatonin 5 MG Tablet PO PRN (01:25)
[2017-12-27] MEDS: Sod Chloride 0.9% Inj 1,000 ML IV.CONT SCH ×3 (07:29→17:18)
[2017-12-27 07:31] LABS: Eos # (Auto) 0.2 th/mm3 (0.0-0.4); Eos % (Auto) 5.4 % (0.0-4.0); Hematocrit 23.8 % (39.0-51.0); Hemoglobin 8.5 gm/dL (13.0-17.0); Lymph # (Auto) 1.2 th/mm3 (1.0-4.8); Lymph % (Auto) 25.4 % (9.0-44.0); Mean Corpuscular HGB Conc 35.6 % (32.0-36.0); Mean Corpuscular Hemoglobin 30.9 pg (27.0-34.0); Mean Corpuscular Volume 86.7 fL (80.0-100.0); Mean Platelet Volume 8.5 fL (7.0-11.0); Mono # (Auto) 0.8 th/mm3 (0.0-0.9); Mono % (Auto) 16.8 % (0.0-8.0); Neut # (Auto) 2.3 th/mm3 (1.8-7.7); Neut % (Auto) 51.4 % (16.0-70.0); Platelet Count 458 th/mm3 (150-450); Red Blood Count 2.75 mil/mm3 (4.50-5.90); Red Cell Distribution Width 13.4 % (11.6-17.2); White Blood Count 4.6 th/mm3 (4.0-11.0)
--- NOTE | 2017-12-27 08:54 | P.CONGI ---
History of Present Illness Consult date: 12/27/17 Consult reason: Anemia with Hemoccult positive stools Chief complaint: Weakness History of Present Illness: This is a 72-year-old male with past medical history significant for hypertension, diabetes mellitus and coronary artery disease. Patient was initially seen by our service at [facility] on Saturday for complaints of epigastric abdominal pain that began 2 weeks prior. Patient was also found to be anemic with Hemoccult positive stools. He underwent EGD on Saturday with findings of severe grade D esophagitis covering the whole esophagus with deep ulcers, gastritis mostly in the antrum, duodenal bulb ulcer with no active bleeding. Patient was cleared from a GI standpoint to be discharged. Patient presented to [facility] yesterday with complaints of continued weakness. Patient denies any worsening of the weakness but states that he continues to feel weak. He denies any nausea or vomiting. Continues to have epigastric and periumbilical abdominal pain. He states that he has not had a bowel movement in a while, discussed with RN who did not receive and report the patient has had a bowel movement since arrival. It is noted in the emergency department note that patient had brown stool that was Hemoccult positive. Patient's blood count has actually been trending up since recent discharge. <Cinthya Singh - Last Filed: 12/27/17 08:45> Review of Systems Constitutional: Reports weakness Cardiovascular: Denies chest pain Respiratory: Denies shortness of breath Gastrointestinal: Reports abdominal pain, Denies black, tarry stools, Denies bright, red blood in stools, Denies change in bowel habits, Denies nausea, Denies vomiting <Cinthya Singh - Last Filed: 12/27/17 08:45> [facility] - History History Provided By: Patient - Medical History Medical History: Medical History (Last Reviewed 12/26/17 @ 14:41 by Yasmin Atkinson RN) Diabetes Hypertension ME (myocardial infarction) - Surgical History Surgical History: Surgical History (Last Reviewed 12/26/17 @ 14:41 by Yasmin Atkinson RN) H/O heart bypass surgery - Tobacco History Second Hand Smoke Exposure: No Tobacco Use In Past 30 Days: No Smoking Status: Never smoker - Alcohol History How Often Do You Have a Drink Containing Alcohol: Never - Substance Use History Substance History: No History of Abuse - Travel History Recent Travel in the [place] Within the Last 8 Weeks: No Recent Travel Out of the Country Within the Last 8 Weeks: No - Immunization History Tetanus Immunization: >5 Years <Cinthya Singh - Last Filed: 12/27/17 08:45> - Medical History Medical History: Medical History (Last Reviewed 12/26/17 @ 14:41 by Yasmin Atkinson, RN) Diabetes Hypertension ME (myocardial infarction) - Surgical History Surgical History: Surgical History (Last Reviewed 12/26/17 @ 14:41 by Yasmin Atkinson RN) H/O heart bypass surgery <Nargis Shipley - Last Filed: 12/27/17 13:00> Medications and Allergies Active Medications: Active Medications Acetaminophen (Tylenol) 650 mg PO Q4H PRN PRN Reason: Headache, fever, pain 1-4 Al Hydroxide/Mg Hydroxide (Milk Of Magnesia Liq) 30 ml PO Q12H PRN PRN Reason: Mild Constipation Amlodipine Besylate (Norvasc) 10 mg PO DAILY [facility] Bisacodyl (Dulcolax Supp) 10 mg RECTAL DAILY PRN PRN Reason: SEVERE CONSITIPATION Carvedilol (Coreg) 6.25 mg PO BID [facility] Citalopram Hydrobromide (Celexa) 20 mg PO DAILY [facility] Dextrose (D50w Vial) 50 ml IV.PUSH UNSCH PRN PRN Reason: PER HYPOGLYCEMIA PROTOCOL Gabapentin (Neurontin) 200 mg PO TID [facility] Glucagon (Glucagon Inj) 1 mg OTHER PRN PRN PRN Reason: for Hypoglycemia Protocol Sodium Chloride (Ns Inj) 1,000 mls @ 100 mls/hr IV.CONT .Q10H DEBBIE Last Admin: 12/27/17 08:43 Dose: 100 mls/hr Insulin Aspart (Novolog Insulin Correctional Sugar Inj) 0 unit SQ ACHS DEBBIE; Protocol Lactulose (Lactulose Liq) 30 ml PO DAILY PRN PRN Reason: SEVERE CONSITIPATION Lisinopril (Prinivil) 5 mg PO DAILY [facility] Melatonin (Melatonin) 5 mg PO HS PRN PRN Reason: INSOMNIA Last Admin: 12/27/17 01:25 Dose: 5 mg Ondansetron HCl (Zofran Inj) 4 mg IV.PUSH Q6H PRN PRN Reason: NAUSEA OR VOMITING Pantoprazole Sodium (Protonix) 40 mg PO BID [facility] Sennosides (Senokot) 17.2 mg PO Q12H PRN PRN Reason: Moderate Constipation Sodium Chloride (Ns Flush) 2 ml IV.FLUSH PRN PRN PRN Reason: FLUSH AFTER USING IV ACCESS Tamsulosin HCl (Flomax) 0.4 mg PO DAILY [facility] <Cinthya Singh - Last Filed: 12/27/17 08:45> Active Medications: Active Medications Acetaminophen (Tylenol) 650 mg PO Q4H PRN PRN Reason: Headache, fever, pain 1-4 Al Hydroxide/Mg Hydroxide (Milk Of Magnesia Liq) 30 ml PO Q12H PRN PRN Reason: Mild Constipation Amlodipine Besylate (Norvasc) 10 mg PO DAILY [facility] Last Admin: 12/27/17 09:40 Dose: 10 mg Bisacodyl (Dulcolax Supp) 10 mg RECTAL DAILY PRN PRN Reason: SEVERE CONSITIPATION Carvedilol (Coreg) 6.25 mg PO BID [facility] Last Admin: 12/27/17 09:40 Dose: 6.25 mg Citalopram Hydrobromide (Celexa) 20 mg PO DAILY [facility] Last Admin: 12/27/17 09:40 Dose: 20 mg Dextrose (D50w Vial) 50 ml IV.PUSH UNSCH PRN PRN Reason: PER HYPOGLYCEMIA PROTOCOL Gabapentin (Neurontin) 200 mg PO TID [facility] Last Admin: 12/27/17 09:39 Dose: 200 mg Glucagon (Glucagon Inj) 1 mg OTHER PRN PRN PRN Reason: for Hypoglycemia Protocol Sodium Chloride (Ns Inj) 1,000 mls @ 100 mls/hr IV.CONT .Q10H [facility] Last Admin: 12/27/17 08:43 Dose: 100 mls/hr Insulin Aspart (Novolog Insulin Correctional Sugar Inj) 0 unit SQ ACHS [facility]; Protocol Last Admin: 12/27/17 09:39 Dose: 1 unit Lactulose (Lactulose Liq) 30 ml PO DAILY PRN PRN Reason: SEVERE CONSITIPATION Lisinopril (Prinivil) 5 mg PO DAILY [facility] Last Admin: 12/27/17 09:40 Dose: 5 mg Melatonin (Melatonin) 5 mg PO HS PRN PRN Reason: INSOMNIA Last Admin: 12/27/17 01:25 Dose: 5 mg Ondansetron HCl (Zofran Inj) 4 mg IV.PUSH Q6H PRN PRN Reason: NAUSEA OR VOMITING Pantoprazole Sodium (Protonix) 40 mg PO BID [facility] Last Admin: 12/27/17 09:40 Dose: 40 mg Sennosides (Senokot) 17.2 mg PO Q12H PRN PRN Reason: Moderate Constipation Sodium Chloride (Ns Flush) 2 ml IV.FLUSH PRN PRN PRN Reason: FLUSH AFTER USING IV ACCESS Tamsulosin HCl (Flomax) 0.4 mg PO DAILY [facility] Last Admin: 12/27/17 09:40 Dose: 0.4 mg <Nargis Shipley - Last Filed: 12/27/17 13:00> Allergies Allergy/AdvReac Type Severity Reaction Status Date / Time No Known Allergies Allergy Verified 12/22/17 22:28 Home Medications Medication Instructions Recorded Confirmed Type ascorbic acid (vitamin C) [Vitamin 1,000 mg PO DAILY 11/29/17 12/26/17 History C] aspirin 81 mg PO DAILY 11/29/17 12/26/17 History cholecalciferol (vitamin D3) 1,000 unit PO DAILY 11/29/17 12/26/17 History [Vitamin D3] citalopram 20 mg PO DAILY 11/29/17 12/26/17 History cyanocobalamin (vitamin B-12) 1,000 mcg PO DAILY 11/29/17 12/26/17 History [Vitamin B-12] docusate sodium [Colace] 100 mg PO BID PRN 11/29/17 12/26/17 History ferrous gluconate 324 mg PO DAILY 11/29/17 12/26/17 History folic acid 0.5 mg PO DAILY 11/29/17 12/26/17 History gabapentin 600 mg PO TID 11/29/17 12/26/17 History metformin 1,000 mg PO BID 11/29/17 12/26/17 History Exam Vital signs: Vital Signs 12/26/17 14:42 12/26/17 19:10 12/27/17 00:00 Temperature 98.2 F 98.6 F Pulse Rate 64 64 75 Respiratory Rate 17 18 16 Blood Pressure 131/60 127/67 158/87 H Pulse Oximetry 98 99 99 12/27/17 04:00 12/27/17 07:19 12/27/17 07:40 Temperature 98.4 F 98.7 F Pulse Rate 73 67 73 Respiratory Rate 16 16 Blood Pressure 151/70 H 177/96 H Pulse Oximetry 98 99 Intake & Output 12/26/17 12/27/17 12/27/17 18:59 06:59 18:59 Intake Total 1000 / 1000 Output Total 100 / 100 Balance -100 / -100 1000 / 1000 Weight 61.235 kg Intake: IV 1000 / 1000 NS Inj 1,000 ML @ 100 mls/hr IV 1000 / 1000 .CONT .Q10H DEBBIE Rx#:[id number] Output: Urine 100 / 100 - Constitutional no acute distress - Routine HEENT Exam Head: Present: normocephalic, atraumatic - Routine Respiratory Exam Absent: accessory muscle use - Routine Abdominal Exam Present: soft, normoactive bowel sounds. Absent: tenderness, distended - Routine Skin Exam Present: dry, warm - Routine Neurological Exam Present: alert, oriented X3 <Cinthya Singh - Last Filed: 12/27/17 08:45> Vital signs: Vital Signs 12/26/17 14:42 12/26/17 19:10 12/27/17 00:00 Temperature 98.2 F 98.6 F Pulse Rate 64 64 75 Respiratory Rate 17 18 16 Blood Pressure 131/60 127/67 158/87 H Pulse Oximetry 98 99 99 12/27/17 04:00 12/27/17 07:19 12/27/17 07:40 Temperature 98.4 F 98.7 F Pulse Rate 73 67 73 Respiratory Rate 16 16 Blood Pressure 151/70 H 177/96 H Pulse Oximetry 98 99 12/27/17 09:00 Temperature Pulse Rate 66 Respiratory Rate Blood Pressure Pulse Oximetry Intake & Output 12/26/17 12/27/17 12/27/17 18:59 06:59 18:59 Intake Total 1000 / 1000 Output Total 100 / 100 400 / 400 Balance -100 / -100 600 / 600 Weight 61.235 kg Intake: IV 1000 / 1000 NS Inj 1,000 ML @ 100 mls/hr IV 1000 / 1000 .CONT .Q10H DEBBIE Rx#:[id number] Output: Urine 100 / 100 400 / 400 <Nargis Shipley - Last Filed: 12/27/17 13:00> Results - Labs CBC & Chem 7: 12/26/17 23:00 12/26/17 15:57 Labs: Laboratory Results - last 24 hr 12/26/17 12/26/17 12/26/17 15:57 15:57 15:57 WBC 4.2 RBC 2.62 L Hgb 8.0 L Hct 23.7 L MCV 90.4 MCH 30.4 MCHC 33.7 RDW 13.4 Plt Count 409 MPV 9.2 Prelim Diff (Auto) Slide review pending Neut % (Auto) 59.4 Lymph % (Auto) 16.9 Otero % (Auto) 16.5 H Eos % (Auto) 6.3 H Baso % (Auto) 0.9 Neut # (Auto) 2.5 Lymph # (Auto) 0.7 L Otero # (Auto) 0.7 Eos # (Auto) 0.3 Baso # (Auto) 0.0 WBC Differential . Diff Scan Auto diff confirmed Differential Comment . Retic Count Absolute Retic Haptoglobin PT 11.6 INR 1.1 Sodium 138 Potassium 4.3 Chloride 107 Carbon Dioxide 20.9 L Anion Gap 10 BUN 14 Creatinine 1.21 Estimated GFR 59 L Random Glucose 158 H Calcium 7.3 L* D Prot Corrected Calcium 8.3 L Iron TIBC % Saturation Ferritin Total Bilirubin 0.1 L AST 9 L ALT 8 L Alkaline Phosphatase 56 Lactate Dehydrogenase Total Creatine Kinase 37 L Troponin I Less than 0.02 L Total Protein 5.3 L Albumin 1.8 L Lipase 587 H Urine Color Urine Clarity Urine pH Ur Specific [place] Urine Protein Urine Glucose (UA) Urine Ketones Urine Occult Blood Urine Nitrate Urine Bilirubin Urine Urobilinogen Ur Leukocyte Esterase Urine RBC Urine WBC Hyaline Casts Urine Mucus Micro UA Comment Ur Microscopic Review Urine Culture Comments Blood Type Antibody Screen 12/26/17 12/26/17 12/26/17 15:57 15:57 16:41 WBC RBC Hgb Hct MCV MCH MCHC RDW Plt Count MPV Prelim Diff (Auto) Neut % (Auto) Lymph % (Auto) Otero % (Auto) Eos % (Auto) Baso % (Auto) Neut # (Auto) Lymph # (Auto) Otero # (Auto) Eos # (Auto) Baso # (Auto) WBC Differential Diff Scan Differential Comment Retic Count Absolute Retic Haptoglobin 288 H PT INR Sodium Potassium Chloride Carbon Dioxide Anion Gap BUN Creatinine Estimated GFR Random Glucose Calcium Prot Corrected Calcium Iron 18 L TIBC 193 L % Saturation 9.3 L Ferritin 78 Total Bilirubin AST ALT Alkaline Phosphatase Lactate Dehydrogenase 172 Total Creatine Kinase Troponin I Total Protein Albumin Lipase Urine Color Yellow Urine Clarity Hazy H Urine pH 5.0 Ur Specific [place] 1.023 Urine Protein 500 or greater Urine Glucose (UA) 50 Urine Ketones Trace H Urine Occult Blood Negative Urine Nitrate Negative Urine Bilirubin Negative Urine Urobilinogen Less than 2 Ur Leukocyte Esterase Negative Urine RBC 1 Urine WBC 4 Hyaline Casts 7 Urine Mucus Few H Micro UA Comment Culture not ind Ur Microscopic Review Not Reportable Urine Culture Comments Culture not ind Blood Type B Positive Antibody Screen Negative 12/26/17 23:00 WBC RBC Hgb 8.9 L Hct 26.5 L MCV MCH MCHC RDW Plt Count MPV Prelim Diff (Auto) Neut % (Auto) Lymph % (Auto) Otero % (Auto) Eos % (Auto) Baso % (Auto) Neut # (Auto) Lymph # (Auto) Otero # (Auto) Eos # (Auto) Baso # (Auto) WBC Differential Diff Scan Differential Comment Retic Count 2.9 Absolute Retic 87.0 Haptoglobin PT INR Sodium Potassium Chloride Carbon Dioxide Anion Gap BUN Creatinine Estimated GFR Random Glucose Calcium Prot Corrected Calcium Iron TIBC % Saturation Ferritin Total Bilirubin AST ALT Alkaline Phosphatase Lactate Dehydrogenase Total Creatine Kinase Troponin I Total Protein Albumin Lipase Urine Color Urine Clarity Urine pH Ur Specific [place] Urine Protein Urine Glucose (UA) Urine Ketones Urine Occult Blood Urine Nitrate Urine Bilirubin Urine Urobilinogen Ur Leukocyte Esterase Urine RBC Urine WBC Hyaline Casts Urine Mucus Micro UA Comment Ur Microscopic Review Urine Culture Comments Blood Type Antibody Screen - Imaging Impressions Chest X-Ray 12/26/17 15:06 CONCLUSION: Bibasilar airspace disease likely atelectasis although infiltrate cannot be excluded. <Cinthya Singh - Last Filed: 12/27/17 08:45> - Labs CBC & Chem 7: 12/27/17 06:31 12/26/17 15:57 Labs: Laboratory Results - last 24 hr 12/26/17 12/26/17 12/26/17 15:57 15:57 15:57 WBC 4.2 RBC 2.62 L Hgb 8.0 L Hct 23.7 L MCV 90.4 MCH 30.4 MCHC 33.7 RDW 13.4 Plt Count 409 MPV 9.2 Prelim Diff (Auto) Slide review pending Neut % (Auto) 59.4 Lymph % (Auto) 16.9 Otero % (Auto) 16.5 H Eos % (Auto) 6.3 H Baso % (Auto) 0.9 Neut # (Auto) 2.5 Lymph # (Auto) 0.7 L Otero # (Auto) 0.7 Eos # (Auto) 0.3 Baso # (Auto) 0.0 WBC Differential . Diff Scan Auto diff confirmed Differential Comment . Retic Count Absolute Retic Haptoglobin PT 11.6 INR 1.1 Sodium 138 Potassium 4.3 Chloride 107 Carbon Dioxide 20.9 L Anion Gap 10 BUN 14 Creatinine 1.21 Estimated GFR 59 L POC Glucose Random Glucose 158 H Calcium 7.3 L* D Prot Corrected Calcium 8.3 L Iron TIBC % Saturation Ferritin Total Bilirubin 0.1 L AST 9 L ALT 8 L Alkaline Phosphatase 56 Lactate Dehydrogenase Total Creatine Kinase 37 L Troponin I Less than 0.02 L Total Protein 5.3 L Albumin 1.8 L Lipase 587 H Urine Color Urine Clarity Urine pH Ur Specific [place] Urine Protein Urine Glucose (UA) Urine Ketones Urine Occult Blood Urine Nitrate Urine Bilirubin Urine Urobilinogen Ur Leukocyte Esterase Urine RBC Urine WBC Hyaline Casts Urine Mucus Micro UA Comment Ur Microscopic Review Urine Culture Comments Blood Type Antibody Screen 12/26/17 12/26/17 12/26/17 15:57 15:57 16:41 WBC RBC Hgb Hct MCV MCH MCHC RDW Plt Count MPV Prelim Diff (Auto) Neut % (Auto) Lymph % (Auto) Otero % (Auto) Eos % (Auto) Baso % (Auto) Neut # (Auto) Lymph # (Auto) Otero # (Auto) Eos # (Auto) Baso # (Auto) WBC Differential Diff Scan Differential Comment Retic Count Absolute Retic Haptoglobin 288 H PT INR Sodium Potassium Chloride Carbon Dioxide Anion Gap BUN Creatinine Estimated GFR POC Glucose Random Glucose Calcium Prot Corrected Calcium Iron 18 L TIBC 193 L % Saturation 9.3 L Ferritin 78 Total Bilirubin AST ALT Alkaline Phosphatase Lactate Dehydrogenase 172 Total Creatine Kinase Troponin I Total Protein Albumin Lipase Urine Color Yellow Urine Clarity Hazy H Urine pH 5.0 Ur Specific [place] 1.023 Urine Protein 500 or greater Urine Glucose (UA) 50 Urine Ketones Trace H Urine Occult Blood Negative Urine Nitrate Negative Urine Bilirubin Negative Urine Urobilinogen Less than 2 Ur Leukocyte Esterase Negative Urine RBC 1 Urine WBC 4 Hyaline Casts 7 Urine Mucus Few H Micro UA Comment Culture not ind Ur Microscopic Review Not Reportable Urine Culture Comments Culture not ind Blood Type B Positive Antibody Screen Negative 12/26/17 12/27/17 12/27/17 23:00 06:31 08:49 WBC 4.6 RBC 2.75 L Hgb 8.9 L 8.5 L Hct 26.5 L 23.8 L MCV 86.7 D MCH 30.9 MCHC 35.6 RDW 13.4 Plt Count 458 H MPV 8.5 Prelim Diff (Auto) Slide review pending Neut % (Auto) 51.4 Lymph % (Auto) 25.4 Otero % (Auto) 16.8 H Eos % (Auto) 5.4 H Baso % (Auto) 1.0 Neut # (Auto) 2.3 Lymph # (Auto) 1.2 Otero # (Auto) 0.8 Eos # (Auto) 0.2 Baso # (Auto) 0.0 WBC Differential . Diff Scan Auto diff confirmed Differential Comment . Retic Count 2.9 Absolute Retic 87.0 Haptoglobin PT INR Sodium Potassium Chloride Carbon Dioxide Anion Gap BUN Creatinine Estimated GFR POC Glucose 159 H Random Glucose Calcium Prot Corrected Calcium Iron TIBC % Saturation Ferritin Total Bilirubin AST ALT Alkaline Phosphatase Lactate Dehydrogenase Total Creatine Kinase Troponin I Total Protein Albumin Lipase Urine Color Urine Clarity Urine pH Ur Specific [place] Urine Protein Urine Glucose (UA) Urine Ketones Urine Occult Blood Urine Nitrate Urine Bilirubin Urine Urobilinogen Ur Leukocyte Esterase Urine RBC Urine WBC Hyaline Casts Urine Mucus Micro UA Comment Ur Microscopic Review Urine Culture Comments Blood Type Antibody Screen - Imaging Impressions Chest X-Ray 12/26/17 15:06 CONCLUSION: Bibasilar airspace disease likely atelectasis although infiltrate cannot be excluded. <Nargis Shipley - Last Filed: 12/27/17 13:00> Assessment and Plan - Plan Assessment Anemia with Hemoccult positive stoolsInitially seen by our [facility] for complaints of epigastric abdominal pain that began 2 weeks prior. Patient was also found to be anemic with Hemoccult positive stools. EGD on Saturday with findings of severe grade D esophagitis covering the whole esophagus with deep ulcers, gastritis mostly in the antrum, duodenal bulb ulcer with no active bleeding. Pathology (stomach antrum) minimally active chronic antral gastritis with intestinal metaplasia negative for H. pylori (esophagus) glandular mucosa with moderately active chronic inflammation and intestinal metaplasia negative for glandular dysplasia Patient was cleared from a GI standpoint to be discharged. Was advised to have outpt colonoscopy done Pt presented to [facility] yesterday with complaints of continued weakness. Denies nausea, vomiting. Patient is unsure when his last bowel movement was. It was noted in the ER notes that patient had brown Hemoccult positive stool. Patient continues to have epigastric and periumbilical pain. Hemoglobin has trended up since recent discharge Plan NM bleeding scan If positive will pursue endoscopic procedures Depending on hgb trend and clinical course, colonoscopy can be done Saturday versus outpatient Can be done on an emergent basis over the weekend if needed Serial H/H Continue Protonix Supportive care Further recommendations to follow This patient has been seen and examined by myself and Dr. Shipley this note is written on his behalf <Cinthya Singh - Last Filed: 12/27/17 08:45> - Plan Seen and examined with [employer], recent egd noted. Bleeding scan today. Colonoscopy depending upon above. Thank you The exam, history, and the medical decision-making described in the above note were completed with the assistance of the mid-level provider. I reviewed and agree with the findings presented. I attest that I had a [id number] encounter with the patient on the same day, and personally performed and documented my assessment and findings in the medical record. <Nargis Shipley - Last Filed: 12/27/17 13:00>
[2017-12-27] MEDS: Gabapentin 100 MG Capsule PO SCH ×3 (09:39→17:18)
[2017-12-27] MEDS: Insulin NovoLOG Aspart Correctional Sugar Inj SQ SCH ×4 (09:39→20:01)
[2017-12-27] MEDS: Carvedilol 6.25 MG Tablet PO SCH ×2 (09:40→19:59)
[2017-12-27] MEDS: Citalopram 20 MG Tablet PO SCH (09:40)
[2017-12-27] MEDS: amLODIPine 10 MG Tablet PO SCH (09:40)
[2017-12-27] MEDS: Lisinopril 5 MG Tablet PO SCH (09:40)
[2017-12-27] MEDS ORDERED: Heparin Central Flush 100 UNIT/ML 5 ML Vial IV.FLUSH ONE (10:06)
--- NOTE | 2017-12-27 13:38 | NM ---
EXAM DATE: 12/27/2017 11:03 AM EDT AGE/SEX: 72 years / Male INDICATIONS: Blood in stool. CLINICAL DATA: This is the patient's initial encounter. Patient reports that signs and symptoms have been present for 1 day and indicates a pain score of 5/10. MEDICAL/SURGICAL HISTORY: Diabetes mellitus type II. Hypertension. Myocardial infarction. CAB G. COMPARISON: No prior exams available for comparison. TECHNIQUE: Following the modified in vitro labeling of autologous red cells, dynamic continuous image s were acquired for two hours. ?? DOSE: 20.1 mCi Tc 99m Ultratag Labeled Red Blood Cells IV IMAGING TIME: 2 hr FINDINGS: Biodistribution: There is a very good labeling of red cells without significant uptake in the gastri c wall. There is good delineation of the blood pool of the spleen and abdominal vessels. Bleeding: No episodes of active GI bleeding are observed during two hours of continuous observation . CONCLUSION: Negative study Electronically signed by: Ankit Schilling MD 12/27/2017 1:36 PM EDT
--- NOTE | 2017-12-27 14:28 | P.DIET ---
Nutritional Evaluation Type of nutrition evaluation: initial Nutrition screening: Weight Loss > 10 lbs Subjective Subjective Comments: Weight loss of 10# reported. Pt ate 75% of his lunch today. Objective - Diagnosis Weakness - Objective Body Mass Index: 19.9 % IBW: 84 (IBW = 160#) Body Weight Used for Calculations: Actual (61.2 kg) Energy Needs - Lower Range (kCal/kg): 30 Energy Needs - Upper Range (kCal/kg): 35 Lower Limit kCal/kg (kCals): 1,836 Upper Limit kCal/kg (kCals): 2,142 Lower Limit Protein Factor (Grams per Kg): 1.2 Upper Limit Protein Factor (Grams per Kg): 1.5 Lower Protein Needs (Protein): 73 Upper Protein Needs (Protein): 92 Fluid Factor (ml/kg): 35 Estimated Fluid Needs (ml): 2,142 Dietitian Reviewed in Medical Record: Current diet, Curent medications, Intake & Output, Labs, Medical history Diet Order: Regular Objective Comments: 12/24 EGD -> severe grade D esophagitis Med hx includes DM glu 158 Assessment Assessment: Pt is at high nutrition risk 2' to dx, weight loss, and low wt for ht with a BMI of 19.9. GI work-up in progress. Will send Glucerna Shakes on trays; each 8 oz serving provides 220 kcals and [address] will monitor supplement acceptance. Pt's hx includes DM and glu is 158. Recommend the addition of 2000 ADA diet to diet order. Recommendations: 1. Change diet to 2000 ADA 2. Glucerna Shakes tid Dietitian to Monitor: Lab values, Glucose level, Supplement acceptance, Intake & Output, Diet tolerance, Weight change, PO Intake, Medical course
--- NOTE | 2017-12-27 18:05 | P.PN ---
Subjective Interval history: Patient is seen lying in bed. He tells me that he is feeling a little better and is not quite as weak. Denies any chest pain or shortness of breath. No nausea vomiting or diarrhea. Nursing reports no adverse events. Physical Exam Vital signs: Vital Signs 12/26/17 19:10 12/27/17 00:00 12/27/17 04:00 Temperature 98.6 F 98.4 F Pulse Rate 64 75 73 Respiratory Rate 18 16 16 Blood Pressure 127/67 158/87 H 151/70 H Pulse Oximetry 99 99 98 12/27/17 07:19 12/27/17 07:40 12/27/17 09:00 Temperature 98.7 F Pulse Rate 67 73 66 Respiratory Rate 16 Blood Pressure 177/96 H Pulse Oximetry 99 12/27/17 13:30 12/27/17 16:00 Temperature 97.9 F 98.5 F Pulse Rate 65 68 Respiratory Rate 14 16 Blood Pressure 141/69 H 135/68 Pulse Oximetry 99 98 Intake & Output 12/26/17 12/27/17 12/27/17 18:59 06:59 18:59 Intake Total 1999 Output Total 100 / 100 400 / 400 Balance -100 / -100 1600 / 1600 Weight 61.235 kg Intake: IV 1999 NS Inj 1,000 ML @ 100 mls/hr IV 1999 .CONT .Q10H [facility] Rx#:[id number] Output: Urine 100 / 100 400 / 400 Other: Post Void Residual 500 Narrative: GENERAL: This is a well-nourished, well-developed patient, in no apparent distress. SKIN: No obvious rashes, ecchymoses or lesions. Warm and dry. HEAD: Atraumatic. Normocephalic. No temporal or scalp tenderness. CARDIOVASCULAR: Regular rate and rhythm without murmurs, gallops, or rubs. RESPIRATORY: Clear to auscultation. Breath sounds equal bilaterally. No wheezes , rales, or rhonchi. GASTROINTESTINAL: Abdomen soft, non-tender, nondistended. No guarding. MUSCULOSKELETAL: Extremities without clubbing, cyanosis, or edema. NEUROLOGICAL: Awake and alert. Cranial nerves II through XII intact. No focal neurological deficits. Normal speech. Results - Labs CBC & Chem 7: 12/27/17 06:31 12/26/17 15:57 Laboratory Results - last 24 hr 12/26/17 12/26/17 12/27/17 15:57 23:00 06:31 WBC 4.6 RBC 2.75 L Hgb 8.9 L 8.5 L Hct 26.5 L 23.8 L MCV 86.7 D MCH 30.9 MCHC 35.6 RDW 13.4 Plt Count 458 H MPV 8.5 Prelim Diff (Auto) Slide review pending Neut % (Auto) 51.4 Lymph % (Auto) 25.4 [place] % (Auto) 16.8 H Eos % (Auto) 5.4 H Baso % (Auto) 1.0 Neut # (Auto) 2.3 Lymph # (Auto) 1.2 [place] # (Auto) 0.8 Eos # (Auto) 0.2 Baso # (Auto) 0.0 WBC Differential . Diff Scan Auto diff confirmed Differential Comment . Retic Count 2.9 Absolute Retic 87.0 Haptoglobin 288 H POC Glucose Iron 18 L TIBC 193 L % Saturation 9.3 L Ferritin 78 Lactate Dehydrogenase 172 12/27/17 12/27/17 08:49 17:03 WBC RBC Hgb Hct MCV MCH MCHC RDW Plt Count MPV Prelim Diff (Auto) Neut % (Auto) Lymph % (Auto) [place] % (Auto) Eos % (Auto) Baso % (Auto) Neut # (Auto) Lymph # (Auto) [place] # (Auto) Eos # (Auto) Baso # (Auto) WBC Differential Diff Scan Differential Comment Retic Count Absolute Retic Haptoglobin POC Glucose 159 H 397 H Iron TIBC % Saturation Ferritin Lactate Dehydrogenase - Imaging Impressions GI Bleed Scan Nuclear Medicine 12/27/17 00:00 CONCLUSION: Negative study Assessment and Plan - Assessment (1) Anemia Code(s): D64.9 - Anemia, unspecified Status: Acute (2) Pancreatitis Code(s): K85.90 - Acute pancreatitis without necrosis or infection, unspecified Status: Acute (3) Physical deconditioning Code(s): R53.81 - Other malaise Status: Acute (4) Self-care deficit in patient living alone Code(s): R46.89 - Other symptoms and signs involving appearance and behavior Status: Acute - Plan Mr. Coffey is a pleasant 72 year old male with a history of CAD s/p CABG, DM who presents to the ED today due to generalized weakness he experienced at a diner today. He reports weakness that has been going on for a month or so. He underwent EGD recently. His Hgb was over 13 before 12/03/2017 and on arrival, his Hgb is 8.0. Acute symptomatic anemia likely due to GI blood loss -Hgb >13.0 to 8.0 in less than a month. Currently stable. -EGD on 12/24/2017 shows diffuse esophagitis with deep ulcers. -Will obtain a GI consult for repeat EGD and possible colonoscopy as well -IF GI work up is negative, patient could benefit from an outpatient hematology evaluation. Patient does have monocytosis. Pancreatitis -Mild elevation in lipase; monitor -Diet as tolerated and as per GI Weakness and weight loss -PT eval ordered -Dietary consult ordered Diabetes mellitus Diabetic neuropathy -Will start sliding scale insulin. Goal BG 140-180. -If needed, will initiate Levemir -Continue Gabapentin (reduced dose). Chronic kidney disease Stage 3A -Avoid nephrotoxins. CAD s/p CABG Hypertension -Will continue Coreg 6.25mg BID, Amlodipine 10mg, Lisinopril 5mg -Will hold Aspirin for now. BPH - Tamsulosin 0.4mg Qday. Full code. DVT prophylaxis: SCDs. Discharge planning: Possible rehab (1) Anemia Qualifiers: Anemia type: unspecified type Qualified Code(s): D64.9 - Anemia, unspecified
[2017-12-27] MEDS: Acetaminophen 325 MG Tablet PO PRN (19:59)
--- NOTE | 2017-12-27 20:45 | ECG ---
Date Performed: 12/26/2017 Time Performed: 15:54:55 PTAGE: 72 years EKG: Sinus rhythm NONSPECIFIC T-WAVE ABNORMALITY BORDERLINE ECG PREVIOUS TRACING : 12/24/2017 11.17 Since the previous tracing, no significant change noted DOCTOR: Frankie Winters Interpretating Date/Time 12/27/2017 20:43:28
[2017-12-28] MEDS: Sod Chloride 0.9% Inj 1,000 ML IV.CONT SCH ×3 (04:17→22:20)
[2017-12-28] MEDS: Acetaminophen 325 MG Tablet PO PRN ×5 (04:17→23:07)
[2017-12-28 05:59] LABS: Baso # (Auto) 0.1 th/mm3 (0.0-0.2); Baso % (Auto) 1.1 % (0.0-2.0); Eos # (Auto) 0.2 th/mm3 (0.0-0.4); Eos % (Auto) 3.8 % (0.0-4.0); Hematocrit 23.8 % (39.0-51.0); Hemoglobin 8.4 gm/dL (13.0-17.0); Lymph # (Auto) 1.3 th/mm3 (1.0-4.8); Lymph % (Auto) 24.2 % (9.0-44.0); Mean Corpuscular HGB Conc 35.1 % (32.0-36.0); Mean Corpuscular Hemoglobin 30.8 pg (27.0-34.0); Mean Corpuscular Volume 87.9 fL (80.0-100.0); Mean Platelet Volume 8.4 fL (7.0-11.0); Mono # (Auto) 0.7 th/mm3 (0.0-0.9); Mono % (Auto) 13.7 % (0.0-8.0); Neut % (Auto) 57.2 % (16.0-70.0); Platelet Count 473 th/mm3 (150-450); Red Blood Count 2.71 mil/mm3 (4.50-5.90); Red Cell Distribution Width 13.6 % (11.6-17.2); White Blood Count 5.2 th/mm3 (4.0-11.0)
[2017-12-28 06:25] LABS: Anion Gap 9 meq/L (5-15); Aspartate Aminotransferase 13 U/L (15-37); Blood Urea Nitrogen 10 mg/dL (7-18); Calcium 8.1 mg/dL (8.5-10.1); Carbon Dioxide 22.4 meq/L (21.0-32.0); Chloride 106 meq/L (98-107); Glomerular Filtration Rate 68 mL/min (>89); Glucose,Random 87 mg/dL (74-106); Lipase 347 U/L (73-393); Potassium 3.7 meq/L (3.5-5.1); Sodium 137 meq/L (136-145)
[2017-12-28 06:27] LABS: Alanine Aminotransferase 11 U/L (12-78)
[2017-12-28 06:29] LABS: Alkaline Phosphatase 60 U/L (45-117); Total Protein 5.6 g/dL (6.4-8.2)
[2017-12-28 08:39] LABS: Eosinophils 1 % (0-4); Lymphocytes 19 % (9-44); Monocytes 16 % (0-8); Myelocytes 2 % (0-0); Platelet Morphology Normal (Normal); Tallied Nucleated RBC 1 (0-0); Toxic Granulation 1+
[2017-12-28 08:40] LABS: Acanthocytes 1+; Dimorphic RBC Present
[2017-12-28] MEDS: Insulin NovoLOG Aspart Correctional Sugar Inj SQ SCH ×4 (08:51→20:38)
[2017-12-28] MEDS: Lisinopril 5 MG Tablet PO SCH (09:32)
[2017-12-28] MEDS: Citalopram 20 MG Tablet PO SCH (09:32)
[2017-12-28] MEDS: Carvedilol 6.25 MG Tablet PO SCH ×2 (09:33→20:31)
[2017-12-28] MEDS: Gabapentin 100 MG Capsule PO SCH ×3 (09:33→17:01)
[2017-12-28] MEDS: amLODIPine 10 MG Tablet PO SCH (09:33)
--- NOTE | 2017-12-28 10:34 | P.PN ---
Subjective Interval history: Follow-up for symptomatic anemia likely due to GI blood loss. Patient is currently doing well. He is getting up and denies feeling dizziness or lightheadedness. He continues to have dark stool. GI is following. Physical Exam Vital signs: Vital Signs 12/27/17 13:30 12/27/17 16:00 12/27/17 20:00 Temperature 97.9 F 98.5 F 98.1 F Pulse Rate 65 68 62 Respiratory Rate 14 16 19 Blood Pressure 141/69 H 135/68 161/85 H Pulse Oximetry 99 98 98 12/28/17 00:00 12/28/17 04:00 12/28/17 08:00 Temperature 97.3 F L 97.2 F L 97.8 F Pulse Rate 61 65 69 Respiratory Rate 19 19 17 Blood Pressure 126/69 181/85 H 159/81 H Pulse Oximetry 97 97 100 Intake & Output 12/27/17 12/28/17 12/28/17 18:59 06:59 18:59 Intake Total 1999 / 1999 1999 / 1999 Output Total 400 / 400 300 / 300 Balance 1600 / 1600 1700 / 1700 Weight 61.3 kg Intake: IV 1999 1000 / 1000 NS Inj 1,000 ML @ 100 mls/hr IV 1999 / 1999 1000 / 1000 .CONT .Q10H [facility] Rx#:[id number] Oral 1000 / 1000 Output: Urine 400 / 400 300 / 300 Other: Post Void Residual 500 # Voids 900 Date of Last Bowel Movement 12/27/17 Narrative: GENERAL: This is a well-nourished, well-developed patient, in no apparent distress. SKIN: No obvious rashes, ecchymoses or lesions. Warm and dry. HEAD: Atraumatic. Normocephalic. No temporal or scalp tenderness. CARDIOVASCULAR: Regular rate and rhythm without murmurs, gallops, or rubs. RESPIRATORY: Clear to auscultation. Breath sounds equal bilaterally. No wheezes , rales, or rhonchi. GASTROINTESTINAL: Abdomen soft, non-tender, nondistended. No guarding. MUSCULOSKELETAL: Extremities without clubbing, cyanosis, or edema. NEUROLOGICAL: Awake and alert. Cranial nerves II through XII intact. No focal neurological deficits. Normal speech. Results - Labs CBC & Chem 7: 12/28/17 03:46 12/28/17 03:46 Laboratory Results - last 24 hr 12/27/17 12/27/17 12/27/17 06:31 17:03 20:01 WBC RBC Hgb Hct MCV MCH MCHC RDW Plt Count MPV Prelim Diff (Auto) Neut % (Auto) Lymph % (Auto) [place] % (Auto) Eos % (Auto) Baso % (Auto) Neut # (Auto) Lymph # (Auto) [place] # (Auto) Eos # (Auto) Baso # (Auto) WBC Differential . Diff Scan Auto diff confirmed Seg Neuts % (Manual) Band Neuts % (Manual) Lymphocytes % (Manual) Monocytes % (Manual) Eosinophils % (Manual) Myelocytes % (Man) Abs Neuts (Manual) Nucleated RBCs/100 WBC Differential Comment Toxic Granulation Platelet Estimate Platelet Morphology Dimorphic RBCs Acanthocytes (Spur) Sodium Potassium Chloride Carbon Dioxide Anion Gap BUN Creatinine Estimated GFR POC Glucose 397 H 139 H Random Glucose Calcium Total Bilirubin AST ALT Alkaline Phosphatase Total Protein Albumin Lipase 12/28/17 12/28/17 12/28/17 03:46 03:46 08:02 WBC 5.2 RBC 2.71 L Hgb 8.4 L Hct 23.8 L MCV 87.9 MCH 30.8 MCHC 35.1 RDW 13.6 Plt Count 473 H MPV 8.4 Prelim Diff (Auto) Slide review pending Neut % (Auto) 57.2 Lymph % (Auto) 24.2 [place] % (Auto) 13.7 H Eos % (Auto) 3.8 Baso % (Auto) 1.1 Neut # (Auto) 3.0 Lymph # (Auto) 1.3 [place] # (Auto) 0.7 Eos # (Auto) 0.2 Baso # (Auto) 0.1 WBC Differential Manual diff final Diff Scan Seg Neuts % (Manual) 55 Band Neuts % (Manual) 7 H Lymphocytes % (Manual) 19 Monocytes % (Manual) 16 H Eosinophils % (Manual) 1 Myelocytes % (Man) 2 H Abs Neuts (Manual) 3.3 Nucleated RBCs/100 WBC 1 H Differential Comment . Toxic Granulation 1+ H Platelet Estimate High H Platelet Morphology Normal Dimorphic RBCs Present H Acanthocytes (Spur) 1+ H Sodium 137 Potassium 3.7 Chloride 106 Carbon Dioxide 22.4 Anion Gap 9 BUN 10 Creatinine 1.07 Estimated GFR 68 L POC Glucose 123 H Random Glucose 87 Calcium 8.1 L D Total Bilirubin 0.1 L AST 13 L ALT 11 L Alkaline Phosphatase 60 Total Protein 5.6 L Albumin 2.0 L Lipase 347 - Imaging Impressions GI Bleed Scan Nuclear Medicine 12/27/17 00:00 CONCLUSION: Negative study Assessment and Plan - Assessment (1) Anemia Code(s): D64.9 - Anemia, unspecified Status: Acute (2) Pancreatitis Code(s): K85.90 - Acute pancreatitis without necrosis or infection, unspecified Status: Acute (3) Physical deconditioning Code(s): R53.81 - Other malaise Status: Acute (4) Self-care deficit in patient living alone Code(s): R46.89 - Other symptoms and signs involving appearance and behavior Status: Acute - Plan Mr. Coffey is a pleasant 72 year old male with a history of CAD s/p CABG, DM who presents to the ED today due to generalized weakness he experienced at a diner today. He reports weakness that has been going on for a month or so. He underwent EGD recently. His Hgb was over 13 before 12/03/2017 and on arrival, his Hgb is 8.0. Acute symptomatic anemia likely due to GI blood loss -Hgb >13.0 to 8.0 in less than a month. Currently hemoglobin is hovering around 8.5, 8.4. -EGD on 12/24/2017 shows diffuse esophagitis with deep ulcers. -GI is following. GI bleed scan showed no identifiable source of bleeding. -May need outpatient capsule endoscopy -Iron panel shows low saturation. If no colonoscopy planned, we can likely start patient on Iron supplements. -Continue Protonix 40 mg twice daily Diabetes mellitus Diabetic neuropathy -Will start sliding scale insulin. Goal BG 140-180. -If needed, will initiate Levemir -Continue Gabapentin (reduced dose). Chronic kidney disease Stage 3A -Avoid nephrotoxins. CAD s/p CABG Hypertension -Will continue Coreg 6.25mg BID, Amlodipine 10mg, Lisinopril 5mg -Will hold Aspirin for now. BPH - Tamsulosin 0.4mg Qday. Full code. SCDs. Discharge : Possible discharge over the weekend if Hgb remains stable. Outpatient work up can be pursued. (1) Anemia Qualifiers: Anemia type: unspecified type Qualified Code(s): D64.9 - Anemia, unspecified
[2017-12-28] MEDS ORDERED: Magnesium Citrate Liq 300 ML Bottle PO ONE (13:21)
[2017-12-28] MEDS: Melatonin 5 MG Tablet PO PRN (20:38)
--- NOTE | 2017-12-28 21:30 | P.PNGI ---
Subjective Interval history: Feeling tired, constipated.No nausea, vomiting .Complaining of abdominal pain, tolerating diet well Physical Exam Vital signs: Vital Signs 12/28/17 00:00 12/28/17 04:00 12/28/17 08:00 Temperature 97.3 F L 97.2 F L 97.8 F Pulse Rate 61 65 70 Respiratory Rate 19 19 17 Blood Pressure 126/69 181/85 H 159/81 H Pulse Oximetry 97 97 100 12/28/17 12:00 12/28/17 16:00 12/28/17 20:00 Temperature 97.9 F 97.8 F 98.1 F Pulse Rate 70 61 62 Respiratory Rate 17 17 18 Blood Pressure 124/62 127/71 144/73 H Pulse Oximetry 97 98 96 Intake & Output 12/28/17 12/28/17 12/29/17 06:59 18:59 06:59 Intake Total 2000 / 1999 1720 / 1720 Output Total 300 / 300 3 / 3 Balance 1700 / 1700 1717 / 1717 Weight 61.3 kg Intake: IV 1000 / 1000 1000 / 1000 NS Inj 1,000 ML @ 100 mls/hr IV 1000 / 1000 1000 / 1000 .CONT .Q10H [facility] Rx#:[id number] Oral 1000 / 1000 720 / 720 Output: Urine 300 / 300 3 / 3 Other: # Voids 900 Date of Last Bowel Movement 12/27/17 - Constitutional no acute distress - Routine HEENT Exam Head: Present: normocephalic Eye: Present: EOMI ENT: Present: mucous membranes moist - Routine Neck Exam Present: supple - Routine Respiratory Exam Comments: normal - Routine Cardiovascular Exam Present: S1 - Routine Abdominal Exam Present: soft, normoactive bowel sounds - Routine Extremities Exam Present: full ROM, pulses intact - Routine Skin Exam Present: intact - Routine Neurological Exam Present: alert, oriented X3 - Routine Psychiatric Exam Present: normal affect Results - Labs CBC & Chem 7: 12/29/17 04:40 12/28/17 03:46 Laboratory Results - last 24 hr 12/28/17 12/28/17 12/28/17 03:46 03:46 08:02 WBC 5.2 RBC 2.71 L Hgb 8.4 L Hct 23.8 L MCV 87.9 MCH 30.8 MCHC 35.1 RDW 13.6 Plt Count 473 H MPV 8.4 Prelim Diff (Auto) Slide review pending Neut % (Auto) 57.2 Lymph % (Auto) 24.2 [place] % (Auto) 13.7 H Eos % (Auto) 3.8 Baso % (Auto) 1.1 Neut # (Auto) 3.0 Lymph # (Auto) 1.3 [place] # (Auto) 0.7 Eos # (Auto) 0.2 Baso # (Auto) 0.1 WBC Differential Manual diff final Seg Neuts % (Manual) 55 Band Neuts % (Manual) 7 H Lymphocytes % (Manual) 19 Monocytes % (Manual) 16 H Eosinophils % (Manual) 1 Myelocytes % (Man) 2 H Abs Neuts (Manual) 3.3 Nucleated RBCs/100 WBC 1 H Differential Comment . Toxic Granulation 1+ H Platelet Estimate High H Platelet Morphology Normal Dimorphic RBCs Present H Acanthocytes (Spur) 1+ H Sodium 137 Potassium 3.7 Chloride 106 Carbon Dioxide 22.4 Anion Gap 9 BUN 10 Creatinine 1.07 Estimated GFR 68 L POC Glucose 123 H Random Glucose 87 Calcium 8.1 L D Total Bilirubin 0.1 L AST 13 L ALT 11 L Alkaline Phosphatase 60 Total Protein 5.6 L Albumin 2.0 L Lipase 347 12/28/17 12/28/17 12/28/17 12:19 16:57 20:33 WBC RBC Hgb Hct MCV MCH MCHC RDW Plt Count MPV Prelim Diff (Auto) Neut % (Auto) Lymph % (Auto) [place] % (Auto) Eos % (Auto) Baso % (Auto) Neut # (Auto) Lymph # (Auto) [place] # (Auto) Eos # (Auto) Baso # (Auto) WBC Differential Seg Neuts % (Manual) Band Neuts % (Manual) Lymphocytes % (Manual) Monocytes % (Manual) Eosinophils % (Manual) Myelocytes % (Man) Abs Neuts (Manual) Nucleated RBCs/100 WBC Differential Comment Toxic Granulation Platelet Estimate Platelet Morphology Dimorphic RBCs Acanthocytes (Spur) Sodium Potassium Chloride Carbon Dioxide Anion Gap BUN Creatinine Estimated GFR POC Glucose 304 H 147 H 184 H Random Glucose Calcium Total Bilirubin AST ALT Alkaline Phosphatase Total Protein Albumin Lipase Assessment and Plan - Attending Attestation Abdominal pain chronic possible secondary constipation-we will give a bottle of magnesium citrate Anemia no indication of gi bleeding-recent egd noter Constipation-magnesium citrate Recommendations magnesium citrate egd/colon Saturday monitor hb transfuse prn
[2017-12-29 06:26] LABS: Hematocrit 20.7 % (39.0-51.0); Hemoglobin 7.4 gm/dL (13.0-17.0)
[2017-12-29] MEDS: Sod Chloride 0.9% Inj 1,000 ML IV.CONT SCH ×4 (07:58→15:19)
--- NOTE | 2017-12-29 08:54 | P.DCO ---
- Physical Therapy Order: Evaluate and treat, Improve ambulation, Strength and gait training - Home Health Nursing Order: Medical education, Signs/symptoms of disease process, Medication education-adverse effect, Nursing assessment with vital signs - Case Management Consult No - Certification I have seen patient Bharathi Coffey on 12/29/17. My clinical findings support the need for the requested home health care services because: Limited mobility due to disease progression, Deconditioned with increased weakness, Medication compliance is questionable, Limited ability to care for self, High risk of falls, Infection with risk of complications I certify that my clinical findings support that this patient is homebound because: Impaired cognitive ability/safety, Unsteady gait/balance, Unsafe to leave home unassisted, Need for psychosocial assistance, Unable to use public transportation
[2017-12-29] MEDS: Insulin NovoLOG Aspart Correctional Sugar Inj SQ SCH ×4 (09:06→20:12)
[2017-12-29] MEDS: Gabapentin 100 MG Capsule PO SCH ×3 (09:07→17:08)
[2017-12-29] MEDS: amLODIPine 10 MG Tablet PO SCH (09:07)
[2017-12-29] MEDS: Carvedilol 6.25 MG Tablet PO SCH ×2 (09:07→20:10)
[2017-12-29] MEDS: Citalopram 20 MG Tablet PO SCH (09:08)
[2017-12-29] MEDS: Lisinopril 5 MG Tablet PO SCH (09:08)
[2017-12-29] MEDS: Morphine Inj 4 MG/ML Vial IV.PUSH PRN ×2 (10:39→18:47)
--- NOTE | 2017-12-29 12:22 | P.PN ---
Subjective Interval history: Follow-up for symptomatic anemia likely due to GI blood loss. Patient is currently doing well. Denies any chest pain, shortness of breath, fever or chills. Globin dropped from 8.4-->7.4. He is a scheduled for EGD and colonoscopy tomorrow. Physical Exam Vital signs: Vital Signs 12/28/17 16:00 12/28/17 19:00 12/28/17 20:00 Temperature 97.8 F 98.1 F Pulse Rate 61 62 Respiratory Rate 17 18 18 Blood Pressure 127/71 144/73 H Pulse Oximetry 98 96 12/28/17 23:37 12/29/17 00:00 12/29/17 04:00 Temperature 97.5 F L 97.5 F L Pulse Rate 66 62 Respiratory Rate 17 16 16 Blood Pressure 105/63 147/73 H Pulse Oximetry 95 95 12/29/17 08:00 Temperature 97.7 F Pulse Rate 64 Respiratory Rate 17 Blood Pressure 151/76 H Pulse Oximetry 97 Intake & Output 12/28/17 12/29/17 12/29/17 18:59 06:59 18:59 Intake Total 1720 / 1720 1000 / 1000 1000 / 1000 Output Total 3 / 3 Balance 1717 / 1717 1000 / 1000 1000 / 1000 Weight 77.4 kg Intake: IV 1000 / 1000 1000 / 1000 1000 / 1000 NS Inj 1,000 ML @ 100 mls/hr IV 1000 / 1000 1000 / 1000 1000 / 1000 .CONT .Q10H [facility] Rx#:[id number] Oral 720 / 720 Output: Urine 3 / 3 Other: Date of Last Bowel Movement 12/27/17 12/29/17 12/29/17 # Bowel Movements 1 Narrative: GENERAL: This is a well-nourished, well-developed patient, in no apparent distress. SKIN: No obvious rashes, ecchymoses or lesions. Warm and dry. HEAD: Atraumatic. Normocephalic. No temporal or scalp tenderness. CARDIOVASCULAR: Regular rate and rhythm without murmurs, gallops, or rubs. RESPIRATORY: Clear to auscultation. Breath sounds equal bilaterally. No wheezes , rales, or rhonchi. GASTROINTESTINAL: Abdomen soft, non-tender, nondistended. No guarding. MUSCULOSKELETAL: Extremities without clubbing, cyanosis, or edema. NEUROLOGICAL: Awake and alert. Cranial nerves II through XII intact. No focal neurological deficits. Normal speech. Results - Labs CBC & Chem 7: 12/29/17 04:40 12/28/17 03:46 Laboratory Results - last 24 hr 12/28/17 12/28/17 12/28/17 12:19 16:57 20:33 Hgb Hct POC Glucose 304 H 147 H 184 H 12/29/17 12/29/17 12/29/17 04:40 07:55 11:56 Hgb 7.4 L Hct 20.7 L* POC Glucose 135 H 217 H Assessment and Plan - Assessment (1) Anemia Code(s): D64.9 - Anemia, unspecified Status: Acute (2) Pancreatitis Code(s): K85.90 - Acute pancreatitis without necrosis or infection, unspecified Status: Acute (3) Physical deconditioning Code(s): R53.81 - Other malaise Status: Acute (4) Self-care deficit in patient living alone Code(s): R46.89 - Other symptoms and signs involving appearance and behavior Status: Acute - Plan Mr. Coffey is a pleasant 72 year old male with a history of CAD s/p CABG, DM who presents to the ED today due to generalized weakness he experienced at a diner today. He reports weakness that has been going on for a month or so. He underwent EGD recently. His Hgb was over 13 before 12/03/2017 and on arrival, his Hgb is 8.0. Acute symptomatic anemia likely due to GI blood loss -Hgb >13.0 to 8.0 in less than a month. Hemoglobin dropped from 8.4 to 7.4. Will transfuse if below 7.0. -EGD on 12/24/2017 shows diffuse esophagitis with deep ulcers. -GI is following. GI bleed scan showed no identifiable source of bleeding. -EGD/Colonoscopy scheduled for tomorrow 12/30/2017. -Continue Protonix 40 mg twice daily Diabetes mellitus Diabetic neuropathy -Sliding scale insulin. Goal BG 140-180. -Will start low dose Levemir 5 units QHS. -Continue Gabapentin (reduced dose). Chronic kidney disease Stage 3A -Avoid nephrotoxins. CAD s/p CABG Hypertension -Will continue Coreg 6.25mg BID, Amlodipine 10mg, Lisinopril 5mg -Hold Aspirin. BPH - Tamsulosin 0.4mg Qday. Full code. SCDs. (1) Anemia Qualifiers: Anemia type: unspecified type Qualified Code(s): D64.9 - Anemia, unspecified
[2017-12-29 12:33] LABS: Hematocrit 20.4 % (39.0-51.0)
[2017-12-29] MEDS ORDERED: Sodium Chlor 0.9% Inj 250 ML IV.SIG SCH (13:00)
[2017-12-29] MEDS ORDERED: PEG 3350/E-Lyte Soln 4000 ML Bottle PO ONE (14:40)
--- NOTE | 2017-12-29 16:09 | P.PNGI ---
Subjective Interval history: Pt is resting in bed, working on drinking Fritter, denies nausea, vomiting or bleeding, he is having mid abd pain <Tu Simmons - Last Filed: 12/29/17 16:02> Physical Exam Vital signs: Vital Signs 12/28/17 19:00 12/28/17 20:00 12/28/17 23:37 Temperature 98.1 F Pulse Rate 62 Respiratory Rate 18 18 17 Blood Pressure 144/73 H Pulse Oximetry 96 12/29/17 00:00 12/29/17 04:00 12/29/17 08:00 Temperature 97.5 F L 97.5 F L 97.7 F Pulse Rate 66 62 64 Respiratory Rate 16 16 17 Blood Pressure 105/63 147/73 H 151/76 H Pulse Oximetry 95 95 97 12/29/17 12:00 Temperature 98.3 F Pulse Rate 65 Respiratory Rate 17 Blood Pressure 108/56 L Pulse Oximetry 94 L Intake & Output 12/28/17 12/29/17 12/29/17 18:59 06:59 18:59 Intake Total 1720 / 1720 1000 / 1000 1880 / 1880 Output Total 3 / 3 Balance 1717 / 1717 1000 / 1000 1880 / 1880 Weight 77.4 kg Intake: IV 1000 / 1000 1000 / 1000 1880 / 1880 NS Inj 1,000 ML @ 100 mls/hr IV 1000 / 1000 1000 / 1000 1880 / 1880 .CONT .Q10H [facility] Rx#:[id number] Oral 720 / 720 Output: Urine 3 / 3 Other: Date of Last Bowel Movement 12/27/17 12/29/17 12/29/17 # Bowel Movements 1 Narrative: GENERAL: This is a well-nourished, in no apparent distress. SKIN: No obvious rashes, ecchymoses or lesions. Warm and dry. HEAD: Atraumatic. Normocephalic. No temporal or scalp tenderness. CARDIOVASCULAR: Regular rate and rhythm without murmurs, gallops, or rubs. RESPIRATORY: Clear to auscultation. Breath sounds equal bilaterally. No wheezes , rales, or rhonchi. GASTROINTESTINAL: Abdomen soft, mid abd tenderness, nondistended. No guarding. MUSCULOSKELETAL: Extremities without clubbing, cyanosis, or edema. NEUROLOGICAL: Awake and alert. <Tu Simmons - Last Filed: 12/29/17 16:02> Vital signs: Vital Signs 12/29/17 08:00 12/29/17 12:00 12/29/17 16:00 Temperature 97.7 F 98.3 F 97.1 F L Pulse Rate 64 65 63 Respiratory Rate 17 17 16 Blood Pressure 151/76 H 108/56 L 112/59 L Pulse Oximetry 97 94 L 95 12/29/17 17:29 12/29/17 17:45 12/29/17 18:49 Temperature 97.8 F 98.1 F Pulse Rate 66 63 Respiratory Rate 17 17 17 Blood Pressure 117/62 108/63 Pulse Oximetry 97 97 12/29/17 20:00 12/30/17 00:00 Temperature 97.6 F 97.3 F L Pulse Rate 66 56 L Respiratory Rate 18 18 Blood Pressure 153/75 H 136/69 Pulse Oximetry 99 98 Intake & Output 12/29/17 12/29/17 12/30/17 06:59 18:59 06:59 Intake Total 1000 / 1000 3980 / 3980 800 / 800 Balance 1000 / 1000 3980 / 3980 800 / 800 Weight 77.4 kg 77.9 kg Intake: IV 1000 / 1000 1880 / 1880 NS Inj 1,000 ML @ 100 mls/hr IV 1000 / 1000 1880 / 1880 .CONT .Q10H [facility] Rx#:[id number] Oral 720 / 720 400 / 400 Oral Supplement 1380 / 1380 Intake (Blood Product) Amt 0 / 0 400 / 400 Rbc As-3 Leukoreduced Unit 0 / 0 400 / 400 [id number] Other: # Voids 3 Date of Last Bowel Movement 12/29/17 12/29/17 # Bowel Movements 1 3 <Josie Maria - Last Filed: 12/30/17 06:59> Results - Labs CBC & Chem 7: 12/29/17 11:40 12/28/17 03:46 Laboratory Results - last 24 hr 12/28/17 12/28/17 12/29/17 16:57 20:33 04:40 Hgb 7.4 L Hct 20.7 L* POC Glucose 147 H 184 H MTS Gel Crossmatch 12/29/17 12/29/17 12/29/17 07:55 11:40 11:56 Hgb 7.0 L Hct 20.4 L* POC Glucose 135 H 217 H MTS Gel Crossmatch 12/29/17 14:39 Hgb Hct POC Glucose MTS Gel Crossmatch See Detail <Tu Simmons - Last Filed: 12/29/17 16:02> - Labs CBC & Chem 7: 12/30/17 04:28 12/28/17 03:46 Laboratory Results - last 24 hr 12/29/17 12/29/17 12/29/17 07:55 11:40 11:56 WBC RBC Hgb 7.0 L Hct 20.4 L* MCV MCH MCHC RDW Plt Count MPV Neut % (Auto) Lymph % (Auto) [place] % (Auto) Eos % (Auto) Baso % (Auto) Neut # (Auto) Lymph # (Auto) [place] # (Auto) Eos # (Auto) Baso # (Auto) WBC Differential Differential Comment Smear Path Review Hematology Comments POC Glucose 135 H 217 H Blood Type Antibody Screen MTS Gel Crossmatch 12/29/17 12/29/17 12/29/17 14:39 17:10 20:03 WBC RBC Hgb Hct MCV MCH MCHC RDW Plt Count MPV Neut % (Auto) Lymph % (Auto) [place] % (Auto) Eos % (Auto) Baso % (Auto) Neut # (Auto) Lymph # (Auto) [place] # (Auto) Eos # (Auto) Baso # (Auto) WBC Differential Differential Comment Smear Path Review Hematology Comments POC Glucose 229 H 175 H Blood Type B Positive Antibody Screen Negative MTS Gel Crossmatch See Detail 12/29/17 12/30/17 22:07 04:28 WBC 9.5 RBC 3.71 L Hgb 10.6 L D 11.1 L Hct 31.0 L 32.0 L MCV 86.3 MCH 30.0 MCHC 34.8 RDW 14.3 Plt Count 530 H MPV 8.5 Neut % (Auto) 75.9 H Lymph % (Auto) 13.2 [place] % (Auto) 7.5 Eos % (Auto) 2.6 Baso % (Auto) 0.8 Neut # (Auto) 7.2 Lymph # (Auto) 1.3 [place] # (Auto) 0.7 Eos # (Auto) 0.2 Baso # (Auto) 0.1 WBC Differential . Differential Comment Auto diff final Smear Path Review Hematology Comments POC Glucose Blood Type Antibody Screen MTS Gel Crossmatch <Josie Maria - Last Filed: 12/30/17 06:59> Assessment and Plan - Plan Anemia with Hemoccult positive stools hgb today is 7.0, no bleeding reported EGD on Saturday with findings of severe grade D esophagitis covering the whole esophagus with deep ulcers, gastritis mostly in the antrum, duodenal bulb ulcer with no active bleeding. Pathology (stomach antrum) minimally active chronic antral gastritis with intestinal metaplasia negative for H. pylori (esophagus) glandular mucosa with moderately active chronic inflammation and intestinal metaplasia negative for glandular dysplasia Bleeding scan negative CT of a/p on 12/22/17 with no acute findings, stable hiatal hernia Plan Clears EGD/colonoscopy in the am Transfuse blood, 2 units ordered monitor hh Continue Protonix Supportive care Further recommendations to follow This patient has been seen and examined by myself and Dr. Maria this note is written on her behalf <Tu Simmons - Last Filed: 12/29/17 16:02> - Attending Attestation seen, examined agree with above hematology consult <Josie Maria - Last Filed: 12/30/17 06:59>
--- NOTE | 2017-12-29 18:45 | MB ---
cc: Jeremias Julio MD, Beatrice S MD DATE: 12/29/2017 CONSULTING PHYSICIAN: Josie Maria MD REASON FOR CONSULTATION: Hematology is consulted to render an opinion regarding a patient with anemia. HISTORY OF PRESENT ILLNESS: The patient is a 72-year-old male who presented to the hospital with increased weakness that had been going on for about a month. He also endorsed losing 10 pounds over 1-2 months and a decreased appetite. Stool occult blood test was positive in the emergency room. He had an upper endoscopy done on 12/24/2017 which showed esophagitis and deep ulcers. He presented with hemoglobin of 8. In 11/2017, his hemoglobin was normal. He also complained of chronic mid abdominal pain. He has poor eyesight and could not tell the color of his stool. He denies any dysuria or hematuria. He denies any diarrhea. He has a mild nonproductive cough. Denies significant shortness of breath. PAST MEDICAL HISTORY: Coronary artery disease, diabetes mellitus, hypertension, myocardial infarction, chronic kidney disease, stage III, neuropathy, benign prostatic hypertrophy. PAST SURGICAL HISTORY: Coronary artery bypass graft surgery. SOCIAL HISTORY: No tobacco or alcohol use. FAMILY HISTORY: No bleeding disorders. ALLERGIES: NO KNOWN DRUG ALLERGIES. CURRENT MEDICATIONS: 1. Norvasc. 2. Coreg. 3. Celexa. 4. Neurontin. 5. Insulin. 6. Prinivil. 7. Flomax. REVIEW OF SYSTEMS: CONSTITUTIONAL: As above. EYES: He has poor eyesight. ENT: Negative. CARDIOVASCULAR: No chest pain or palpitations. RESPIRATORY: As above. GASTROINTESTINAL: As above. GENITOURINARY: Negative. MUSCULOSKELETAL: Negative. HEMATOLOGIC: As above. ENDOCRINE: Negative. DERMATOLOGIC: Negative. PSYCHIATRIC: Negative. NEUROLOGIC: Negative. PHYSICAL EXAMINATION: VITAL SIGNS: Temperature 98.3, blood pressure 108/56, O2 saturation 94% on room air. GENERAL: He is alert, oriented x 3, in no acute distress, looks pale. HEENT: Atraumatic, normocephalic. Pupils are equal, round and reactive to light. Extraocular muscles intact. No scleral icterus. Oropharynx with dry mucosa. No lesions, no thrush. NECK: No thyromegaly. No palpable mass. LYMPHATIC: No palpable cervical, clavicular or axillary lymph nodes. HEART: Regular S1, S2. No murmur. LUNGS: Clear to auscultation with mild wheezing. ABDOMEN: Soft. There is soreness in the mid abdomen. No rebound, no rigidity. Positive bowel sounds. EXTREMITIES: No cyanosis, no clubbing, no edema, no calf tenderness. BACK: No paravertebral tenderness. SKIN: No rash or petechiae. NEUROLOGIC: Nonfocal. ASSESSMENT: 1. Anemia, which appears to be of rather acute onset. In November, his hemoglobin was more than 14. He presented in early December with a hemoglobin of less than 10. It has trended down to 7 over the last 1 week. He had an upper endoscopy on 12/24/2017 which showed esophagitis with deep ulcers. His occult blood test was positive. He had a bleeding scan on 12/27/2017 which was negative for active bleeding. His iron studies show an iron saturation of 9.3 with a ferritin of 78, but TIBC is low. I think he likely has iron deficiency due to a gastrointestinal bleed. He is scheduled for an upper endoscopy and colonoscopy tomorrow. Would recommend giving him transfusion for a hemoglobin less than 7. Can also consider giving him a Venofer infusion after the gastrointestinal evaluation. 2. Abnormal white cell differential. His peripheral blood showed bandemia with monocytosis and toxic granulation. His total white count is not elevated. He is afebrile. Urinalysis is unremarkable. Chest x-ray showed airspace disease, likely atelectasis. No clear infection noted. Continue to monitor for now. 3. Coronary artery disease, status post coronary artery bypass graft surgery. 4. Diabetes mellitus. 5. Peripheral neuropathy. 6. Chronic kidney disease, which could cause anemia but not to this degree of anemia. 7. Benign prostatic hypertrophy. RECOMMENDATIONS: 1. Continue to monitor CBC. 2. Recommend a transfusion to keep hemoglobin above 7. 3. Await EGD and colonoscopy tomorrow. 4. Consider giving him a Venofer infusion. 5. Discussed with Dr. Barney. Thank you, Dr. Maria, for asking me to see this patient. MD FLOR Meehan/eliana , 03:21 PM , 03:32 PM [place]
[2017-12-29] MEDS: Melatonin 5 MG Tablet PO PRN (20:20)
[2017-12-29] MEDS ORDERED: Insulin Detemir Inj 1,000 UNIT/10 ML Vial SQ SCH (21:00)
[2017-12-29 22:33] LABS: Hemoglobin 10.6 gm/dL (13.0-17.0)
[2017-12-30] MEDS: Sod Chloride 0.9% Inj 1,000 ML IV.CONT SCH ×2 (01:19→10:59)
[2017-12-30] MEDS ORDERED: Chlorhexidine Gluconate 2% 1 Pack (2 Cloths) TOPICAL ONE (02:14)
[2017-12-30 06:37] LABS: Baso # (Auto) 0.1 th/mm3 (0.0-0.2); Baso % (Auto) 0.8 % (0.0-2.0); Eos # (Auto) 0.2 th/mm3 (0.0-0.4); Eos % (Auto) 2.6 % (0.0-4.0); Hemoglobin 11.1 gm/dL (13.0-17.0); Lymph # (Auto) 1.3 th/mm3 (1.0-4.8); Lymph % (Auto) 13.2 % (9.0-44.0); Mean Corpuscular HGB Conc 34.8 % (32.0-36.0); Mean Corpuscular Volume 86.3 fL (80.0-100.0); Mean Platelet Volume 8.5 fL (7.0-11.0); Mono # (Auto) 0.7 th/mm3 (0.0-0.9); Mono % (Auto) 7.5 % (0.0-8.0); Neut # (Auto) 7.2 th/mm3 (1.8-7.7); Neut % (Auto) 75.9 % (16.0-70.0); Platelet Count 530 th/mm3 (150-450); Red Blood Count 3.71 mil/mm3 (4.50-5.90); Red Cell Distribution Width 14.3 % (11.6-17.2); White Blood Count 9.5 th/mm3 (4.0-11.0)
[2017-12-30 07:22] LABS: Folate 19.1 ng/mL (3.1-17.5)
[2017-12-30] MEDS: Gabapentin 100 MG Capsule PO SCH ×3 (08:28→17:15)
[2017-12-30] MEDS: amLODIPine 10 MG Tablet PO SCH (08:28)
[2017-12-30] MEDS: Citalopram 20 MG Tablet PO SCH (08:28)
[2017-12-30] MEDS: Lisinopril 5 MG Tablet PO SCH (08:28)
[2017-12-30] MEDS: Carvedilol 6.25 MG Tablet PO SCH (08:29)
[2017-12-30] MEDS: Insulin NovoLOG Aspart Correctional Sugar Inj SQ SCH ×3 (08:30→16:06)
[2017-12-30] MEDS ORDERED: Lidocaine PF 1% Inj 5 ML Syringe OTHER ONE (10:09)
--- NOTE | 2017-12-30 10:46 | GIPROC ---
[facility] [address] [facility]. [facility], [address] COLONOSCOPY PROCEDURE REPORT EXAM DATE: 12/30/2017 PATIENT NAME: Bharathi Coffey MR #: [id number] BIRTHDATE: 1945 ENDOSCOPIST: Josie Maria MD ORDER #: [id number] PAD EXTRACTION TENDER: Tiana Sage and Kwaku Gonzales STATUS: inpatient INDICATIONS: The patient is a 72 yr old male here for a colonoscopy due to anemia, gi bleeding PROCEDURE PERFORMED: Colonoscopy with polypectomy MEDICATIONS: None and Per Anesthesia. PREP QUALITY: fair PREP TYPE:Other: ESTIMATED BLOOD LOSS: None CONSENT: The patient understands the risks and benefits of the procedure and understands that these risks include, but are not limited to: sedation, allergic reaction, infection, perforation and/or bleeding. Alternative means of evaluation and treatment include, among others: physical exam, x-rays, and/or surgical intervention. The patient elects to proceed with this endoscopic procedure. medical equipment was checked for proper function. Hand hygiene and appropriate measures for infection prevention was taken. After the risks, benefits and alternatives of the procedure were thoroughly explained, Informed consent was verified, confirmed and timeout was successfully executed by the treatment team. A digital exam revealed external hemorrhoids The Pentax EC-[id number] endoscope was introduced through the anus and advanced to the cecum, which was identified by both the appendix and ileocecal valve. The instrument was then slowly withdrawn as the colon was fully examined. COLON FINDINGS: Diverticulosis sigmoid,descending polyp sessile cecum-1 cm- hot snare polypectomy with complete removal. Retroflexed views revealed internal hemorrhoids and Retroflexed views revealed medium internal hemorrhoids The scope was then completely withdrawn from the patient and the procedure terminated. PROCEDURE WITHDRAWAL TIME:11minutes ADVERSE EVENTS: There were no complications. IMPRESSIONS: 1. Diverticulosi sigmoid,descending polyp sessile cecum-1 cm- hot snare polypectomy with complete removal 2. Retroflexed views revealed internal hemorrhoids 3. Retroflexed views revealed medium internal hemorrhoids 4. Revealed external hemorrhoids RECOMMENDATIONS: 1. Await biopsy results. Biopsy results will not be ready for 7-10 days. If you don't hear from us in two weeks, call our office for results. 2. Benefiber 2 tsp daily 3. High fiber diet 4. Probiotics from any [facility] or health food store 5. Yearly rectal exams 6. Fu office ok to wa home from gi point hematology eval RECALL: Return 3 years Colonoscopy Josie Maria MD eSigned: Josie Maria MD 12/30/2017 10:45 AM cc: PATIENT NAME: Bharathi Coffey MR#: [id number]
--- NOTE | 2017-12-30 10:50 | GIPROC ---
[facility] [address] [facility]. [facility], [address] EGD PROCEDURE REPORT EXAM DATE: 12/30/2017 PATIENT NAME: Bharathi Coffey MR #: [id number] BIRTHDATE: 1945 ATTENDING: Josie Maria MD ORDER #: [id number] TAXATION ACCOUNTANT: Tiana Sage and Kwaku Gonzales STATUS: inpatient INDICATIONS: The patient is a 72 yr old male here for an EGD due to anemia, gi bleeding PROCEDURE PERFORMED: EGD w/ biopsy MEDICATIONS: None and Per Anesthesia. TOPICAL ANESTHETIC: none CONSENT: The patient understands the risks and benefits of the procedure and understands that these risks include, but are not limited to: sedation, allergic reaction, infection, perforation and/or bleeding. Alternative means of evaluation and treatment include, among others: physical exam, x-rays, and/or surgical intervention. The patient elects to proceed with this endoscopic procedure. medical equipment was checked for proper function. Hand hygiene and appropriate measures for infection prevention was taken. After the risks, benefits and alternatives of the procedure were thoroughly explained, Informed consent was verified, confirmed and timeout was successfully executed by the treatment team. The patient was anesthetized with topical anesthesia and the EC-[id number] (Pedi C) endoscope was introduced through the mouth and advanced to the second portion of the duodenum. Retroflexed views revealed a hiatal hernia The gastroscope was then slowly withdrawn and removed. Duodenum normal-biopsy gastritis antrum-biopsy severe esophagitis, stricture distal esophagus-biopsy. ADVERSE EVENTS: There were no complications. IMPRESSIONS: 1. Duodenum normal-biopsy gastritis antrum-biopsy severe esophagitis, stricture distal esophagus-biopsy 2. Retroflexed views revealed a hiatal hernia RECOMMENDATIONS: 1. Await biopsy results. Biopsy results will not be ready for 7-10 days. If you don't hear from us in two weeks, call our office for biopsy results. 2. Anti-reflux regimen 3. Continue PPI 4. Avoid NSAIDS PATIENT CONDITION: stable DISPOSITION: Inpatient REPEAT EXAM: Return 3 months EGD Josie Maria MD eSigned: Josie Maria MD 12/30/2017 10:49 AM cc:
--- NOTE | 2017-12-30 15:26 | P.PNONC ---
Subjective Interval history: Afebrile Patient resting in bed after recently returning from GI procedure Denies any shalom bleeding Agreeable to IV iron Objective Vital Signs/Intake & Output: Vital Signs 12/29/17 16:00 12/29/17 17:29 12/29/17 17:45 Temperature 97.1 F L 97.8 F 98.1 F Pulse Rate 63 66 63 Respiratory Rate 16 17 17 Blood Pressure 112/59 L 117/62 108/63 Pulse Oximetry 95 97 97 12/29/17 18:49 12/29/17 20:00 12/30/17 00:00 Temperature 97.6 F 97.3 F L Pulse Rate 66 56 L Respiratory Rate 17 18 18 Blood Pressure 153/75 H 136/69 Pulse Oximetry 99 98 12/30/17 08:00 12/30/17 10:55 12/30/17 12:00 Temperature 97.7 F 98 F 97.4 F L Pulse Rate 68 56 L 69 Respiratory Rate 14 14 14 Blood Pressure 175/81 H 109/64 163/77 H Pulse Oximetry 96 93 L 95 Intake & Output 12/29/17 12/30/17 12/30/17 18:59 06:59 18:59 Intake Total 3980 / 3980 1800 / 1800 1700 / 1700 Balance 3980 / 3980 1800 / 1800 1700 / 1700 Weight 171 lb 11.841 oz Intake: IV 1880 / 1880 1000 / 1000 1250 / 1250 NS Inj 1,000 ML @ 100 mls/hr IV 1880 / 1880 1000 / 1000 1000 / 1000 .CONT .Q10H [facility] Rx#:[id number] NS Inj 250 ML @ 15 mls/hr IV. 250 / 250 SIG ONCE DEBBIE Rx#:[id number] Oral 720 / 720 400 / 400 Oral Supplement 1380 / 1380 Anesthesia Amount 450 / 450 Intake (Blood Product) Amt 0 / 0 400 / 400 Rbc As-3 Leukoreduced Unit 0 / 0 400 / 400 [id number] Other: # Voids 3 Date of Last Bowel Movement 12/29/17 12/30/17 # Bowel Movements 3 Result Diagrams: 12/30/17 04:28 12/28/17 03:46 Laboratory Results: Laboratory Results - last 24 hr 12/29/17 12/29/17 12/29/17 14:39 17:10 20:03 WBC RBC Hgb Hct MCV MCH MCHC RDW Plt Count MPV Neut % (Auto) Lymph % (Auto) [place] % (Auto) Eos % (Auto) Baso % (Auto) Neut # (Auto) Lymph # (Auto) [place] # (Auto) Eos # (Auto) Baso # (Auto) WBC Differential Differential Comment Smear Path Review Hematology Comments POC Glucose 229 H 175 H Vitamin B12 Folate Blood Type B Positive Antibody Screen Negative MTS Gel Crossmatch See Detail 12/29/17 12/30/17 12/30/17 22:07 04:28 04:28 WBC 9.5 RBC 3.71 L Hgb 10.6 L D 11.1 L Hct 31.0 L 32.0 L MCV 86.3 MCH 30.0 MCHC 34.8 RDW 14.3 Plt Count 530 H MPV 8.5 Neut % (Auto) 75.9 H Lymph % (Auto) 13.2 [place] % (Auto) 7.5 Eos % (Auto) 2.6 Baso % (Auto) 0.8 Neut # (Auto) 7.2 Lymph # (Auto) 1.3 [place] # (Auto) 0.7 Eos # (Auto) 0.2 Baso # (Auto) 0.1 WBC Differential . Differential Comment Auto diff final Smear Path Review Hematology Comments POC Glucose Vitamin B12 961 Folate 19.1 H Blood Type Antibody Screen MTS Gel Crossmatch 12/30/17 12/30/17 08:27 11:29 WBC RBC Hgb Hct MCV MCH MCHC RDW Plt Count MPV Neut % (Auto) Lymph % (Auto) [place] % (Auto) Eos % (Auto) Baso % (Auto) Neut # (Auto) Lymph # (Auto) [place] # (Auto) Eos # (Auto) Baso # (Auto) WBC Differential Differential Comment Smear Path Review Hematology Comments POC Glucose 81 86 Vitamin B12 Folate Blood Type Antibody Screen MTS Gel Crossmatch Medications: Active Medications Generic Name Dose Route Start Last Admin Trade Name Freq PRN Reason Stop Dose Admin Acetaminophen 650 mg 12/26/17 17:32 12/28/17 23:07 Tylenol PO 650 mg Q4H PRN Administration Headache, fever, pain 1-4 Amlodipine Besylate 10 mg 12/27/17 09:00 12/30/17 08:28 Norvasc PO 10 mg DAILY DEBBIE Administration Carvedilol 6.25 mg 12/27/17 09:00 12/30/17 08:29 Coreg PO 6.25 mg BID DEBBIE Administration Citalopram Hydrobromide 20 mg 12/27/17 09:00 12/30/17 08:28 Celexa PO 20 mg DAILY DEBBIE Administration Diphenhydramine HCl 25 mg 12/29/17 12:33 12/29/17 17:08 Benadryl PO 25 mg Q4H PRN Administration SEE LABEL COMMENTS Gabapentin 200 mg 12/27/17 09:00 12/30/17 12:02 Neurontin PO 200 mg TID DEBBIE Administration Sodium Chloride 1,000 mls @ 100 mls/hr 12/26/17 18:00 12/30/17 10:59 Ns Inj IV.CONT Not Given .Q10H [facility] Lactated Ringer's 1,000 mls @ 30 mls/hr 12/30/17 02:15 12/30/17 08:30 Lr 1000 Ml Inj IV.SIG 12/31/17 02:14 30 mls/hr .Q24H DEB[facility] Administration Insulin Aspart 0 unit 12/27/17 08:00 12/30/17 11:29 Novolog Insulin Correctional Sugar Inj SQ Not Given ACHS [facility] Protocol Insulin Detemir 5 unit 12/29/17 21:00 12/29/17 20:12 Levemir Inj SQ 5 unit HS DEBBIE Administration Lisinopril 5 mg 12/27/17 09:00 12/30/17 08:28 Prinivil PO 5 mg DAILY DEBBIE Administration Melatonin 5 mg 12/27/17 01:00 12/29/17 20:20 Melatonin PO 5 mg HS PRN Administration INSOMNIA Morphine Sulfate 4 mg 12/29/17 10:00 12/29/17 18:47 Morphine Inj IV.PUSH 4 mg Q4H PRN Administration Pain 5-10, Abdominal pain Ondansetron HCl 4 mg 12/26/17 17:32 12/28/17 20:38 Zofran Inj IV.PUSH 4 mg Q6H PRN Administration NAUSEA OR VOMITING Pantoprazole Sodium 40 mg 12/27/17 09:00 12/30/17 08:29 Protonix PO 40 mg BID DEBBIE Administration Tamsulosin HCl 0.4 mg 12/27/17 09:00 12/30/17 08:28 Flomax PO 0.4 mg DAILY DEBBIE Administration Objective Remarks: GENERAL: Older male resting in bed in no acute distress SKIN: Warm and dry. HEAD: Normocephalic. EYES: No scleral icterus. No injection or drainage. NECK: Supple, trachea midline. No JVD or lymphadenopathy. CARDIOVASCULAR: Regular rate and rhythm without murmurs. RESPIRATORY: Clear anteriorly. Breathing unlabored at rest. GASTROINTESTINAL: Abdomen soft, protuberant. EXTREMITIES: No cyanosis, or edema. MUSCULOSKELETAL: Adequate muscle tone. NEUROLOGICAL: Somewhat slow to respond. Follows commands. Awake and alert. Assessment/Plan - Plan 72-year-old male admitted to the hospital with increased weakness found to have a positive Hemoccult in the setting of anemia. He had a normal hemoglobin in November and presented in early December with a hemoglobin of less than 10. He had endoscopy at that time that showed deep ulcers. His hemoglobin dropped even further and the decision was made to scope him again. 1. Reviewed GI findings after procedures today. His endoscopy revealed severe esophagitis. The colonoscopy revealed a 1 cm polyp in the cecum. He was noted to have internal hemorrhoids. 2. Continue with Venofer infusion 3. Monitor CBC. Supportive care. - Attending Statement The exam, history, and the medical decision-making described in the above note were completed with the assistance of the mid-level provider. I reviewed and agree with the findings presented. I attest that I had a [id number] encounter with the patient on the same day, and personally performed and documented my assessment and findings in the medical record.Feels better after the transfusion. EGD showed severe esophagitis. Anemia appear to be due to GI bleed. Will give venofer.
[2017-12-30] MEDS ORDERED: Iron Sucrose Inj 200 MG in Sodium Chlor 0.9% Inj 100 ML IV.SIG SCH (16:00)
--- NOTE | 2017-12-30 16:15 | P.DS ---
Date of admission: 12/26/17 18:27 Primary care physician: [facility] Attending physician on discharge: Luis Barney Anticipated date of discharge: 12/30/17 Brief History from admission: Mr. Coffey is a pleasant 72 year old male with a history of CAD, DM who presents to the ED due to weakness. He went to a diner today and felt extremely weak and subsequently requested 911 to be called. Over the last month or so, he has had worsening of his weakness. He describes himself as a strong person. He denies any chest pain, shortness of breath, fever, chills. No night sweats. However, he does report over 10 lb weight loss in the last month or two. He denies any nausea, vomiting. Denies any hematochezia or melena. However, Hemoccult was positive in the ED. Hgb 8.0 on admission today. On 12/03/2017 and prior, his hemoglobin was consistently above 13.0. PMH: CAD s/p CABG, DM, HTN PSH: CABG Social history: denies using tobacco, illicit drugs or alcohol. Family history: No family history of Alzheimer's or Parkinson's. DS: Diagnosis - Discharge Diagnosis (1) Anemia Status: Acute (2) Pancreatitis Status: Acute (3) Physical deconditioning Status: Acute (4) Self-care deficit in patient living alone Status: Acute DS: Summary Hospital Course: Mr. Coffey is a pleasant 72 year old male with a history of CAD s/p CABG, DM who presents to the ED today due to generalized weakness he experienced at a diner today. He reports weakness that has been going on for a month or so. He underwent EGD recently. His Hgb was over 13 before 12/03/2017 and on arrival, his Hgb is 8.0. Acute symptomatic anemia likely due to GI blood loss -Hgb >13.0 to 8.0 in less than a month. Hemoglobin dropped from 8.4 to 7.4. -Hgb dropped to 7 and patient received 1 units of PRBCs. -EGD on 12/24/2017 shows diffuse esophagitis with deep ulcers. -GI is following. GI bleed scan showed no identifiable source of bleeding. -EGD/Colonoscopy done on 12/30/2017. -Continue Protonix 40 mg twice daily Diabetes mellitus Diabetic neuropathy -Sliding scale insulin. Goal BG 140-180. -Levemir 5 units QHS inpatient. -Continue Gabapentin (reduced dose). -Metformin upon discharge. Chronic kidney disease Stage 3A -Avoid nephrotoxins. CAD s/p CABG Hypertension -Will continue Coreg 6.25mg BID, Amlodipine 10mg, Lisinopril 5mg -D/C Aspirin. BPH - Tamsulosin 0.4mg Qday. Full code. SCDs. Patient underwent EGD/Colonoscopy on 12/30/2017. GI cleared for discharge today. Follow up with GI in 2 weeks. - Time Spent with Patient Total time spent providing and/or coordinating discharge services: Less than 30 minutes - Quality: VTE Deep Vein Thrombosis/Pulmonary Embolism Present on Admission: No Exam Vital signs: Vital Signs 12/29/17 17:29 12/29/17 17:45 12/29/17 18:49 Temperature 97.8 F 98.1 F Pulse Rate 66 63 Respiratory Rate 17 17 17 Blood Pressure 117/62 108/63 Pulse Oximetry 97 97 12/29/17 20:00 12/30/17 00:00 12/30/17 08:00 Temperature 97.6 F 97.3 F L 97.7 F Pulse Rate 66 56 L 68 Respiratory Rate 18 18 14 Blood Pressure 153/75 H 136/69 175/81 H Pulse Oximetry 99 98 96 12/30/17 10:55 12/30/17 12:00 Temperature 98 F 97.4 F L Pulse Rate 56 L 69 Respiratory Rate 14 14 Blood Pressure 109/64 163/77 H Pulse Oximetry 93 L 95 Intake & Output 12/29/17 12/30/17 12/30/17 18:59 06:59 18:59 Intake Total 3980 / 3980 1800 / 1800 1700 / 1700 Balance 3980 / 3980 1800 / 1800 1700 / 1700 Weight 77.9 kg Intake: IV 1880 / 1880 1000 / 1000 1250 / 1250 NS Inj 1,000 ML @ 100 mls/hr IV 1880 / 1880 1000 / 1000 1000 / 1000 .CONT .Q10H DEBBIE Rx#:[id number] NS Inj 250 ML @ 15 mls/hr IV. 250 / 250 SIG ONCE DEBBIE Rx#:[id number] Oral 720 / 720 400 / 400 Oral Supplement 1380 / 1380 Anesthesia Amount 450 / 450 Intake (Blood Product) Amt 0 / 0 400 / 400 Rbc As-3 Leukoreduced Unit 0 / 0 400 / 400 [id number] Other: # Voids 3 Date of Last Bowel Movement 12/29/17 12/30/17 # Bowel Movements 3 Results Procedures completed during hospitalization: Colonoscopy IMPRESSIONS: 1. Diverticulosi sigmoid,descending polyp sessile cecum-1 cm- hot snare polypectomy with complete removal 2. Retroflexed views revealed internal hemorrhoids 3. Retroflexed views revealed medium internal hemorrhoids 4. Revealed external hemorrhoids RECOMMENDATIONS: 1. Await biopsy results. Biopsy results will not be ready for 7-10 days. If you don't hear from us in two weeks, call our office for results. 2. Benefiber 2 tsp daily 3. High fiber diet 4. Probiotics from any [facility] or [employer] food store 5. Yearly rectal exams 6. Fu office [place] to [facility] eval RECALL: Return 3 years Colonoscopy EGD IMPRESSIONS: 1. Duodenum normal-biopsy gastritis antrum-biopsy severe esophagitis, stricture distal esophagus-biopsy 2. Retroflexed views revealed a hiatal hernia RECOMMENDATIONS: 1. Await biopsy results. Biopsy results will not be ready for 7-10 days. If you don't hear from us in two weeks, call our office for biopsy results. 2. Anti-reflux regimen 3. Continue PPI 4. Avoid NSAIDS PATIENT CONDITION: stable DISPOSITION: Inpatient REPEAT EXAM: Return 3 months EGD Pending studies at discharge: Pending at discharge 12/30/17 14:52 Surgical [PTH] Routine Labs on day of discharge: Labs from last 24 hours 12/30/17 12/30/17 12/30/17 11:29 08:27 04:28 WBC RBC Hgb Hct MCV MCH MCHC RDW Plt Count MPV Neut % (Auto) Lymph % (Auto) Nye % (Auto) Eos % (Auto) Baso % (Auto) Neut # (Auto) Lymph # (Auto) Nye # (Auto) Eos # (Auto) Baso # (Auto) WBC Differential Differential Comment Smear Path Review Hematology Comments POC Glucose 86 81 Vitamin B12 961 Folate 19.1 H Blood Type Antibody Screen MTS Gel Crossmatch 12/30/17 12/29/17 12/29/17 04:28 22:07 20:03 WBC 9.5 RBC 3.71 L Hgb 11.1 L 10.6 L D Hct 32.0 L 31.0 L MCV 86.3 MCH 30.0 MCHC 34.8 RDW 14.3 Plt Count 530 H MPV 8.5 Neut % (Auto) 75.9 H Lymph % (Auto) 13.2 Nye % (Auto) 7.5 Eos % (Auto) 2.6 Baso % (Auto) 0.8 Neut # (Auto) 7.2 Lymph # (Auto) 1.3 Nye # (Auto) 0.7 Eos # (Auto) 0.2 Baso # (Auto) 0.1 WBC Differential . Differential Comment Auto diff final Smear Path Review Hematology Comments POC Glucose 175 H Vitamin B12 Folate Blood Type Antibody Screen MTS Gel Crossmatch 12/29/17 12/29/17 17:10 14:39 WBC RBC Hgb Hct MCV MCH MCHC RDW Plt Count MPV Neut % (Auto) Lymph % (Auto) Nye % (Auto) Eos % (Auto) Baso % (Auto) Neut # (Auto) Lymph # (Auto) Nye # (Auto) Eos # (Auto) Baso # (Auto) WBC Differential Differential Comment Smear Path Review Hematology Comments POC Glucose 229 H Vitamin B12 Folate Blood Type B Positive Antibody Screen Negative MTS Gel Crossmatch See Detail - Impressions ITS Impressions Chest X-Ray 12/26/17 15:06 CONCLUSION: Bibasilar airspace disease likely atelectasis although infiltrate cannot be excluded. GI Bleed Scan Nuclear Medicine 12/27/17 00:00 CONCLUSION: Negative study Discharge Plan - Discharge Disposition Patient Disposition: Disch W/Home Health Service - Discharge Condition Condition: Stable - Discharge Details Anticipated Discharge Date: 12/30/17 - Physicians Team Primary Care Provider: [facility] Attending Provider: Luis Barney Other Providers: Nargis Shipley MD ; Rafael Santizo ; Jeremias Julio MD
== END 2017-12-30 18:33 | disposition home health service (06) ==
LOC: NEPE 14:26 → NEDA 14:26 → NEPHCDU 20:13 → H7ONC 12-27 13:52 → N07 12-27 18:33
PROVIDERS: ADMIT Hospitalist; ATTEND Hospitalist
PROC: COLONOS (2017-12-30 09:47)
PROC: PANENDO (2017-12-30 09:47)

== ENCOUNTER 2018-01-29 10:30 | Inpatient (IN) ==
[2018-01-29] MEDS ORDERED: Sod Chloride 0.9% Inj 1,000 ML IV.SIG ONE (10:41)
[2018-01-29 11:20] LABS: Baso % (Auto) 0.9 % (0.0-2.0); Eos # (Auto) 0.1 th/mm3 (0.0-0.4); Eos % (Auto) 2.2 % (0.0-4.0); Hematocrit 36.2 % (39.0-51.0); Hemoglobin 11.8 gm/dL (13.0-17.0); Lymph # (Auto) 0.6 th/mm3 (1.0-4.8); Lymph % (Auto) 20.3 % (9.0-44.0); Mean Corpuscular HGB Conc 32.6 % (32.0-36.0); Mean Corpuscular Hemoglobin 29.1 pg (27.0-34.0); Mean Corpuscular Volume 89.3 fL (80.0-100.0); Mono # (Auto) 0.3 th/mm3 (0.0-0.9); Neut # (Auto) 2.1 th/mm3 (1.8-7.7); Neut % (Auto) 68.6 % (16.0-70.0); Platelet Count 272 th/mm3 (150-450); Red Blood Count 4.05 mil/mm3 (4.50-5.90); Red Cell Distribution Width 14.6 % (11.6-17.2); White Blood Count 3.1 th/mm3 (4.0-11.0)
[2018-01-29 11:36] LABS: Anion Gap 10 meq/L (5-15); Blood Urea Nitrogen 53 mg/dL (7-18); Calcium 8.7 mg/dL (8.5-10.1); Carbon Dioxide 26.1 meq/L (21.0-32.0); Chloride 104 meq/L (98-107); Glomerular Filtration Rate 27 mL/min (>89); Glucose,Random 127 mg/dL (74-106); Potassium 3.2 meq/L (3.5-5.1); Sodium 140 meq/L (136-145)
[2018-01-29] MEDS ORDERED: Sodium Chlor 0.9% Inj 500 ML IV.SIG SCH (12:00)
--- NOTE | 2018-01-29 12:06 | CT ---
EXAM DATE: 01/29/2018 11:57 AM EST AGE/SEX: 72 years / Male INDICATIONS: Fall hit back of head, laceration CLINICAL DATA: This is the patient's initial encounter. Patient reports that signs and symptoms have been present for 1 day and indicates a pain score of 6/10. MEDICAL/SURGICAL HISTORY: Diabetes. Hypertension. Cardiovascular disease. CABG. RADIATION DOSE: 66.34 CTDI (mGy) COMPARISON: [facility] – [place], [place] HEAD W/O CONTRAST, 11/29/2017. . TECHNIQUE: CT of the head without contrast. Using automated exposure control and adjustment of the mA and/or kV according to patient size, radiation dose was kept as low as reasonably achievable to ob tain optimal diagnostic quality images. DICOM format image data is available electronically for revi ew and comparison. FINDINGS: Cerebrum: The ventricles are normal for age. No evidence of midline shift, mass lesion, hemorrhage or acute infarction. 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 Posterior Fossa: The cerebellum and brainstem are intact. The 4th ventricle is midline. The cerebe llopontine angle is unremarkable. Extracranial: The visualized portion of the orbits is intact. Skull: The calvaria is intact. No evidence of skull fracture. CONCLUSION: 1. Diffuse atrophy. No evidence of hemorrhage or edema . Electronically signed by: Ramon Curtis MD 01/29/2018 12:04 PM EST
--- NOTE | 2018-01-29 12:08 | XR ---
EXAM DATE: 01/29/2018 12:03 PM EST AGE/SEX: 72 years / Male INDICATIONS: Shortness of breath. Patient states he fell. CLINICAL DATA: This is the patient's initial encounter. Patient reports that signs and symptoms have been present for 1 day and indicates a pain score of 0/10. MEDICAL/SURGICAL HISTORY: . Cardiovascular disease. Hypertension. Diabetes mellitus type II. CABG. COMPARISON: [facility] – [place], CHEST 1V SINGLE AP, 12/26/2017. . FINDINGS: Sternal wires from previous bypass. Cardiac event recorder noted. Heart is minimally enlarged. Lungs are clear. Degenerative changes about both shoulders. CONCLUSION: Compensated cardiomegaly otherwise negative Electronically signed by: Baltazar Grande MD 01/29/2018 12:07 PM EST
--- NOTE | 2018-01-29 12:25 | CT ---
EXAM DATE: 01/29/2018 12:20 PM EST AGE/SEX: 72 years / Male INDICATIONS: Fall hit back of head CLINICAL DATA: This is the patient's initial encounter. Patient reports that signs and symptoms have been present for 1 day and indicates a pain score of 6/10. MEDICAL/SURGICAL HISTORY: Diabetes. Cardiovascular disease. Hypertension. CABG. RADIATION DOSE: 15.56 CTDI (mGy) [place] [facility] [place]ERV[place]/29/2017. . TECHNIQUE: Contiguous axial images were obtained using helical multirow detector technique. The vol umetric data was post-processed with multiplanar reconstruction in oblique axial, sagittal, and coron al planes. Using automated exposure control and adjustment of the mA and/or kV according to patient s ize, radiation dose was kept as low as reasonably achievable to obtain optimal diagnostic quality giovanni ges. DICOM format image data is available electronically for review and comparison. FINDINGS: Vertebrae: Normal vertebral body height. Moderate intervertebral disc space narrowing at the C6-7 le og Alignment: Normal. No subluxation. C2-3: The bony spinal canal is normal in size. No evidence of disc bulge or herniation. The neural foramina are bilaterally patent. C3-4: The bony spinal canal is normal in size. No evidence of disc bulge or herniation. The neural foramina are bilaterally patent. C4-5: The bony spinal canal is normal in size. No evidence of disc bulge or herniation. The neural foramina are bilaterally patent. C5-6: The bony spinal canal is normal in size. No evidence of disc bulge or herniation. The neural foramina are bilaterally patent. C6-7: The bony spinal canal is normal in size. No evidence of disc bulge or herniation. The neural foramina are bilaterally patent. C7-T1: The bony spinal canal is normal in size. No evidence of disc bulge or herniation. The neura l foramina are bilaterally patent. CONCLUSION: 1. 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 No evidence of an acute fracture or spondylolisthesis Electronically signed by: Ramon Curtis MD 01/29/2018 12:23 PM EST
[2018-01-29] MEDS ORDERED: Tetanus/Diphtheria Toxoid Adult Vaccine Inj 0.5 ML Vial IM ONE (13:13)
[2018-01-29] MEDS ORDERED: Lidocaine 1% Inj 30 ML Vial INFILTRATN ONE (13:39)
--- NOTE | 2018-01-29 13:50 | ED ---
HPI General Chief complaint: Fall Stated complaint: Fall Time Seen by Provider: 01/29/18 10:33 History of Present Illness HPI narrative: Patient 72-year-old male presents emergency department for evaluation of a fall possible syncopal episode. Patient has a history of schizophrenia, apparently his home health care provider came to visit him today and while getting up to go open the door the patient states he fell and does not remember how he fell. Patient has small laceration on the back of his head. According to EMS when they arrived on scene the patient was alert and awake but healthcare provider he stated he was out of consciousness for about 5 minutes. His only complaint is some low back pain he states from the hard board. No chest pain no shortness of breath does not recall any blacking out. Related Data Home Medications Medication Instructions Recorded Confirmed ascorbic acid (vitamin C) [Vitamin 1,000 mg PO DAILY 11/29/17 01/29/18 C] cholecalciferol (vitamin D3) 1,000 unit PO DAILY 11/29/17 01/29/18 [Vitamin D3] citalopram 20 mg PO DAILY 11/29/17 01/29/18 cyanocobalamin (vitamin B-12) 1,000 mcg PO DAILY 11/29/17 01/29/18 [Vitamin B-12] docusate sodium [Colace] 100 mg PO BID PRN 11/29/17 01/29/18 ferrous gluconate 324 mg PO DAILY 11/29/17 01/29/18 folic acid 0.5 mg PO DAILY 11/29/17 01/29/18 gabapentin 600 mg PO TID 11/29/17 01/29/18 metformin 1,000 mg PO BID 11/29/17 01/29/18 aspirin 81 mg PO DAILY 01/30/18 01/30/18 brimonidine 1 drp OPHTHALMIC (EYE) TID 01/30/18 01/30/18 carbamide peroxide 1 drp EACH EAR DAILY 01/30/18 01/30/18 omeprazole 20 cap PO BID 01/30/18 01/30/18 quetiapine 25 tab PO DAILY 01/30/18 01/30/18 quetiapine 200 tab PO HS 01/30/18 01/30/18 Previous Rx's Medication Instructions Recorded amlodipine [Norvasc] 10 mg PO DAILY #30 tab 12/05/17 carvedilol [Coreg] 6.25 mg PO BID #60 tab 12/05/17 clonidine HCl [Catapres] 0.1 mg PO Q12HR #60 tab 12/05/17 glimepiride [Amaryl] 2 mg PO QAM #30 tab 12/05/17 lisinopril 5 mg PO DAILY #30 tab 12/05/17 tamsulosin 0.4 mg PO DAILY #30 cap 12/05/17 pantoprazole 40 mg PO BID #60 tab 02/01/18 Allergies Allergy/AdvReac Type Severity Reaction Status Date / Time No Known Allergies Allergy Verified 12/22/17 22:28 Review of Systems ROS: all other systems reviewed are negative [facility] Social History Social History Substance History: No History of Abuse Second Hand Smoke Exposure: No Smoking Status: Never smoker How Often Do You Have a Drink Containing Alcohol: Never Recent Travel in [facility] within the Last 8 Weeks: No Recent Out of Country Travel within the Last 8 Weeks: No Immunization History Tetanus Immunization: Unsure Exam Narrative Exam Narrative: GENERAL: Well-developed well-nourished no obvious distress SKIN: Focused skin assessment warm/dry. 2-3 cm laceration curvilinear on the posterior scalp peer HEAD: No leo signs no raccoons eyes, laceration as above.. Normocephalic. EYES: Pupils equal and round. No scleral icterus. No injection or drainage. ENT: No nasal bleeding or discharge. Mucous membranes pink and moist. NECK: Trachea midline. No JVD. CARDIOVASCULAR: Regular rate and rhythm. No murmur appreciated. RESPIRATORY: No accessory muscle use. Clear to auscultation. Breath sounds equal bilaterally. GASTROINTESTINAL: Abdomen soft, non-tender, nondistended. Hepatic and splenic margins not palpable. MUSCULOSKELETAL: No obvious deformities. No clubbing. No cyanosis. No edema. NEUROLOGICAL: Awake and alert. No obvious cranial nerve deficits. Motor grossly within normal limits. Normal speech. PSYCHIATRIC: Appropriate mood and affect; insight and judgment normal. Course Initial Documented Vital Signs Pulse Rate 63 01/29/18 10:43 Respiratory Rate 18 01/29/18 10:43 Blood Pressure 108/63 01/29/18 10:43 Pulse Oximetry 99 01/29/18 10:43 Last Documented Vital Signs Temperature 98 F 02/02/18 19:38 Pulse Rate 59 L 02/02/18 19:38 Respiratory Rate 20 02/02/18 19:38 Blood Pressure 135/73 02/02/18 19:38 Pulse Oximetry 95 02/02/18 19:38 Medical Decision Making MDM Narrative Medical decision making narrative: Patient 72-year-old male history of schizophrenia presents emergency department after either a trip and fall or a loss of consciousness. Initially hypotensive on scene fluid responsive he does have an acute kidney injury. Patient will be observation status to Dr. Hebert for either a syncopal episode leading to a closed head injury or closed head injury leading to syncopal episode and acute kidney injury with dehydration. Medical Screen Exam Complete: Yes Emergency Medical Condition: Yes Lab Data Result diagrams: 01/31/18 08:57 01/31/18 08:57 Lab Results 01/29/18 01/29/18 01/29/18 Range/Units 11:00 11:00 11:00 WBC 3.1 L (4.0-11.0) th/mm3 RBC 4.05 L (4.50-5.90) mil/mm3 Hgb 11.8 L (13.0-17.0) gm/dL Hct 36.2 L (39.0-51.0) % MCV 89.3 (80.0-100.0) fL MCH 29.1 (27.0-34.0) pg MCHC 32.6 (32.0-36.0) % RDW 14.6 (11.6-17.2) % Plt Count 272 D (150-450) th/mm3 MPV 9.0 (7.0-11.0) fL Neut % (Auto) 68.6 (16.0-70.0) % Lymph % (Auto) 20.3 (9.0-44.0) % [place] % (Auto) 8.0 (0.0-8.0) % Eos % (Auto) 2.2 (0.0-4.0) % Baso % (Auto) 0.9 (0.0-2.0) % Neut # (Auto) 2.1 (1.8-7.7) th/mm3 Lymph # (Auto) 0.6 L (1.0-4.8) th/mm3 [place] # (Auto) 0.3 (0.0-0.9) th/mm3 Eos # (Auto) 0.1 (0.0-0.4) th/mm3 Baso # (Auto) 0.0 (0.0-0.2) th/mm3 WBC Differential . Differential Comment Auto diff final Sodium 140 (136-145) meq/L Potassium 3.2 L (3.5-5.1) meq/L Chloride 104 (98-107) meq/L Carbon Dioxide 26.1 (21.0-32.0) meq/L Anion Gap 10 (5-15) meq/L BUN 53 H (7-18) mg/dL Creatinine 2.37 H (0.60-1.30) mg/dL Estimated GFR 27 L (>89) mL/min POC Glucose (68-110) mg/dl Random Glucose 127 H (74-106) mg/dL Calcium 8.7 (8.5-10.1) mg/dL Magnesium 1.9 (1.5-2.5) mg/dL Total Bilirubin (0.2-1.0) mg/dL AST (15-37) U/L ALT (12-78) U/L Alkaline Phosphatase (45-117) U/L Troponin I Less than 0.02 L (0.02-0.05) ng/mL Total Protein (6.4-8.2) g/dL Albumin (3.4-5.0) g/dL 01/29/18 01/30/18 01/30/18 Range/Units 17:25 07:25 08:23 WBC 4.6 (4.0-11.0) th/mm3 RBC 4.27 L (4.50-5.90) mil/mm3 Hgb 12.3 L (13.0-17.0) gm/dL Hct 38.3 L (39.0-51.0) % MCV 89.8 (80.0-100.0) fL MCH 28.7 (27.0-34.0) pg MCHC 32.0 (32.0-36.0) % RDW 14.1 (11.6-17.2) % Plt Count 268 (150-450) th/mm3 MPV 9.0 (7.0-11.0) fL Neut % (Auto) 73.1 H (16.0-70.0) % Lymph % (Auto) 14.6 (9.0-44.0) % [place] % (Auto) 8.6 H (0.0-8.0) % Eos % (Auto) 2.7 (0.0-4.0) % Baso % (Auto) 1.0 (0.0-2.0) % Neut # (Auto) 3.4 (1.8-7.7) th/mm3 Lymph # (Auto) 0.7 L (1.0-4.8) th/mm3 [place] # (Auto) 0.4 (0.0-0.9) th/mm3 Eos # (Auto) 0.1 (0.0-0.4) th/mm3 Baso # (Auto) 0.0 (0.0-0.2) th/mm3 WBC Differential . Differential Comment Auto diff final Sodium (136-145) meq/L Potassium (3.5-5.1) meq/L Chloride (98-107) meq/L Carbon Dioxide (21.0-32.0) meq/L Anion Gap (5-15) meq/L BUN (7-18) mg/dL Creatinine (0.60-1.30) mg/dL Estimated GFR (>89) mL/min POC Glucose 123 H 106 (68-110) mg/dl Random Glucose (74-106) mg/dL Calcium (8.5-10.1) mg/dL Magnesium (1.5-2.5) mg/dL Total Bilirubin (0.2-1.0) mg/dL AST (15-37) U/L ALT (12-78) U/L Alkaline Phosphatase (45-117) U/L Troponin I (0.02-0.05) ng/mL Total Protein (6.4-8.2) g/dL Albumin (3.4-5.0) g/dL 01/30/18 01/30/18 01/30/18 Range/Units 08:23 11:58 17:38 WBC (4.0-11.0) th/mm3 RBC (4.50-5.90) mil/mm3 Hgb (13.0-17.0) gm/dL Hct (39.0-51.0) % MCV (80.0-100.0) fL MCH (27.0-34.0) pg MCHC (32.0-36.0) % RDW (11.6-17.2) % Plt Count (150-450) th/mm3 MPV (7.0-11.0) fL Neut % (Auto) (16.0-70.0) % Lymph % (Auto) (9.0-44.0) % [place] % (Auto) (0.0-8.0) % Eos % (Auto) (0.0-4.0) % Baso % (Auto) (0.0-2.0) % Neut # (Auto) (1.8-7.7) th/mm3 Lymph # (Auto) (1.0-4.8) th/mm3 [place] # (Auto) (0.0-0.9) th/mm3 Eos # (Auto) (0.0-0.4) th/mm3 Baso # (Auto) (0.0-0.2) th/mm3 WBC Differential Differential Comment Sodium 140 (136-145) meq/L Potassium 4.1 D (3.5-5.1) meq/L Chloride 109 H (98-107) meq/L Carbon Dioxide 23.0 (21.0-32.0) meq/L Anion Gap 8 (5-15) meq/L BUN 30 H (7-18) mg/dL Creatinine 1.35 H (0.60-1.30) mg/dL Estimated GFR 52 L (>89) mL/min POC Glucose 121 H 111 H (68-110) mg/dl Random Glucose 110 H (74-106) mg/dL Calcium 8.8 (8.5-10.1) mg/dL Magnesium (1.5-2.5) mg/dL Total Bilirubin 0.3 (0.2-1.0) mg/dL AST 16 (15-37) U/L ALT 10 L (12-78) U/L Alkaline Phosphatase 72 (45-117) U/L Troponin I (0.02-0.05) ng/mL Total Protein 7.0 (6.4-8.2) g/dL Albumin 2.6 L (3.4-5.0) g/dL 01/30/18 01/31/18 01/31/18 Range/Units 20:33 08:19 08:57 WBC 4.6 (4.0-11.0) th/mm3 RBC 4.13 L (4.50-5.90) mil/mm3 Hgb 12.3 L (13.0-17.0) gm/dL Hct 36.1 L (39.0-51.0) % MCV 87.4 (80.0-100.0) fL MCH 29.7 (27.0-34.0) pg MCHC 34.0 (32.0-36.0) % RDW 14.1 (11.6-17.2) % Plt Count 300 (150-450) th/mm3 MPV 9.5 (7.0-11.0) fL Neut % (Auto) (16.0-70.0) % Lymph % (Auto) (9.0-44.0) % [place] % (Auto) (0.0-8.0) % Eos % (Auto) (0.0-4.0) % Baso % (Auto) (0.0-2.0) % Neut # (Auto) (1.8-7.7) th/mm3 Lymph # (Auto) (1.0-4.8) th/mm3 [place] # (Auto) (0.0-0.9) th/mm3 Eos # (Auto) (0.0-0.4) th/mm3 Baso # (Auto) (0.0-0.2) th/mm3 WBC Differential Differential Comment Sodium (136-145) meq/L Potassium (3.5-5.1) meq/L Chloride (98-107) meq/L Carbon Dioxide (21.0-32.0) meq/L Anion Gap (5-15) meq/L BUN (7-18) mg/dL Creatinine (0.60-1.30) mg/dL Estimated GFR (>89) mL/min POC Glucose 117 H 113 H (68-110) mg/dl Random Glucose (74-106) mg/dL Calcium (8.5-10.1) mg/dL Magnesium (1.5-2.5) mg/dL Total Bilirubin (0.2-1.0) mg/dL AST (15-37) U/L ALT (12-78) U/L Alkaline Phosphatase (45-117) U/L Troponin I (0.02-0.05) ng/mL Total Protein (6.4-8.2) g/dL Albumin (3.4-5.0) g/dL 01/31/18 01/31/18 01/31/18 Range/Units 08:57 11:06 16:07 WBC (4.0-11.0) th/mm3 RBC (4.50-5.90) mil/mm3 Hgb (13.0-17.0) gm/dL Hct (39.0-51.0) % MCV (80.0-100.0) fL MCH (27.0-34.0) pg MCHC (32.0-36.0) % RDW (11.6-17.2) % Plt Count (150-450) th/mm3 MPV (7.0-11.0) fL Neut % (Auto) (16.0-70.0) % Lymph % (Auto) (9.0-44.0) % [place] % (Auto) (0.0-8.0) % Eos % (Auto) (0.0-4.0) % Baso % (Auto) (0.0-2.0) % Neut # (Auto) (1.8-7.7) th/mm3 Lymph # (Auto) (1.0-4.8) th/mm3 [place] # (Auto) (0.0-0.9) th/mm3 Eos # (Auto) (0.0-0.4) th/mm3 Baso # (Auto) (0.0-0.2) th/mm3 WBC Differential Differential Comment Sodium 141 (136-145) meq/L Potassium 3.7 (3.5-5.1) meq/L Chloride 106 (98-107) meq/L Carbon Dioxide 24.8 (21.0-32.0) meq/L Anion Gap 10 (5-15) meq/L BUN 18 (7-18) mg/dL Creatinine 1.30 (0.60-1.30) mg/dL Estimated GFR 54 L (>89) mL/min POC Glucose 175 H 134 H (68-110) mg/dl Random Glucose 152 H (74-106) mg/dL Calcium 8.7 (8.5-10.1) mg/dL Magnesium (1.5-2.5) mg/dL Total Bilirubin (0.2-1.0) mg/dL AST (15-37) U/L ALT (12-78) U/L Alkaline Phosphatase (45-117) U/L Troponin I (0.02-0.05) ng/mL Total Protein (6.4-8.2) g/dL Albumin (3.4-5.0) g/dL 01/31/18 02/01/18 02/01/18 Range/Units 19:33 07:09 11:46 WBC (4.0-11.0) th/mm3 RBC (4.50-5.90) mil/mm3 Hgb (13.0-17.0) gm/dL Hct (39.0-51.0) % MCV (80.0-100.0) fL MCH (27.0-34.0) pg MCHC (32.0-36.0) % RDW (11.6-17.2) % Plt Count (150-450) th/mm3 MPV (7.0-11.0) fL Neut % (Auto) (16.0-70.0) % Lymph % (Auto) (9.0-44.0) % [place] % (Auto) (0.0-8.0) % Eos % (Auto) (0.0-4.0) % Baso % (Auto) (0.0-2.0) % Neut # (Auto) (1.8-7.7) th/mm3 Lymph # (Auto) (1.0-4.8) th/mm3 [place] # (Auto) (0.0-0.9) th/mm3 Eos # (Auto) (0.0-0.4) th/mm3 Baso # (Auto) (0.0-0.2) th/mm3 WBC Differential Differential Comment Sodium (136-145) meq/L Potassium (3.5-5.1) meq/L Chloride (98-107) meq/L Carbon Dioxide (21.0-32.0) meq/L Anion Gap (5-15) meq/L BUN (7-18) mg/dL Creatinine (0.60-1.30) mg/dL Estimated GFR (>89) mL/min POC Glucose 182 H 125 H 184 H (68-110) mg/dl Random Glucose (74-106) mg/dL Calcium (8.5-10.1) mg/dL Magnesium (1.5-2.5) mg/dL Total Bilirubin (0.2-1.0) mg/dL AST (15-37) U/L ALT (12-78) U/L Alkaline Phosphatase (45-117) U/L Troponin I (0.02-0.05) ng/mL Total Protein (6.4-8.2) g/dL Albumin (3.4-5.0) g/dL 02/01/18 02/01/18 02/02/18 Range/Units 17:20 20:13 07:34 WBC (4.0-11.0) th/mm3 RBC (4.50-5.90) mil/mm3 Hgb (13.0-17.0) gm/dL Hct (39.0-51.0) % MCV (80.0-100.0) fL MCH (27.0-34.0) pg MCHC (32.0-36.0) % RDW (11.6-17.2) % Plt Count (150-450) th/mm3 MPV (7.0-11.0) fL Neut % (Auto) (16.0-70.0) % Lymph % (Auto) (9.0-44.0) % [place] % (Auto) (0.0-8.0) % Eos % (Auto) (0.0-4.0) % Baso % (Auto) (0.0-2.0) % Neut # (Auto) (1.8-7.7) th/mm3 Lymph # (Auto) (1.0-4.8) th/mm3 [place] # (Auto) (0.0-0.9) th/mm3 Eos # (Auto) (0.0-0.4) th/mm3 Baso # (Auto) (0.0-0.2) th/mm3 WBC Differential Differential Comment Sodium (136-145) meq/L Potassium (3.5-5.1) meq/L Chloride (98-107) meq/L Carbon Dioxide (21.0-32.0) meq/L Anion Gap (5-15) meq/L BUN (7-18) mg/dL Creatinine (0.60-1.30) mg/dL Estimated GFR (>89) mL/min POC Glucose 141 H 204 H 86 (68-110) mg/dl Random Glucose (74-106) mg/dL Calcium (8.5-10.1) mg/dL Magnesium (1.5-2.5) mg/dL Total Bilirubin (0.2-1.0) mg/dL AST (15-37) U/L ALT (12-78) U/L Alkaline Phosphatase (45-117) U/L Troponin I (0.02-0.05) ng/mL Total Protein (6.4-8.2) g/dL Albumin (3.4-5.0) g/dL 02/02/18 02/02/18 02/02/18 Range/Units 11:50 17:04 20:12 WBC (4.0-11.0) th/mm3 RBC (4.50-5.90) mil/mm3 Hgb (13.0-17.0) gm/dL Hct (39.0-51.0) % MCV (80.0-100.0) fL MCH (27.0-34.0) pg MCHC (32.0-36.0) % RDW (11.6-17.2) % Plt Count (150-450) th/mm3 MPV (7.0-11.0) fL Neut % (Auto) (16.0-70.0) % Lymph % (Auto) (9.0-44.0) % [place] % (Auto) (0.0-8.0) % Eos % (Auto) (0.0-4.0) % Baso % (Auto) (0.0-2.0) % Neut # (Auto) (1.8-7.7) th/mm3 Lymph # (Auto) (1.0-4.8) th/mm3 [place] # (Auto) (0.0-0.9) th/mm3 Eos # (Auto) (0.0-0.4) th/mm3 Baso # (Auto) (0.0-0.2) th/mm3 WBC Differential Differential Comment Sodium (136-145) meq/L Potassium (3.5-5.1) meq/L Chloride (98-107) meq/L Carbon Dioxide (21.0-32.0) meq/L Anion Gap (5-15) meq/L BUN (7-18) mg/dL Creatinine (0.60-1.30) mg/dL Estimated GFR (>89) mL/min POC Glucose 175 H 141 H 204 H (68-110) mg/dl Random Glucose (74-106) mg/dL Calcium (8.5-10.1) mg/dL Magnesium (1.5-2.5) mg/dL Total Bilirubin (0.2-1.0) mg/dL AST (15-37) U/L ALT (12-78) U/L Alkaline Phosphatase (45-117) U/L Troponin I (0.02-0.05) ng/mL Total Protein (6.4-8.2) g/dL Albumin (3.4-5.0) g/dL Imaging Data Radiologist's impression: Abdomen/Bladder Ultrasound 01/29/18 00:00 CONCLUSION: 1. Echogenic normal sized kidneys which can be seen with acute renal medical disease. 2. Prostatic enlargement. Cervical Spine CT 01/29/18 10:41 CONCLUSION: 1. 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 No evidence of an acute fracture or spondylolisthesis Chest X-Ray 01/29/18 10:41 CONCLUSION: Compensated cardiomegaly otherwise negative Head CT 01/29/18 10:41 CONCLUSION: 1. Diffuse atrophy. No evidence of hemorrhage or edema . Discharge Plan Discharge Disposition Patient Disposition: 30 Still Patient Discharge Condition Condition: Stable Discharge Order Discharge Orders: Discharge Order (Routine); Ordered 02/02/18 Ordered By: Angy Rhoades Discharge Details Anticipated Discharge Date: 02/03/18 Discharge Comment: Ok to discharge to SNF when arrangements made. Diagnosis: Syncope, Dehydration, ROLAND (acute kidney injury) Physicians Team ED Provider: Jose Melendez Primary Care Provider: [facility] Attending Provider: Eben Hebert Other Providers: Mannie Candelaria ; [facility] & [facility] Discharge Interventions Interventions: ED Discharge Assessment Last Done: 01/29/18 15:17 Vital Signs Last Done: 01/29/18 10:58 Status ED Status: Left Department Discharge Information Discharge Date/Time: 01/29/18 15:17
[2018-01-29] MEDS ORDERED: Lidocaine PF 1% Inj 30 ML Vial ONE (13:53)
[2018-01-29] MEDS ORDERED: Bisacodyl 10 MG Supp RECTAL PRN (13:53)
[2018-01-29] MEDS ORDERED: Acetaminophen 325 MG Tablet PO PRN (13:53)
[2018-01-29] MEDS ORDERED: Dextrose 50% in Water 50 ML Vial IV.PUSH PRN (13:55)
[2018-01-29] MEDS ORDERED: Sodium Chloride 0.9% 2 ML Flush PRN IV.FLUSH (14:01)
--- NOTE | 2018-01-29 14:08 | ED ---
Procedures Laceration Laceration 1: Site: scalp Size (cm): 2 Description: linear Depth: simple, single layer Anesthetic used: lidocaine 1% Anesthesia technique:: local infiltration Pre-repair:: wound explored and irrigated extensively Skin layer closed with: eleuterio Number of sutures:: 4
--- NOTE | 2018-01-29 15:10 | US ---
EXAM DATE: 01/29/2018 3:05 PM EST AGE/SEX: 72 years / Male INDICATIONS: Elevated BUN/Creatinine. CLINICAL DATA: This is the patient's initial encounter. Patient reports that signs and symptoms have been present for 1 day and indicates a pain score of 4/10. MEDICAL/SURGICAL HISTORY: Diabetes. Hypertension. Myocardial infarction. Schizophrenia. CABG. COMPARISON: No prior exams available for comparison. MEASUREMENTS: Right Kidney:__112 x 5.2 x 5.3 cm Left Kidney:__12.7 x 4.9 x 6.1 cm FINDINGS: Right Kidney: Increased echotexture. No mass or hydronephrosis. Left Kidney: Increased echotexture. No mass or hydronephrosis. Bladder: Within normal limits given the degree of distension. Other: The prostate is enlarged. CONCLUSION: 1. Echogenic normal sized kidneys which can be seen with acute renal medical disease. 2. Prostatic enlargement. Electronically signed by: Ankit Black MD 01/29/2018 3:09 PM EST
[2018-01-29] MEDS: Sod Chloride 0.9% Inj 1,000 ML IV.CONT SCH (16:40)
[2018-01-29] MEDS: Insulin NovoLOG Aspart Correctional Sugar Inj SQ SCH ×2 (18:38→20:52)
--- NOTE | 2018-01-29 19:18 | P.HPIM ---
History of Present Illness Primary Care Physician: Physician [facility] History of Present Illness: 72-year-old male with a history of diabetes, schizophrenia who presents with fall at home patient was getting up to answer the door and apparently fell. He does not remember feeling lightheaded prior to this episode. No loss of bowel or bladder function and no postictal state. Patient says he is feeling all right currently. He had a scalp laceration sutured in the ER. Patient reports a 30 pound weight loss over the past several months. Reports dysphasia with reflux of recently eaten food which he implicates as the cause of his weight loss. 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 He denies any fevers, chills, chest pain, shortness of breath. He denies lightheadedness. He does report feeling fatigued. Says he has not eaten anything substantial in weeks. Review of Systems All other systems reviewed negative except as stated in HPI PMFSH - History History Provided By: Patient - Medical History Medical History: Medical History (Last Reviewed 01/29/18 @ 19:10 by Eben Hebert MD) Schizophrenia Diabetes Hypertension [place] (myocardial infarction) - Surgical History Surgical History: Surgical History (Last Reviewed 01/29/18 @ 19:10 by Eben Hebert MD) H/O heart bypass surgery - Family History Family History: Family History (Last Reviewed 01/29/18 @ 19:10 by Eben Hebert MD) Other Unknown family medical history - Tobacco History Second Hand Smoke Exposure: No Smoking Status: Never smoker - Alcohol History How Often Do You Have a Drink Containing Alcohol: Never - Substance Use History Substance History: No History of Abuse - Travel History Recent Travel in the [place] Within the Last 8 Weeks: No Recent Travel Out of the Country Within the Last 8 Weeks: No - Immunization History Tetanus Immunization: Unsure Hx Influenza Vaccine This Season: Yes Medications and Allergies Active Medications: Active Medications Acetaminophen (Tylenol) 650 mg PO Q4H PRN PRN Reason: Temp > 100.4 Al Hydroxide/Mg Hydroxide (Milk Of Magnesia Liq) 30 ml PO Q12H PRN PRN Reason: Mild Constipation Bisacodyl (Dulcolax Supp) 10 mg RECTAL DAILY PRN PRN Reason: SEVERE CONSITIPATION Carvedilol (Coreg) 6.25 mg PO BID DEBBIE Dextrose (D50w Vial) 50 ml IV.PUSH UNSCH PRN PRN Reason: PER HYPOGLYCEMIA PROTOCOL Glucagon (Glucagon Inj) 1 mg OTHER PRN PRN PRN Reason: for Hypoglycemia Protocol Sodium Chloride (Ns Inj) 1,000 mls @ 100 mls/hr IV.CONT .Q10H [facility] Last Admin: 01/29/18 16:40 Dose: 100 mls/hr Insulin Aspart (Novolog Insulin Correctional Sugar Inj) 0 unit SQ ACHS [facility]; Protocol Last Admin: 01/29/18 18:38 Dose: Not Given Lactulose (Lactulose Liq) 30 ml PO DAILY PRN PRN Reason: SEVERE CONSITIPATION Ondansetron HCl (Zofran Inj) 4 mg IV.PUSH Q6H PRN PRN Reason: NAUSEA OR VOMITING Pantoprazole Sodium (Protonix) 40 mg PO BID [facility] Sennosides (Senokot) 17.2 mg PO Q12H PRN PRN Reason: Moderate Constipation Sodium Chloride (Ns Flush) 2 ml IV.FLUSH BID [facility] Sodium Chloride (Ns Flush) 2 ml IV.FLUSH PRN PRN PRN Reason: FLUSH AFTER USING IV ACCESS Tamsulosin HCl (Flomax) 0.4 mg PO DAILY [facility] Allergies Allergy/AdvReac Type Severity Reaction Status Date / Time No Known Allergies Allergy Verified 12/22/17 22:28 Home Medications Medication Instructions Recorded Confirmed Type ascorbic acid (vitamin C) [Vitamin 1,000 mg PO DAILY 11/29/17 01/29/18 History C] cholecalciferol (vitamin D3) 1,000 unit PO DAILY 11/29/17 01/29/18 History [Vitamin D3] citalopram 20 mg PO DAILY 11/29/17 01/29/18 History cyanocobalamin (vitamin B-12) 1,000 mcg PO DAILY 11/29/17 01/29/18 History [Vitamin B-12] docusate sodium [Colace] 100 mg PO BID PRN 11/29/17 01/29/18 History ferrous gluconate 324 mg PO DAILY 11/29/17 01/29/18 History folic acid 0.5 mg PO DAILY 11/29/17 01/29/18 History gabapentin 600 mg PO TID 11/29/17 01/29/18 History metformin 1,000 mg PO BID 11/29/17 01/29/18 History Exam Vital signs: Vital Signs 01/29/18 10:43 01/29/18 10:58 01/29/18 14:51 Temperature Pulse Rate 63 63 64 Respiratory Rate 18 18 Blood Pressure 108/63 108/65 Pulse Oximetry 99 97 01/29/18 14:52 01/29/18 16:00 Temperature 98.3 F Pulse Rate 64 73 Respiratory Rate 16 16 Blood Pressure 164/84 H 108/59 L Pulse Oximetry 99 100 Intake & Output 01/29/18 01/29/18 01/30/18 06:59 18:59 06:59 Intake Total 500 / 500 Balance 500 / 500 Weight 62.142 kg Intake: IV 500 / 500 NS Inj 500 ML @ 1000 mls/hr IV. 500 / 500 SIG BOLUS DEBBIE Rx#:[id number] Other: Weight On Admission 62.142 kg Narrative: GENERAL: Patient lying in bed. Appears comfortable. Alert and oriented x3. SKIN: Warm and dry. HEAD: Small 2 cm scalp laceration which has been stapled. EYES: Pupils equal and round. No scleral icterus. No injection or drainage. ENT: No nasal bleeding or discharge. Mucous membranes pink and moist. NECK: Trachea midline. No JVD. CARDIOVASCULAR: Regular rate and rhythm. RESPIRATORY: No accessory muscle use. Clear to auscultation. Breath sounds equal bilaterally. GASTROINTESTINAL: Abdomen soft, non-tender, nondistended. Hepatic and splenic margins not palpable. MUSCULOSKELETAL: Extremities without clubbing, cyanosis, or edema. No obvious deformities. NEUROLOGICAL: Awake and alert. No obvious cranial nerve deficits. Motor grossly within normal limits. Five out of 5 muscle strength in the arms and legs. Normal speech. PSYCHIATRIC: Appropriate mood and affect; insight and judgment normal. Results - Labs CBC & Chem 7: 01/29/18 11:00 01/29/18 11:00 Labs: Short CBC 01/29/18 Range/Units 11:00 WBC 3.1 L (4.0-11.0) th/mm3 Hgb 11.8 L (13.0-17.0) gm/dL Hct 36.2 L (39.0-51.0) % Plt Count 272 D (150-450) th/mm3 BMP 01/29/18 11:00 Sodium 140 Potassium 3.2 L Chloride 104 Carbon Dioxide 26.1 BUN 53 H Creatinine 2.37 H Calcium 8.7 Cardiac Enzymes 01/29/18 Range/Units 11:00 Troponin I Less than 0.02 L (0.02-0.05) ng/mL - Imaging Impressions Abdomen/Bladder Ultrasound 01/29/18 00:00 CONCLUSION: 1. Echogenic normal sized kidneys which can be seen with acute renal medical disease. 2. Prostatic enlargement. Cervical Spine CT 01/29/18 10:41 CONCLUSION: 1. 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 No evidence of an acute fracture or spondylolisthesis Chest X-Ray 01/29/18 10:41 CONCLUSION: Compensated cardiomegaly otherwise negative Head CT 01/29/18 10:41 CONCLUSION: 1. Diffuse atrophy. No evidence of hemorrhage or edema . Caprini VTE Risk Assessment Caprini VTE Risk Assessment: Moderate/High Risk (score >= 2) Caprini Risk Assessment Model: Point Value = 1 Point Value = 2 Point Value = 3 Point Value = 5 Age 41-60 Minor surgery BMI > 25 kg/m2 Swollen legs Varicose veins or History of unexplained or recurrent spontaneous Oral contraceptives or hormone replacement Sepsis (< 1 month) Serious lung disease, including pneumonia (< 1 month) Abnormal pulmonary function Acute myocardial infarction Congestive heart failure (< 1 month) History of inflammatory bowel disease Medical patient at bed rest Age 61-74 Arthroscopic surgery Major open surgery (> 45 min) Laparoscopic surgery (> 45 min) Malignancy Confined to bed (> 72 hours) Immobilizing plaster cast Central venous access Age >= 75 History of VTE Family history of VTE Factor V Leiden Prothrombin [id number] Lupus anticoagulant Anticardiolipin antibodies Elevated serum homocysteine Heparin-induced thrombocytopenia Other congenital or acquired thrombophilia Stroke (< 1 month) Elective arthroplasty Hip, pelvis, or leg fracture Acute spinal cord injury (< 1 month) Prophylaxis Regimen: Total Risk Factor Score Risk Level Prophylaxis Regimen 0-1 Low Early ambulation 2 Moderate Order ONE of the following: *Sequential Compression Device (SCD) *Heparin 5000 units SQ BID 3-4 Higher Order ONE of the following medications: *Heparin 5000 units SQ TID *Enoxaparin/Lovenox 40 mg SQ daily (WT < 150 kg, CrCl > 30 mL/min) *Enoxaparin/Lovenox 30 mg SQ daily (WT < 150 kg, CrCl > 10-29 mL/min) *Enoxaparin/Lovenox 30 mg SQ BID (WT < 150 kg, CrCl > 30 mL/min) AND/OR *Sequential Compression Device (SCD) 5 or more Highest Order ONE of the following medications: *Heparin 5000 units SQ TID (Preferred with Epidurals) *Enoxaparin/Lovenox 40 mg SQ daily (WT < 150 kg, CrCl > 30 mL/min) *Enoxaparin/Lovenox 30 mg SQ daily (WT < 150 kg, CrCl > 10-29 mL/min) *Enoxaparin/Lovenox 30 mg SQ BID (WT < 150 kg, CrCl > 30 mL/min) AND *Sequential Compression Device (SCD) Assessment and Plan - Plan //Acute syncopal episode //Generalized weakness. Most certainly secondary to dehydration secondary to dysphasia. Could also be secondary to acute kidney injury, gabapentin toxicity. Will hold gabapentin for now. IV fluids, workup for dysphasia as below. //Severe malnutrition. 30 pound weight loss over the past 3 months. //Dysphasia and reflux. -3-month history. Patient adamant that he wants a diet right now. Will order pured diet. Will consult gastroenterology. N.p.o. at midnight. //Acute kidney injury. -Creatinine 2.4 from normal baseline. Likely secondary to dehydration secondary to esophageal dysmotility versus achalasia. = Renal ultrasound with medical renal disease, however no hydronephrosis. Continue IV fluids and monitor. //Hypokalemia. 3.2. Replace iv. //Hypertension. Chronic. Blood pressure acceptable. Will continue on beta- kelin, however hold other BP meds. //Diabetes mellitus. Start on diabetic diet and insulin sliding scale. //History of BPH. Continue tamsulosin. Discussed Condition With: Patient, nurse, ED physician. Discharge Planning: PT consult ordered and pending. Patient would likely need to go to rehab versus SNF. H&P: Quality - VTE Deep Vein Thrombosis/Pulmonary Embolism Present on Admission: No
[2018-01-29] MEDS: Sodium Chloride 0.9% 2 ML Flush BID IV.FLUSH SCH (20:44)
[2018-01-29] MEDS: Potassium Chlor 20 mEq Premix 20 MEQ/100 ML PIGGYBACK IV.SIG SCH ×2 (20:44→22:09)
[2018-01-29] MEDS: Carvedilol 6.25 MG Tablet PO SCH (20:44)
[2018-01-29] MEDS: Melatonin 5 MG Tablet PO PRN (22:09)
[2018-01-30] MEDS: Sod Chloride 0.9% Inj 1,000 ML IV.CONT SCH ×3 (02:59→21:27)
[2018-01-30] MEDS: Insulin NovoLOG Aspart Correctional Sugar Inj SQ SCH ×4 (08:06→21:27)
[2018-01-30] MEDS: Carvedilol 6.25 MG Tablet PO SCH ×2 (08:08→21:27)
[2018-01-30] MEDS: Sodium Chloride 0.9% 2 ML Flush BID IV.FLUSH SCH ×2 (08:08→21:28)
[2018-01-30 09:20] LABS: Eos # (Auto) 0.1 th/mm3 (0.0-0.4); Eos % (Auto) 2.7 % (0.0-4.0); Hematocrit 38.3 % (39.0-51.0); Hemoglobin 12.3 gm/dL (13.0-17.0); Lymph # (Auto) 0.7 th/mm3 (1.0-4.8); Lymph % (Auto) 14.6 % (9.0-44.0); Mean Corpuscular Hemoglobin 28.7 pg (27.0-34.0); Mean Corpuscular Volume 89.8 fL (80.0-100.0); Mono # (Auto) 0.4 th/mm3 (0.0-0.9); Mono % (Auto) 8.6 % (0.0-8.0); Neut # (Auto) 3.4 th/mm3 (1.8-7.7); Neut % (Auto) 73.1 % (16.0-70.0); Platelet Count 268 th/mm3 (150-450); Red Blood Count 4.27 mil/mm3 (4.50-5.90); Red Cell Distribution Width 14.1 % (11.6-17.2); White Blood Count 4.6 th/mm3 (4.0-11.0)
[2018-01-30 09:35] LABS: Alanine Aminotransferase 10 U/L (12-78); Albumin 2.6 g/dL (3.4-5.0); Alkaline Phosphatase 72 U/L (45-117); Anion Gap 8 meq/L (5-15); Aspartate Aminotransferase 16 U/L (15-37); Blood Urea Nitrogen 30 mg/dL (7-18); Calcium 8.8 mg/dL (8.5-10.1); Chloride 109 meq/L (98-107); Glomerular Filtration Rate 52 mL/min (>89); Glucose,Random 110 mg/dL (74-106); Potassium 4.1 meq/L (3.5-5.1); Sodium 140 meq/L (136-145)
--- NOTE | 2018-01-30 10:55 | P.CONGI ---
History of Present Illness Consult date: 01/30/18 Consult reason: Dysphagia with reflux times 3 months Weight loss and dehydration Chief complaint: Dehydration, Acute Kindey Injury History of Present Illness: This patient is a 72-year-old male with history of diabetes, schizophrenia and hypertension. Patient was admitted to [facility] post fall at home where he states he was getting up to answer the door and fell. Patient denies any dizziness or lightheadedness at this time and denies remembrance of the fall. Upon admission, patient endorsed weight loss with difficulty swallowing. Upon consultation, patient reports 25-30 pound weight loss over the last several months and states that he has had increased difficulty swallowing solid foods and some liquids intermittently. He states that he experiences nausea and vomiting after just "a few mouthfuls" of food. Patient denies any decreased appetite but states he feels this weight loss is due to his inability to swallow and keep solids and liquids down. Patient denies any difficulty swallowing medications. He denies odynophagia and states that solid foods at times feels stuck in his throat and precipitates vomiting. Patient denies any heartburn or change in voice. Denies use of tobacco or alcohol products and denies any known family history of gastrointestinal disorders. Last EGD was done on 12/30/2017 where patient was not noted to have severe esophagitis with stricture in the distal esophagus. Patient denies constipation or diarrhea and states that he has a soft brown bowel movement 3 times a week. He denies any bleeding or mucus in stools. Last colonoscopy was done on 12/30/2017 and revealed diverticulosis in the descending sigmoid, sessile polyp, internal and external hemorrhoids. Our practice has been consulted to evaluate patient's report of weight loss and difficulty swallowing. <Michelle Nagel - Last Filed: 01/30/18 10:43> Review of Systems All other systems reviewed negative except as stated in HPI <Michelle Nagel - Last Filed: 01/30/18 10:43> PMFSH - History History Provided By: Patient - Medical History Medical History: Medical History (Last Reviewed 01/30/18 @ 07:49 by Sarah Barrera) Schizophrenia Diabetes Hypertension SD (myocardial infarction) - Surgical History Surgical History: Surgical History (Last Reviewed 01/30/18 @ 07:49 by Sarah Barrera) H/O heart bypass surgery - Family History Family History: Family History (Last Reviewed 01/29/18 @ 19:10 by Eben Hebert MD) Other Unknown family medical history - Tobacco History Second Hand Smoke Exposure: No Smoking Status: Never smoker - Alcohol History How Often Do You Have a Drink Containing Alcohol: Never - Substance Use History Substance History: No History of Abuse - Travel History Recent Travel in the [place] Within the Last 8 Weeks: No Recent Travel Out of the Country Within the Last 8 Weeks: No - Immunization History Tetanus Immunization: Unsure Hx Influenza Vaccine This Season: Yes <Michelle Nagel - Last Filed: 01/30/18 10:43> - Medical History Medical History: Medical History (Last Reviewed 01/30/18 @ 07:49 by Sarah Barrera) Schizophrenia Diabetes Hypertension SD (myocardial infarction) - Surgical History Surgical History: Surgical History (Last Reviewed 01/30/18 @ 07:49 by Sarah Barrera) H/O heart bypass surgery - Family History Family History: Family History (Last Reviewed 01/29/18 @ 19:10 by Eben Hebert MD) Other Unknown family medical history <Mannie Candelaria - Last Filed: 01/30/18 15:40> Medications and Allergies Active Medications: Active Medications Acetaminophen (Tylenol) 650 mg PO Q4H PRN PRN Reason: Temp > 100.4 Al Hydroxide/Mg Hydroxide (Milk Of Ajay Liq) 30 ml PO Q12H PRN PRN Reason: Mild Constipation Bisacodyl (Dulcolax Supp) 10 mg RECTAL DAILY PRN PRN Reason: SEVERE CONSITIPATION Carvedilol (Coreg) 6.[address] [facility] Last Admin: 01/30/18 08:08 Dose: 6.25 mg Citalopram Hydrobromide (Celexa) [address] [facility] Cyanocobalamin (Vitamin B12) 1,[address] [facility] Last Admin: 01/30/18 08:08 Dose: 1,000 mcg Dextrose (D50w Vial) 50 ml IV.PUSH UNSCH PRN PRN Reason: PER HYPOGLYCEMIA PROTOCOL Folic Acid (Folic Acid) 0.[address] [facility] Glucagon (Glucagon Inj) 1 mg OTHER PRN PRN PRN Reason: for Hypoglycemia Protocol Sodium Chloride (Ns Inj) 1,000 mls @ 100 mls/hr IV.CONT .Q10H [facility] Last Admin: 01/30/18 02:59 Dose: 100 mls/hr Insulin Aspart (Novolog Insulin Correctional Sugar Inj) [address] [facility]; Protocol Last Admin: 01/30/18 08:06 Dose: Not Given Lactulose (Lactulose Liq) 30 ml PO DAILY PRN PRN Reason: SEVERE CONSITIPATION Melatonin (Melatonin) 5 mg PO HS PRN PRN Reason: INSOMNIA Last Admin: 01/29/18 22:09 Dose: 5 mg Ondansetron HCl (Zofran Inj) 4 mg IV.PUSH Q6H PRN PRN Reason: NAUSEA OR VOMITING Pantoprazole Sodium (Protonix) [address] [facility] Last Admin: 01/30/18 08:08 Dose: 40 mg Sennosides (Senokot) 17.2 mg PO Q12H PRN PRN Reason: Moderate Constipation Sodium Chloride (Ns Flush) [address] [facility] Last Admin: 01/30/18 08:08 Dose: Not Given Sodium Chloride (Ns Flush) 2 ml IV.FLUSH PRN PRN PRN Reason: FLUSH AFTER USING IV ACCESS Tamsulosin HCl (Flomax) 0.[address] [facility] Last Admin: 01/30/18 08:08 Dose: 0.4 mg <Michelle Nagel - Last Filed: 01/30/18 10:43> Active Medications: Active Medications Acetaminophen (Tylenol) 650 mg PO Q4H PRN PRN Reason: Temp > 100.4 Al Hydroxide/Mg Hydroxide (Milk Of Magnesia Liq) 30 ml PO Q12H PRN PRN Reason: Mild Constipation Bisacodyl (Dulcolax Supp) 10 mg RECTAL DAILY PRN PRN Reason: SEVERE CONSITIPATION Carvedilol (Coreg) 6.[address] [facility] Last Admin: 01/30/18 08:08 Dose: 6.25 mg Citalopram Hydrobromide (Celexa) [address] [facility] Cyanocobalamin (Vitamin B12) 1,[address] [facility] Last Admin: 01/30/18 08:08 Dose: 1,000 mcg Dextrose (D50w Vial) 50 ml IV.PUSH UNSCH PRN PRN Reason: PER HYPOGLYCEMIA PROTOCOL Folic Acid (Folic Acid) 0.[address] [facility] Glucagon (Glucagon Inj) 1 mg OTHER PRN PRN PRN Reason: for Hypoglycemia Protocol Sodium Chloride (Ns Inj) 1,000 mls @ 100 mls/hr IV.CONT .Q10H [facility] Last Admin: 01/30/18 11:29 Dose: 100 mls/hr Insulin Aspart (Novolog Insulin Correctional Sugar Inj) [address] [facility]; Protocol Last Admin: 01/30/18 12:10 Dose: Not Given Lactulose (Lactulose Liq) 30 ml PO DAILY PRN PRN Reason: SEVERE CONSITIPATION Melatonin (Melatonin) 5 mg PO HS PRN PRN Reason: INSOMNIA Last Admin: 01/29/18 22:09 Dose: 5 mg Ondansetron HCl (Zofran Inj) 4 mg IV.PUSH Q6H PRN PRN Reason: NAUSEA OR VOMITING Pantoprazole Sodium (Protonix) [address] [facility] Last Admin: 01/30/18 08:08 Dose: 40 mg Sennosides (Senokot) 17.2 mg PO Q12H PRN PRN Reason: Moderate Constipation Sodium Chloride (Ns Flush) [address] [facility] Last Admin: 01/30/18 08:08 Dose: Not Given Sodium Chloride (Ns Flush) 2 ml IV.FLUSH PRN PRN PRN Reason: FLUSH AFTER USING IV ACCESS Tamsulosin HCl (Flomax) 0.[address] [facility] Last Admin: 01/30/18 08:08 Dose: 0.4 mg <Mannie Candelaria - Last Filed: 01/30/18 15:40> Allergies Allergy/AdvReac Type Severity Reaction Status Date / Time No Known Allergies Allergy Verified 12/22/17 22:28 Home Medications Medication Instructions Recorded Confirmed Type ascorbic acid (vitamin C) [Vitamin 1,000 mg PO DAILY 11/29/17 01/29/18 History C] cholecalciferol (vitamin D3) 1,000 unit PO DAILY 11/29/17 01/29/18 History [Vitamin D3] citalopram 20 mg PO DAILY 11/29/17 01/29/18 History cyanocobalamin (vitamin B-12) 1,000 mcg PO DAILY 11/29/17 01/29/18 History [Vitamin B-12] docusate sodium [Colace] 100 mg PO BID PRN 11/29/17 01/29/18 History ferrous gluconate 324 mg PO DAILY 11/29/17 01/29/18 History folic acid 0.5 mg PO DAILY 11/29/17 01/29/18 History gabapentin 600 mg PO TID 11/29/17 01/29/18 History metformin 1,000 mg PO BID 11/29/17 01/29/18 History aspirin 81 mg PO DAILY 01/30/18 01/30/18 History brimonidine 1 drp OPHTHALMIC (EYE) TID 01/30/18 01/30/18 History carbamide peroxide 1 drp EACH EAR DAILY 01/30/18 01/30/18 History omeprazole 20 cap PO BID 01/30/18 01/30/18 History quetiapine 25 tab PO DAILY 01/30/18 01/30/18 History quetiapine 200 tab PO HS 01/30/18 01/30/18 History Exam Vital signs: Vital Signs 01/29/18 10:58 01/29/18 14:51 01/29/18 14:52 Temperature Pulse Rate 63 64 64 Respiratory Rate 18 16 Blood Pressure 108/65 164/84 H Pulse Oximetry 97 99 01/29/18 16:00 01/29/18 19:12 01/29/18 20:00 Temperature 98.3 F 97.8 F 97.4 F L Pulse Rate 73 67 93 H Respiratory Rate 16 16 17 Blood Pressure 108/59 L 182/89 H 159/74 H Pulse Oximetry 100 96 97 01/29/18 23:34 01/30/18 03:48 01/30/18 07:55 Temperature 98.1 F 97.3 F L 97.5 F L Pulse Rate 69 60 62 Respiratory Rate 17 17 16 Blood Pressure 159/83 H 162/83 H 186/95 H Pulse Oximetry 97 99 98 Intake & Output 01/29/18 01/30/18 01/30/18 18:59 06:59 18:59 Intake Total 500 / 500 1200 / 1200 Balance 500 / 500 1200 / 1200 Weight 62.142 kg Intake: IV 500 / 500 1200 / 1200 NS Inj 1,000 ML @ 100 mls/hr IV 1000 / 1000 .CONT .Q10H [facility] Rx#:[id number] KCl 20 mEq Premix Inj 20 meq In 200 / 200 100 ml @ 50 mls/hr IV.SIG Q2H [facility] Rx#:[id number] NS Inj 500 ML @ 1000 mls/hr IV. 500 / 500 SIG BOLUS [facility] Rx#:[id number] Other: # Voids 1 Date of Last Bowel Movement 01/29/18 Weight On Admission 62.142 kg - Constitutional no acute distress - Routine HEENT Exam Head: Present: normocephalic - Routine Neck Exam Present: supple, trachea midline - Routine Respiratory Exam Present: CTA bilaterally. Absent: accessory muscle use - Routine Cardiovascular Exam Present: S1, S2 - Routine Abdominal Exam Present: soft, normoactive bowel sounds. Absent: tenderness, distended, guarding, firm - Routine Extremities Exam Present: pulses intact. Absent: edema - Routine Skin Exam Present: dry, warm. Absent: pallor - Routine Neurological Exam Present: alert <Nagel,Michelle - Last Filed: 01/30/18 10:43> Vital signs: Vital Signs 01/29/18 16:00 01/29/18 19:12 01/29/18 20:00 Temperature 98.3 F 97.8 F 97.4 F L Pulse Rate 73 67 93 H Respiratory Rate 16 16 17 Blood Pressure 108/59 L 182/89 H 159/74 H Pulse Oximetry 100 96 97 01/29/18 23:34 01/30/18 03:48 01/30/18 07:55 Temperature 98.1 F 97.3 F L 97.5 F L Pulse Rate 69 60 62 Respiratory Rate 17 17 16 Blood Pressure 159/83 H 162/83 H 186/95 H Pulse Oximetry 97 99 98 01/30/18 12:00 Temperature 97.5 F L Pulse Rate 59 L Respiratory Rate 16 Blood Pressure 184/96 H Pulse Oximetry 99 Intake & Output 01/29/18 01/30/18 01/30/18 18:59 06:59 18:59 Intake Total 500 / 500 1200 / 1200 1000 / 1000 Output Total 400 / 400 Balance 500 / 500 1200 / 1200 600 / 600 Weight 62.142 kg Intake: IV 500 / 500 1200 / 1200 1000 / 1000 NS Inj 1,000 ML @ 100 mls/hr IV 1000 / 1000 1000 / 1000 .CONT .Q10H [facility] Rx#:[id number] KCl 20 mEq Premix Inj 20 meq In 200 / 200 100 ml @ 50 mls/hr IV.SIG Q2H [facility] Rx#:[id number] NS Inj 500 ML @ 1000 mls/hr IV. 500 / 500 SIG BOLUS [facility] Rx#:[id number] Output: Urine 400 / 400 Other: # Voids 1 # Urine Diapers 1 Date of Last Bowel Movement 01/29/18 01/27/18 Weight On Admission 62.142 kg <Mannie Candelaria - Last Filed: 01/30/18 15:40> Results - Labs CBC & Chem 7: 01/30/18 08:23 01/30/18 08:23 Labs: Laboratory Results - last 24 hr 01/29/18 01/29/18 01/29/18 11:00 11:00 11:00 WBC 3.1 L RBC 4.05 L Hgb 11.8 L Hct 36.2 L MCV 89.3 MCH 29.1 MCHC 32.6 RDW 14.6 Plt Count 272 D MPV 9.0 Neut % (Auto) 68.6 Lymph % (Auto) 20.3 Faulk % (Auto) 8.0 Eos % (Auto) 2.2 Baso % (Auto) 0.9 Neut # (Auto) 2.1 Lymph # (Auto) 0.6 L Faulk # (Auto) 0.3 Eos # (Auto) 0.1 Baso # (Auto) 0.0 WBC Differential . Differential Comment Auto diff final Sodium 140 Potassium 3.2 L Chloride 104 Carbon Dioxide 26.1 Anion Gap 10 BUN 53 H Creatinine 2.37 H Estimated GFR 27 L POC Glucose Random Glucose 127 H Calcium 8.7 Magnesium 1.9 Total Bilirubin AST ALT Alkaline Phosphatase Troponin I Less than 0.02 L Total Protein Albumin 01/29/18 01/30/18 01/30/18 17:25 07:25 08:23 WBC 4.6 RBC 4.27 L Hgb 12.3 L Hct 38.3 L MCV 89.8 MCH 28.7 MCHC 32.0 RDW 14.1 Plt Count 268 MPV 9.0 Neut % (Auto) 73.1 H Lymph % (Auto) 14.6 Faulk % (Auto) 8.6 H Eos % (Auto) 2.7 Baso % (Auto) 1.0 Neut # (Auto) 3.4 Lymph # (Auto) 0.7 L Faulk # (Auto) 0.4 Eos # (Auto) 0.1 Baso # (Auto) 0.0 WBC Differential . Differential Comment Auto diff final Sodium Potassium Chloride Carbon Dioxide Anion Gap BUN Creatinine Estimated GFR POC Glucose 123 H 106 Random Glucose Calcium Magnesium Total Bilirubin AST ALT Alkaline Phosphatase Troponin I Total Protein Albumin 01/30/18 08:23 WBC RBC Hgb Hct MCV MCH MCHC RDW Plt Count MPV Neut % (Auto) Lymph % (Auto) Faulk % (Auto) Eos % (Auto) Baso % (Auto) Neut # (Auto) Lymph # (Auto) Faulk # (Auto) Eos # (Auto) Baso # (Auto) WBC Differential Differential Comment Sodium 140 Potassium 4.1 D Chloride 109 H Carbon Dioxide 23.0 Anion Gap 8 BUN 30 H Creatinine 1.35 H Estimated GFR 52 L POC Glucose Random Glucose 110 H Calcium 8.8 Magnesium Total Bilirubin 0.3 AST 16 ALT 10 L Alkaline Phosphatase 72 Troponin I Total Protein 7.0 Albumin 2.6 L - Imaging Impressions Abdomen/Bladder Ultrasound 01/29/18 00:00 CONCLUSION: 1. Echogenic normal sized kidneys which can be seen with acute renal medical disease. 2. Prostatic enlargement. Cervical Spine CT 01/29/18 10:41 CONCLUSION: 1. 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 No evidence of an acute fracture or spondylolisthesis Chest X-Ray 01/29/18 10:41 CONCLUSION: Compensated cardiomegaly otherwise negative Head CT 01/29/18 10:41 CONCLUSION: 1. Diffuse atrophy. No evidence of hemorrhage or edema . <Michelle Nagel - Last Filed: 01/30/18 10:43> - Labs CBC & Chem 7: 01/30/18 08:23 01/30/18 08:23 Labs: Laboratory Results - last 24 hr 01/29/18 01/30/18 01/30/18 17:25 07:25 08:23 WBC 4.6 RBC 4.27 L Hgb 12.3 L Hct 38.3 L MCV 89.8 MCH 28.7 MCHC 32.0 RDW 14.1 Plt Count 268 MPV 9.0 Neut % (Auto) 73.1 H Lymph % (Auto) 14.6 Faulk % (Auto) 8.6 H Eos % (Auto) 2.7 Baso % (Auto) 1.0 Neut # (Auto) 3.4 Lymph # (Auto) 0.7 L Faulk # (Auto) 0.4 Eos # (Auto) 0.1 Baso # (Auto) 0.0 WBC Differential . Differential Comment Auto diff final Sodium Potassium Chloride Carbon Dioxide Anion Gap BUN Creatinine Estimated GFR POC Glucose 123 H 106 Random Glucose Calcium Total Bilirubin AST ALT Alkaline Phosphatase Total Protein Albumin 01/30/18 01/30/18 08:23 11:58 WBC RBC Hgb Hct MCV MCH MCHC RDW Plt Count MPV Neut % (Auto) Lymph % (Auto) Faulk % (Auto) Eos % (Auto) Baso % (Auto) Neut # (Auto) Lymph # (Auto) Faulk # (Auto) Eos # (Auto) Baso # (Auto) WBC Differential Differential Comment Sodium 140 Potassium 4.1 D Chloride 109 H Carbon Dioxide 23.0 Anion Gap 8 BUN 30 H Creatinine 1.35 H Estimated GFR 52 L POC Glucose 121 H Random Glucose 110 H Calcium 8.8 Total Bilirubin 0.3 AST 16 ALT 10 L Alkaline Phosphatase 72 Total Protein 7.0 Albumin 2.6 L <Mannie Candelaria - Last Filed: 01/30/18 15:40> Assessment and Plan (1) Dysphagia Status: Acute Code(s): R13.10 - Dysphagia, unspecified - Plan This patient is a 72-year-old male with history of diabetes, schizophrenia and hypertension. Patient was admitted to [facility] post fall at home where he states he was getting up to answer the door and fell. Patient denies any dizziness or lightheadedness at this time and denies remembrance of the fall. Upon admission, patient endorsed weight loss with difficulty swallowing. Upon consultation, patient reports 25-30 pound weight loss over the last several months and states that he has had increased difficulty swallowing solid foods and some liquids intermittently. He states that he experiences nausea and vomiting after just "a few mouthfuls" of food. Patient denies any decreased appetite but states he feels this weight loss is due to his inability to swallow and keep solids and liquids down. Patient denies any difficulty swallowing medications. He denies odynophagia and states that solid foods at times feels stuck in his throat and precipitates vomiting. Patient denies any heartburn or change in voice. Denies use of tobacco or alcohol products and denies any known family history of gastrointestinal disorders. Last EGD was done on 12/30/2017 where patient was not noted to have severe esophagitis with stricture in the distal esophagus. Patient denies constipation or diarrhea and states that he has a soft brown bowel movement 3 times a week. He denies any bleeding or mucus in stools. Last colonoscopy was done on 12/30/2017 and revealed diverticulosis in the descending sigmoid, sessile polyp, internal and external hemorrhoids. Our practice has been consulted to evaluate patient's report of weight loss and difficulty swallowing. Dysphagia Patient endorses 3 months onset of difficulty swallowing with nausea and vomiting accompanied by 25-30 pound weight loss over the last several months. Last EGD as noted above. Plan -N.p.o. -Obtain consent for EGD -Possible dilatation required -Acid reflux precautions -Continue PPI -Supportive care -Further recommendations to follow This patient has been seen by myself and Dr. Candelaria and this note is written on his behalf - Attending Attestation Dr. Candelaria <Michelle Nagel - Last Filed: 01/30/18 10:43> (1) Dysphagia Status: Acute Code(s): R13.10 - Dysphagia, unspecified - Plan Patient was seen and examined, agree with above note, we will plan upper endoscopy with possible dilation, further plan depends on the finding on the endoscopy <Mannie Candelaria - Last Filed: 01/30/18 15:40>
[2018-01-30] MEDS ORDERED: Lidocaine PF 1% Inj 5 ML Syringe OTHER ONE (15:18)
--- NOTE | 2018-01-30 16:27 | P.PCN ---
Date of procedure: 01/30/18 Procedure: THANK YOU FOR THE REFERRAL Indication; dysphagia, history of esophagitis Procedure Performed; upper endoscopy with balloon dilation under fluoroscopy, biopsy After informing the patient about procedure and possible complications consent was signed. history and physical were updated. Patient was taken to the procedure room and placed in position. Time out was completed. Adequate sedation was performed by anesthesia provider. Upper Endoscopy, the scope was placed in the mouth advanced under video guide to the distal esophagus, there was significant esophagitis and narrowing of the esophagus I was not able to pass the scope so a fluoroscopy machine was brought and and I dilated the esophagus to size 8.5, 9.5, 10.5 millimeters , with a fluoroscopy guided wire-guided balloon was , there was significant esophagitis that required me to switched scope to a slim scope at this point the scope was advanced to second portion of the duodenum, then the scope was withdrawal to the stomach and retro-flexion was performed, the scope was withdrawal to the esophagus then out of the mouth without any immediate complication Findings; Esophagus: Severe esophagitis with long stricture status post balloon dilation under fluoroscopy with biopsy Stomach normal except large hiatal hernia [] Duodenum normal Recommendations; 1- Supportive care 2- ok to transfer to recovery area then discharge per protocol 3-Protonix 40 mg twice daily 4-clear liquid diet, patient should be on pured diet until dilation in the future 5- EGD in few weeks with with more dilation 6-avoid NSAIDs
--- NOTE | 2018-01-30 18:19 | P.PN ---
Subjective Interval history: Follow up for syncope, dysphagia: Patient seen and examined, currently n.p.o. Indicates that he has trouble swallowing food even liquids, vomits. No abdominal pain. No chest pain, no shortness of breath. No acute changes overnight. No fever. No nausea, no vomiting, no diarrhea. Indicates he lives alone. Physical Exam Vital signs: Vital Signs 01/29/18 19:12 01/29/18 20:00 01/29/18 23:34 Temperature 97.8 F 97.4 F L 98.1 F Pulse Rate 67 93 H 69 Respiratory Rate 16 17 17 Blood Pressure 182/89 H 159/74 H 159/83 H Pulse Oximetry 96 97 97 01/30/18 03:48 01/30/18 07:55 01/30/18 12:00 Temperature 97.3 F L 97.5 F L 97.5 F L Pulse Rate 60 62 59 L Respiratory Rate 17 16 16 Blood Pressure 162/83 H 186/95 H 184/96 H Pulse Oximetry 99 98 99 01/30/18 16:52 Temperature 97.5 F L Pulse Rate 65 Respiratory Rate 18 Blood Pressure 117/71 Pulse Oximetry Intake & Output 01/29/18 01/30/18 01/30/18 18:59 06:59 18:59 Intake Total 500 / 500 1200 / 1200 1000 / 1000 Output Total 400 / 400 Balance 500 / 500 1200 / 1200 600 / 600 Weight 62.142 kg Intake: IV 500 / 500 1200 / 1200 1000 / 1000 NS Inj 1,000 ML @ 100 mls/hr IV 1000 / 1000 1000 / 1000 .CONT .Q10H [facility] Rx#:[id number] KCl 20 mEq Premix Inj 20 meq In 200 / 200 100 ml @ 50 mls/hr IV.SIG Q2H [facility] Rx#:[id number] NS Inj 500 ML @ 1000 mls/hr IV. 500 / 500 SIG BOLUS [facility] Rx#:[id number] Output: Urine 400 / 400 Other: # Voids 1 # Urine Diapers 1 Date of Last Bowel Movement 01/29/18 01/27/18 Weight On Admission 62.142 kg Narrative: GENERAL: Patient lying in bed. NAD. SKIN: Warm and dry. HEAD: Small 2 cm scalp laceration which has been stapled. EYES: Pupils equal and round. No scleral icterus. No injection or drainage. ENT: No nasal bleeding or discharge. Mucous membranes pink and moist. NECK: Trachea midline. No JVD. CARDIOVASCULAR: Regular rate and rhythm. RESPIRATORY: No accessory muscle use. Clear to auscultation. Breath sounds equal bilaterally. GASTROINTESTINAL: Abdomen soft, non-tender, nondistended. Hepatic and splenic margins not palpable. MUSCULOSKELETAL: Extremities without clubbing, cyanosis, or edema. No obvious deformities. NEUROLOGICAL: Awake and alert. No obvious cranial nerve deficits. Motor grossly within normal limits. Five out of 5 muscle strength in the arms and legs. Normal speech. PSYCHIATRIC: Appropriate mood and affect; insight and judgment normal. Results - Labs CBC & Chem 7: 01/30/18 08:23 01/30/18 08:23 Laboratory Results - last 24 hr 01/30/18 01/30/18 01/30/18 07:25 08:23 08:23 WBC 4.6 RBC 4.27 L Hgb 12.3 L Hct 38.3 L MCV 89.8 MCH 28.7 MCHC 32.0 RDW 14.1 Plt Count 268 MPV 9.0 Neut % (Auto) 73.1 H Lymph % (Auto) 14.6 [place] % (Auto) 8.6 H Eos % (Auto) 2.7 Baso % (Auto) 1.0 Neut # (Auto) 3.4 Lymph # (Auto) 0.7 L [place] # (Auto) 0.4 Eos # (Auto) 0.1 Baso # (Auto) 0.0 WBC Differential . Differential Comment Auto diff final Sodium 140 Potassium 4.1 D Chloride 109 H Carbon Dioxide 23.0 Anion Gap 8 BUN 30 H Creatinine 1.35 H Estimated GFR 52 L POC Glucose 106 Random Glucose 110 H Calcium 8.8 Total Bilirubin 0.3 AST 16 ALT 10 L Alkaline Phosphatase 72 Total Protein 7.0 Albumin 2.6 L 01/30/18 01/30/18 11:58 17:38 WBC RBC Hgb Hct MCV MCH MCHC RDW Plt Count MPV Neut % (Auto) Lymph % (Auto) [place] % (Auto) Eos % (Auto) Baso % (Auto) Neut # (Auto) Lymph # (Auto) [place] # (Auto) Eos # (Auto) Baso # (Auto) WBC Differential Differential Comment Sodium Potassium Chloride Carbon Dioxide Anion Gap BUN Creatinine Estimated GFR POC Glucose 121 H 111 H Random Glucose Calcium Total Bilirubin AST ALT Alkaline Phosphatase Total Protein Albumin Assessment and Plan - Assessment (1) ROLAND (acute kidney injury) Code(s): N17.9 - Acute kidney failure, unspecified Status: Acute (2) Hypokalemia Code(s): E87.6 - Hypokalemia Status: Acute (3) Dysphagia Code(s): R13.10 - Dysphagia, unspecified Status: Acute (4) Dehydration Code(s): E86.0 - Dehydration Status: Acute (5) Syncope Code(s): R55 - Syncope and collapse Status: Acute (6) Diabetes 1.5, 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 No recall of fall. No loss of bowel or bladder function and no postictal state. He had a scalp laceration sutured in the ER. Patient reported a 30 pound weight loss over the past several months. Reports dysphasia with reflux of recently eaten food which he implicates as the cause of his weight loss. Acute syncopal episode Generalized weakness. Most certainly secondary to dehydration secondary to dysphasia. Could also be secondary to acute kidney injury, gabapentin toxicity. -continue to hold gabapentin for now -continue IVF -NPO until GI procedure done Severe malnutrition. 30 pound weight loss over the past 3 months. -GI following Dysphasia and reflux--3-month history. -GI following, recommends EGD -NPO for now Acute kidney injury on CKD Creatinine 2.4 from normal baseline. Likely secondary to dehydration secondary to esophageal dysmotility versus achalasia. Renal ultrasound with medical renal disease, however no hydronephrosis -Continue IV fluids and monitor. -Avoid nephrotoxic agents -creat trending down, 1.35 today Hypokalemia. 3.2. Back to normal today -Replace PRN S/P fall with scalp laceration -localized wound care Hx of recent GIB, had EGD/colonoscopy. Found with gastric ulcers -continue with PPI -HH stable. Hypertension-Chronic BP elevated today -Medications reviewed, [facility]. Pt. not on Coreg and Norvasc. Takes Lisinopril/HCTZ -will leave on Coreg for now due to renal injury. -adjust medications as needed Diabetes mellitus -Accuchecks with ISS -hold oral hypoglycemic agents History of BPH -Continue tamsulosin. Schizophrenia -resume Seroquel PPI for GI prophylaxis SCDs for DVT prophylaxis PT eval and tx CM for DC planning, benefits from SNF. Has been admitted repeatedly this year, [facility] and [facility] are concerned for his safety and have recommended [facility] before. Code Status: Full code Discussed Condition With: RN, pt, CM Discharge Planning: Needs SNF (5) Syncope Qualifiers: Syncope type: vasovagal syncope Qualified Code(s): R55 - Syncope and collapse (7) Schizophrenia Qualifiers: Schizophrenia type: unspecified Qualified Code(s): F20.9 - Schizophrenia, unspecified
--- NOTE | 2018-01-30 21:09 | ECG ---
Date Performed: 01/29/2018 Time Performed: 10:47:03 PTAGE: 72 years EKG: Sinus rhythm WITH FIRST DEGREE AV BLOCK INFERIOR MYOCARDIAL INFARCTION Compared to previous tracing, inferior Quinn cardial infarction pattern is more prominent ABNORMAL ECG PREVIOUS TRACING : 12/26/2017 15.54 DOCTOR: Narendra Dang Interpretating Date/Time 01/30/2018 21:07:09
[2018-01-30] MEDS: Pantoprazole Sodium 20 MG DR Tablet PO SCH (21:28)
[2018-01-31] MEDS: Brimonidine 0.2% Opth Drops 5 ML Bottle EACH EYE SCH ×4 (08:15→18:10)
[2018-01-31] MEDS: Insulin NovoLOG Aspart Correctional Sugar Inj SQ SCH ×4 (08:19→20:32)
[2018-01-31] MEDS: amLODIPine 10 MG Tablet PO SCH (08:20)
[2018-01-31] MEDS: Pantoprazole Sodium 20 MG DR Tablet PO SCH ×2 (08:20→20:31)
[2018-01-31] MEDS: Folic Acid 1 MG Tablet PO SCH (08:21)
[2018-01-31] MEDS: QUEtiapine 25 MG Tablet PO SCH (08:25)
[2018-01-31] MEDS: Carvedilol 6.25 MG Tablet PO SCH ×2 (08:25→20:31)
[2018-01-31] MEDS: Sod Chloride 0.9% Inj 1,000 ML IV.CONT SCH ×2 (08:25→16:09)
[2018-01-31 09:43] LABS: Hematocrit 36.1 % (39.0-51.0); Hemoglobin 12.3 gm/dL (13.0-17.0); Mean Corpuscular Hemoglobin 29.7 pg (27.0-34.0); Mean Corpuscular Volume 87.4 fL (80.0-100.0); Mean Platelet Volume 9.5 fL (7.0-11.0); Platelet Count 300 th/mm3 (150-450); Red Blood Count 4.13 mil/mm3 (4.50-5.90); Red Cell Distribution Width 14.1 % (11.6-17.2); White Blood Count 4.6 th/mm3 (4.0-11.0)
[2018-01-31 10:15] LABS: Calcium 8.7 mg/dL (8.5-10.1); Carbon Dioxide 24.8 meq/L (21.0-32.0); Potassium 3.7 meq/L (3.5-5.1)
--- NOTE | 2018-01-31 10:17 | P.PN ---
Subjective Interval history: Follow up for syncope, dysphagia, s/p EGD yesterday that showed severe esophagitis and stricture. The patient reports feeling slightly better today. He reports some mild epigastric discomfort. He has tolerated small amounts of liquids. He denies any nausea/vomiting. BM documented yesterday. No fevers/ chills. He lives alone, agrees to rehab if recommended. Physical Exam Vital signs: Vital Signs 01/30/18 12:00 01/30/18 16:52 01/30/18 19:15 Temperature 97.5 F L 97.5 F L 97.4 F L Pulse Rate 59 L 65 59 L Respiratory Rate 18 Blood Pressure 184/96 H 117/71 195/102 H Pulse Oximetry 99 99 01/31/18 00:55 01/31/18 04:40 01/31/18 07:50 Temperature 96.9 F L 97.4 F L 97.6 F Pulse Rate 61 62 59 L Respiratory Rate 18 17 17 Blood Pressure 173/84 H 169/87 H 179/102 H Pulse Oximetry 98 100 100 Intake & Output 01/30/18 01/31/18 01/31/18 18:59 06:59 18:59 Intake Total 1000 / 1000 1600 / 1600 Output Total 400 / 400 200 / 200 Balance 600 / 600 1400 / 1400 Weight 62.1 kg Intake: IV 1000 / 1000 1000 / 1000 NS Inj 1,000 ML @ 100 mls/hr IV 1000 / 1000 1000 / 1000 .CONT .Q10H [facility] Rx#:[id number] Oral 600 / 600 Output: Urine 400 / 400 200 / 200 Other: # Urine Diapers 1 Date of Last Bowel Movement 01/27/18 01/29/18 Narrative: GENERAL: Well-nourished, well-developed very pleasant elderly male patient in [place]. SKIN: Warm and dry. No rash. Small 2 cm scalp laceration s/p staple. HEENT: Normocephalic. Atraumatic. Pupils equal and round. Mucous membranes pink and moist. CARDIOVASCULAR: Regular rate and rhythm. No murmur appreciated. RESPIRATORY: No accessory muscle use. Clear to auscultation. Breath sounds equal bilaterally. GASTROINTESTINAL: Abdomen soft, nondistended, mild epigastric tenderness to deep palpation. Normoactive bowel sounds x4. MUSCULOSKELETAL: No obvious deformities. Extremities without clubbing, cyanosis , or edema. NEUROLOGICAL: Awake and alert. No obvious cranial nerve deficits. Moving all extremities spontaneously. Normal speech. Results - Labs CBC & Chem 7: 01/31/18 08:57 01/31/18 08:57 Laboratory Results - last 24 hr 01/30/18 01/30/18 01/30/18 11:58 17:38 20:33 WBC RBC Hgb Hct MCV MCH MCHC RDW Plt Count MPV Sodium Potassium Chloride Carbon Dioxide Anion Gap BUN Creatinine Estimated GFR POC Glucose 121 H 111 H 117 H Random Glucose Calcium 01/31/18 01/31/18 01/31/18 08:19 08:57 08:57 WBC 4.6 RBC 4.13 L Hgb 12.3 L Hct 36.1 L MCV 87.4 MCH 29.7 MCHC 34.0 RDW 14.1 Plt Count 300 MPV 9.5 Sodium 141 Potassium 3.7 Chloride 106 Carbon Dioxide 24.8 Anion Gap 10 BUN 18 Creatinine 1.30 Estimated GFR 54 L POC Glucose 113 H Random Glucose 152 H Calcium 8.7 - Imaging Abdomen/Bladder Ultrasound 01/29/18 00:00 CONCLUSION: 1. Echogenic normal sized kidneys which can be seen with acute renal medical disease. 2. Prostatic enlargement. Cervical Spine CT 01/29/18 10:41 CONCLUSION: 1. 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 No evidence of an acute fracture or spondylolisthesis Chest X-Ray 01/29/18 10:41 CONCLUSION: Compensated cardiomegaly otherwise negative Head CT 01/29/18 10:41 CONCLUSION: 1. Diffuse atrophy. No evidence of hemorrhage or edema . - Procedures 01/30/18 - EGD by Dr. 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 No recall of fall. No loss of bowel or bladder function and no postictal state. He had a scalp laceration sutured in the ER. Patient reported a 30 pound weight loss over the past several months. Reports dysphagia with reflux of recently eaten food which he implicates as the cause of his weight loss. Acute syncopal episode with head injury and Generalized weakness: suspect secondary to recent dehydration with poor oral intake [id number] -Head CT 01/29 reviewed and unremarkable -C-spine CT 01/29 showed Degenerative disease at C6-7. No evidence of an acute fracture or spondylolisthesis -Troponin negative, EKG unremarkable -Monitor on telemetry -Given IVF hydration -check orthostatics -no further symptoms Dysphagia: [id number], with associated weight loss -Consulted GI -S/p EGD on 01/30 which showed Severe esophagitis with long stricture s/p balloon dilation with biopsy; large hiatal hernia -GI recommending protonix 40mg bid, avoid NSAIDs, clear liquids advance to pureed only until dilation in the future -needs to follow up with GI in 2 weeks for repeat EGD with dilation -advance diet to pureed, monitor oral intake Severe protein calorie malnutrition: with acute 30 pound weight loss -GI following as above -Dietitian consulted Acute kidney injury on CKD, stage III: Cr 2.37, previously 1.07 on 12/28/17. Prerenal secondary to dehydration from poor oral intake/dysphagia -Renal ultrasound with medical renal disease, no obstruction/hydronephrosis -Continue on IVF until tolerating acceptable amount of oral intake -Avoid nephrotoxic agents -monitor renal function, much improved, Cr 1.30, close to baseline S/P fall with scalp laceration -local wound care -have eleuterio removed in 10-14 days Hx of recent GIB, had EGD/colonoscopy. Found with gastric ulcers -continue with PPI -HH stable. Hypertension-Chronic -Medications reviewed, [facility]. Pt. not on Coreg and Norvasc. Takes Lisinopril/HCTZ -continue only Coreg for now due to renal injury. -initially held lisinopril/HCTZ, will restart now with improvement of renal function -monitor BP, adjust antihypertensives as needed Diabetes mellitus -Accuchecks with ISS -hold oral hypoglycemic agents History of BPH -Continue tamsulosin. Schizophrenia -resume Seroquel PPI for GI prophylaxis SCDs for DVT prophylaxis PT eval and tx CM for DC planning. likely needs SNF. Discharge Planning: Possible discharge in 1-2 days if tolerating oral intake and cleared by GI. Likely needs SNF placement. (5) Syncope Qualifiers: Syncope type: vasovagal syncope Qualified Code(s): R55 - Syncope and collapse (7) Schizophrenia Qualifiers: Schizophrenia type: unspecified Qualified Code(s): F20.9 - Schizophrenia, unspecified
[2018-01-31] MEDS: Carbamide Peroxide 6.5% Otic Drops 15 ML Bottle EACH EAR SCH (10:22)
[2018-01-31] MEDS: Sodium Chloride 0.9% 2 ML Flush BID IV.FLUSH SCH (10:22)
--- NOTE | 2018-01-31 15:06 | P.DIET ---
Nutritional Evaluation Type of nutrition evaluation: initial Nutrition screening: Weight Loss > 10 lbs Subjective Barriers to Nutrition: Swallowing problem Subjective Comments: Difficulty Swallowing w/Nausea and Vomiting w/a subsequent 25 to 30-lb wt loss over the last several months Objective - Diagnosis Dehydration, ROLAND - Objective % IBW: 85 Body Weight Used for Calculations: Actual (62.142 kg) Energy Needs - Lower Range (kCal/kg): 30 Energy Needs - Upper Range (kCal/kg): 35 Lower Limit kCal/kg (kCals): 1,864 Upper Limit kCal/kg (kCals): 2,175 Lower Limit Protein Factor (Grams per Kg): 1.2 Upper Limit Protein Factor (Grams per Kg): 1.5 Lower Protein Needs (Protein): 75 Upper Protein Needs (Protein): 93 Dietitian Reviewed in Medical Record: Current diet, Curent medications, Intake & Output, Labs, Medical history Diet Order: Clear Liquid Oral Diet Intake Amount: Good 75-90% Objective Comments: PMH includes: DM, HTN, [place], h/o heart bypass, Schizophrenia 01/30/18 GI w/upper endoscopy w/balloon dilation, biopsy POC Glucose 175, Random Glucose 152 LBM 01/29 Assessment Assessment: Pt is at nutritional risk r/t difficulty swallowing and recent unintentional wt loss. Upper Endoscopy 01/30 w/GI recs for Clear Liquid diet and pureed diet until next dilation. Monitor diet advancement. Send Glucerna Shakes TID when diet advanced Full Liquids and greater. Labs reviewed. Dietitian following. Recommendations: 1. Diet per GI 2. Monitor diet advancement 3. Send Glucerna Shakes TID when diet advanced Full Liquids and greater 4. Dietitian following Dietitian to Monitor: Lab values, Glucose level, Intake & Output, Diet tolerance , Weight change, PO Intake, Diet advancement, Swallow recommendations, Medical course
--- NOTE | 2018-01-31 16:12 | ECG ---
Date Performed: 01/30/2018 Time Performed: 12:29:08 PTAGE: 72 years EKG: SINUS BRADYCARDIA WITH FIRST DEGREE AV BLOCK POSSIBLE ANTERIOR MYOCARDIAL INFARCTION INFERI OR MYOCARDIAL INFARCTION ABNORMAL ECG PREVIOUS TRACING :01/29/2018 @10.47 Compared to previous tracing, patient has developed criteri a for an anterior wall Myocardial infarction of indeterminate age. This may be secondary to reveral o f V2 and V3. Repeat EKG advised therwise no significant serial change. DOCTOR: Mary Bass Interpretating Date/Time 01/31/2018 16:11:35
--- NOTE | 2018-01-31 18:57 | P.PNGI ---
Subjective Interval history: Patient laying supine in bed Post EGD Reports tolerating clear liquids well <Nagel,Michelle - Last Filed: 01/31/18 18:53> Physical Exam Vital signs: Vital Signs 01/30/18 19:15 01/31/18 00:55 01/31/18 04:40 Temperature 97.4 F L 96.9 F L 97.4 F L Pulse Rate 59 L 61 62 Respiratory Rate 18 18 17 Blood Pressure 195/102 H 173/84 H 169/87 H Pulse Oximetry 99 98 100 01/31/18 07:50 01/31/18 11:10 01/31/18 16:00 Temperature 97.6 F 97.3 F L 97.4 F L Pulse Rate 59 L 62 63 Respiratory Rate 17 18 18 Blood Pressure 179/102 H 135/76 134/75 Pulse Oximetry 100 98 98 01/31/18 16:07 01/31/18 16:09 Temperature Pulse Rate Respiratory Rate Blood Pressure 112/60 97/60 L Pulse Oximetry Intake & Output 01/30/18 01/31/18 01/31/18 18:59 06:59 18:59 Intake Total 1000 / 1000 1600 / 1600 1976 Output Total 400 / 400 200 / 200 950 / 950 Balance 600 / 600 1400 / 1400 1027 / 1027 Weight 62.1 kg Intake: IV 1000 / 1000 1000 / 1000 777 / 777 NS Inj 1,000 ML @ 100 mls/hr IV 1000 / 1000 1000 / 1000 777 / 777 .CONT .Q10H [facility] Rx#:[id number] Oral 600 / 600 1200 / 1200 Output: Urine 400 / 400 200 / 200 950 / 950 Other: # Urine Diapers 1 Date of Last Bowel Movement 01/27/18 01/29/18 01/29/18 - Constitutional no acute distress - Routine HEENT Exam Head: Present: normocephalic - Routine Respiratory Exam Absent: accessory muscle use - Routine Abdominal Exam Present: soft, normoactive bowel sounds. Absent: tenderness, guarding, firm - Routine Skin Exam Present: dry, warm - Routine Neurological Exam Present: alert, oriented X3 <Nagel,Michelle - Last Filed: 01/31/18 18:53> Vital signs: Vital Signs 01/31/18 00:55 01/31/18 04:40 01/31/18 07:50 Temperature 96.9 F L 97.4 F L 97.6 F Pulse Rate 61 62 59 L Respiratory Rate 18 17 17 Blood Pressure 173/84 H 169/87 H 179/102 H Pulse Oximetry 98 100 100 01/31/18 11:10 01/31/18 16:00 01/31/18 16:07 Temperature 97.3 F L 97.4 F L Pulse Rate 62 63 Respiratory Rate 18 18 Blood Pressure 135/76 134/75 112/60 Pulse Oximetry 98 98 01/31/18 16:09 Temperature Pulse Rate Respiratory Rate Blood Pressure 97/60 L Pulse Oximetry Intake & Output 01/31/18 01/31/18 02/01/18 06:59 18:59 06:59 Intake Total 1600 / 1600 1976 Output Total 200 / 200 950 / 950 Balance 1400 / 1400 1027 / 1027 Weight 62.1 kg Intake: IV 1000 / 1000 777 / 777 NS Inj 1,000 ML @ 100 mls/hr IV 1000 / 1000 777 / 777 .CONT .Q10H [facility] Rx#:[id number] Oral 600 / 600 1200 / 1200 Output: Urine 200 / 200 950 / 950 Other: Date of Last Bowel Movement 01/29/18 01/29/18 <Mannie Candelaria - Last Filed: 01/31/18 19:23> Results - Labs CBC & Chem 7: 01/31/18 08:57 01/31/18 08:57 Laboratory Results - last 24 hr 01/30/18 01/31/18 01/31/18 20:33 08:19 08:57 WBC 4.6 RBC 4.13 L Hgb 12.3 L Hct 36.1 L MCV 87.4 MCH 29.7 MCHC 34.0 RDW 14.1 Plt Count 300 MPV 9.5 Sodium Potassium Chloride Carbon Dioxide Anion Gap BUN Creatinine Estimated GFR POC Glucose 117 H 113 H Random Glucose Calcium 01/31/18 01/31/18 01/31/18 08:57 11:06 16:07 WBC RBC Hgb Hct MCV MCH MCHC RDW Plt Count MPV Sodium 141 Potassium 3.7 Chloride 106 Carbon Dioxide 24.8 Anion Gap 10 BUN 18 Creatinine 1.30 Estimated GFR 54 L POC Glucose 175 H 134 H Random Glucose 152 H Calcium 8.7 - Procedures 01/30/18 - EGD by Dr. Candelaria: Esophagus: Severe esophagitis with long stricture status post balloon dilation under fluoroscopy with biopsy Stomach: normal except large hiatal hernia Duodenum: normal <Michelle Nagel - Last Filed: 01/31/18 18:53> - Labs CBC & Chem 7: 01/31/18 08:57 01/31/18 08:57 Laboratory Results - last 24 hr 01/30/18 01/31/18 01/31/18 20:33 08:19 08:57 WBC 4.6 RBC 4.13 L Hgb 12.3 L Hct 36.1 L MCV 87.4 MCH 29.7 MCHC 34.0 RDW 14.1 Plt Count 300 MPV 9.5 Sodium Potassium Chloride Carbon Dioxide Anion Gap BUN Creatinine Estimated GFR POC Glucose 117 H 113 H Random Glucose Calcium 01/31/18 01/31/18 01/31/18 08:57 11:06 16:07 WBC RBC Hgb Hct MCV MCH MCHC RDW Plt Count MPV Sodium 141 Potassium 3.7 Chloride 106 Carbon Dioxide 24.8 Anion Gap 10 BUN 18 Creatinine 1.30 Estimated GFR 54 L POC Glucose 175 H 134 H Random Glucose 152 H Calcium 8.7 <Mannie Candelaria - Last Filed: 01/31/18 19:23> Assessment and Plan (1) Dysphagia Status: Acute Code(s): R13.10 - Dysphagia, unspecified - Plan 01/31/2018 Dysphagia 01/30/2018 patient post EGD with the following findings-- Esophagus: Severe esophagitis with long stricture status post balloon dilation under fluoroscopy with biopsy Stomach normal except large hiatal hernia Duodenum normal Hemoglobin 12.3 hematocrit 36.1 Plan -Clear liquid diet -Pured diet until dilation in a few weeks -Continue PPI Protonix 40 mg p.o. twice daily -Avoid NSAIDs -Supportive care This patient has been seen by myself and Dr. Candelaria and this note is written on his behalf - Attending Attestation Dr. Candelaria <Michelle Nagel - Last Filed: 01/31/18 18:53> (1) Dysphagia Status: Acute Code(s): R13.10 - Dysphagia, unspecified - Plan Patient was seen and examined, had EGD showing severe narrowing otitis, patient need to be on pured diet only at least for a few weeks until a repeat dilation can be performed, patient will need high dose of Protonix, we will follow-up as needed <Mannie Candelaria - Last Filed: 01/31/18 19:23>
[2018-02-01] MEDS: Sod Chloride 0.9% Inj 1,000 ML IV.CONT SCH (06:18)
[2018-02-01] MEDS: Sodium Chloride 0.9% 2 ML Flush BID IV.FLUSH SCH ×3 (06:18→20:23)
[2018-02-01] MEDS: Insulin NovoLOG Aspart Correctional Sugar Inj SQ SCH ×4 (08:01→20:19)
[2018-02-01] MEDS: amLODIPine 10 MG Tablet PO SCH (08:02)
[2018-02-01] MEDS: Pantoprazole Sodium 20 MG DR Tablet PO SCH (08:02)
[2018-02-01] MEDS: Carvedilol 6.25 MG Tablet PO SCH ×2 (08:02→20:20)
[2018-02-01] MEDS: Folic Acid 1 MG Tablet PO SCH (08:02)
[2018-02-01] MEDS: Brimonidine 0.2% Opth Drops 5 ML Bottle EACH EYE SCH ×3 (08:02→17:23)
[2018-02-01] MEDS: Carbamide Peroxide 6.5% Otic Drops 15 ML Bottle EACH EAR SCH (10:45)
[2018-02-01] MEDS: QUEtiapine 25 MG Tablet PO SCH (10:46)
--- NOTE | 2018-02-01 12:17 | P.PN ---
Subjective Interval history: Follow up for syncope, dysphagia, s/p EGD that showed severe esophagitis and stricture. The patient's diet was advanced to pureed last night. Patient has tolerated pureed dinner and breakfast today. He reports only occasional mild epigastric discomfort. Denies nausea/vomiting. No BM recently, although states he hasn't been eating for a long time until last night/today. Denies fevers/ chills. He admits to feeling generally weak, agrees to rehab placement. Denies any other medical complaints at this time. Physical Exam Vital signs: Vital Signs 01/31/18 16:00 01/31/18 16:07 01/31/18 16:09 Temperature 97.4 F L Pulse Rate 63 Respiratory Rate 18 Blood Pressure 134/75 112/60 97/60 L Pulse Oximetry 98 01/31/18 20:00 01/31/18 22:51 02/01/18 00:00 Temperature 98.6 F 97.3 F L Pulse Rate 72 69 Respiratory Rate 18 17 19 Blood Pressure 143/80 H 113/66 Pulse Oximetry 99 96 02/01/18 04:00 02/01/18 08:00 Temperature 97.9 F 97.3 F L Pulse Rate 65 58 L Respiratory Rate 18 16 Blood Pressure 143/77 H 146/82 H Pulse Oximetry 97 99 Intake & Output 01/31/18 02/01/18 02/01/18 18:59 06:59 18:59 Intake Total 1976 1000 / 1000 Output Total 950 / 950 475 / 475 Balance 1027 / 1027 525 / 525 Weight 62.1 kg Intake: IV 777 / 777 1000 / 1000 NS Inj 1,000 ML @ 100 mls/hr IV 777 / 777 1000 / 1000 .CONT .Q10H [facility] Rx#:[id number] Oral 1200 / 1200 Output: Urine 950 / 950 475 / 475 Other: Date of Last Bowel Movement 01/29/18 01/29/18 01/29/18 Narrative: GENERAL: Well-nourished, well-developed very pleasant elderly male patient in [place]. Sitting upright on side of bed, eating breakfast. SKIN: Warm and dry. No rash. Posterior small 2 cm scalp laceration s/p eleuterio, no active bleeding, no surrounding erythema. HEENT: Normocephalic. Atraumatic. Pupils equal and round. Mucous membranes pink and moist. CARDIOVASCULAR: Regular rate and rhythm. No murmur appreciated. RESPIRATORY: No accessory muscle use. Clear to auscultation. Breath sounds equal bilaterally. GASTROINTESTINAL: Abdomen soft, nondistended, nontender today. Normoactive bowel sounds x4. MUSCULOSKELETAL: No obvious deformities. Extremities without clubbing, cyanosis , or edema. NEUROLOGICAL: Awake and alert. No obvious cranial nerve deficits. Moving all extremities spontaneously. Normal speech. Results - Labs CBC & Chem 7: 01/31/18 08:57 01/31/18 08:57 Laboratory Results - last 24 hr 01/31/18 01/31/18 02/01/18 16:07 19:33 07:09 POC Glucose 134 H 182 H 125 H 02/01/18 11:46 POC Glucose 184 H - Imaging Abdomen/Bladder Ultrasound 01/29/18 00:00 CONCLUSION: 1. Echogenic normal sized kidneys which can be seen with acute renal medical disease. 2. Prostatic enlargement. Cervical Spine CT 01/29/18 10:41 CONCLUSION: 1. 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 No evidence of an acute fracture or spondylolisthesis Chest X-Ray 01/29/18 10:41 CONCLUSION: Compensated cardiomegaly otherwise negative Head CT 01/29/18 10:41 CONCLUSION: 1. Diffuse atrophy. No evidence of hemorrhage or edema . - Procedures 01/30/18 - EGD by Dr. 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 No recall of fall. No loss of bowel or bladder function and no postictal state. He had a scalp laceration sutured in the ER. Patient reported a 30 pound weight loss over the past several months. Reports dysphagia with reflux of recently eaten food which he implicates as the cause of his weight loss. Acute syncopal episode with head injury and Generalized weakness: suspect secondary to recent dehydration with poor oral intake [id number] -Head CT 01/29 reviewed and unremarkable -C-spine CT 01/29 showed Degenerative disease at C6-7. No evidence of an acute fracture or spondylolisthesis -Troponin negative, EKG unremarkable -Monitor on telemetry -Given IVF hydration -check orthostatics -no further symptoms Dysphagia: [id number], with associated weight loss -Consulted GI -S/p EGD on 01/30 which showed Severe esophagitis with long stricture s/p balloon dilation with biopsy; large hiatal hernia -GI recommending protonix 40mg bid, avoid NSAIDs, clear liquids advance to pureed only until dilation in the future -needs to follow up with GI in 2 weeks for repeat EGD with dilation -advance diet to pureed, patient tolerating well so far, monitor oral intake Severe protein calorie malnutrition: with acute 30 pound weight loss -GI following as above -Dietitian consulted Acute kidney injury on CKD, stage III: Cr 2.37, previously 1.07 on 12/28/17. Prerenal secondary to dehydration from poor oral intake/dysphagia -Renal ultrasound with medical renal disease, no obstruction/hydronephrosis -Continue on IVF until tolerating acceptable amount of oral intake -Avoid nephrotoxic agents -monitor renal function, much improved, Cr 1.30, close to baseline S/P fall with scalp laceration -local wound care -have eleuterio removed in 10-14 days Hx of recent GIB, had EGD/colonoscopy. Found with gastric ulcers -continue with PPI -HH stable. Hypertension-Chronic -Medications reviewed, [facility]. Pt. not on Coreg and Norvasc. Takes Lisinopril/HCTZ -continue only Coreg for now due to renal injury. -initially held lisinopril/HCTZ, will restart now with improvement of renal function -monitor BP, adjust antihypertensives as needed Diabetes mellitus -Accuchecks with ISS -hold oral hypoglycemic agents History of BPH -Continue tamsulosin. Schizophrenia -resume Seroquel PPI for GI prophylaxis SCDs for DVT prophylaxis PT eval and tx CM for DC planning. likely needs SNF. Discharge Planning: Possible discharge in 1-2 days if tolerating oral intake and cleared by GI. Likely needs SNF placement. (5) Syncope Qualifiers: Syncope type: vasovagal syncope Qualified Code(s): R55 - Syncope and collapse (7) Schizophrenia Qualifiers: Schizophrenia type: unspecified Qualified Code(s): F20.9 - Schizophrenia, unspecified
--- NOTE | 2018-02-01 15:26 | P.PNGI ---
Subjective Interval history: Patient laying in bed resting soundly Denies abdominal pain or nausea vomiting States tolerated pured breakfast without difficulty swallowing Physical Exam Vital signs: Vital Signs 01/31/18 16:00 01/31/18 16:07 01/31/18 16:09 Temperature 97.4 F L Pulse Rate 63 Respiratory Rate 18 Blood Pressure 134/75 112/60 97/60 L Pulse Oximetry 98 01/31/18 20:00 01/31/18 22:51 02/01/18 00:00 Temperature 98.6 F 97.3 F L Pulse Rate 72 69 Respiratory Rate 18 17 19 Blood Pressure 143/80 H 113/66 Pulse Oximetry 99 96 02/01/18 04:00 02/01/18 08:00 02/01/18 12:19 Temperature 97.9 F 97.3 F L 98 F Pulse Rate 65 58 L 56 L Respiratory Rate 18 16 16 Blood Pressure 143/77 H 146/82 H 122/70 Pulse Oximetry 97 99 98 Intake & Output 01/31/18 02/01/18 02/01/18 18:59 06:59 18:59 Intake Total 1976 / 1976 1000 / 1000 Output Total 950 / 950 475 / 475 Balance 1027 / 1027 525 / 525 Weight 62.1 kg Intake: IV 777 / 777 1000 / 1000 NS Inj 1,000 ML @ 100 mls/hr IV 777 / 777 1000 / 1000 .CONT .Q10H [facility] Rx#:[id number] Oral 1200 / 1200 Output: Urine 950 / 950 475 / 475 Other: Date of Last Bowel Movement 01/29/18 01/29/18 01/29/18 - Constitutional no acute distress - Routine HEENT Exam Head: Present: normocephalic - Routine Respiratory Exam Present: CTA bilaterally. Absent: accessory muscle use - Routine Abdominal Exam Present: soft, normoactive bowel sounds. Absent: tenderness, distended, guarding, firm - Routine Skin Exam Present: dry, warm - Routine Neurological Exam Present: alert - Routine Psychiatric Exam Present: normal affect, cooperative Results - Labs CBC & Chem 7: 01/31/18 08:57 01/31/18 08:57 Laboratory Results - last 24 hr 01/31/18 01/31/18 02/01/18 16:07 19:33 07:09 POC Glucose 134 H 182 H 125 H 02/01/18 11:46 POC Glucose 184 H - Procedures 01/30/18 - EGD by Dr. Candelaria: Esophagus: Severe esophagitis with long stricture status post balloon dilation under fluoroscopy with biopsy Stomach: normal except large hiatal hernia Duodenum: normal Assessment and Plan (1) Dysphagia Status: Acute Code(s): R13.10 - Dysphagia, unspecified - Plan 01/31/2018 Dysphagia 01/30/2018 patient post EGD with the following findings-- Esophagus: Severe esophagitis with long stricture status post balloon dilation under fluoroscopy with biopsy Stomach normal except large hiatal hernia Duodenum normal Hemoglobin 12.3 hematocrit 36.1 02/01/2018 Dysphagia Patient resting comfortably. States tolerated pured breakfast this a.m. without any difficulty swallowing. Confirmed with bedside RN that patient had no difficulty swallowing pured meal. Advised patient to continue pured diet until repeat EGD with dilatation in 3 weeks. Patient verbalized understanding and agreement Plan -Pured diet until dilation and 3 weeks -Patient advised and agrees to follow-up with GI post discharge -Protonix p.o. twice daily -Avoid NSAIDs -GI will sign off at this time This patient was seen by myself and Dr. Cedillo and this note is written on his behalf - Attending Attestation Dr. Cedillo
[2018-02-01] MEDS: Melatonin 5 MG Tablet PO PRN (22:36)
[2018-02-02] MEDS: Insulin NovoLOG Aspart Correctional Sugar Inj SQ SCH ×4 (07:47→20:13)
[2018-02-02] MEDS: Carvedilol 6.25 MG Tablet PO SCH ×2 (08:31→20:07)
[2018-02-02] MEDS: Carbamide Peroxide 6.5% Otic Drops 15 ML Bottle EACH EAR SCH (08:31)
[2018-02-02] MEDS: Sodium Chloride 0.9% 2 ML Flush BID IV.FLUSH SCH ×2 (08:31→20:15)
[2018-02-02] MEDS: Brimonidine 0.2% Opth Drops 5 ML Bottle EACH EYE SCH ×3 (08:31→20:14)
[2018-02-02] MEDS: amLODIPine 10 MG Tablet PO SCH (08:31)
[2018-02-02] MEDS: QUEtiapine 25 MG Tablet PO SCH (08:31)
[2018-02-02] MEDS: Folic Acid 1 MG Tablet PO SCH (08:31)
--- NOTE | 2018-02-02 09:04 | P.PN ---
Subjective Interval history: Follow up for syncope, dysphagia, s/p EGD that showed severe esophagitis and stricture. The patient is now tolerating all of his pureed diet. Still no BM yet. Denies any abdominal pain, nausea, or vomiting. He is looking forward to going to rehab. He has no other medical complaints at this time. Physical Exam Vital signs: Vital Signs 02/01/18 12:19 02/01/18 16:00 02/01/18 19:48 Temperature 98 F 98.2 F 98.2 F Pulse Rate 56 L 59 L 94 H Respiratory Rate 16 16 19 Blood Pressure 122/70 139/79 135/80 Pulse Oximetry 98 99 97 02/02/18 00:00 02/02/18 08:00 Temperature 98.5 F 98.8 F Pulse Rate 55 L 78 Respiratory Rate 17 16 Blood Pressure 130/69 177/93 H Pulse Oximetry 96 99 Intake & Output 02/01/18 02/02/18 02/02/18 18:59 06:59 18:59 Output Total 400 / 400 500 / 500 Balance -400 / -400 -500 / -500 Weight 62.1 kg Output: Urine 400 / 400 500 / 500 Other: Date of Last Bowel Movement 01/29/18 01/29/18 01/30/18 Narrative: GENERAL: Well-nourished, well-developed very pleasant elderly male patient in [facility]. Sitting upright on side of bed, eating breakfast. SKIN: Warm and dry. No rash. Posterior small 2 cm scalp laceration s/p eleuterio, no active bleeding, no surrounding erythema. HEENT: Normocephalic. Atraumatic. Pupils equal and round. Mucous membranes pink and moist. CARDIOVASCULAR: Regular rate and rhythm. No murmur appreciated. RESPIRATORY: No accessory muscle use. Clear to auscultation. Breath sounds equal bilaterally. GASTROINTESTINAL: Abdomen soft, nondistended, nontender. Normoactive bowel sounds x4. MUSCULOSKELETAL: No obvious deformities. Extremities without clubbing, cyanosis , or edema. NEUROLOGICAL: Awake and alert. No obvious cranial nerve deficits. Moving all extremities spontaneously. Normal speech. Results - Labs CBC & Chem 7: 01/31/18 08:57 01/31/18 08:57 Laboratory Results - last 24 hr 02/01/18 02/01/18 02/01/18 11:46 17:20 20:13 POC Glucose 184 H 141 H 204 H 02/02/18 07:34 POC Glucose 86 - Imaging Abdomen/Bladder Ultrasound 01/29/18 00:00 CONCLUSION: 1. Echogenic normal sized kidneys which can be seen with acute renal medical disease. 2. Prostatic enlargement. Cervical Spine CT 01/29/18 10:41 CONCLUSION: 1. 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 No evidence of an acute fracture or spondylolisthesis Chest X-Ray 01/29/18 10:41 CONCLUSION: Compensated cardiomegaly otherwise negative Head CT 01/29/18 10:41 CONCLUSION: 1. Diffuse atrophy. No evidence of hemorrhage or edema . - Procedures 01/30/18 - EGD by Dr. 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 No recall of fall. No loss of bowel or bladder function and no postictal state. He had a scalp laceration sutured in the ER. Patient reported a 30 pound weight loss over the past several months. Reports dysphagia with reflux of recently eaten food which he implicates as the cause of his weight loss. Acute syncopal episode with head injury and Generalized weakness: suspect secondary to recent dehydration with poor oral intake [id number] -Head CT 01/29 reviewed and unremarkable -C-spine CT 01/29 showed Degenerative disease at C6-7. No evidence of an acute fracture or spondylolisthesis -Troponin negative, EKG unremarkable -Monitor on telemetry -Given IVF hydration -check orthostatics -no further symptoms Dysphagia: [id number], with associated weight loss -Consulted GI -S/p EGD on 01/30 which showed Severe esophagitis with long stricture s/p balloon dilation with biopsy; large hiatal hernia -GI recommending protonix 40mg bid, avoid NSAIDs, clear liquids advance to pureed only until dilation in the future -needs to follow up with GI in 2 weeks for repeat EGD with dilation -advance diet to pureed, patient tolerating well -GI signed off Severe protein calorie malnutrition: with acute 30 pound weight loss -GI following as above -Dietitian consulted -add Glucerna shake to meals Acute kidney injury on CKD, stage III: Cr 2.37, previously 1.07 on 12/28/17. Prerenal secondary to dehydration from poor oral intake/dysphagia -Renal ultrasound with medical renal disease, no obstruction/hydronephrosis -Continue on IVF until tolerating acceptable amount of oral intake -Avoid nephrotoxic agents -monitor renal function, much improved, Cr 1.30, close to baseline, stable S/P fall with scalp laceration -local wound care -have eleuterio removed in 10-14 days Hx of recent GIB, had previous EGD/colonoscopy that showed gastric ulcers -continue with PPI -HH stable. Hypertension-Chronic -continued only Coreg for now due to renal injury. -initially held lisinopril/HCTZ, now restarted with improvement of renal function -monitor BP, adjust antihypertensives as needed Diabetes mellitus -Accu checks with ISS -hold oral hypoglycemic agents History of BPH -Continue tamsulosin. Schizophrenia -resume Seroquel PPI for GI prophylaxis SCDs for DVT prophylaxis PT eval and tx CM for DC planning. likely needs SNF. Discharge Planning: D/c to SNF when arrangements made by CM. (5) Syncope Qualifiers: Syncope type: vasovagal syncope Qualified Code(s): R55 - Syncope and collapse (7) Schizophrenia Qualifiers: Schizophrenia type: unspecified Qualified Code(s): F20.9 - Schizophrenia, unspecified
--- NOTE | 2018-02-02 17:08 | P.DS ---
Date of admission: 01/29/18 13:53 Primary care physician: [facility] Anticipated date of discharge: 02/03/18 Brief History from admission: 72-year-old male with a history of diabetes, schizophrenia who presents with fall at home patient was getting up to answer the door and apparently fell. He does not remember feeling lightheaded prior to this episode. No loss of bowel or bladder function and no postictal state. Patient says he is feeling all right currently. He had a scalp laceration sutured in the ER. Patient reports a 30 pound weight loss over the past several months. Reports dysphasia with reflux of recently eaten food which he implicates as the cause of his weight loss. 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 He denies any fevers, chills, chest pain, shortness of breath. He denies lightheadedness. He does report feeling fatigued. Says he has not eaten anything substantial in weeks. Patient update on day of discharge: Patient has been tolerating pureed diet. Denies any abdominal pain/nausea/ vomiting. Denies any other medical complaints. DS: Diagnosis - Discharge Diagnosis (1) Esophagitis Status: Acute (2) Esophageal stricture Status: Acute (3) ROLAND (acute kidney injury) Status: Acute (4) Hypokalemia Status: Acute (5) Dysphagia Status: Acute (6) Dehydration Status: Acute (7) Syncope Status: Acute (8) Diabetes 1.5, managed as type 2 Status: Chronic (9) Schizophrenia Status: Chronic DS: Medications - Discharge Medications Prescriptions: pantoprazole 40 mg PO BID #60 tab DS: Summary Hospital Course: 72-year-old male with a history of diabetes, schizophrenia who presents with fall at home patient was getting up to answer the door and apparently fell. No recall of fall. No loss of bowel or bladder function and no postictal state. He had a scalp laceration sutured in the ER. Patient reported a 30 pound weight loss over the past several months. Reports dysphagia with reflux of recently eaten food which he implicates as the cause of his weight loss. Acute syncopal episode with head injury and Generalized weakness: suspect secondary to recent dehydration with poor oral intake [id number]. Head CT 01/29 reviewed and unremarkable. C-spine CT 01/29 showed Degenerative disease at C6- 7. No evidence of an acute fracture or spondylolisthesis. Troponin negative, EKG unremarkable. Monitored on telemetry. Given IVF hydration. No further symptoms. Resolved. Dysphagia/Esophagitis/Esophageal Stricture: dysphagia [id number], with associated weight loss. Consulted GI. S/p EGD on 01/30 which showed Severe esophagitis with long stricture s/p balloon dilation with biopsy; large hiatal hernia. GI recommending protonix 40mg bid, avoid NSAIDs, clear liquids advance to pureed only until dilation in the future. Needs to follow up with GI in 2 weeks for repeat EGD with dilation. Advance diet to pureed, patient tolerating well, stable for discharge. Severe protein calorie malnutrition: with acute 30 pound weight loss. Suspect secondary to above. Dietitian consulted. Added Glucerna shake to meals Acute kidney injury on CKD, stage III: Cr 2.37, previously 1.07 on 12/28/17. Prerenal secondary to dehydration from poor oral intake/dysphagia. Renal ultrasound with medical renal disease, no obstruction/hydronephrosis. Continue on IVF until tolerating acceptable amount of oral intake. Avoid nephrotoxic agents. Monitor renal function, much improved, Cr 1.30, close to baseline, stable. S/P fall with scalp laceration. Local wound care. Have eleuterio removed within 10 -14 days (02/08-02/12) Hx of recent GIB, had previous EGD/colonoscopy that showed gastric ulcers. Continue with PPI. HH stable. Hypertension-Chronic. Continued Coreg. Initially held lisinopril/HCTZ, now restarted with improvement of renal function. Stable. Diabetes mellitus. Accu checks with ISS. Held oral hypoglycemic agents, will restart upon discharge with improved oral intake. History of BPH. Continue tamsulosin. Schizophrenia -resume Seroquel - Time Spent with Patient Total time spent providing and/or coordinating discharge services: Greater than 30 minutes - Quality: VTE Deep Vein Thrombosis/Pulmonary Embolism Present on Admission: No Exam Vital signs: Vital Signs 02/01/18 19:48 02/02/18 00:00 02/02/18 08:00 Temperature 98.2 F 98.5 F 98.8 F Pulse Rate 94 H 55 L 78 Respiratory Rate 19 17 16 Blood Pressure 135/80 130/69 177/93 H Pulse Oximetry 97 96 99 02/02/18 12:00 02/02/18 16:00 Temperature 97.3 F L 97.8 F Pulse Rate 61 59 L Respiratory Rate 18 18 Blood Pressure 95/53 L 117/65 Pulse Oximetry 95 96 Intake & Output 02/01/18 02/02/18 02/02/18 18:59 06:59 18:59 Output Total 400 / 400 500 / 500 Balance -400 / -400 -500 / -500 Weight 62.1 kg Output: Urine 400 / 400 500 / 500 Other: Date of Last Bowel Movement 01/29/18 01/29/18 01/30/18 Narrative: GENERAL: Well-nourished, well-developed very pleasant elderly male patient in [facility]. SKIN: Warm and dry. No rash. Posterior small 2 cm scalp laceration s/p eleuterio, no active bleeding, no surrounding erythema. HEENT: Normocephalic. Atraumatic. Pupils equal and round. Mucous membranes pink and moist. CARDIOVASCULAR: Regular rate and rhythm. No murmur appreciated. RESPIRATORY: No accessory muscle use. Clear to auscultation. Breath sounds equal bilaterally. GASTROINTESTINAL: Abdomen soft, nondistended, nontender. Normoactive bowel sounds x4. MUSCULOSKELETAL: No obvious deformities. Extremities without clubbing, cyanosis , or edema. NEUROLOGICAL: Awake and alert. No obvious cranial nerve deficits. Moving all extremities spontaneously. Normal speech. Results Procedures completed during hospitalization: 01/30/18 - EGD by Dr. Candelaria: Esophagus: Severe esophagitis with long stricture status post balloon dilation under fluoroscopy with biopsy Stomach: normal except large hiatal hernia Duodenum: normal Pending studies at discharge: Pending at discharge 01/30/18 07:23 Surgical [PTH] Routine Labs on day of discharge: Labs from last 24 hours 02/02/18 02/02/18 02/01/18 11:50 07:34 20:13 POC Glucose 175 H 86 204 H 02/01/18 17:20 POC Glucose 141 H - Impressions ITS Impressions Abdomen/Bladder Ultrasound 01/29/18 00:00 CONCLUSION: 1. Echogenic normal sized kidneys which can be seen with acute renal medical disease. 2. Prostatic enlargement. Cervical Spine CT 01/29/18 10:41 CONCLUSION: 1. 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 No evidence of an acute fracture or spondylolisthesis Chest X-Ray 01/29/18 10:41 CONCLUSION: Compensated cardiomegaly otherwise negative Head CT 01/29/18 10:41 CONCLUSION: 1. Diffuse atrophy. No evidence of hemorrhage or edema . Discharge Plan - Discharge Disposition Patient Disposition: Discharge to SNF - Discharge Condition Condition: Stable - Discharge Order Discharge Orders: Discharge Order (Routine); Ordered 02/02/18 Ordered By: Angy Rhoades - Discharge Details Anticipated Discharge Date: 02/03/18 Discharge Comment: Ok to discharge to SNF when arrangements made. - Physicians Team Primary Care Provider: [facility]ician [place] Attending Provider: Eben Hebert Other Providers: Mannie Candelaria MD ; [facility],Agency
[2018-02-02] MEDS: Melatonin 5 MG Tablet PO PRN (20:07)
[2018-02-03] MEDS: Insulin NovoLOG Aspart Correctional Sugar Inj SQ SCH ×2 (08:44→11:16)
[2018-02-03] MEDS: Brimonidine 0.2% Opth Drops 5 ML Bottle EACH EYE SCH ×2 (08:45→12:25)
[2018-02-03] MEDS: Folic Acid 1 MG Tablet PO SCH (08:45)
[2018-02-03] MEDS: amLODIPine 10 MG Tablet PO SCH (08:46)
[2018-02-03] MEDS: Carvedilol 6.25 MG Tablet PO SCH (08:46)
[2018-02-03] MEDS: Sodium Chloride 0.9% 2 ML Flush BID IV.FLUSH SCH (08:46)
[2018-02-03] MEDS: QUEtiapine 25 MG Tablet PO SCH (08:46)
[2018-02-03] MEDS: Carbamide Peroxide 6.5% Otic Drops 15 ML Bottle EACH EAR SCH (08:47)
--- NOTE | 2018-02-03 11:41 | P.PN ---
Subjective Interval history: Follow up on patient with syncope, dysphagia s/p EGD showing severe esophagitis and stricture. Patient seen and examined. Patient states he is tolerating pureed diet. He denies any difficulty with swallowing. He denies any fever or chills. He denies any N/V or abdominal pain. He denies any chest pain or dyspnea. He is asking when the eleuterio can be removed from his head. Physical Exam Vital signs: Vital Signs 02/02/18 12:00 02/02/18 16:00 02/02/18 19:37 Temperature 97.3 F L 97.8 F 98 F Pulse Rate 61 59 L 59 L Respiratory Rate 18 18 20 Blood Pressure 95/53 L 117/65 135/73 Pulse Oximetry 95 96 95 02/02/18 19:38 02/02/18 22:00 02/03/18 00:00 Temperature 98 F 98.3 F Pulse Rate 59 L 58 L Respiratory Rate 20 18 18 Blood Pressure 135/73 100/59 L Pulse Oximetry 95 95 02/03/18 04:00 02/03/18 08:00 Temperature 98.0 F 97.4 F L Pulse Rate 55 L 59 L Respiratory Rate 17 20 Blood Pressure 138/76 152/81 H Pulse Oximetry 97 95 Intake & Output 02/02/18 02/03/18 02/03/18 18:59 06:59 18:59 Output Total 250 / 250 325 / 325 Balance -250 / -250 -325 / -325 Weight 62.1 kg Output: Urine 250 / 250 325 / 325 Other: # Voids 4 Date of Last Bowel Movement 01/30/18 01/30/18 01/30/18 Narrative: GENERAL: WDWN elderly male patient, INAD. Awake and alert. SKIN: Warm and dry. No rash. Posterior small 2 cm scalp laceration s/p eleuterio, no active bleeding, no surrounding erythema. HEENT: Normocephalic. Atraumatic. Pupils equal and round. No sclera icterus. No nasal drainage. Mucous membranes pink and moist. CARDIOVASCULAR: Regular rate and rhythm. No murmur appreciated. RESPIRATORY: No accessory muscle use. Clear to auscultation. Breath sounds equal bilaterally. GASTROINTESTINAL: Abdomen soft, nondistended, nontender. Normoactive bowel sounds x4. MUSCULOSKELETAL: No obvious deformities. Extremities without clubbing, cyanosis , or edema. NEUROLOGICAL: Awake and alert. No obvious cranial nerve deficits. Moving all extremities spontaneously. Nonfocal. Normal speech. PSYCHIATRIC: Calm and cooperative. Results - Labs CBC & Chem 7: 01/31/18 08:57 01/31/18 08:57 Laboratory Results - last 24 hr 02/02/18 02/02/18 02/02/18 11:50 17:04 20:12 POC Glucose 175 H 141 H 204 H 02/03/18 02/03/18 07:41 11:12 POC Glucose 98 156 H - Procedures 01/30/18 - EGD by Dr. Candelaria: Esophagus: Severe esophagitis with long stricture status post balloon dilation under fluoroscopy with biopsy Stomach: normal except large hiatal hernia Duodenum: normal Assessment and Plan - Assessment (1) Esophagitis Code(s): K20.9 - Esophagitis, unspecified Status: Acute (2) Esophageal stricture Code(s): K22.2 - Esophageal obstruction Status: Acute (3) ROLAND (acute kidney injury) Code(s): N17.9 - Acute kidney failure, unspecified Status: Acute (4) Hypokalemia Code(s): E87.6 - Hypokalemia Status: Acute (5) Dysphagia Code(s): R13.10 - Dysphagia, unspecified Status: Acute (6) Dehydration Code(s): E86.0 - Dehydration Status: Acute (7) Syncope Code(s): R55 - Syncope and collapse Status: Acute (8) Diabetes 1.5, managed as type 2 Code(s): E10.9 - Type 1 diabetes mellitus without complications Status: Chronic (9) Schizophrenia Code(s): F20.9 - Schizophrenia, unspecified Status: Chronic - Plan 72-year-old male with a history of diabetes, schizophrenia who presents with fall at home patient was getting up to answer the door and apparently fell. No recall of fall. No loss of bowel or bladder function and no postictal state. He had a scalp laceration sutured in the ER. Patient reported a 30 pound weight loss over the past several months. Reports dysphagia with reflux of recently eaten food which he implicates as the cause of his weight loss. Acute syncopal episode with head injury and Generalized weakness: suspect secondary to recent dehydration with poor oral intake [id number] -Head CT 01/29 reviewed and unremarkable -C-spine CT 01/29 showed Degenerative disease at C6-7. No evidence of an acute fracture or spondylolisthesis -Troponin negative, EKG unremarkable -Monitor on telemetry -Given IVF hydration -no further syncopal episodes since admissions Dysphagia: [id number], with associated weight loss -GI following, appreciate assistance. S/p EGD on 01/30 which showed Severe esophagitis with long stricture s/p balloon dilation with biopsy; large hiatal hernia -GI recommending protonix 40mg bid, avoid NSAIDs, clear liquids advance to pureed only until dilation in the future -needs to follow up with GI in 2 weeks for repeat EGD with dilation -advance diet to pureed, patient tolerating well -GI signed off Severe protein calorie malnutrition: with acute 30 pound weight loss -GI following as above -Dietitian consulted -add Glucerna shake to meals Acute kidney injury on CKD, stage III: Cr 2.37, previously 1.07 on 12/28/17. Prerenal secondary to dehydration from poor oral intake/dysphagia -Renal ultrasound with medical renal disease, no obstruction/hydronephrosis -resolved s/p IVF hydration -Avoid nephrotoxic agents -monitor renal function, much improved, Cr 1.30, close to baseline, stable -continue to monitor kidney function as indicated S/P fall with scalp laceration -local wound care -have eleuterio removed in 10-14 days Hx of recent GIB, had previous EGD/colonoscopy that showed gastric ulcers -continue with PPI -HH stable. Hypertension-Chronic -continued only Coreg due to renal injury. -initially held lisinopril/HCTZ, now restarted with improvement of renal function -monitor BP, adjust antihypertensives as needed Diabetes mellitus -Accu checks with ISS -hold oral hypoglycemic agents -blood sugars have been overall controlled History of BPH -Continue tamsulosin. Schizophrenia -resume Seroquel PPI for GI prophylaxis SCDs for DVT prophylaxis PT eval and tx CM for DC planning. likely needs SNF. Code Status: Full Discussed Condition With: patient, nursing staff Discharge Planning: D/c to SNF when arrangements made by CM. (7) Syncope Qualifiers: Syncope type: vasovagal syncope Qualified Code(s): R55 - Syncope and collapse (9) Schizophrenia Qualifiers: Schizophrenia type: unspecified Qualified Code(s): F20.9 - Schizophrenia, unspecified
[2018-02-03 12:25] VITALS: RESP 16
[2018-02-03 17:46] VITALS: BP 120/60; PULSE 66; TEMP 97.7; O2SAT 95
== END 2018-02-03 16:25 ==
LOC: NEDA 10:30 → NEPC 10:30 → OBSVTOIN 14:17 → NEPGCP 15:05 → N06 01-30 18:46
PROVIDERS: ADMIT Internal Medicine; ATTEND Internal Medicine

== ENCOUNTER 2018-02-06 17:33 | Inpatient (IN) ==
[2018-02-06] MEDS ORDERED: Pantoprazole Inj 40 MG Vial IV.PUSH ONE (17:55)
--- NOTE | 2018-02-06 18:09 | ED ---
HPI General Chief complaint: GI Bleed Stated complaint: Poss GI Bleed Time Seen by Provider: 02/06/18 17:55 Source: patient Mode of arrival: ambulatory Limitations: no limitations History of Present Illness HPI Narrative: 72-year-old male patient from longterm with schizophrenia history, previous GI bleed history, diabetes, hypertension, presents to the ER today because he has been vomiting coffee grounds and now is vomiting red blood. He is brought in by EMS, they witnessed 2 episodes of vomiting. Patient complains of abdominal discomfort but is not able to radiate further. He was here last week for syncopal episode and appears to have been found to have GERD as well as some underlying esophageal stricture. Modifying Factors: None Associated Signs & Symptoms: GI bleed Risk Factors: History of GERD, esophageal stricture, esophagitis Related Data Home Medications Medication Instructions Recorded Confirmed ascorbic acid (vitamin C) [Vitamin 1,000 mg PO DAILY 11/29/17 02/06/18 C] cholecalciferol (vitamin D3) 1,000 unit PO DAILY 11/29/17 02/06/18 [Vitamin D3] citalopram 20 mg PO DAILY 11/29/17 02/06/18 cyanocobalamin (vitamin B-12) 1,000 mcg PO DAILY 11/29/17 02/06/18 [Vitamin B-12] docusate sodium [Colace] 100 mg PO BID PRN 11/29/17 02/06/18 ferrous gluconate 324 mg PO DAILY 11/29/17 02/06/18 folic acid 0.5 mg PO DAILY 11/29/17 02/06/18 metformin 1,000 mg PO BID 11/29/17 02/06/18 aspirin 81 mg PO DAILY 01/30/18 02/06/18 brimonidine 1 drp OPHTHALMIC (EYE) TID 01/30/18 02/06/18 carbamide peroxide 1 drp EACH EAR DAILY 01/30/18 02/06/18 quetiapine 25 tab PO DAILY 01/30/18 02/06/18 quetiapine 200 tab PO HS 01/30/18 02/06/18 Previous Rx's Medication Instructions Recorded amlodipine [Norvasc] 10 mg PO DAILY #30 tab 12/05/17 carvedilol [Coreg] 6.25 mg PO BID #60 tab 12/05/17 glimepiride [Amaryl] 2 mg PO QAM #30 tab 12/05/17 lisinopril 5 mg PO DAILY #30 tab 12/05/17 tamsulosin 0.4 mg PO DAILY #30 cap 12/05/17 pantoprazole 40 mg PO BID #60 tab 02/01/18 Allergies Allergy/AdvReac Type Severity Reaction Status Date / Time No Known Allergies Allergy Verified 12/22/17 22:28 Review of Systems ROS Unobtainable ROS Unobtainable: unobtainable due to mental condition PMFSH History History Provided By: Patient Medical History Medical History BPH (benign prostatic hyperplasia) (Acute) Chronic kidney disease, stage III (moderate) (Acute) GERD (gastroesophageal reflux disease) (Acute) Peptic ulcer disease (Acute) Diabetes (Acute) Hypertension (Acute) PA (myocardial infarction) (Acute) Schizophrenia (Acute) Surgical History Surgical History H/O heart bypass surgery (Acute) Social History Social History Substance History: No History of Abuse Second Hand Smoke Exposure: No Smoking Status: Former smoker Tobacco Type: Cigarettes How Often Do You Have a Drink Containing Alcohol: Never Recent Travel in [facility] within the Last 8 Weeks: No Recent Out of Country Travel within the Last 8 Weeks: No Exam Narrative Exam Narrative: GENERAL: Well-developed elderly white male patient currently in moderate distress, vomiting red blood. Awake, alert. SKIN: Focused skin assessment warm/dry. HEAD: Atraumatic. Normocephalic. EYES: Pupils equal and round. No scleral icterus. No injection or drainage. ENT: No nasal bleeding or discharge. Mucous membranes pink and moist. NECK: Trachea midline. No JVD. CARDIOVASCULAR: Regular rate and rhythm. No murmur appreciated. RESPIRATORY: No accessory muscle use. Clear to auscultation. Breath sounds equal bilaterally. GASTROINTESTINAL: Abdomen soft, epigastric tenderness without guarding or rebound,, nondistended. Hepatic and splenic margins not palpable. MUSCULOSKELETAL: No obvious deformities. No clubbing. No cyanosis. No edema. NEUROLOGICAL: Awake and alert. No obvious cranial nerve deficits. Motor grossly within normal limits. Normal speech. PSYCHIATRIC: Appropriate mood and flat affect; insight and judgment poor. Course Initial Documented Vital Signs Respiratory Rate 18 02/06/18 17:53 Blood Pressure 147/78 H 02/06/18 17:53 Pulse Oximetry 98 02/06/18 17:53 Last Documented Vital Signs Pulse Rate 89 02/06/18 22:09 Respiratory Rate 20 02/06/18 22:09 Blood Pressure 113/64 02/06/18 22:09 Pulse Oximetry 96 02/06/18 22:29 Sign Out Sign Out Data: Patient Sign Out occurred on 02/06/18 at 19:15. Patient's care was discussed, and care was transferred from Alicia Carednas MD to Juan Pablo Leon DO. Sign Out Comment: Case is signed out to oncoming physician at 7 PM awaiting lab workup and likely admission. Last updated by Alicia Cardenas MD at 02/06/18 18:48 Medical Decision Making MDM Narrative Medical decision making narrative: Patient with upper GI bleed stable vitals and hemoglobin. Leukocytosis of 17.5 hemoglobin 11.9. Chest x-ray not suggestive of infectious process UA negative for urinary tract infection. Hemodynamically stable admitted for further evaluation. Medical Screen Exam Complete: Yes Emergency Medical Condition: Yes Differential Diagnosis Differential Diagnosis: GI bleed versus esophagitis versus pancreatitis Lab Data Lab results reviewed: Yes I reviewed the patient's lab results. Result diagrams: 02/06/18 18:20 02/06/18 18:20 Lab Results 02/06/18 02/06/18 02/06/18 Range/Units 18:20 18:20 18:20 WBC 17.5 H (4.0-11.0) th/mm3 RBC 4.16 L (4.50-5.90) mil/mm3 Hgb 11.9 L (13.0-17.0) gm/dL Hct 35.3 L (39.0-51.0) % MCV 84.7 (80.0-100.0) fL MCH 28.6 (27.0-34.0) pg MCHC 33.8 (32.0-36.0) % RDW 14.2 (11.6-17.2) % Plt Count 302 (150-450) th/mm3 MPV 9.3 (7.0-11.0) fL Neut % (Auto) 91.6 H (16.0-70.0) % Lymph % (Auto) 3.8 L (9.0-44.0) % Bradley % (Auto) 4.5 (0.0-8.0) % Eos % (Auto) 0.0 (0.0-4.0) % Baso % (Auto) 0.1 (0.0-2.0) % Neut # (Auto) 16.0 H (1.8-7.7) th/mm3 Lymph # (Auto) 0.7 L (1.0-4.8) th/mm3 Bradley # (Auto) 0.8 (0.0-0.9) th/mm3 Eos # (Auto) 0.0 (0.0-0.4) th/mm3 Baso # (Auto) 0.0 (0.0-0.2) th/mm3 WBC Differential . Differential Comment Auto diff final PT 13.4 H (9.8-11.6) sec INR 1.3 Ratio APTT 23.8 (23.4-31.7) sec Sodium 124 L* (136-145) meq/L Potassium 4.3 (3.5-5.1) meq/L Chloride 84 L (98-107) meq/L Carbon Dioxide 27.8 (21.0-32.0) meq/L Anion Gap 12 (5-15) meq/L BUN 28 H (7-18) mg/dL Creatinine 1.43 H (0.60-1.30) mg/dL Estimated GFR 48 L (>89) mL/min POC Glucose (68-110) mg/dl Random Glucose 210 H (74-106) mg/dL Calcium 8.5 (8.5-10.1) mg/dL Total Bilirubin 0.7 (0.2-1.0) mg/dL AST 25 (15-37) U/L ALT 13 (12-78) U/L Alkaline Phosphatase 77 (45-117) U/L Total Protein 7.2 (6.4-8.2) g/dL Albumin 2.7 L (3.4-5.0) g/dL Blood Type Antibody Screen 02/06/18 02/06/18 Range/Units 19:31 21:27 WBC (4.0-11.0) th/mm3 RBC (4.50-5.90) mil/mm3 Hgb (13.0-17.0) gm/dL Hct (39.0-51.0) % MCV (80.0-100.0) fL MCH (27.0-34.0) pg MCHC (32.0-36.0) % RDW (11.6-17.2) % Plt Count (150-450) th/mm3 MPV (7.0-11.0) fL Neut % (Auto) (16.0-70.0) % Lymph % (Auto) (9.0-44.0) % Bradley % (Auto) (0.0-8.0) % Eos % (Auto) (0.0-4.0) % Baso % (Auto) (0.0-2.0) % Neut # (Auto) (1.8-7.7) th/mm3 Lymph # (Auto) (1.0-4.8) th/mm3 Bradley # (Auto) (0.0-0.9) th/mm3 Eos # (Auto) (0.0-0.4) th/mm3 Baso # (Auto) (0.0-0.2) th/mm3 WBC Differential Differential Comment PT (9.8-11.6) sec INR Ratio APTT (23.4-31.7) sec Sodium (136-145) meq/L Potassium (3.5-5.1) meq/L Chloride (98-107) meq/L Carbon Dioxide (21.0-32.0) meq/L Anion Gap (5-15) meq/L BUN (7-18) mg/dL Creatinine (0.60-1.30) mg/dL Estimated GFR (>89) mL/min POC Glucose 265 H (68-110) mg/dl Random Glucose (74-106) mg/dL Calcium (8.5-10.1) mg/dL Total Bilirubin (0.2-1.0) mg/dL AST (15-37) U/L ALT (12-78) U/L Alkaline Phosphatase (45-117) U/L Total Protein (6.4-8.2) g/dL Albumin (3.4-5.0) g/dL Blood Type B Positive Antibody Screen Negative Imaging Data Radiologist's impression: Abdomen X-Ray 02/06/18 19:29 CONCLUSION: Nonobstructive bowel gas pattern. Considerable stool in the rectum. Chest X-Ray 02/06/18 19:29 CONCLUSION: No acute cardiopulmonary disease demonstrated. Discharge Plan Discharge Disposition Patient Disposition: 30 Still Patient Discharge Condition Condition: Stable Discharge Details Diagnosis: GI bleed, ROLAND (acute kidney injury), Acute hyponatremia, Leukocytosis Physicians Team ED Provider: Juan Pablo Leon Primary Care Provider: Aleaxnder Lau Attending Provider: Ana Luisa Willams Other Providers: Mallory Roth Discharge Interventions Interventions: Vital Signs Last Done: 02/06/18 20:07 Status ED Status: Admitted Patient
[2018-02-06 18:39] LABS: Baso % (Auto) 0.1 % (0.0-2.0); Hematocrit 35.3 % (39.0-51.0); Hemoglobin 11.9 gm/dL (13.0-17.0); Lymph # (Auto) 0.7 th/mm3 (1.0-4.8); Lymph % (Auto) 3.8 % (9.0-44.0); Mean Corpuscular HGB Conc 33.8 % (32.0-36.0); Mean Corpuscular Hemoglobin 28.6 pg (27.0-34.0); Mean Corpuscular Volume 84.7 fL (80.0-100.0); Mean Platelet Volume 9.3 fL (7.0-11.0); Mono # (Auto) 0.8 th/mm3 (0.0-0.9); Mono % (Auto) 4.5 % (0.0-8.0); Neut % (Auto) 91.6 % (16.0-70.0); Platelet Count 302 th/mm3 (150-450); Red Blood Count 4.16 mil/mm3 (4.50-5.90); Red Cell Distribution Width 14.2 % (11.6-17.2); White Blood Count 17.5 th/mm3 (4.0-11.0)
[2018-02-06 19:01] LABS: Alanine Aminotransferase 13 U/L (12-78); Albumin 2.7 g/dL (3.4-5.0); Alkaline Phosphatase 77 U/L (45-117); Aspartate Aminotransferase 25 U/L (15-37); Blood Urea Nitrogen 28 mg/dL (7-18); Calcium 8.5 mg/dL (8.5-10.1); Glomerular Filtration Rate 48 mL/min (>89); Glucose,Random 210 mg/dL (74-106); Total Protein 7.2 g/dL (6.4-8.2)
[2018-02-06 19:02] LABS: Anion Gap 12 meq/L (5-15); Carbon Dioxide 27.8 meq/L (21.0-32.0); Chloride 84 meq/L (98-107)
[2018-02-06 19:12] LABS: Activated Partial Thrombo Time 23.8 sec (23.4-31.7); INR 1.3 Ratio; Prothrombin Time 13.4 sec (9.8-11.6)
[2018-02-06 19:23] LABS: Potassium 4.3 meq/L (3.5-5.1); Sodium 124 meq/L (136-145)
[2018-02-06] MEDS: Sod Chloride 0.9% Inj 1,000 ML IV.CONT SCH (19:50)
--- NOTE | 2018-02-06 20:05 | XR ---
EXAM DATE: 02/06/2018 8:01 PM EST AGE/SEX: 72 years / Male INDICATIONS: Abdomen pain. CLINICAL DATA: This is the patient's initial encounter. Patient reports that signs and symptoms have been present for 2 days and indicates a pain score of 10/10. MEDICAL/SURGICAL HISTORY: . Diabetes. Hypertension. Myocardial infarction. Schizophrenia. CAB G. COMPARISON: [facility], ABDOMEN KUB ONLY, 10/30/2015. . FINDINGS: The abdominal bowel gas pattern is normal. Moderate to large stool seen in the rectum. No abnormal masses, calcifications, or organomegaly is seen. The osseous structures are unremarkable. CONCLUSION: Nonobstructive bowel gas pattern. Considerable stool in the rectum. Electronically signed by: Ankit Jay MD 02/06/2018 8:03 PM EST
--- NOTE | 2018-02-06 20:20 | XR ---
EXAM DATE: 02/06/2018 8:04 PM EST AGE/SEX: 72 years / Male INDICATIONS: Shortness of breath. CLINICAL DATA: This is the patient's initial encounter. Patient reports that signs and symptoms have been present for 1 day and indicates a pain score of 0/10. MEDICAL/SURGICAL HISTORY: . Diabetes. Hypertension. Myocardial infarction. Schizophrenia. CAB G. COMPARISON: [facility] [place], CHEST 1V SINGLE AP, 01/29/2018. . FINDINGS: No infiltrate, effusion or pneumothorax. Heart size stable, within normal limits. Patient has had previous median sternotomy. There is an impl anted cardiac loop recorder. Patient has had surgery of the left side of the neck. CONCLUSION: No acute cardiopulmonary disease demonstrated. Electronically signed by: Ankit Jay MD 02/06/2018 8:19 PM EST
[2018-02-06] MEDS ORDERED: Dextrose 50% in Water 50 ML Vial IV.PUSH PRN (21:19)
[2018-02-06] MEDS: Morphine Sulfate Inj 2 MG/ML Vial IV.PUSH PRN (21:30)
[2018-02-06] MEDS ORDERED: Pantoprazole Inj 80 MG in Sodium Chlor 0.9% Inj 100 ML IV.CONT SCH (22:00)
--- NOTE | 2018-02-06 22:25 | P.HP ---
History of Present Illness Service: [facility] Primary Care Physician: Alexander Lau MD History of Present Illness: 72-year-old male with a past medical history significant for diabetes mellitus, coronary artery disease status post CABG, schizophrenia, hypertension, BPH, CKD stage III, peptic ulcer disease and GERD presents to the emergency department for the evaluation of coffee-ground emesis. The patient reports that he began vomiting sometime earlier today. He endorses generalized abdominal pain. Denies any diarrhea. He reports that he has had associated anorexia for the past day. No fever or chills. No chest pain or shortness of breath. No focal neurologic deficits. At the time of my examination, the patient has a basin of coffee-ground emesis sitting on his chest. Inpatient Certification: I certify that the inpatient services were ordered in accordance with Medicare regulations governing the order. This includes certification that hospital inpatient services are reasonable and necessary and in the case of services not specified as inpatient-only under 42 CFR 419.22(n), that they are appropriately provided as inpatient services in accordance to with the 2-midnight benchmark under 43 CFR 412.3(e) Estimated Total Length of Stay (Days): 2 Plans for Post Hospital Care: Not yet determined Review of Systems All other systems reviewed negative except as stated in HPI [facility] - History History Provided By: Patient, Physical Science Technician / EMT - Medical History Medical History: Medical History (Last Updated 02/06/18 @ 22:19 by Ana Luisa Willams MD) BPH (benign prostatic hyperplasia) Chronic kidney disease, stage III (moderate) GERD (gastroesophageal reflux disease) Peptic ulcer disease Diabetes Hypertension MT (myocardial infarction) Schizophrenia - Surgical History Surgical History: Surgical History (Last Reviewed 02/06/18 @ 22:19 by Ana Luisa Willams MD) H/O heart bypass surgery - Family History Family History: Family History (Last Reviewed 02/06/18 @ 22:19 by Ana Luisa Willams MD) Other Unknown family medical history - Tobacco History Second Hand Smoke Exposure: No Smoking Status: Former smoker Tobacco Type: Cigarettes - Alcohol History How Often Do You Have a Drink Containing Alcohol: Never - Substance Use History Substance History: No History of Abuse - Travel History Recent Travel in the [place] Within the Last 8 Weeks: No Recent Travel Out of the Country Within the Last 8 Weeks: No - Immunization History Tetanus Immunization: <5 Years Medications and Allergies Active Medications: Active Medications Amlodipine Besylate (Norvasc) 10 mg PO DAILY [facility] Carvedilol (Coreg) 6.25 mg PO BID [facility] Dextrose (D50w Vial) 50 ml IV.PUSH UNSCH PRN PRN Reason: PER HYPOGLYCEMIA PROTOCOL Glucagon (Glucagon Inj) 1 mg OTHER PRN PRN PRN Reason: for Hypoglycemia Protocol Sodium Chloride (Ns Inj) 1,000 mls @ 100 mls/hr IV.CONT .Q10H DEBBIE Last Admin: 02/06/18 19:50 Dose: 100 mls/hr Pantoprazole Sodium 80 mg/ (Sodium Chloride) 100 mls @ 10 mls/hr IV.CONT CONT DEBBIE Last Admin: 02/06/18 22:05 Dose: 10 mls/hr Insulin Aspart (Novolog Insulin Correctional Sugar Inj) 0 unit SQ ACHS AND 3AM DEBBIE; Protocol Morphine Sulfate (Morphine Inj) 2 mg IV.PUSH Q4H PRN PRN Reason: pain 6-10 Last Admin: 02/06/18 21:30 Dose: 2 mg Sodium Chloride (Ns Flush) 2 ml IV.FLUSH PRN PRN PRN Reason: FLUSH AFTER USING IV ACCESS Sodium Chloride (Ns Flush) 2 ml IV.FLUSH PRN PRN PRN Reason: FLUSH AFTER USING IV ACCESS Sodium Chloride (Ns Flush) 2 ml IV.FLUSH BID [facility] Tamsulosin HCl (Flomax) 0.4 mg PO DAILY [facility] Allergies Allergy/AdvReac Type Severity Reaction Status Date / Time No Known Allergies Allergy Verified 12/22/17 22:28 Home Medications Medication Instructions Recorded Confirmed Type ascorbic acid (vitamin C) [Vitamin 1,000 mg PO DAILY 11/29/17 02/06/18 History C] cholecalciferol (vitamin D3) 1,000 unit PO DAILY 11/29/17 02/06/18 History [Vitamin D3] citalopram 20 mg PO DAILY 11/29/17 02/06/18 History cyanocobalamin (vitamin B-12) 1,000 mcg PO DAILY 11/29/17 02/06/18 History [Vitamin B-12] docusate sodium [Colace] 100 mg PO BID PRN 11/29/17 02/06/18 History ferrous gluconate 324 mg PO DAILY 11/29/17 02/06/18 History folic acid 0.5 mg PO DAILY 11/29/17 02/06/18 History metformin 1,000 mg PO BID 11/29/17 02/06/18 History aspirin 81 mg PO DAILY 01/30/18 02/06/18 History brimonidine 1 drp OPHTHALMIC (EYE) TID 01/30/18 02/06/18 History carbamide peroxide 1 drp EACH EAR DAILY 01/30/18 02/06/18 History quetiapine 25 tab PO DAILY 01/30/18 02/06/18 History quetiapine 200 tab PO HS 01/30/18 02/06/18 History Exam Vital signs: Vital Signs 02/06/18 17:53 02/06/18 18:45 02/06/18 19:28 Pulse Rate 87 Respiratory Rate 18 20 Blood Pressure 147/78 H 137/76 Pulse Oximetry 98 98 96 02/06/18 20:07 02/06/18 21:28 02/06/18 22:09 Pulse Rate 87 88 89 Respiratory Rate 20 20 20 Blood Pressure 141/79 H 139/75 113/64 Pulse Oximetry 96 96 96 Intake & Output 02/06/18 02/06/18 02/07/18 06:59 18:59 06:59 Weight 74.843 kg Narrative: Gen.: No acute distress Head: Normocephalic. Atraumatic. EENT: Pupils equal round and reactive to light. Nose without drainage. Airway intact. Throat without injection. Cardiovascular: Regular rate and rhythm. No murmurs, rubs or gallops. Respiratory: Lungs clear to auscultation bilaterally. No wheezes or rhonchi. Abdomen: Soft, diffusely tender to palpation, nondistended. No peritoneal signs. Musculoskeletal: No gross deformities. No edema. Skin: No obvious rashes or erythema. Neuro: Sensory and motor grossly intact. Cranial nerves II through XII grossly intact. Results - Labs CBC & Chem 7: 02/06/18 18:20 02/06/18 18:20 Labs: Laboratory Results - last 24 hr 02/06/18 02/06/18 02/06/18 18:20 18:20 18:20 WBC 17.5 H RBC 4.16 L Hgb 11.9 L Hct 35.3 L MCV 84.7 MCH 28.6 MCHC 33.8 RDW 14.2 Plt Count 302 MPV 9.3 Neut % (Auto) 91.6 H Lymph % (Auto) 3.8 L R[place] % (Auto) 4.5 Eos % (Auto) 0.0 Baso % (Auto) 0.1 Neut # (Auto) 16.0 H Lymph # (Auto) 0.7 L [place] # (Auto) 0.8 Eos # (Auto) 0.0 Baso # (Auto) 0.0 WBC Differential . Differential Comment Auto diff final PT 13.4 H INR 1.3 APTT 23.8 Sodium 124 L* Potassium 4.3 Chloride 84 L Carbon Dioxide 27.8 Anion Gap 12 BUN 28 H Creatinine 1.43 H Estimated GFR 48 L POC Glucose Random Glucose 210 H Calcium 8.5 Total Bilirubin 0.7 AST 25 ALT 13 Alkaline Phosphatase 77 Total Protein 7.2 Albumin 2.7 L Blood Type Antibody Screen 02/06/18 02/06/18 19:31 21:27 WBC RBC Hgb Hct MCV MCH MCHC RDW Plt Count MPV Neut % (Auto) Lymph % (Auto) [place] % (Auto) Eos % (Auto) Baso % (Auto) Neut # (Auto) Lymph # (Auto) [place]incon # (Auto) Eos # (Auto) Baso # (Auto) WBC Differential Differential Comment PT INR APTT Sodium Potassium Chloride Carbon Dioxide Anion Gap BUN Creatinine Estimated GFR POC Glucose 265 H Random Glucose Calcium Total Bilirubin AST ALT Alkaline Phosphatase Total Protein Albumin Blood Type B Positive Antibody Screen Negative - Imaging Impressions Abdomen X-Ray 02/06/18 19:29 CONCLUSION: Nonobstructive bowel gas pattern. Considerable stool in the rectum. Chest X-Ray 02/06/18 19:29 CONCLUSION: No acute cardiopulmonary disease demonstrated. Caprini VTE Risk Assessment Caprini VTE Risk Assessment: Moderate/High Risk (score >= 2) Caprini Risk Assessment Model: Point Value = 1 Point Value = 2 Point Value = 3 Point Value = 5 Age 41-60 Minor surgery BMI > 25 kg/m2 Swollen legs Varicose veins or History of unexplained or recurrent spontaneous Oral contraceptives or hormone replacement Sepsis (< 1 month) Serious lung disease, including pneumonia (< 1 month) Abnormal pulmonary function Acute myocardial infarction Congestive heart failure (< 1 month) History of inflammatory bowel disease Medical patient at bed rest Age 61-74 Arthroscopic surgery Major open surgery (> 45 min) Laparoscopic surgery (> 45 min) Malignancy Confined to bed (> 72 hours) Immobilizing plaster cast Central venous access Age >= 75 History of VTE Family history of VTE Factor V Leiden Prothrombin [id number] Lupus anticoagulant Anticardiolipin antibodies Elevated serum homocysteine Heparin-induced thrombocytopenia Other congenital or acquired thrombophilia Stroke (< 1 month) Elective arthroplasty Hip, pelvis, or leg fracture Acute spinal cord injury (< 1 month) Prophylaxis Regimen: Total Risk Factor Score Risk Level Prophylaxis Regimen 0-1 Low Early ambulation 2 Moderate Order ONE of the following: *Sequential Compression Device (SCD) *Heparin 5000 units SQ BID 3-4 Higher Order ONE of the following medications: *Heparin 5000 units SQ TID *Enoxaparin/Lovenox 40 mg SQ daily (WT < 150 kg, CrCl > 30 mL/min) *Enoxaparin/Lovenox 30 mg SQ daily (WT < 150 kg, CrCl > 10-29 mL/min) *Enoxaparin/Lovenox 30 mg SQ BID (WT < 150 kg, CrCl > 30 mL/min) AND/OR *Sequential Compression Device (SCD) 5 or more Highest Order ONE of the following medications: *Heparin 5000 units SQ TID (Preferred with Epidurals) *Enoxaparin/Lovenox 40 mg SQ daily (WT < 150 kg, CrCl > 30 mL/min) *Enoxaparin/Lovenox 30 mg SQ daily (WT < 150 kg, CrCl > 10-29 mL/min) *Enoxaparin/Lovenox 30 mg SQ BID (WT < 150 kg, CrCl > 30 mL/min) AND *Sequential Compression Device (SCD) Assessment and Plan - Plan Assessment/plan: 1. Upper GI bleed/peptic ulcer disease/GERD Protonix bolus and drip Serial H&H Transfuse as needed Gastroenterology consulted, appreciate assistance 2. Coronary artery disease Holding home aspirin for GI bleed Continue Coreg 3. Hypertension/BPH/schizophrenia Continue home medications 4. Diabetes mellitus Holding home metformin Sliding-scale insulin Monitor blood glucose 5. Hyponatremia NS Repeat BMP at midnight 6. Chronic kidney disease stage III Creatinine 1.43, baseline Monitor renal function FEN N.p.o. NS at 100 cc/hour Electrolytes: Monitor and replete as needed Holding pharmacologic anticoagulation for active GI bleed
[2018-02-07 00:02] LABS: Hematocrit 28.9 % (39.0-51.0); Hemoglobin 10.1 gm/dL (13.0-17.0)
[2018-02-07] MEDS: Insulin NovoLOG Aspart Correctional Sugar Inj SQ SCH ×5 (03:00→22:17)
[2018-02-07] MEDS: Sod Chloride 0.9% Inj 1,000 ML IV.CONT SCH ×2 (06:52→16:52)
[2018-02-07] MEDS: Morphine Sulfate Inj 2 MG/ML Vial IV.PUSH PRN ×3 (08:28→22:41)
[2018-02-07] MEDS: QUEtiapine 25 MG Tablet PO SCH (08:43)
[2018-02-07] MEDS: Citalopram 20 MG Tablet PO SCH (08:43)
[2018-02-07] MEDS: Carvedilol 6.25 MG Tablet PO SCH ×2 (08:46→22:17)
[2018-02-07] MEDS: amLODIPine 10 MG Tablet PO SCH (08:46)
[2018-02-07 08:57] LABS: Baso % (Auto) 0.2 % (0.0-2.0); Hematocrit 27.8 % (39.0-51.0); Hemoglobin 9.4 gm/dL (13.0-17.0); Lymph # (Auto) 0.9 th/mm3 (1.0-4.8); Lymph % (Auto) 4.5 % (9.0-44.0); Mean Corpuscular HGB Conc 33.8 % (32.0-36.0); Mean Corpuscular Hemoglobin 29.7 pg (27.0-34.0); Mean Corpuscular Volume 87.8 fL (80.0-100.0); Mean Platelet Volume 9.3 fL (7.0-11.0); Mono # (Auto) 0.9 th/mm3 (0.0-0.9); Mono % (Auto) 4.6 % (0.0-8.0); Neut % (Auto) 90.7 % (16.0-70.0); Platelet Count 285 th/mm3 (150-450); Red Blood Count 3.17 mil/mm3 (4.50-5.90); Red Cell Distribution Width 14.1 % (11.6-17.2); White Blood Count 18.8 th/mm3 (4.0-11.0)
[2018-02-07] MEDS: Pantoprazole Inj 80 MG in Sodium Chlor 0.9% Inj 100 ML IV.CONT SCH ×3 (10:23→22:16)
[2018-02-07 10:24] LABS: Alanine Aminotransferase 10 U/L (12-78); Albumin 2.4 g/dL (3.4-5.0); Alkaline Phosphatase 63 U/L (45-117); Anion Gap 14 meq/L (5-15); Aspartate Aminotransferase 15 U/L (15-37); Blood Urea Nitrogen 45 mg/dL (7-18); Carbon Dioxide 24.2 meq/L (21.0-32.0); Chloride 89 meq/L (98-107); Glomerular Filtration Rate 44 mL/min (>89); Glucose,Random 170 mg/dL (74-106); Potassium 3.9 meq/L (3.5-5.1); Sodium 127 meq/L (136-145); Total Protein 6.1 g/dL (6.4-8.2)
--- NOTE | 2018-02-07 11:51 | P.CONGI ---
History of Present Illness Consult date: 02/07/18 Consult reason: Upper GI bleed Hematemesis Chief complaint: Upper GI Bleed, Hyponatremia History of Present Illness: This patient is a 72-year-old male with past medical history of diabetes, coronary artery disease post CABG, schizophrenia, hypertension, BPH, chronic kidney disease, peptic ulcer disease and GERD. This patient presented to the emergency room at [facility] with report of coffee-ground emesis. Patient states onset 1-2 days. He reports associated generalized abdominal cramping. Denies any noted diarrhea states stools are soft. Patient denies any fever or chills. Upon consultation, patient endorses multiple episodes of dark brown emesis onset 1-2 days ago. Patient endorsing increasing heartburn although denies use of NSAIDs or blood thinners. Last EGD done 12/30/2017 revealed gastritis with severe esophagitis, stricture distal esophagus and hiatal hernia. Our service has been consulted to evaluate patient for reported coffee-ground emesis/GI bleeding <Michelle Nagel - Last Filed: 02/07/18 11:42> Review of Systems All other systems reviewed negative except as stated in HPI <Michelle Nagel - Last Filed: 02/07/18 11:42> PMFSH - History History Provided By: Patient - Medical History Medical History: Medical History (Last Updated 02/06/18 @ 22:19 by Ana Luisa Willams MD) BPH (benign prostatic hyperplasia) Chronic kidney disease, stage III (moderate) GERD (gastroesophageal reflux disease) Peptic ulcer disease Diabetes Hypertension [place] (myocardial infarction) Schizophrenia - Surgical History Surgical History: Surgical History (Last Reviewed 02/06/18 @ 22:19 by Ana Luisa Willams MD) H/O heart bypass surgery - Family History Family History: Family History (Last Reviewed 02/06/18 @ 22:19 by Ana Luisa Willams MD) Other Unknown family medical history - Tobacco History Second Hand Smoke Exposure: No Smoking Status: Former smoker Tobacco Type: Cigarettes - Alcohol History How Often Do You Have a Drink Containing Alcohol: Never - Substance Use History Substance History: No History of Abuse - Travel History Recent Travel in the [place] Within the Last 8 Weeks: No Recent Travel Out of the Country Within the Last 8 Weeks: No - Immunization History Tetanus Immunization: <5 Years <Michelle Nagel - Last Filed: 02/07/18 11:42> - Medical History Medical History: Medical History (Last Updated 02/06/18 @ 22:19 by Ana Luisa Willams MD) BPH (benign prostatic hyperplasia) Chronic kidney disease, stage III (moderate) GERD (gastroesophageal reflux disease) Peptic ulcer disease Diabetes Hypertension [place] (myocardial infarction) Schizophrenia - Surgical History Surgical History: Surgical History (Last Reviewed 02/06/18 @ 22:19 by Ana Luisa Willams MD) H/O heart bypass surgery - Family History Family History: Family History (Last Reviewed 02/06/18 @ 22:19 by Ana Luisa Willams MD) Other Unknown family medical history <Mallory Roth - Last Filed: 02/07/18 13:38> Medications and Allergies Active Medications: Active Medications Amlodipine Besylate (Norvasc) 10 mg PO DAILY [facility] Last Admin: 02/07/18 08:46 Dose: 10 mg Carvedilol (Coreg) 6.25 mg PO BID [facility] Last Admin: 02/07/18 08:46 Dose: 6.25 mg Citalopram Hydrobromide (Celexa) 20 mg PO DAILY [facility] Last Admin: 02/07/18 08:43 Dose: 20 mg Dextrose (D50w Vial) 50 ml IV.PUSH UNSCH PRN PRN Reason: PER HYPOGLYCEMIA PROTOCOL Glucagon (Glucagon Inj) 1 mg OTHER PRN PRN PRN Reason: for Hypoglycemia Protocol Sodium Chloride (Ns Inj) 1,000 mls @ 100 mls/hr IV.CONT .Q10H [facility] Last Admin: 02/07/18 06:52 Dose: 100 mls/hr Pantoprazole Sodium 80 mg/ (Sodium Chloride) 100 mls @ 10 mls/hr IV.CONT Q10H [facility] Last Admin: 02/07/18 10:23 Dose: 10 mls/hr Insulin Aspart (Novolog Insulin Correctional Sugar Inj) 0 unit SQ ACHS AND 3AM DEBBIE; Protocol Last Admin: 02/07/18 08:39 Dose: Not Given Morphine Sulfate (Morphine Inj) 2 mg IV.PUSH Q4H PRN PRN Reason: pain 6-10 Last Admin: 02/07/18 08:28 Dose: 2 mg Ondansetron HCl (Zofran Inj) 4 mg IV.PUSH Q6H PRN PRN Reason: pain 6-10 Last Admin: 02/07/18 06:51 Dose: 4 mg Quetiapine Fumarate (Seroquel) 25 mg PO DAILY [facility] Last Admin: 02/07/18 08:43 Dose: 25 mg Quetiapine Fumarate (Seroquel) 200 mg PO HS [facility] Sodium Chloride (Ns Flush) 2 ml IV.FLUSH PRN PRN PRN Reason: FLUSH AFTER USING IV ACCESS Sodium Chloride (Ns Flush) 2 ml IV.FLUSH PRN PRN PRN Reason: FLUSH AFTER USING IV ACCESS Sodium Chloride (Ns Flush) 2 ml IV.FLUSH BID [facility] Last Admin: 02/07/18 08:43 Dose: 2 ml Tamsulosin HCl (Flomax) 0.4 mg PO DAILY [facility] Last Admin: 02/07/18 08:44 Dose: 0.4 mg <Michelle Nagel - Last Filed: 02/07/18 11:42> Active Medications: Active Medications Amlodipine Besylate (Norvasc) 10 mg PO DAILY [facility] Last Admin: 02/07/18 08:46 Dose: 10 mg Carvedilol (Coreg) 6.25 mg PO BID [facility] Last Admin: 02/07/18 08:46 Dose: 6.25 mg Citalopram Hydrobromide (Celexa) 20 mg PO DAILY [facility] Last Admin: 02/07/18 08:43 Dose: 20 mg Dextrose (D50w Vial) 50 ml IV.PUSH UNSCH PRN PRN Reason: PER HYPOGLYCEMIA PROTOCOL Glucagon (Glucagon Inj) 1 mg OTHER PRN PRN PRN Reason: for Hypoglycemia Protocol Sodium Chloride (Ns Inj) 1,000 mls @ 100 mls/hr IV.CONT .Q10H [facility] Last Admin: 02/07/18 06:52 Dose: 100 mls/hr Pantoprazole Sodium 80 mg/ (Sodium Chloride) 100 mls @ 10 mls/hr IV.CONT Q10H [facility] Last Admin: 02/07/18 10:23 Dose: 10 mls/hr Insulin Aspart (Novolog Insulin Correctional Sugar Inj) 0 unit SQ ACHS AND 3AM [facility]; Protocol Last Admin: 02/07/18 12:19 Dose: Not Given Morphine Sulfate (Morphine Inj) 2 mg IV.PUSH Q4H PRN PRN Reason: pain 6-10 Last Admin: 02/07/18 08:28 Dose: 2 mg Ondansetron HCl (Zofran Inj) 4 mg IV.PUSH Q6H PRN PRN Reason: pain 6-10 Last Admin: 02/07/18 06:51 Dose: 4 mg Quetiapine Fumarate (Seroquel) 25 mg PO DAILY [facility] Last Admin: 02/07/18 08:43 Dose: 25 mg Quetiapine Fumarate (Seroquel) 200 mg PO HS [facility] Sodium Chloride (Ns Flush) 2 ml IV.FLUSH PRN PRN PRN Reason: FLUSH AFTER USING IV ACCESS Sodium Chloride (Ns Flush) 2 ml IV.FLUSH PRN PRN PRN Reason: FLUSH AFTER USING IV ACCESS Sodium Chloride (Ns Flush) 2 ml IV.FLUSH BID [facility] Last Admin: 02/07/18 08:43 Dose: 2 ml Tamsulosin HCl (Flomax) 0.4 mg PO DAILY [facility] Last Admin: 02/07/18 08:44 Dose: 0.4 mg <Mallory Roth A - Last Filed: 02/07/18 13:38> Allergies Allergy/AdvReac Type Severity Reaction Status Date / Time No Known Allergies Allergy Verified 12/22/17 22:28 Home Medications Medication Instructions Recorded Confirmed Type ascorbic acid (vitamin C) [Vitamin 1,000 mg PO DAILY 11/29/17 02/06/18 History C] cholecalciferol (vitamin D3) 1,000 unit PO DAILY 11/29/17 02/06/18 History [Vitamin D3] citalopram 20 mg PO DAILY 11/29/17 02/06/18 History cyanocobalamin (vitamin B-12) 1,000 mcg PO DAILY 11/29/17 02/06/18 History [Vitamin B-12] docusate sodium [Colace] 100 mg PO BID PRN 11/29/17 02/06/18 History ferrous gluconate 324 mg PO DAILY 11/29/17 02/06/18 History folic acid 0.5 mg PO DAILY 11/29/17 02/06/18 History metformin 1,000 mg PO BID 11/29/17 02/06/18 History aspirin 81 mg PO DAILY 01/30/18 02/06/18 History brimonidine 1 drp OPHTHALMIC (EYE) TID 01/30/18 02/06/18 History carbamide peroxide 1 drp EACH EAR DAILY 01/30/18 02/06/18 History quetiapine 25 tab PO DAILY 01/30/18 02/06/18 History quetiapine 200 tab PO HS 01/30/18 02/06/18 History Exam Vital signs: Vital Signs 02/06/18 17:53 02/06/18 18:45 02/06/18 19:28 Temperature Pulse Rate 87 Respiratory Rate 18 20 Blood Pressure 147/78 H 137/76 Pulse Oximetry 98 98 96 02/06/18 20:07 02/06/18 21:28 02/06/18 22:09 Temperature Pulse Rate 87 88 89 Respiratory Rate 20 20 20 Blood Pressure 141/79 H 139/75 113/64 Pulse Oximetry 96 96 96 02/06/18 22:29 02/06/18 23:17 02/07/18 00:00 Temperature Pulse Rate 88 88 Respiratory Rate 18 20 Blood Pressure 132/70 118/63 Pulse Oximetry 96 95 99 02/07/18 04:00 02/07/18 08:00 02/07/18 08:33 Temperature 98.3 F 98.4 F Pulse Rate 89 86 Respiratory Rate 20 20 19 Blood Pressure 133/66 138/75 Pulse Oximetry 97 95 02/07/18 09:00 Temperature Pulse Rate 86 Respiratory Rate Blood Pressure Pulse Oximetry Intake & Output 02/06/18 02/07/18 02/07/18 18:59 06:59 18:59 Intake Total 1000 / 1000 Balance 1000 / 1000 Weight 74.9 kg Intake: IV 1000 / 1000 NS Inj 1,000 ML @ 100 mls/hr IV 1000 / 1000 .CONT .Q10H [facility] Rx#:[id number] - Constitutional no acute distress - Routine HEENT Exam Head: Present: normocephalic ENT: Present: mucous membranes moist - Routine Respiratory Exam Present: CTA bilaterally. Absent: accessory muscle use - Routine Cardiovascular Exam Present: RRR - Routine Abdominal Exam Present: soft, normoactive bowel sounds. Absent: tenderness, distended, guarding, firm, rigid - Routine Extremities Exam Present: pulses intact. Absent: edema - Routine Skin Exam Present: dry, warm. Absent: pallor - Routine Neurological Exam Present: alert - Routine Psychiatric Exam Present: cooperative <Nagel,Michelle - Last Filed: 02/07/18 11:42> Vital signs: Vital Signs 02/06/18 17:53 02/06/18 18:45 02/06/18 19:28 Temperature Pulse Rate 87 Respiratory Rate 18 20 Blood Pressure 147/78 H 137/76 Pulse Oximetry 98 98 96 02/06/18 20:07 02/06/18 21:28 02/06/18 22:09 Temperature Pulse Rate 87 88 89 Respiratory Rate 20 20 20 Blood Pressure 141/79 H 139/75 113/64 Pulse Oximetry 96 96 96 02/06/18 22:29 02/06/18 23:17 02/07/18 00:00 Temperature Pulse Rate 88 88 Respiratory Rate 18 20 Blood Pressure 132/70 118/63 Pulse Oximetry 96 95 99 02/07/18 04:00 02/07/18 08:00 02/07/18 08:33 Temperature 98.3 F 98.4 F Pulse Rate 89 86 Respiratory Rate 20 20 19 Blood Pressure 133/66 138/75 Pulse Oximetry 97 95 02/07/18 09:00 Temperature Pulse Rate 86 Respiratory Rate Blood Pressure Pulse Oximetry Intake & Output 02/06/18 02/07/18 02/07/18 18:59 06:59 18:59 Intake Total 1000 / 1000 Balance 1000 / 1000 Weight 74.9 kg Intake: IV 1000 / 1000 NS Inj 1,000 ML @ 100 mls/hr IV 1000 / 1000 .CONT .Q10H [facility] Rx#:[id number] <Mallory Roth A - Last Filed: 02/07/18 13:38> Results - Labs CBC & Chem 7: 02/07/18 08:00 02/07/18 08:00 Labs: Laboratory Results - last 24 hr 02/06/18 02/06/18 02/06/18 18:20 18:20 18:20 WBC 17.5 H RBC 4.16 L Hgb 11.9 L Hct 35.3 L MCV 84.7 MCH 28.6 MCHC 33.8 RDW 14.2 Plt Count 302 MPV 9.3 Neut % (Auto) 91.6 H Lymph % (Auto) 3.8 L [place] % (Auto) 4.5 Eos % (Auto) 0.0 Baso % (Auto) 0.1 Neut # (Auto) 16.0 H Lymph # (Auto) 0.7 L [place] # (Auto) 0.8 Eos # (Auto) 0.0 Baso # (Auto) 0.0 WBC Differential . Differential Comment Auto diff final PT 13.4 H INR 1.3 APTT 23.8 Sodium 124 L* Potassium 4.3 Chloride 84 L Carbon Dioxide 27.8 Anion Gap 12 BUN 28 H Creatinine 1.43 H Estimated GFR 48 L POC Glucose Random Glucose 210 H Calcium 8.5 Total Bilirubin 0.7 AST 25 ALT 13 Alkaline Phosphatase 77 Total Protein 7.2 Albumin 2.7 L Blood Type Antibody Screen 02/06/18 02/06/18 02/06/18 19:31 21:27 23:53 WBC RBC Hgb 10.1 L Hct 28.9 L MCV MCH MCHC RDW Plt Count MPV Neut % (Auto) Lymph % (Auto) [place] % (Auto) Eos % (Auto) Baso % (Auto) Neut # (Auto) Lymph # (Auto) [place] # (Auto) Eos # (Auto) Baso # (Auto) WBC Differential Differential Comment PT INR APTT Sodium Potassium Chloride Carbon Dioxide Anion Gap BUN Creatinine Estimated GFR POC Glucose 265 H Random Glucose Calcium Total Bilirubin AST ALT Alkaline Phosphatase Total Protein Albumin Blood Type B Positive Antibody Screen Negative 02/07/18 02/07/18 02/07/18 02:42 08:00 08:00 WBC 18.8 H RBC 3.17 L Hgb 9.4 L Hct 27.8 L MCV 87.8 MCH 29.7 MCHC 33.8 RDW 14.1 Plt Count 285 MPV 9.3 Neut % (Auto) 90.7 H Lymph % (Auto) 4.5 L [place] % (Auto) 4.6 Eos % (Auto) 0.0 Baso % (Auto) 0.2 Neut # (Auto) 17.0 H Lymph # (Auto) 0.9 L [place] # (Auto) 0.9 Eos # (Auto) 0.0 Baso # (Auto) 0.0 WBC Differential . Differential Comment Auto diff final PT INR APTT Sodium 127 L Potassium 3.9 Chloride 89 L Carbon Dioxide 24.2 Anion Gap 14 BUN 45 H Creatinine 1.57 H Estimated GFR 44 L POC Glucose 205 H Random Glucose 170 H Calcium 8.0 L Total Bilirubin 0.3 AST 15 ALT 10 L Alkaline Phosphatase 63 Total Protein 6.1 L D Albumin 2.4 L Blood Type Antibody Screen 02/07/18 08:25 WBC RBC Hgb Hct MCV MCH MCHC RDW Plt Count MPV Neut % (Auto) Lymph % (Auto) [place] % (Auto) Eos % (Auto) Baso % (Auto) Neut # (Auto) Lymph # (Auto) [place] # (Auto) Eos # (Auto) Baso # (Auto) WBC Differential Differential Comment PT INR APTT Sodium Potassium Chloride Carbon Dioxide Anion Gap BUN Creatinine Estimated GFR POC Glucose 194 H Random Glucose Calcium Total Bilirubin AST ALT Alkaline Phosphatase Total Protein Albumin Blood Type Antibody Screen - Imaging Impressions Abdomen X-Ray 02/06/18 19:29 CONCLUSION: Nonobstructive bowel gas pattern. Considerable stool in the rectum. Chest X-Ray 02/06/18 19:29 CONCLUSION: No acute cardiopulmonary disease demonstrated. <Michelle Nagel - Last Filed: 02/07/18 11:42> - Labs CBC & Chem 7: 02/07/18 12:27 02/07/18 08:00 Labs: Laboratory Results - last 24 hr 02/06/18 02/06/18 02/06/18 18:20 18:20 18:20 WBC 17.5 H RBC 4.16 L Hgb 11.9 L Hct 35.3 L MCV 84.7 MCH 28.6 MCHC 33.8 RDW 14.2 Plt Count 302 MPV 9.3 Neut % (Auto) 91.6 H Lymph % (Auto) 3.8 L [place] % (Auto) 4.5 Eos % (Auto) 0.0 Baso % (Auto) 0.1 Neut # (Auto) 16.0 H Lymph # (Auto) 0.7 L [place] # (Auto) 0.8 Eos # (Auto) 0.0 Baso # (Auto) 0.0 WBC Differential . Differential Comment Auto diff final PT 13.4 H INR 1.3 APTT 23.8 Sodium 124 L* Potassium 4.3 Chloride 84 L Carbon Dioxide 27.8 Anion Gap 12 BUN 28 H Creatinine 1.43 H Estimated GFR 48 L POC Glucose Random Glucose 210 H Calcium 8.5 Total Bilirubin 0.7 AST 25 ALT 13 Alkaline Phosphatase 77 Total Protein 7.2 Albumin 2.7 L Blood Type Antibody Screen 02/06/18 02/06/18 02/06/18 19:31 21:27 23:53 WBC RBC Hgb 10.1 L Hct 28.9 L MCV MCH MCHC RDW Plt Count MPV Neut % (Auto) Lymph % (Auto) [place] % (Auto) Eos % (Auto) Baso % (Auto) Neut # (Auto) Lymph # (Auto) [place] # (Auto) Eos # (Auto) Baso # (Auto) WBC Differential Differential Comment PT INR APTT Sodium Potassium Chloride Carbon Dioxide Anion Gap BUN Creatinine Estimated GFR POC Glucose 265 H Random Glucose Calcium Total Bilirubin AST ALT Alkaline Phosphatase Total Protein Albumin Blood Type B Positive Antibody Screen Negative 02/07/18 02/07/18 02/07/18 02:42 08:00 08:00 WBC 18.8 H RBC 3.17 L Hgb 9.4 L Hct 27.8 L MCV 87.8 MCH 29.7 MCHC 33.8 RDW 14.1 Plt Count 285 MPV 9.3 Neut % (Auto) 90.7 H Lymph % (Auto) 4.5 L [place] % (Auto) 4.6 Eos % (Auto) 0.0 Baso % (Auto) 0.2 Neut # (Auto) 17.0 H Lymph # (Auto) 0.9 L [place] # (Auto) 0.9 Eos # (Auto) 0.0 Baso # (Auto) 0.0 WBC Differential . Differential Comment Auto diff final PT INR APTT Sodium 127 L Potassium 3.9 Chloride 89 L Carbon Dioxide 24.2 Anion Gap 14 BUN 45 H Creatinine 1.57 H Estimated GFR 44 L POC Glucose 205 H Random Glucose 170 H Calcium 8.0 L Total Bilirubin 0.3 AST 15 ALT 10 L Alkaline Phosphatase 63 Total Protein 6.1 L D Albumin 2.4 L Blood Type Antibody Screen 02/07/18 02/07/18 02/07/18 08:25 12:15 12:27 WBC RBC Hgb 7.8 L Hct 21.6 L MCV MCH MCHC RDW Plt Count MPV Neut % (Auto) Lymph % (Auto) [place] % (Auto) Eos % (Auto) Baso % (Auto) Neut # (Auto) Lymph # (Auto) [place] # (Auto) Eos # (Auto) Baso # (Auto) WBC Differential Differential Comment PT INR APTT Sodium Potassium Chloride Carbon Dioxide Anion Gap BUN Creatinine Estimated GFR POC Glucose 194 H 191 H Random Glucose Calcium Total Bilirubin AST ALT Alkaline Phosphatase Total Protein Albumin Blood Type Antibody Screen - Imaging Impressions Abdomen X-Ray 02/06/18 19:29 CONCLUSION: Nonobstructive bowel gas pattern. Considerable stool in the rectum. Chest X-Ray 02/06/18 19:29 CONCLUSION: No acute cardiopulmonary disease demonstrated. <Mallory Roth - Last Filed: 02/07/18 13:38> Assessment and Plan (1) GI bleed Status: Acute Code(s): K92.2 - Gastrointestinal hemorrhage, unspecified - Plan This patient is a 72-year-old male with past medical history of diabetes, coronary artery disease post CABG, schizophrenia, hypertension, BPH, chronic kidney disease, peptic ulcer disease and GERD. This patient presented to the emergency room at [facility] with report of coffee-ground emesis. Patient states onset 1-2 days. He reports associated generalized abdominal cramping. Denies any noted diarrhea states stools are soft. Patient denies any fever or chills. Upon consultation, patient endorses multiple episodes of dark brown emesis onset 1-2 days ago. Patient endorsing increasing heartburn although denies use of NSAIDs or blood thinners. Last EGD done 12/30/2017 revealed gastritis with severe esophagitis, stricture distal esophagus and hiatal hernia. Our service has been consulted to evaluate patient for reported coffee-ground emesis/GI bleeding GI bleeding Patient endorses 1-2 days onset of coffee-ground emesis with associated generalized abdominal cramping. -Last EGD 12/30/2017 with findings as noted above. -02/06/2018 abdominal x-ray revealed the following findings: The abdominal bowel gas pattern is normal. Moderate to large stool seen in the rectum. No abnormal masses, calcifications, or organomegaly is seen. The osseous structures are unremarkable. Nonobstructive bowel gas pattern. Considerable stool in the rectum. -Hemoglobin 9.4 hematocrit 27.8 platelet count 285 INR 1.3 total bilirubin 0.3 AST 15 ALT 10 alk phos 63 Plan -N.p.o. -Obtain consent for EGD -EGD today -Avoid NSAIDs or anticoagulants -Monitor for bleeding -Monitor hemoglobin and hematocrit -Continue PPI -Further recommendations to follow This patient has been seen by myself and Dr. Roth and this note is written on his behalf - Attending Attestation Dr. Roth <Michelle Nagel - Last Filed: 02/07/18 11:42> (1) GI bleed Status: Acute Code(s): K92.2 - Gastrointestinal hemorrhage, unspecified - Attending Attestation Seen and examined, plan as above. Will schedule EGD today. Further recommendations to follow. Thank you for the consult. <Mallory Roth - Last Filed: 02/07/18 13:38> <Michelle Nagel - Last Filed: 02/07/18 11:42> (1) GI bleed Qualifiers: GI bleed type/associated pathology: unspecified gastrointestinal hemorrhage type Qualified Code(s): K92.2 - Gastrointestinal hemorrhage, unspecified <Mallory Roth - Last Filed: 02/07/18 13:38> (1) GI bleed Qualifiers: GI bleed type/associated pathology: unspecified gastrointestinal hemorrhage type Qualified Code(s): K92.2 - Gastrointestinal hemorrhage, unspecified
[2018-02-07 13:19] LABS: Hematocrit 21.6 % (39.0-51.0); Hemoglobin 7.8 gm/dL (13.0-17.0)
[2018-02-07] MEDS ORDERED: Metoprolol Tartrate 25 MG Tablet PO ONE (13:45)
[2018-02-07] MEDS ORDERED: Chlorhexidine Gluconate 2% 1 Pack (2 Cloths) TOPICAL ONE (13:45)
[2018-02-07] MEDS ORDERED: Sodium Chlor 0.9% Inj 500 ML IV.CONT ONE (13:45)
[2018-02-07] MEDS ORDERED: Phenylephrine/NS 1000 MCG/10ML Syringe IV.PUSH ONE (13:49)
--- NOTE | 2018-02-07 14:18 | GIPROC ---
[facility] [address] [facility]. [facility], [address] EGD PROCEDURE REPORT EXAM DATE: 02/07/2018 PATIENT NAME: Bharathi Coffey MR #: [id number] BIRTHDATE: 1945 ATTENDING: Mallory Roth MD ORDER #: [id number] [employer] OFFICER: Mag Awan and Tiana Sage STATUS: inpatient INDICATIONS: The patient is a 72 yr old male here for an EGD due to hematochezia PROCEDURE PERFORMED: EGD w/ biopsy MEDICATIONS: Per Anesthesia and None. TOPICAL ANESTHETIC: none CONSENT: The patient understands the risks and benefits of the procedure and understands that these risks include, but are not limited to: sedation, allergic reaction, infection, perforation and/or bleeding. Alternative means of evaluation and treatment include, among others: physical exam, x-rays, and/or surgical intervention. The patient elects to proceed with this endoscopic procedure. medical equipment was checked for proper function. Hand hygiene and appropriate measures for infection prevention was taken. After the risks, benefits and alternatives of the procedure were thoroughly explained, Informed consent was verified, confirmed and timeout was successfully executed by the treatment team. The patient was anesthetized with topical anesthesia and the [employer] [id number] endoscope was introduced through the mouth and advanced to the third portion of the duodenum. Retroflexion was performed and was normal The gastroscope was then slowly withdrawn and removed. STOMACH: The mucosa of the stomach appeared normal. DUODENUM: The duodenal mucosa appeared normal. ESOPHAGUS: Multiple large non-bleeding, irregular shaped and deep ulcers with surrounding edema, heaped up edges and a pigmented spot were found in the middle third of the esophagus and lower third esophagus. Biopsies were taken at edge of the ulcers, around the ulcers and at the center of the ulcers. ADVERSE EVENTS: There were no complications. IMPRESSIONS: 1. The mucosa of the stomach appeared normal 2. Normal duodenal mucosa 3. Multiple large ulcers were found in the middle third of the esophagus and lower third esophagus; biopsies were taken , likely malignant in appearance. 4. Retroflexion was performed and was normal RECOMMENDATIONS: 1. Await biopsy results. Biopsy results will not be ready for 7-10 days. If you don't hear from us in two weeks, call our office for biopsy results. 2. Continue PPI PATIENT CONDITION: stable DISPOSITION: Observation REPEAT EXAM: NONE Mallory Roth MD eSigned: Mallory Roth MD 02/07/2018 2:18 PM cc: PATIENT NAME: Bharathi Coffey MR#: [id number]
--- NOTE | 2018-02-07 14:50 | P.PNIM ---
Subjective Interval history: Patient reports he is feeling okay today. No further episode of coffee-ground emesis this morning. GI planning for EGD today. Physical Exam Vital signs: Vital Signs 02/06/18 17:53 02/06/18 18:45 02/06/18 19:28 Temperature Pulse Rate 87 Respiratory Rate 18 20 Blood Pressure 147/78 H 137/76 Pulse Oximetry 98 98 96 02/06/18 20:07 02/06/18 21:28 02/06/18 22:09 Temperature Pulse Rate 87 88 89 Respiratory Rate 20 20 20 Blood Pressure 141/79 H 139/75 113/64 Pulse Oximetry 96 96 96 02/06/18 22:29 02/06/18 23:17 02/07/18 00:00 Temperature Pulse Rate 88 88 Respiratory Rate 18 20 Blood Pressure 132/70 118/63 Pulse Oximetry 96 95 99 02/07/18 04:00 02/07/18 08:00 02/07/18 08:33 Temperature 98.3 F 98.4 F Pulse Rate 89 86 Respiratory Rate 20 20 19 Blood Pressure 133/66 138/75 Pulse Oximetry 97 95 02/07/18 09:00 02/07/18 14:19 Temperature 97.3 F L Pulse Rate 86 72 Respiratory Rate 18 Blood Pressure 113/57 L Pulse Oximetry 95 Intake & Output 02/06/18 02/07/18 02/07/18 18:59 06:59 18:59 Intake Total 1000 / 1000 Output Total 75 / 75 Balance 1000 / 1000 -75 / -75 Weight 74.9 kg Intake: IV 1000 / 1000 NS Inj 1,000 ML @ 100 mls/hr IV 1000 / 1000 .CONT .Q10H [facility] Rx#:[id number] Output: Urine 75 / 75 Narrative: Gen.: Elderly male in no acute distress Head: Normocephalic. Atraumatic. Cardiovascular: Regular rate and rhythm. No murmurs, rubs or gallops. Respiratory: Lungs clear to auscultation bilaterally. No wheezes or rhonchi. Abdomen: Soft, nondistended, nontender. No peritoneal signs. Musculoskeletal: No gross deformities. No edema. Neuro: Sensory and motor grossly intact. Cranial nerves II through XII grossly intact. Results - Labs CBC & Chem 7: 02/07/18 12:27 02/07/18 08:00 Laboratory Results - last 24 hr 02/06/18 02/06/18 02/06/18 18:20 18:20 18:20 WBC 17.5 H RBC 4.16 L Hgb 11.9 L Hct 35.3 L MCV 84.7 MCH 28.6 MCHC 33.8 RDW 14.2 Plt Count 302 MPV 9.3 Neut % (Auto) 91.6 H Lymph % (Auto) 3.8 L Andrew % (Auto) 4.5 Eos % (Auto) 0.0 Baso % (Auto) 0.1 Neut # (Auto) 16.0 H Lymph # (Auto) 0.7 L Andrew # (Auto) 0.8 Eos # (Auto) 0.0 Baso # (Auto) 0.0 WBC Differential . Differential Comment Auto diff final PT 13.4 H INR 1.3 APTT 23.8 Sodium 124 L* Potassium 4.3 Chloride 84 L Carbon Dioxide 27.8 Anion Gap 12 BUN 28 H Creatinine 1.43 H Estimated GFR 48 L POC Glucose Random Glucose 210 H Calcium 8.5 Total Bilirubin 0.7 AST 25 ALT 13 Alkaline Phosphatase 77 Total Protein 7.2 Albumin 2.7 L Blood Type Antibody Screen 02/06/18 02/06/18 02/06/18 19:31 21:27 23:53 WBC RBC Hgb 10.1 L Hct 28.9 L MCV MCH MCHC RDW Plt Count MPV Neut % (Auto) Lymph % (Auto) Andrew % (Auto) Eos % (Auto) Baso % (Auto) Neut # (Auto) Lymph # (Auto) Andrew # (Auto) Eos # (Auto) Baso # (Auto) WBC Differential Differential Comment PT INR APTT Sodium Potassium Chloride Carbon Dioxide Anion Gap BUN Creatinine Estimated GFR POC Glucose 265 H Random Glucose Calcium Total Bilirubin AST ALT Alkaline Phosphatase Total Protein Albumin Blood Type B Positive Antibody Screen Negative 02/07/18 02/07/18 02/07/18 02:42 08:00 08:00 WBC 18.8 H RBC 3.17 L Hgb 9.4 L Hct 27.8 L MCV 87.8 MCH 29.7 MCHC 33.8 RDW 14.1 Plt Count 285 MPV 9.3 Neut % (Auto) 90.7 H Lymph % (Auto) 4.5 L Andrew % (Auto) 4.6 Eos % (Auto) 0.0 Baso % (Auto) 0.2 Neut # (Auto) 17.0 H Lymph # (Auto) 0.9 L Andrew # (Auto) 0.9 Eos # (Auto) 0.0 Baso # (Auto) 0.0 WBC Differential . Differential Comment Auto diff final PT INR APTT Sodium 127 L Potassium 3.9 Chloride 89 L Carbon Dioxide 24.2 Anion Gap 14 BUN 45 H Creatinine 1.57 H Estimated GFR 44 L POC Glucose 205 H Random Glucose 170 H Calcium 8.0 L Total Bilirubin 0.3 AST 15 ALT 10 L Alkaline Phosphatase 63 Total Protein 6.1 L D Albumin 2.4 L Blood Type Antibody Screen 02/07/18 02/07/18 02/07/18 08:25 12:15 12:27 WBC RBC Hgb 7.8 L Hct 21.6 L MCV MCH MCHC RDW Plt Count MPV Neut % (Auto) Lymph % (Auto) Andrew % (Auto) Eos % (Auto) Baso % (Auto) Neut # (Auto) Lymph # (Auto) Andrew # (Auto) Eos # (Auto) Baso # (Auto) WBC Differential Differential Comment PT INR APTT Sodium Potassium Chloride Carbon Dioxide Anion Gap BUN Creatinine Estimated GFR POC Glucose 194 H 191 H Random Glucose Calcium Total Bilirubin AST ALT Alkaline Phosphatase Total Protein Albumin Blood Type Antibody Screen - Imaging Impressions Abdomen X-Ray 02/06/18 19:29 CONCLUSION: Nonobstructive bowel gas pattern. Considerable stool in the rectum. Chest X-Ray 02/06/18 19:29 CONCLUSION: No acute cardiopulmonary disease demonstrated. Assessment and Plan - Plan 72-year-old male admitted with upper GI bleed: 1. Upper GI bleed/peptic ulcer disease/GERD Protonix bolus and drip H&H trending down We will transfuse 2 units now to keep hemoglobin above 8 given known history of coronary artery disease. Gastroenterology consulted, appreciate assistance. Planning for EGD today. 2. Coronary artery disease Holding home aspirin for GI bleed Continue Coreg 3. Hypertension/BPH/schizophrenia Continue home medications 4. Diabetes mellitus Holding home metformin Sliding-scale insulin Monitor blood glucose 5. Hyponatremia NS Follow-up BMP in a.m. 6. Chronic kidney disease stage III Creatinine 1.43, baseline Monitor renal function FEN N.p.o. NS at 100 cc/hour Electrolytes: Monitor and replete as needed Holding pharmacologic anticoagulation for active GI bleed
[2018-02-07] MEDS ORDERED: Sodium Chlor 0.9% Inj 250 ML IV.SIG SCH (17:00)
[2018-02-07 18:27] LABS: Hematocrit 23.3 % (39.0-51.0); Hemoglobin 7.6 gm/dL (13.0-17.0)
--- NOTE | 2018-02-07 20:16 | ECG ---
Date Performed: 02/06/2018 Time Performed: 17:58:04 PTAGE: 72 years EKG: Sinus rhythm INFERIOR MYOCARDIAL INFARCTION NONSPECIFIC ST ABNORMALITIES, CANNOT EXCLUDE POSSIBLE ISCHEMIA. Bebo red to previous tracing, T WAVE ABNORMALITIES ARE NEW ABNORMAL ECG PREVIOUS TRACING : 01/30/2018 12.29 DOCTOR: Isaiah Schultz Interpretating Date/Time 02/07/2018 20:15:06
--- NOTE | 2018-02-07 20:16 | ECG ---
Date Performed: 02/06/2018 Time Performed: 21:00:51 PTAGE: 72 years EKG: Sinus rhythm POSSIBLE LEFT ATRIAL ENLARGEMENT PROBABLE INFERIOR MYOCARDIAL INFARCTION NONSPECIFIC ST ABNORMALITIE S Since the previous tracing, no significant change noted ABNORMAL ECG PREVIOUS TRACING : 02/06/2018 17.58 DOCTOR: Isaiah Schultz Interpretating Date/Time 02/07/2018 20:15:23
[2018-02-08] MEDS: Sod Chloride 0.9% Inj 1,000 ML IV.CONT SCH ×4 (02:00→23:47)
[2018-02-08 03:58] LABS: Hematocrit 24.3 % (39.0-51.0); Hemoglobin 8.4 gm/dL (13.0-17.0)
[2018-02-08] MEDS: Insulin NovoLOG Aspart Correctional Sugar Inj SQ SCH ×5 (04:03→21:38)
[2018-02-08] MEDS: Pantoprazole Inj 80 MG in Sodium Chlor 0.9% Inj 100 ML IV.CONT SCH ×3 (04:49→19:32)
[2018-02-08] MEDS: Morphine Sulfate Inj 2 MG/ML Vial IV.PUSH PRN (09:19)
[2018-02-08] MEDS: QUEtiapine 25 MG Tablet PO SCH (09:23)
[2018-02-08] MEDS: amLODIPine 10 MG Tablet PO SCH (09:23)
[2018-02-08] MEDS: Citalopram 20 MG Tablet PO SCH (09:23)
[2018-02-08] MEDS: Carvedilol 6.25 MG Tablet PO SCH ×2 (09:24→21:37)
[2018-02-08 12:02] LABS: Hematocrit 24.6 % (39.0-51.0); Hemoglobin 8.7 gm/dL (13.0-17.0)
--- NOTE | 2018-02-08 14:39 | P.PNGI ---
Subjective Interval history: Patient awake and alert denies abdominal pain Post EGD States tolerating diet well and denies any noted bleeding <Michelle Nagel - Last Filed: 02/08/18 14:36> Physical Exam Vital signs: Vital Signs 02/07/18 16:00 02/07/18 18:23 02/07/18 18:44 Temperature 97.2 F L 97.2 F L 97.3 F L Pulse Rate 75 75 82 Respiratory Rate 20 20 20 Blood Pressure 129/65 131/65 119/63 Pulse Oximetry 97 97 96 02/07/18 20:00 02/07/18 22:22 02/07/18 22:35 Temperature 97.5 F L 98.2 F 98.2 F Pulse Rate 75 81 83 Respiratory Rate 18 18 18 Blood Pressure 122/59 L 150/69 H 134/68 Pulse Oximetry 95 95 96 02/08/18 00:00 02/08/18 04:00 02/08/18 08:00 Temperature 98.8 F 97.3 F L 98.5 F Pulse Rate 66 69 76 Respiratory Rate 18 18 18 Blood Pressure 100/57 L 111/55 L 150/73 H Pulse Oximetry 95 95 95 02/08/18 12:00 Temperature 98.3 F Pulse Rate 63 Respiratory Rate 18 Blood Pressure 106/55 L Pulse Oximetry 95 Intake & Output 02/07/18 02/08/18 02/08/18 18:59 06:59 18:59 Intake Total 1245 / 1245 1855 / 1855 1100 / 1100 Output Total 75 / 75 500 / 500 Balance 1170 / 1170 1355 / 1355 1100 / 1100 Weight 75 kg Intake: IV 1045 / 1045 1055 / 1055 1100 / 1100 Protonix Inj 80 MG In NS Inj 45 / 45 55 / 55 100 / 100 100 ML @ 10 mls/hr IV.CONT Q10H [facility] Rx#:[id number] NS Inj 1,000 ML @ 100 mls/hr IV 1000 / 1000 1000 / 1000 1000 / 1000 .CONT .Q10H [facility] Rx#:[id number] Anesthesia Amount 200 / 200 Intake (Blood Product) Amt 0 / 0 800 / 800 Rbc As-3 Leukoreduced Unit 400 / 400 [id number] Rbc As-3 Leukoreduced Unit 0 / 0 400 / 400 [id number] Output: Urine 75 / 75 500 / 500 Other: # Voids 4 # Incontinent Voids 1 Date of Last Bowel Movement 02/07/18 02/07/18 # Bowel Movements 1 # Incontinent Bowel Movements 1 - Constitutional chronically ill appearing - Routine Respiratory Exam Present: CTA bilaterally. Absent: accessory muscle use - Routine Cardiovascular Exam Present: S1, S2 - Routine Abdominal Exam Present: soft, normoactive bowel sounds. Absent: tenderness, distended, guarding, firm - Routine Skin Exam Present: dry, warm - Routine Neurological Exam Present: alert <Nagel,Michelle - Last Filed: 02/08/18 14:36> Vital signs: Vital Signs 02/07/18 16:00 02/07/18 18:23 02/07/18 18:44 Temperature 97.2 F L 97.2 F L 97.3 F L Pulse Rate 75 75 82 Respiratory Rate 20 20 20 Blood Pressure 129/65 131/65 119/63 Pulse Oximetry 97 97 96 02/07/18 20:00 02/07/18 22:22 02/07/18 22:35 Temperature 97.5 F L 98.2 F 98.2 F Pulse Rate 75 81 83 Respiratory Rate 18 18 18 Blood Pressure 122/59 L 150/69 H 134/68 Pulse Oximetry 95 95 96 02/08/18 00:00 02/08/18 04:00 02/08/18 08:00 Temperature 98.8 F 97.3 F L 98.5 F Pulse Rate 66 69 76 Respiratory Rate 18 18 18 Blood Pressure 100/57 L 111/55 L 150/73 H Pulse Oximetry 95 95 95 02/08/18 12:00 Temperature 98.3 F Pulse Rate 63 Respiratory Rate 18 Blood Pressure 106/55 L Pulse Oximetry 95 Intake & Output 02/07/18 02/08/18 02/08/18 18:59 06:59 18:59 Intake Total 1245 / 1245 1855 / 1855 1100 / 1100 Output Total 75 / 75 500 / 500 Balance 1170 / 1170 1355 / 1355 1100 / 1100 Weight 75 kg Intake: IV 1045 / 1045 1055 / 1055 1100 / 1100 Protonix Inj 80 MG In NS Inj 45 / 45 55 / 55 100 / 100 100 ML @ 10 mls/hr IV.CONT Q10H [facility] Rx#:[id number] NS Inj 1,000 ML @ 100 mls/hr IV 1000 / 1000 1000 / 1000 1000 / 1000 .CONT .Q10H [facility] Rx#:[id number] Anesthesia Amount 200 / 200 Intake (Blood Product) Amt 0 / 0 800 / 800 Rbc As-3 Leukoreduced Unit 400 / 400 [id number] Rbc As-3 Leukoreduced Unit 0 / 0 400 / 400 [id number] Output: Urine 75 / 75 500 / 500 Other: # Voids 4 # Incontinent Voids 1 Date of Last Bowel Movement 02/07/18 02/07/18 # Bowel Movements 1 # Incontinent Bowel Movements 1 <Mallory Castaneda - Last Filed: 02/08/18 14:41> Results - Labs CBC & Chem 7: 02/08/18 11:08 02/07/18 08:00 Laboratory Results - last 24 hr 02/07/18 02/07/18 02/07/18 16:30 16:54 17:28 Hgb 7.6 L Hct 23.3 L POC Glucose 180 H MTS Gel Crossmatch See Detail 02/07/18 02/08/18 02/08/18 21:11 03:35 03:59 Hgb 8.4 L Hct 24.3 L POC Glucose 208 H 76 MTS Gel Crossmatch 02/08/18 02/08/18 02/08/18 09:15 09:16 11:08 Hgb 8.7 L Hct 24.6 L POC Glucose 48 L* 63 L MTS Gel Crossmatch 02/08/18 13:20 Hgb Hct POC Glucose 186 H MTS Gel Crossmatch <Michelle Nagel - Last Filed: 02/08/18 14:36> - Labs CBC & Chem 7: 02/08/18 11:08 02/07/18 08:00 Laboratory Results - last 24 hr 02/07/18 02/07/18 02/07/18 16:30 16:54 17:28 Hgb 7.6 L Hct 23.3 L POC Glucose 180 H MTS Gel Crossmatch See Detail 02/07/18 02/08/18 02/08/18 21:11 03:35 03:59 Hgb 8.4 L Hct 24.3 L POC Glucose 208 H 76 MTS Gel Crossmatch 02/08/18 02/08/18 02/08/18 09:15 09:16 11:08 Hgb 8.7 L Hct 24.6 L POC Glucose 48 L* 63 L MTS Gel Crossmatch 02/08/18 13:20 Hgb Hct POC Glucose 186 H MTS Gel Crossmatch <Mallory Castaneda - Last Filed: 02/08/18 14:41> Assessment and Plan (1) GI bleed Status: Acute Code(s): K92.2 - Gastrointestinal hemorrhage, unspecified - Plan This patient is a 72-year-old male with past medical history of diabetes, coronary artery disease post CABG, schizophrenia, hypertension, BPH, chronic kidney disease, peptic ulcer disease and GERD. This patient presented to the emergency room at [facility] with report of coffee-ground emesis. Patient states onset 1-2 days. He reports associated generalized abdominal cramping. Denies any noted diarrhea states stools are soft. Patient denies any fever or chills. Upon consultation, patient endorses multiple episodes of dark brown emesis onset 1-2 days ago. Patient endorsing increasing heartburn although denies use of NSAIDs or blood thinners. Last EGD done 12/30/2017 revealed gastritis with severe esophagitis, stricture distal esophagus and hiatal hernia. Our service has been consulted to evaluate patient for reported coffee-ground emesis/GI bleeding GI bleeding Patient endorses 1-2 days onset of coffee-ground emesis with associated generalized abdominal cramping. -Last EGD 12/30/2017 with findings as noted above. -02/06/2018 abdominal x-ray revealed the following findings: The abdominal bowel gas pattern is normal. Moderate to large stool seen in the rectum. No abnormal masses, calcifications, or organomegaly is seen. The osseous structures are unremarkable. Nonobstructive bowel gas pattern. Considerable stool in the rectum. -Hemoglobin 9.4 hematocrit 27.8 platelet count 285 INR 1.3 total bilirubin 0.3 AST 15 ALT 10 alk phos 63 02/08/2018 GI bleeding Patient denies any noted bleeding, denies any nausea or vomiting. 02/07/2018 EGD : 1. The mucosa of the stomach appeared normal 2. Normal duodenal mucosa 3. Multiple large ulcers were found in the middle third of the esophagus and lower third esophagus; biopsies were taken , likely malignant in appearance. 4. Retroflexion was performed and was normal Hemoglobin 8.7 hematocrit 24.6 stable Plan -Full liquid diet -Avoid NSAIDs or anticoagulants -Monitor for bleeding -Monitor hemoglobin and hematocrit -Continue PPI -Further recommendations to follow This patient has been seen by myself and Dr. Castaneda and this note is written on his behalf - Attending Attestation Dr. castaneda <Michelle Nagel - Last Filed: 02/08/18 14:36> (1) GI bleed Status: Acute Code(s): K92.2 - Gastrointestinal hemorrhage, unspecified - Attending Attestation agree with above assessment and plan. Will follow up with you. <Mallory Castaneda - Last Filed: 02/08/18 14:41> <Michelle Nagel - Last Filed: 02/08/18 14:36> (1) GI bleed Qualifiers: GI bleed type/associated pathology: unspecified gastrointestinal hemorrhage type Qualified Code(s): K92.2 - Gastrointestinal hemorrhage, unspecified <Mallory Castaneda - Last Filed: 02/08/18 14:41> (1) GI bleed Qualifiers: GI bleed type/associated pathology: unspecified gastrointestinal hemorrhage type Qualified Code(s): K92.2 - Gastrointestinal hemorrhage, unspecified
--- NOTE | 2018-02-08 14:45 | P.PNIM ---
Subjective Interval history: Patient reports he is feeling ok today. No further episode of hematemesis. Tolerated liquid diet. Physical Exam Vital signs: Vital Signs 02/07/18 16:00 02/07/18 18:23 02/07/18 18:44 Temperature 97.2 F L 97.2 F L 97.3 F L Pulse Rate 75 75 82 Respiratory Rate 20 20 20 Blood Pressure 129/65 131/65 119/63 Pulse Oximetry 97 97 96 02/07/18 20:00 02/07/18 22:22 02/07/18 22:35 Temperature 97.5 F L 98.2 F 98.2 F Pulse Rate 75 81 83 Respiratory Rate 18 18 18 Blood Pressure 122/59 L 150/69 H 134/68 Pulse Oximetry 95 95 96 02/08/18 00:00 02/08/18 04:00 02/08/18 08:00 Temperature 98.8 F 97.3 F L 98.5 F Pulse Rate 66 69 76 Respiratory Rate 18 18 18 Blood Pressure 100/57 L 111/55 L 150/73 H Pulse Oximetry 95 95 95 02/08/18 12:00 Temperature 98.3 F Pulse Rate 63 Respiratory Rate 18 Blood Pressure 106/55 L Pulse Oximetry 95 Intake & Output 02/07/18 02/08/18 02/08/18 18:59 06:59 18:59 Intake Total 1245 / 1245 1855 / 1855 1100 / 1100 Output Total 75 / 75 500 / 500 Balance 1170 / 1170 1355 / 1355 1100 / 1100 Weight 75 kg Intake: IV 1045 / 1045 1055 / 1055 1100 / 1100 Protonix Inj 80 MG In NS Inj 45 / 45 55 / 55 100 / 100 100 ML @ 10 mls/hr IV.CONT Q10H [facility] Rx#:[id number] NS Inj 1,000 ML @ 100 mls/hr IV 1000 / 1000 1000 / 1000 1000 / 1000 .CONT .Q10H [facility] Rx#:[id number] Anesthesia Amount 200 / 200 Intake (Blood Product) Amt 0 / 0 800 / 800 Rbc As-3 Leukoreduced Unit 400 / 400 [id number] Rbc As-3 Leukoreduced Unit 0 / 0 400 / 400 [id number] Output: Urine 75 / 75 500 / 500 Other: # Voids 4 # Incontinent Voids 1 Date of Last Bowel Movement 02/07/18 02/07/18 # Bowel Movements 1 # Incontinent Bowel Movements 1 Narrative: Gen.: Elderly male in no acute distress Head: Normocephalic. Atraumatic. Cardiovascular: Regular rate and rhythm. No murmurs, rubs or gallops. Respiratory: Lungs clear to auscultation bilaterally. No wheezes or rhonchi. Abdomen: Soft, nondistended, nontender. No peritoneal signs. Musculoskeletal: No gross deformities. No edema. Neuro: Alert and oriented X4. Sensory and motor grossly intact. Cranial nerves II through XII grossly intact. Results - Labs CBC & Chem 7: 02/08/18 21:25 02/07/18 08:00 Laboratory Results - last 24 hr 02/07/18 02/07/18 02/07/18 16:30 16:54 17:28 Hgb 7.6 L Hct 23.3 L POC Glucose 180 H MTS Gel Crossmatch See Detail 02/07/18 02/08/18 02/08/18 21:11 03:35 03:59 Hgb 8.4 L Hct 24.3 L POC Glucose 208 H 76 MTS Gel Crossmatch 02/08/18 02/08/18 02/08/18 09:15 09:16 11:08 Hgb 8.7 L Hct 24.6 L POC Glucose 48 L* 63 L MTS Gel Crossmatch 02/08/18 13:20 Hgb Hct POC Glucose 186 H MTS Gel Crossmatch Assessment and Plan - Plan 72-year-old male admitted with upper GI bleed: 1. Upper GI bleed/peptic ulcer disease/GERD Transition to PO protonix BID S/P 2 units of PRBC transfusion S/P EGD which revealed multiple large ulcers were found in the middle third of the esophagus and lower third esophagus; biopsies were taken , likely malignant in appearance. - Discussed the findings with the patient. - Advance diet as tolerated 2. Coronary artery disease Holding home aspirin for GI bleed Continue Coreg 3. Hypertension/BPH/schizophrenia Continue home medications 4. Diabetes mellitus Holding home metformin Sliding-scale insulin Monitor blood glucose 5. Hyponatremia NS Follow-up BMP in a.m. 6. Chronic kidney disease stage III Creatinine 1.43, baseline Monitor renal function DVT PPx: SCDs Discharge Planning: Probably return to SNF tomorrow. He will need follow up with GI for biopsy results.
[2018-02-08 16:22] LABS: Hematocrit 23.7 % (39.0-51.0); Hemoglobin 8.6 gm/dL (13.0-17.0)
[2018-02-08 21:48] LABS: Hematocrit 26.4 % (39.0-51.0); Hemoglobin 9.4 gm/dL (13.0-17.0)
[2018-02-09] MEDS: Melatonin 5 MG Tablet PO PRN (00:42)
[2018-02-09] MEDS: Insulin NovoLOG Aspart Correctional Sugar Inj SQ SCH ×5 (03:20→21:41)
[2018-02-09 07:01] LABS: Hematocrit 24.5 % (39.0-51.0); Hemoglobin 8.5 gm/dL (13.0-17.0); Mean Corpuscular HGB Conc 34.7 % (32.0-36.0); Mean Corpuscular Hemoglobin 29.6 pg (27.0-34.0); Mean Corpuscular Volume 85.4 fL (80.0-100.0); Platelet Count 181 th/mm3 (150-450); Red Blood Count 2.86 mil/mm3 (4.50-5.90); Red Cell Distribution Width 15.2 % (11.6-17.2); White Blood Count 4.5 th/mm3 (4.0-11.0)
[2018-02-09 07:30] LABS: Calcium 7.6 mg/dL (8.5-10.1); Carbon Dioxide 28.9 meq/L (21.0-32.0)
[2018-02-09] MEDS: amLODIPine 10 MG Tablet PO SCH (09:39)
[2018-02-09] MEDS: Citalopram 20 MG Tablet PO SCH (09:39)
[2018-02-09] MEDS: Carvedilol 6.25 MG Tablet PO SCH ×2 (09:39→21:42)
[2018-02-09] MEDS: QUEtiapine 25 MG Tablet PO SCH (09:39)
[2018-02-09] MEDS: Sod Chloride 0.9% Inj 1,000 ML IV.CONT SCH ×2 (09:40→21:47)
--- NOTE | 2018-02-09 14:12 | P.PNGI ---
Subjective Interval history: Patient resting soundly awakens easily Denies any further episodes of hematemesis Tolerating diet <NagelBibi hollingsworthMichelle - Last Filed: 02/09/18 14:09> Physical Exam Vital signs: Vital Signs 02/08/18 16:00 02/08/18 20:00 02/09/18 00:00 Temperature 98.2 F 98.3 F 98.6 F Pulse Rate 70 74 73 Respiratory Rate 18 17 18 Blood Pressure 111/57 L 127/63 111/58 L Pulse Oximetry 95 96 93 L 02/09/18 04:00 02/09/18 08:00 02/09/18 11:59 Temperature 97.1 F L 97.7 F Pulse Rate 55 L 66 68 Respiratory Rate 20 20 Blood Pressure 126/69 125/68 Pulse Oximetry 95 96 Intake & Output 02/08/18 02/09/18 02/09/18 18:59 06:59 18:59 Intake Total 2520 / 2520 1000 / 1000 360 / 360 Output Total 1250 / 1250 400 / 400 Balance 2520 / 2520 -250 / -250 -40 / -40 Weight 70.1 kg Intake: IV 1100 / 1100 1000 / 1000 Protonix Inj 80 MG In NS Inj 100 / 100 0 / 0 100 ML @ 10 mls/hr IV.CONT Q10H DEBBIE Rx#:[id number] NS Inj 1,000 ML @ 100 mls/hr IV 1000 / 1000 1000 / 1000 .CONT .Q10H DEBBIE Rx#:[id number] Oral 1420 / 1420 360 / 360 Output: Urine 1250 / 1250 400 / 400 Other: # Voids 4 3 # Incontinent Voids 1 Date of Last Bowel Movement 02/07/18 - Constitutional no acute distress, chronically ill appearing - Routine HEENT Exam Head: Present: normocephalic - Routine Respiratory Exam Present: CTA bilaterally - Routine Cardiovascular Exam Present: RRR - Routine Abdominal Exam Present: soft, normoactive bowel sounds. Absent: tenderness - Routine Skin Exam Present: dry, warm - Routine Neurological Exam Present: alert <Bibi Nagelcey - Last Filed: 02/09/18 14:09> Vital signs: Vital Signs 02/09/18 20:00 02/10/18 00:00 02/10/18 04:00 Temperature 98.0 F 97.4 F L 97.8 F Pulse Rate 67 65 63 Respiratory Rate 17 20 18 Blood Pressure 151/82 H 130/67 141/74 H Pulse Oximetry 97 96 95 02/10/18 08:00 02/10/18 12:00 Temperature 97.8 F 98.4 F Pulse Rate 69 74 Respiratory Rate 20 20 Blood Pressure 146/80 H 125/70 Pulse Oximetry 97 96 Intake & Output 02/09/18 02/10/18 02/10/18 18:59 06:59 18:59 Intake Total 1810 / 1810 1000 / 1000 Output Total 1110 / 1110 1300 / 1300 Balance 700 / 700 -300 / -300 Weight 70.6 kg Intake: IV 1450 / 1450 1000 / 1000 NS Inj 1,000 ML @ 100 mls/hr IV 1000 / 1000 1000 / 1000 .CONT .Q10H DEBBIE Rx#:[id number] Oral 360 / 360 Output: Urine 1110 / 1110 1300 / 1300 Other: # Voids 4 Date of Last Bowel Movement 02/07/18 02/08/18 02/08/18 <Mallory Roth A - Last Filed: 02/10/18 17:40> Results - Labs CBC & Chem 7: 02/09/18 05:07 02/09/18 05:07 Laboratory Results - last 24 hr 02/08/18 02/08/18 02/08/18 16:04 18:31 21:03 WBC RBC Hgb 8.6 L Hct 23.7 L MCV MCH MCHC RDW Plt Count MPV Sodium Potassium Chloride Carbon Dioxide Anion Gap BUN Creatinine Estimated GFR POC Glucose 137 H 165 H Random Glucose Calcium 02/08/18 02/09/18 02/09/18 21:25 03:16 05:07 WBC 4.5 RBC 2.86 L Hgb 9.4 L 8.5 L Hct 26.4 L 24.5 L MCV 85.4 MCH 29.6 MCHC 34.7 RDW 15.2 Plt Count 181 D MPV 9.0 Sodium Potassium Chloride Carbon Dioxide Anion Gap BUN Creatinine Estimated GFR POC Glucose 123 H Random Glucose Calcium 02/09/18 02/09/18 02/09/18 05:07 09:38 13:23 WBC RBC Hgb Hct MCV MCH MCHC RDW Plt Count MPV Sodium 138 D Potassium 3.0 L D Chloride 101 D Carbon Dioxide 28.9 Anion Gap 8 BUN 18 Creatinine 1.07 Estimated GFR 68 L POC Glucose 131 H 155 H Random Glucose 95 Calcium 7.6 L <NagelMichelle - Last Filed: 02/09/18 14:09> - Labs CBC & Chem 7: 02/09/18 05:07 02/09/18 05:07 Laboratory Results - last 24 hr 02/09/18 02/09/18 02/10/18 17:43 21:40 04:09 POC Glucose 160 H 140 H 131 H 02/10/18 02/10/18 10:04 14:19 POC Glucose 171 H 189 H <Mallory Roth - Last Filed: 02/10/18 17:40> Assessment and Plan (1) GI bleed Status: Acute Code(s): K92.2 - Gastrointestinal hemorrhage, unspecified - Plan This patient is a 72-year-old male with past medical history of diabetes, coronary artery disease post CABG, schizophrenia, hypertension, BPH, chronic kidney disease, peptic ulcer disease and GERD. This patient presented to the emergency room at [facility] with report of coffee-ground emesis. Patient states onset 1-2 days. He reports associated generalized abdominal cramping. Denies any noted diarrhea states stools are soft. Patient denies any fever or chills. Upon consultation, patient endorses multiple episodes of dark brown emesis onset 1-2 days ago. Patient endorsing increasing heartburn although denies use of NSAIDs or blood thinners. Last EGD done 12/30/2017 revealed gastritis with severe esophagitis, stricture distal esophagus and hiatal hernia. Our service has been consulted to evaluate patient for reported coffee-ground emesis/GI bleeding GI bleeding Patient endorses 1-2 days onset of coffee-ground emesis with associated generalized abdominal cramping. -Last EGD 12/30/2017 with findings as noted above. -02/06/2018 abdominal x-ray revealed the following findings: The abdominal bowel gas pattern is normal. Moderate to large stool seen in the rectum. No abnormal masses, calcifications, or organomegaly is seen. The osseous structures are unremarkable. Nonobstructive bowel gas pattern. Considerable stool in the rectum. -Hemoglobin 9.4 hematocrit 27.8 platelet count 285 INR 1.3 total bilirubin 0.3 AST 15 ALT 10 alk phos 63 02/08/2018 GI bleeding Patient denies any noted bleeding, denies any nausea or vomiting. 02/07/2018 EGD : 1. The mucosa of the stomach appeared normal 2. Normal duodenal mucosa 3. Multiple large ulcers were found in the middle third of the esophagus and lower third esophagus; biopsies were taken , likely malignant in appearance. 4. Retroflexion was performed and was normal Hemoglobin 8.7 hematocrit 24.6 stable 02/09/2018 GI bleeding No reported bleeding, patient denies any nausea vomiting or abdominal pain States tolerating diet well 02/09/2018 hemoglobin 8.5 hematocrit 24.5 stable Plan -Diet as tolerated as per attending -Biopsies pending -Avoid NSAIDs or anticoagulants -Monitor for bleeding -Monitor hemoglobin and hematocrit -Continue PPI -Further recommendations to follow This patient has been seen by myself and Dr. Roth and this note is written on his behalf - Attending Attestation Dr. Roth <Michelle Nagel - Last Filed: 02/09/18 14:09> (1) GI bleed Status: Acute Code(s): K92.2 - Gastrointestinal hemorrhage, unspecified - Attending Attestation Agree with above assessment and plan. Will follow up with you as needed . <Mallory Roth - Last Filed: 02/10/18 17:40> <Mallory Roth - Last Filed: 02/10/18 17:40> (1) GI bleed Qualifiers: GI bleed type/associated pathology: unspecified gastrointestinal hemorrhage type Qualified Code(s): K92.2 - Gastrointestinal hemorrhage, unspecified
--- NOTE | 2018-02-09 14:24 | P.DS ---
Date of admission: 02/06/18 21:58 Primary care physician: Alexander Lau MD Brief History from admission: HPI as documented by the admitting physician: 72-year-old male with a past medical history significant for diabetes mellitus, coronary artery disease status post CABG, schizophrenia, hypertension, BPH, CKD stage III, peptic ulcer disease and GERD presents to the emergency department for the evaluation of coffee-ground emesis. The patient reports that he began vomiting sometime earlier today. He endorses generalized abdominal pain. Denies any diarrhea. He reports that he has had associated anorexia for the past day. No fever or chills. No chest pain or shortness of breath. No focal neurologic deficits. At the time of my examination, the patient has a basin of coffee-ground emesis sitting on his chest. Patient update on day of discharge: Patient reports he is feeling well today. He has not had any further episode of hematemesis. He is tolerating his diet and feels back to baseline. We discussed discharge planning. He is advised to follow-up outpatient with GI to review biopsy results. DS: Summary Hospital Course: 72-year-old male admitted with upper GI bleed. Evaluation and treatment course detailed below: 1. Upper GI bleed/peptic ulcer disease/GERD. Patient was admitted Transition to PO protonix BID S/P 2 units of PRBC transfusion S/P EGD which revealed multiple large ulcers were found in the middle third of the esophagus and lower third esophagus; biopsies were taken , likely malignant in appearance. - Discussed the findings with the patient. - He is tolerating a soft diet. Advised him to continue with that. - The patient will return to group home facility and follow-up outpatient with GI to review biopsy results. 2. Coronary artery disease Holding home aspirin for GI bleed. Given bleeding and ulcers with possible malignancies. Patient advised to follow-up outpatient with GI and they can consider restarting aspirin in a couple of weeks Continue Coreg 3. Hypertension/BPH/schizophrenia Continue home medications 4. Diabetes mellitus Sliding-scale insulin Monitor blood glucose Resume home medications on discharge. 5. Hyponatremia NS Follow-up BMP in a.m. 6. Chronic kidney disease stage III Creatinine 1.43, baseline Monitor renal function DVT PPx: SCDs - Time Spent with Patient Total time spent providing and/or coordinating discharge services: Greater than 30 minutes Exam Vital signs: Vital Signs 02/08/18 16:00 02/08/18 20:00 02/09/18 00:00 Temperature 98.2 F 98.3 F 98.6 F Pulse Rate 70 74 73 Respiratory Rate 18 17 18 Blood Pressure 111/57 L 127/63 111/58 L Pulse Oximetry 95 96 93 L 02/09/18 04:00 02/09/18 08:00 02/09/18 11:59 Temperature 97.1 F L 97.7 F Pulse Rate 55 L 66 68 Respiratory Rate 20 20 Blood Pressure 126/69 125/68 Pulse Oximetry 95 96 Intake & Output 02/08/18 02/09/18 02/09/18 18:59 06:59 18:59 Intake Total 2520 / 2520 1000 / 1000 360 / 360 Output Total 1250 / 1250 400 / 400 Balance 2520 / 2520 -250 / -250 -40 / -40 Weight 70.1 kg Intake: IV 1100 / 1100 1000 / 1000 Protonix Inj 80 MG In NS Inj 100 / 100 0 / 0 100 ML @ 10 mls/hr IV.CONT Q10H DEBBIE Rx#:[id number] NS Inj 1,000 ML @ 100 mls/hr IV 1000 / 1000 1000 / 1000 .CONT .Q10H DEBBIE Rx#:[id number] Oral 1420 / 1420 360 / 360 Output: Urine 1250 / 1250 400 / 400 Other: # Voids 4 3 # Incontinent Voids 1 Date of Last Bowel Movement 02/07/18 Narrative: Gen.: Elderly male in no acute distress Head: Normocephalic. Atraumatic. Cardiovascular: Regular rate and rhythm. No murmurs, rubs or gallops. Respiratory: Lungs clear to auscultation bilaterally. No wheezes or rhonchi. Abdomen: Soft, nondistended, nontender. No peritoneal signs. Musculoskeletal: No gross deformities. No edema. Neuro: Alert and oriented X4. Sensory and motor grossly intact. Cranial nerves II through XII grossly intact. Results Procedures completed during hospitalization: EGD Pending studies at discharge: Pending at discharge 02/07/18 Surgical [PTH] Routine Labs on day of discharge: Labs from last 24 hours 02/09/18 02/09/18 02/09/18 13:23 09:38 05:07 WBC RBC Hgb Hct MCV MCH MCHC RDW Plt Count MPV Sodium 138 D Potassium 3.0 L D Chloride 101 D Carbon Dioxide 28.9 Anion Gap 8 BUN 18 Creatinine 1.07 Estimated GFR 68 L POC Glucose 155 H 131 H Random Glucose 95 Calcium 7.6 L 02/09/18 02/09/18 02/08/18 05:07 03:16 21:25 WBC 4.5 RBC 2.86 L Hgb 8.5 L 9.4 L Hct 24.5 L 26.4 L MCV 85.4 MCH 29.6 MCHC 34.7 RDW 15.2 Plt Count 181 D MPV 9.0 Sodium Potassium Chloride Carbon Dioxide Anion Gap BUN Creatinine Estimated GFR POC Glucose 123 H Random Glucose Calcium 02/08/18 02/08/18 02/08/18 21:03 18:31 16:04 WBC RBC Hgb 8.6 L Hct 23.7 L MCV MCH MCHC RDW Plt Count MPV Sodium Potassium Chloride Carbon Dioxide Anion Gap BUN Creatinine Estimated GFR POC Glucose 165 H 137 H Random Glucose Calcium - Impressions ITS Impressions Abdomen X-Ray 02/06/18 19:29 CONCLUSION: Nonobstructive bowel gas pattern. Considerable stool in the rectum. Chest X-Ray 02/06/18 19:29 CONCLUSION: No acute cardiopulmonary disease demonstrated. Discharge Plan - Discharge Disposition Patient Disposition: Discharge to SNF - Discharge Condition Condition: Stable - Discharge Order Discharge Orders: Discharge Order (Routine); Ordered 02/09/18 Ordered By: Kirby Morrison - Physicians Team Primary Care Provider: Alexander Lau Attending Provider: Kirby Morrison Other Providers: Mallory Roth MD
[2018-02-10] MEDS: Insulin NovoLOG Aspart Correctional Sugar Inj SQ SCH ×5 (04:16→20:59)
[2018-02-10] MEDS: Sod Chloride 0.9% Inj 1,000 ML IV.CONT SCH (06:15)
[2018-02-10] MEDS: QUEtiapine 25 MG Tablet PO SCH (09:58)
[2018-02-10] MEDS: amLODIPine 10 MG Tablet PO SCH (09:58)
[2018-02-10] MEDS: Citalopram 20 MG Tablet PO SCH (09:58)
[2018-02-10] MEDS: Carvedilol 6.25 MG Tablet PO SCH ×2 (09:58→20:59)
--- NOTE | 2018-02-10 17:40 | P.PNIM ---
Subjective Interval history: Patient discharged yesterday. However facility felt like his hemoglobin was not stable enough and requested a lab recheck. Patient reports he is feeling okay. He is tolerating a soft diet. He denies any other episodes of hematemesis. No melena. No evidence of GI bleeding. Physical Exam Vital signs: Vital Signs 02/09/18 20:00 02/10/18 00:00 02/10/18 04:00 Temperature 98.0 F 97.4 F L 97.8 F Pulse Rate 67 65 63 Respiratory Rate 17 20 18 Blood Pressure 151/82 H 130/67 141/74 H Pulse Oximetry 97 96 95 02/10/18 08:00 02/10/18 12:00 Temperature 97.8 F 98.4 F Pulse Rate 69 74 Respiratory Rate 20 20 Blood Pressure 146/80 H 125/70 Pulse Oximetry 97 96 Intake & Output 02/09/18 02/10/18 02/10/18 18:59 06:59 18:59 Intake Total 1810 / 1810 1000 / 1000 Output Total 1110 / 1110 1300 / 1300 Balance 700 / 700 -300 / -300 Weight 70.6 kg Intake: IV 1450 / 1450 1000 / 1000 NS Inj 1,000 ML @ 100 mls/hr IV 1000 / 1000 1000 / 1000 .CONT .Q10H DEBBIE Rx#:[id number] Oral 360 / 360 Output: Urine 1110 / 1110 1300 / 1300 Other: # Voids 4 Date of Last Bowel Movement 02/07/18 02/08/18 02/08/18 Narrative: Gen.: Elderly male in no acute distress Head: Normocephalic. Atraumatic. Cardiovascular: Regular rate and rhythm. No murmurs, rubs or gallops. Respiratory: Lungs clear to auscultation bilaterally. No wheezes or rhonchi. Abdomen: Soft, nondistended, nontender. No peritoneal signs. Musculoskeletal: No gross deformities. No edema. Neuro: Alert and oriented X4. Sensory and motor grossly intact. Cranial nerves II through XII grossly intact. Results - Labs CBC & Chem 7: 02/09/18 05:07 02/09/18 05:07 Laboratory Results - last 24 hr 02/09/18 02/09/18 02/10/18 17:43 21:40 04:09 POC Glucose 160 H 140 H 131 H 02/10/18 02/10/18 10:04 14:19 POC Glucose 171 H 189 H - Procedures EGD Assessment and Plan - Plan 72-year-old male admitted with upper GI bleed: 1. Upper GI bleed/peptic ulcer disease/GERD Transitioned to PO protonix BID S/P 2 units of PRBC transfusion S/P EGD which revealed multiple large ulcers were found in the middle third of the esophagus and lower third esophagus; biopsies were taken , likely malignant in appearance. - Discussed the findings with the patient. Pathology is pending. -Continue with soft diet given known esophageal ulcerations. - Patient has been stable with no further signs of GI bleeding. Will repeat H& H today 2. Coronary artery disease Continue to hold NSAIDs and anticoagulant per GI recommendations. Follow-up outpatient. Continue Coreg 3. Hypertension/BPH/schizophrenia Continue home medications 4. Diabetes mellitus Holding home metformin Sliding-scale insulin Monitor blood glucose 5. Hyponatremia: Hypovolemic. Resolved with IV fluid. 6. Chronic kidney disease stage III Creatinine 1.43, baseline Monitor renal function DVT PPx: SCDs Discharge Planning: Cleared for discharge back to SNF pending repeat H&H. He can be discharged if Hgb>8.5
[2018-02-10 19:23] LABS: Hematocrit 32.3 % (39.0-51.0); Hemoglobin 10.8 gm/dL (13.0-17.0)
[2018-02-11] MEDS: Insulin NovoLOG Aspart Correctional Sugar Inj SQ SCH ×5 (03:30→21:58)
[2018-02-11 05:34] LABS: Hematocrit 24.3 % (39.0-51.0); Hemoglobin 8.6 gm/dL (13.0-17.0); Mean Corpuscular HGB Conc 35.3 % (32.0-36.0); Mean Corpuscular Volume 84.9 fL (80.0-100.0); Mean Platelet Volume 8.5 fL (7.0-11.0); Platelet Count 209 th/mm3 (150-450); Red Blood Count 2.86 mil/mm3 (4.50-5.90); Red Cell Distribution Width 15.1 % (11.6-17.2); White Blood Count 4.2 th/mm3 (4.0-11.0)
[2018-02-11] MEDS: amLODIPine 10 MG Tablet PO SCH (09:30)
[2018-02-11] MEDS: Citalopram 20 MG Tablet PO SCH (09:30)
[2018-02-11] MEDS: QUEtiapine 25 MG Tablet PO SCH (09:31)
[2018-02-11] MEDS: Carvedilol 6.25 MG Tablet PO SCH ×2 (09:31→21:52)
[2018-02-11 11:09] LABS: Hematocrit 26.1 % (39.0-51.0); Hemoglobin 9.2 gm/dL (13.0-17.0)
--- NOTE | 2018-02-11 17:23 | P.PNIM ---
Subjective Interval history: Patient discharged back to SNF on 02/09 but he was denied because facility reportedly wanted to make sure that his hemoglobin remained stable. Patient reports he is feeling well. He is tolerating his diet. No melena. He inquired about when he will return to the nursing facility. Physical Exam Vital signs: Vital Signs 02/10/18 19:20 02/10/18 20:00 02/11/18 00:00 Temperature 98.6 F Pulse Rate 74 66 63 Respiratory Rate 18 Blood Pressure 157/78 H Pulse Oximetry 98 02/11/18 00:10 02/11/18 04:00 02/11/18 04:21 Temperature 97.7 F 97.9 F Pulse Rate 73 71 70 Respiratory Rate 18 20 Blood Pressure 114/66 132/70 Pulse Oximetry 97 93 L 02/11/18 08:00 02/11/18 12:00 02/11/18 16:00 Temperature 98.4 F 97.6 F 97.6 F Pulse Rate 68 72 72 Respiratory Rate 20 20 20 Blood Pressure 117/67 137/66 137/66 Pulse Oximetry 97 95 90 L Intake & Output 02/10/18 02/11/18 02/11/18 18:59 06:59 18:59 Intake Total 600 / 600 800 / 800 Output Total 950 / 950 1000 / 1000 1075 / 1075 Balance -350 / -350 -200 / -200 -1075 / -1075 Weight 73.3 kg Intake: Oral 600 / 600 800 / 800 Output: Urine 950 / 950 1000 / 1000 1075 / 1075 Other: Date of Last Bowel Movement 02/08/18 02/08/18 # Bowel Movements 0 Narrative: Gen.: Elderly male in no acute distress Head: Normocephalic. Atraumatic. Cardiovascular: Regular rate and rhythm. No murmurs, rubs or gallops. Respiratory: Lungs clear to auscultation bilaterally. No wheezes or rhonchi. Abdomen: Soft, nondistended, nontender. No peritoneal signs. Musculoskeletal: No gross deformities. No edema. Neuro: Alert and oriented X4. Sensory and motor grossly intact. Cranial nerves II through XII grossly intact. Results - Labs CBC & Chem 7: 02/11/18 10:37 02/09/18 05:07 Laboratory Results - last 24 hr 02/10/18 02/10/18 02/10/18 18:15 18:19 20:50 WBC RBC Hgb 10.8 L D Hct 32.3 L MCV MCH MCHC RDW Plt Count MPV POC Glucose 189 H 181 H 02/11/18 02/11/18 02/11/18 03:30 05:11 09:36 WBC 4.2 RBC 2.86 L Hgb 8.6 L D Hct 24.3 L MCV 84.9 MCH 30.0 MCHC 35.3 RDW 15.1 Plt Count 209 MPV 8.5 POC Glucose 133 H 128 H 02/11/18 02/11/18 02/11/18 10:37 13:29 17:19 WBC RBC Hgb 9.2 L Hct 26.1 L MCV MCH MCHC RDW Plt Count MPV POC Glucose 153 H 197 H - Procedures EGD Assessment and Plan - Plan 72-year-old male admitted with upper GI bleed. Patient underwent EGD which revealed multiple large ulcers concerning for malignancy. Biopsies were taken. Acute bleeding resolved and his H&H stabilized. Preliminary pathology consistent with Sheth's esophagus. Further stains pending but they can be followed outpatient. Patient discharged on 02/09 but his facility denied his return. Will need to discuss with the facility. 1. Upper GI bleed/peptic ulcer disease/GERD Sheth's esophagus S/P 2 units of PRBC transfusion S/P EGD which revealed multiple large ulcers were found in the middle third of the esophagus and lower third esophagus; biopsies were taken , likely malignant in appearance. - Discussed the findings with the patient. Pathology is pending. -Continue with soft diet given known esophageal ulcerations. - Patient has been stable with no further signs of GI bleeding for at least the past two days. Repeat H&H have remained stable. Cleared by GI for DC. Unclear to me why the nursing facility is not accepting the patient back. I have asked case management to setup peer to peer with the senior medical transcriptionist to discuss the case. No indication at this point to keep repeating stable labs when he has no signs of further bleeding. Patient to continue on PPI BID and follow up outpatient with GI. 2. Coronary artery disease Continue to hold NSAIDs and anticoagulant per GI recommendations. Follow-up outpatient. Continue Coreg 3. Hypertension/BPH/schizophrenia Continue home medications 4. Diabetes mellitus Holding home metformin Sliding-scale insulin Monitor blood glucose 5. Hyponatremia: Hypovolemic. Resolved with IV fluid. 6. Chronic kidney disease stage III Renal functions currently better than baseline DVT PPx: SCDs Discharge Planning: Cleared for discharge back to SNF. Awaiting for facility to discuss why patient is not accepted to return. See details above.
[2018-02-12] MEDS: Insulin NovoLOG Aspart Correctional Sugar Inj SQ SCH ×5 (03:07→20:43)
[2018-02-12] MEDS: Carvedilol 6.25 MG Tablet PO SCH ×2 (09:42→20:42)
[2018-02-12] MEDS: QUEtiapine 25 MG Tablet PO SCH (09:42)
[2018-02-12] MEDS: Citalopram 20 MG Tablet PO SCH (09:42)
[2018-02-12] MEDS: amLODIPine 10 MG Tablet PO SCH (09:42)
--- NOTE | 2018-02-12 16:44 | P.PNIM ---
Subjective Interval history: Feeling all right. Asking to go back to SNF. Denies any chest pain or shortness of breath. Denies nausea or vomiting. Denies any bleeding Physical Exam Vital signs: Vital Signs 02/11/18 20:00 02/12/18 00:00 02/12/18 04:00 Temperature 97.5 F L 98.5 F 98.7 F Pulse Rate 67 68 68 Respiratory Rate 17 17 20 Blood Pressure 139/77 121/73 127/69 Pulse Oximetry 95 97 97 02/12/18 04:17 02/12/18 08:00 02/12/18 08:05 Temperature 97.3 F L Pulse Rate 67 69 66 Respiratory Rate 20 Blood Pressure 146/78 H Pulse Oximetry 97 02/12/18 12:00 Temperature 97.4 F L Pulse Rate 75 Respiratory Rate 20 Blood Pressure 151/76 H Pulse Oximetry 97 Intake & Output 02/11/18 02/12/18 02/12/18 18:59 06:59 18:59 Intake Total 1000 / 1000 Output Total 1075 / 1075 400 / 400 200 / 200 Balance -75 / -75 -400 / -400 -200 / -200 Weight 72.3 kg Intake: Oral 1000 / 1000 Output: Urine 1075 / 1075 400 / 400 200 / 200 Other: # Voids 4 Date of Last Bowel Movement 02/08/18 02/11/18 Narrative: GENERAL: Patient lying in bed. Appears comfortable. SKIN: Warm and dry. HEAD: Normocephalic. EYES: No scleral icterus. No injection or drainage. NECK: Supple, trachea midline. No JVD. CARDIOVASCULAR: Regular rate and rhythm without murmurs, gallops, or rubs. RESPIRATORY: Breath sounds equal bilaterally. No accessory muscle use. GASTROINTESTINAL: Abdomen soft, non-tender, nondistended. MUSCULOSKELETAL: No cyanosis, or edema. Results - Labs CBC & Chem 7: 02/11/18 10:37 02/09/18 05:07 Laboratory Results - last 24 hr 02/11/18 02/11/18 02/12/18 17:19 21:54 03:07 POC Glucose 197 H 169 H 107 02/12/18 02/12/18 08:29 13:47 POC Glucose 109 167 H - Procedures EGD Assessment and Plan - Plan 72-year-old male admitted with upper GI bleed. Patient underwent EGD which revealed multiple large ulcers concerning for malignancy. Biopsies were taken. Acute bleeding resolved and his H&H stabilized. Preliminary pathology consistent with Sheth's esophagus. Further stains pending but they can be followed outpatient. Patient discharged on 02/09 but his facility denied his return. Will need to discuss with the facility. // Upper GI bleed/peptic ulcer disease/GERD Sheth's esophagus S/P 2 units of PRBC transfusion S/P EGD which revealed multiple large ulcers were found in the middle third of the esophagus and lower third esophagus; biopsies were taken , likely malignant in appearance. - Discussed the findings with the patient. Pathology is pending. -Continue with soft diet given known esophageal ulcerations. - Patient has been stable with no further signs of GI bleeding for at least the past two days. Repeat H&H have remained stable. Cleared by GI for DC. Unclear to me why the nursing facility is not accepting the patient back. I have asked case management to setup peer to peer with the expert medical writer to discuss the case. No indication at this point to keep repeating stable labs when he has no signs of further bleeding. =Patient to continue on PPI BID and follow up outpatient with GI. Discussed with Dr. Ivan. Will recheck labs, including hemoglobin today. //Hypokalemia. Previously on 02/09 with potassium of 3.0. Will recheck labs. // Coronary artery disease Continue to hold NSAIDs and anticoagulant per GI recommendations. Follow-up outpatient. Continue Coreg // Hypertension/BPH/schizophrenia Continue home medications // Diabetes mellitus Holding home metformin Sliding-scale insulin Monitor blood glucose // Hyponatremia: Hypovolemic. Resolved with IV fluid. //Chronic kidney disease stage III Renal functions currently better than baseline DVT PPx: SCDs Discussed Condition With: Patient, nurse, Dr. Lau Discharge Planning: Cleared for discharge back to SNF. 02/12. Discussed with Dr. Lau at receiving facility. Will recheck hemoglobin and basic labs for stability.
[2018-02-12 20:27] LABS: Baso # (Auto) 0.1 th/mm3 (0.0-0.2); Baso % (Auto) 1.3 % (0.0-2.0); Eos # (Auto) 0.2 th/mm3 (0.0-0.4); Eos % (Auto) 6.1 % (0.0-4.0); Hematocrit 27.4 % (39.0-51.0); Hemoglobin 9.5 gm/dL (13.0-17.0); Lymph # (Auto) 0.7 th/mm3 (1.0-4.8); Lymph % (Auto) 17.8 % (9.0-44.0); Mean Corpuscular HGB Conc 34.7 % (32.0-36.0); Mean Corpuscular Hemoglobin 29.5 pg (27.0-34.0); Mean Corpuscular Volume 84.8 fL (80.0-100.0); Mean Platelet Volume 8.7 fL (7.0-11.0); Mono # (Auto) 0.5 th/mm3 (0.0-0.9); Mono % (Auto) 12.5 % (0.0-8.0); Neut # (Auto) 2.5 th/mm3 (1.8-7.7); Neut % (Auto) 62.3 % (16.0-70.0); Platelet Count 266 th/mm3 (150-450); Red Blood Count 3.23 mil/mm3 (4.50-5.90); Red Cell Distribution Width 14.6 % (11.6-17.2)
[2018-02-12 20:52] LABS: Calcium 8.1 mg/dL (8.5-10.1); Carbon Dioxide 27.1 meq/L (21.0-32.0)
[2018-02-12] MEDS ORDERED: Bisacodyl 10 MG Supp RECTAL PRN (22:30)
[2018-02-13] MEDS: Insulin NovoLOG Aspart Correctional Sugar Inj SQ SCH ×5 (03:09→21:41)
[2018-02-13 06:36] LABS: Baso % (Auto) 1.3 % (0.0-2.0); Eos # (Auto) 0.2 th/mm3 (0.0-0.4); Eos % (Auto) 6.1 % (0.0-4.0); Hemoglobin 8.6 gm/dL (13.0-17.0); Lymph % (Auto) 28.3 % (9.0-44.0); Mean Corpuscular HGB Conc 34.4 % (32.0-36.0); Mean Corpuscular Hemoglobin 29.5 pg (27.0-34.0); Mean Corpuscular Volume 85.8 fL (80.0-100.0); Mean Platelet Volume 8.7 fL (7.0-11.0); Mono # (Auto) 0.4 th/mm3 (0.0-0.9); Mono % (Auto) 12.3 % (0.0-8.0); Neut # (Auto) 1.8 th/mm3 (1.8-7.7); Platelet Count 248 th/mm3 (150-450); Red Blood Count 2.91 mil/mm3 (4.50-5.90); Red Cell Distribution Width 15.2 % (11.6-17.2); White Blood Count 3.5 th/mm3 (4.0-11.0)
[2018-02-13 06:57] LABS: Albumin 2.1 g/dL (3.4-5.0); Calcium 8.1 mg/dL (8.5-10.1); Carbon Dioxide 27.4 meq/L (21.0-32.0); Magnesium 1.6 mg/dL (1.5-2.5); Potassium 3.4 meq/L (3.5-5.1)
[2018-02-13 07:13] LABS: Phosphorus 2.5 mg/dL (2.5-4.9)
[2018-02-13] MEDS ORDERED: Iron Sucrose Inj 100 MG/5 ML Vial IV.PUSH ONE (08:00)
[2018-02-13] MEDS ORDERED: Potassium Chlor 10 mEq Premix 10 MEQ/100 ML PIGGYBACK IV.SIG ONE (09:45)
--- NOTE | 2018-02-13 09:57 | P.PNIM ---
Subjective Interval history: Feeling well. Denies any chest pain shortness of breath. Denies any nausea or vomiting. Physical Exam Vital signs: Vital Signs 02/12/18 12:00 02/12/18 16:00 02/12/18 20:00 Temperature 97.4 F L 97.9 F 98.7 F Pulse Rate 75 69 71 Respiratory Rate 20 20 19 Blood Pressure 151/76 H 128/68 126/71 Pulse Oximetry 97 98 96 02/12/18 20:30 02/13/18 00:00 02/13/18 02:22 Temperature 98.6 F Pulse Rate 71 78 Respiratory Rate 20 18 Blood Pressure 113/63 Pulse Oximetry 98 02/13/18 04:00 02/13/18 05:48 02/13/18 08:00 Temperature 97.2 F L 98.3 F Pulse Rate 62 73 68 Respiratory Rate 18 20 Blood Pressure 103/61 131/74 Pulse Oximetry 96 97 Intake & Output 02/12/18 02/13/18 02/13/18 18:59 06:59 18:59 Intake Total 1500 / 1500 Output Total 750 / 750 Balance 750 / 750 Weight 72.3 kg Intake: Oral 1500 / 1500 Output: Urine 750 / 750 Other: # Voids 4 1 Narrative: GENERAL: Patient lying in bed. Appears comfortable. No change on exam. SKIN: Warm and dry. HEAD: Normocephalic. EYES: No scleral icterus. No injection or drainage. NECK: Supple, trachea midline. No JVD. CARDIOVASCULAR: Regular rate and rhythm without murmurs, gallops, or rubs. RESPIRATORY: Breath sounds equal bilaterally. No accessory muscle use. GASTROINTESTINAL: Abdomen soft, non-tender, nondistended. MUSCULOSKELETAL: No cyanosis, or edema. Results - Labs CBC & Chem 7: 02/13/18 05:13 02/13/18 05:13 Laboratory Results - last 24 hr 02/12/18 02/12/18 02/12/18 13:47 18:10 19:30 WBC 4.0 RBC 3.23 L Hgb 9.5 L Hct 27.4 L MCV 84.8 MCH 29.5 MCHC 34.7 RDW 14.6 Plt Count 266 MPV 8.7 Neut % (Auto) 62.3 Lymph % (Auto) 17.8 Carver % (Auto) 12.5 H Eos % (Auto) 6.1 H Baso % (Auto) 1.3 Neut # (Auto) 2.5 Lymph # (Auto) 0.7 L Carver # (Auto) 0.5 Eos # (Auto) 0.2 Baso # (Auto) 0.1 WBC Differential . Differential Comment Auto diff final Sodium Potassium Chloride Carbon Dioxide Anion Gap BUN Creatinine Estimated GFR POC Glucose 167 H 174 H Random Glucose Calcium Phosphorus Magnesium Albumin 02/12/18 02/12/18 02/13/18 19:30 20:25 02:59 WBC RBC Hgb Hct MCV MCH MCHC RDW Plt Count MPV Neut % (Auto) Lymph % (Auto) Carver % (Auto) Eos % (Auto) Baso % (Auto) Neut # (Auto) Lymph # (Auto) Carver # (Auto) Eos # (Auto) Baso # (Auto) WBC Differential Differential Comment Sodium 132 L Potassium 4.0 Chloride 99 Carbon Dioxide 27.1 Anion Gap 6 BUN 10 Creatinine 1.06 Estimated GFR 68 L POC Glucose 124 H 121 H Random Glucose 171 H Calcium 8.1 L Phosphorus Magnesium Albumin 02/13/18 02/13/18 02/13/18 05:13 05:13 08:43 WBC 3.5 L RBC 2.91 L Hgb 8.6 L Hct 25.0 L MCV 85.8 MCH 29.5 MCHC 34.4 RDW 15.2 Plt Count 248 MPV 8.7 Neut % (Auto) 52.0 Lymph % (Auto) 28.3 Carver % (Auto) 12.3 H Eos % (Auto) 6.1 H Baso % (Auto) 1.3 Neut # (Auto) 1.8 Lymph # (Auto) 1.0 Carver # (Auto) 0.4 Eos # (Auto) 0.2 Baso # (Auto) 0.0 WBC Differential . Differential Comment Auto diff final Sodium 135 L Potassium 3.4 L Chloride 100 Carbon Dioxide 27.4 Anion Gap 8 BUN 8 Creatinine 0.89 Estimated GFR 84 L POC Glucose 113 H Random Glucose 103 Calcium 8.1 L Phosphorus 2.5 Magnesium 1.6 Albumin 2.1 L - Procedures EGD Assessment and Plan - Plan 72-year-old male admitted with upper GI bleed. Patient underwent EGD which revealed multiple large ulcers concerning for malignancy. Biopsies were taken. Acute bleeding resolved and his H&H stabilized. Preliminary pathology consistent with Sheth's esophagus. Further stains pending but they can be followed outpatient. Patient discharged on 02/09 but his facility denied his return. Will need to discuss with the facility. // Upper GI bleed/peptic ulcer disease/GERD Sheth's esophagus S/P 2 units of PRBC transfusion S/P EGD which revealed multiple large ulcers were found in the middle third of the esophagus and lower third esophagus; biopsies were taken , likely malignant in appearance. - Discussed the findings with the patient. Pathology is pending. -Continue with soft diet given known esophageal ulcerations. - Patient has been stable with no further signs of GI bleeding for at least the past two days. Repeat H&H have remained stable. Cleared by GI for DC. Unclear to me why the nursing facility is not accepting the patient back. I have asked case management to setup peer to peer with the nurses medical assistants phlebotomists to discuss the case. No indication at this point to keep repeating stable labs when he has no signs of further bleeding. =02/12 Patient to continue on PPI BID and follow up outpatient with GI. Discussed with Dr. Lau. Will recheck labs, including hemoglobin today. = 02/13. Hemoglobin dropped to 8.6 from 9.5, however white blood cells down, platelets as well. This is likely dilutional due to poor lab draw. Will recheck stat labs //Hypokalemia. Previously on 02/09 with potassium of 3.0. Will recheck labs. = Potassium improved to 3.4. Will replace. // Coronary artery disease Continue to hold NSAIDs and anticoagulant per GI recommendations. Follow-up outpatient. Continue Coreg = Holding aspirin due to anemia. // Hypertension/BPH/schizophrenia Continue home medications // Diabetes mellitus Holding home metformin Sliding-scale insulin Monitor blood glucose // Hyponatremia: Hypovolemic. Resolved with IV fluid. //Chronic kidney disease stage III Renal functions currently better than baseline DVT PPx: SCDs Discharge Planning: Cleared for discharge back to SNF. 02/12. Discussed with Dr. Lau at receiving facility. Will recheck hemoglobin and basic labs for stability. = 02/13. Rechecking hemoglobin to verify stability. Have asked GI for final recommendations regarding esophageal ulcers. Continue to hold aspirin.
[2018-02-13] MEDS: Senna/Docusate Sodium 8.6/50 MG Tablet PO SCH ×2 (10:26→21:28)
[2018-02-13] MEDS: amLODIPine 10 MG Tablet PO SCH (10:26)
[2018-02-13] MEDS: Carvedilol 6.25 MG Tablet PO SCH ×2 (10:26→21:28)
[2018-02-13] MEDS: Citalopram 20 MG Tablet PO SCH (10:26)
[2018-02-13] MEDS: QUEtiapine 25 MG Tablet PO SCH (10:27)
[2018-02-13 10:55] LABS: Baso % (Auto) 1.3 % (0.0-2.0); Eos # (Auto) 0.2 th/mm3 (0.0-0.4); Eos % (Auto) 5.4 % (0.0-4.0); Hematocrit 28.7 % (39.0-51.0); Lymph # (Auto) 0.7 th/mm3 (1.0-4.8); Lymph % (Auto) 19.1 % (9.0-44.0); Mean Corpuscular HGB Conc 34.9 % (32.0-36.0); Mean Corpuscular Hemoglobin 30.4 pg (27.0-34.0); Mean Corpuscular Volume 87.1 fL (80.0-100.0); Mean Platelet Volume 8.1 fL (7.0-11.0); Mono # (Auto) 0.5 th/mm3 (0.0-0.9); Mono % (Auto) 12.1 % (0.0-8.0); Neut # (Auto) 2.4 th/mm3 (1.8-7.7); Neut % (Auto) 62.1 % (16.0-70.0); Platelet Count 249 th/mm3 (150-450); Red Cell Distribution Width 15.5 % (11.6-17.2); White Blood Count 3.8 th/mm3 (4.0-11.0)
[2018-02-13] MEDS ORDERED: Mag Sulf 1 gm/100 ml Premix 100 ML IV.SIG ONE (11:00)
[2018-02-13] MEDS: SODIUM BICARBONATE PO SCH ×3 (14:00→21:41)
[2018-02-13] MEDS: ALUMINUM HYDROXIDE PO SCH ×3 (14:00→21:41)
[2018-02-13] MEDS: [UNRECOGNIZED DRUG - OTHER] PO SCH ×3 (14:00→21:41)
[2018-02-13] MEDS: Melatonin 5 MG Tablet PO PRN (21:28)
[2018-02-14] MEDS: Insulin NovoLOG Aspart Correctional Sugar Inj SQ SCH ×4 (03:46→18:08)
[2018-02-14] MEDS: QUEtiapine 25 MG Tablet PO SCH (09:00)
[2018-02-14] MEDS: Citalopram 20 MG Tablet PO SCH (09:00)
[2018-02-14] MEDS: Senna/Docusate Sodium 8.6/50 MG Tablet PO SCH (09:00)
[2018-02-14] MEDS: Carvedilol 6.25 MG Tablet PO SCH (09:00)
[2018-02-14] MEDS: amLODIPine 10 MG Tablet PO SCH (09:00)
--- NOTE | 2018-02-14 10:22 | P.DCO ---
- Diagnosis (1) Generalized weakness Status: Acute (2) Physical deconditioning Status: Acute - Physical Therapy Order: Evaluate and treat - Home Health Nursing Order: Medical education, Signs/symptoms of disease process, Nursing assessment with vital signs - Student Worker Order: To evaluate: Living conditions/environment, Support services Order: To provide: Long range planning, Community services - Case Management Consult Case Management Consult-Home Health: Yes - Certification I have seen patient Bharathi Coffey on 02/14/18. My clinical findings support the need for the requested home health care services because: Deconditioned with increased weakness I certify that my clinical findings support that this patient is homebound because: Unsafe to leave home unassisted
--- NOTE | 2018-02-14 11:02 | P.PNIM ---
Subjective Interval history: Patient says he is feeling right. Denies any chest pain or shortness of breath. Denies any nausea or vomiting. Physical Exam Vital signs: Vital Signs 02/13/18 12:00 02/13/18 16:00 02/13/18 20:00 Temperature 98.5 F 97.8 F 98.3 F Pulse Rate 71 67 68 Respiratory Rate 20 20 20 Blood Pressure 136/82 120/64 142/74 H Pulse Oximetry 97 94 L 98 02/13/18 20:02 02/13/18 23:53 02/14/18 00:00 Temperature 98.2 F Pulse Rate 69 67 70 Respiratory Rate 20 Blood Pressure 113/61 Pulse Oximetry 97 02/14/18 04:00 02/14/18 08:00 Temperature 97.9 F 97.5 F L Pulse Rate 64 70 Respiratory Rate 20 16 Blood Pressure 126/71 147/78 H Pulse Oximetry 98 95 Intake & Output 02/13/18 02/14/18 02/14/18 18:59 06:59 18:59 Intake Total 1900 / 1900 Output Total 700 / 700 Balance 1900 / 1900 -700 / -700 Weight 72.1 kg Intake: IV 200 / 200 Magnesium Sulfate 1 gm/D5W 100 100 / 100 ml Premix 100 ML @ 100 mls/hr IV.SIG ONCE ONE Rx#:[id number] KCl 10 mEq Premix Inj 10 meq In 100 / 100 100 ml @ 100 mls/hr IV.SIG ONCE ONE Rx#:[id number] Oral 1500 / 1500 Anesthesia Amount 200 / 200 Output: Urine 700 / 700 Other: Date of Last Bowel Movement 02/11/18 Narrative: GENERAL: Patient lying in bed. Appears comfortable. Again with no change on exam. SKIN: Warm and dry. HEAD: Normocephalic. EYES: No scleral icterus. No injection or drainage. NECK: Supple, trachea midline. No JVD. CARDIOVASCULAR: Regular rate and rhythm without murmurs, gallops, or rubs. RESPIRATORY: Breath sounds equal bilaterally. No accessory muscle use. GASTROINTESTINAL: Abdomen soft, non-tender, nondistended. MUSCULOSKELETAL: No cyanosis, or edema. Results - Labs CBC & Chem 7: 02/13/18 10:45 02/13/18 05:13 Laboratory Results - last 24 hr 02/13/18 02/14/18 02/14/18 21:32 03:43 08:43 POC Glucose 196 H 109 117 H - Procedures EGD Assessment and Plan - Assessment (1) Generalized weakness Code(s): R53.1 - Weakness Status: Acute (2) Physical deconditioning Code(s): R53.81 - Other malaise Status: Acute - Plan 72-year-old male admitted with upper GI bleed. Patient underwent EGD which revealed multiple large ulcers concerning for malignancy. Biopsies were taken. Acute bleeding resolved and his H&H stabilized. Preliminary pathology consistent with Sheth's esophagus. Further stains pending but they can be followed outpatient. Patient discharged on 02/09 but his facility denied his return. Will need to discuss with the facility. // Upper GI bleed/peptic ulcer disease/GERD Sheth's esophagus S/P 2 units of PRBC transfusion S/P EGD which revealed multiple large ulcers were found in the middle third of the esophagus and lower third esophagus; biopsies were taken , likely malignant in appearance. - Discussed the findings with the patient. Pathology is pending. -Continue with soft diet given known esophageal ulcerations. - Patient has been stable with no further signs of GI bleeding for at least the past two days. Repeat H&H have remained stable. Cleared by GI for DC. Unclear to me why the nursing facility is not accepting the patient back. I have asked case management to setup peer to peer with the medical records manager to discuss the case. No indication at this point to keep repeating stable labs when he has no signs of further bleeding. =02/12 Patient to continue on PPI BID and follow up outpatient with GI. Discussed with Dr. Lau. Will recheck labs, including hemoglobin today. = 02/13. Hemoglobin dropped to 8.6 from 9.5, however white blood cells down, platelets as well. This is likely dilutional due to poor lab draw. Will recheck stat labs. = 02/14. Hemoglobin 10.0 from 8.6 in the morning with no transfusion. Likely poor lab draws. Continue to hold aspirin.. //Hypokalemia. Previously on 02/09 with potassium of 3.0. Will recheck labs. = Potassium improved to 3.4. Will replace. = 01/18. Replaced yesterday. Monitor tomorrow. // Coronary artery disease Continue to hold NSAIDs and anticoagulant per GI recommendations. Follow-up outpatient. Continue Coreg = cont Holding aspirin due to anemia. // Hypertension/BPH/schizophrenia Continue home medications // Diabetes mellitus Holding home metformin Sliding-scale insulin Monitor blood glucose // Hyponatremia: Hypovolemic. Resolved with IV fluid. //Chronic kidney disease stage III Renal functions currently better than baseline DVT PPx: SCDs Discharge Planning: Cleared for discharge to SNF. Hemoglobin stable. Will order PT evaluation.
[2018-02-14] MEDS: SODIUM BICARBONATE PO SCH ×3 (12:06→18:09)
[2018-02-14] MEDS: [UNRECOGNIZED DRUG - OTHER] PO SCH ×3 (12:06→18:09)
[2018-02-14] MEDS: ALUMINUM HYDROXIDE PO SCH ×3 (12:06→18:09)
[2018-02-14 12:35] VITALS: RESP 18; O2SAT 96
[2018-02-14 16:35] VITALS: BP 134/71; PULSE 69; TEMP 98.2
== END 2018-02-14 19:46 ==
LOC: NEPC 17:33 → NEDA 21:58 → N05 02-07 01:18
PROVIDERS: ADMIT Family Medicine; ATTEND Family Medicine
PROC: PANENDO (2018-02-07 13:49)